=== PATIENT | male | born 1935 | race Caucasian/White ===

== ENCOUNTER 2020-02-02 07:43 | Outpatient (CLI) | payer MEDICARE, OTHER, SELFPAY ==
--- NOTE | ~2020-02-02 | NM_ITS ---
EXAMINATION: NM bone scan whole body DATE: 02/02/2020 11:41 INDICATION: Prostate cancer TECHNIQUE: 24.2 mCi Tc-99m HDP was administered intravenously. Delayed whole-body scintigrams were o btained. COMPARISON: CT abdomen and pelvis dated 11/09/2019 and 10/27/2019 and bone scan dated 06/24/2011 FINDINGS: There is prominent increased uptake along the right innominate bone and at the right sacrum with righ t-sided predominance. This corresponds to a diffuse pattern of thickened trabecula and scattered patc hy sclerosis on the CT images with no significant interval change between the 2 CT studies. Mild incr eased uptake along the moderately narrowed L2-L3 disc space where there are also degenerative endplat e changes. Typical pattern of additional likely degenerative joint centered uptake at the right gonzalez la, bilateral first metatarsophalangeal joints, right greater than left, at the right acromioclavicul ar joint, bilateral sternoclavicular joints and at the radial aspect of the left carpus. Mild uptake at the base of the cervical spine most likely degenerative in etiology although no imaging is availab le for comparison. No other suspicious foci of bone uptake to suggest metastatic disease. Mild increa sed uptake at the sternum associated with prior median sternotomy. IMPRESSION: 1. Increased uptake associated with sclerosis throughout much of the right innominate bone and sacrum . 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 Differential would include metastati c disease however the widespread distribution through contiguous bones with no evident extraosseous e xtension or without other suspicious lesions in the remainder of the skeleton would be highly unusual . 2. Several additional scattered foci of likely degenerative joint and disc centered uptake with typic al distribution. Reviewed, dictated and finalized at location A. IMPRESSION: 1. Increased uptake associated with sclerosis throughout much of the right inno minate bone and sacrum. The appearance on CT would be consistent with Paget's d isease. Differential would include metastatic disease however the widespread di stribution through contiguous bones with no evident extraosseous extension or w ithout other suspicious lesions in the remainder of the skeleton would be highl y unusual. 2. Several additional scattered foci of likely degenerative joint and disc cent ered uptake with typical distribution.
== END 2020-02-02 07:44 | disposition home or self-care (01) ==
PROVIDERS: PCP Family Medicine; Visit Provider Urology
DX: C61 Malignant neoplasm of prostate (principal)
CPT/HCPCS: 78306; A9561

== ENCOUNTER 2020-05-21 10:38 | Outpatient (CLI) | payer MEDICARE, SELFPAY ==
--- NOTE | ~2020-05-21 | CT_ITS ---
EXAMINATION: CT abdomen pelvis wo con DATE: 05/21/2020 11:02 INDICATION: Prostate cancer with skeletal metastasis TECHNIQUE: Computed tomography (CT) of the abdomen and pelvis was performed without intravenous contr ast. Automated exposure control and iterative reconstruction technique were employed. Exam dose: 469 .31 mGy-cm total exam DLP. COMPARISON: 11/09/2019 CT abdomen pelvis FINDINGS: Bilateral gynecomastia. 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 There are mil d bilateral lower lung infiltrates, atelectasis and/or fibrotic change. Status post sternotomy. Heart size is normal. Coronary artery calcifications. No pericardial or pleur al effusion. Calcified right hilar nodes. Status post cholecystectomy. There are multiple hepatic cysts. No bile duct or pancreatic duct dilata tion. Normal splenic size. Normal morphology of the adrenal glands. No renal mass lesion is evident on this limited noncontrast examination. No urinary tract calculus or hydroureteronephrosis. Moderate prostate enlargement and calcifications. There is abdominal aortic calcification but no aneurysm. No intraperitoneal or retroperitoneal or pel mynor mass lesion or adenopathy or ascites. There are numerous diverticula of the left and to a lesser extent right colon; no CT evidence of dive rticulitis. No bowel obstruction, bowel wall thickening, pneumatosis or intraperitoneal free air. There is Cotrell appearance of the right ilium bone suggestive of Paget's disease similar changes of the sacrum, present on the previous examination. Vertebral hemangiomas are again noted. 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 Reviewed, dictated and finalized at location A. 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
== END 2020-05-21 10:39 | disposition home or self-care (01) ==
PROVIDERS: PCP Family Medicine; Visit Provider Urology
DX: C61 Malignant neoplasm of prostate (principal); N28.1 Cyst of kidney, acquired
CPT/HCPCS: 74176

== ENCOUNTER 2020-07-02 09:41 | Outpatient (CLI) | payer MEDICARE, SELFPAY ==
[2020-07-02 10:28] LABS: Basophils Percent Auto 0.2 % (0.2-1.2); Eosinophils Absolute Auto 0.1 K/mm3 (0-0.3); Eosinophils Percent Auto 2.8 % (0-4.4); Hematocrit 31.7 % (42.0-52.0); Hemoglobin 10.8 g/dL (14.0-18.0); Immature Granulocyte Absolute 0.01 K/mm3 (0.00-0.031); Immature Granulocyte Percent A 0.2 % (0-0.5); Lymphocytes Absolute Auto 1.16 K/mm3 (0.9-3.2); Lymphocytes Percent Auto 22.9 % (18.3-44.2); Mean Corpuscular HGB Conc 34.1 g/dl (32-36); Mean Corpuscular Volume 94.1 fl (80-100); Mean Platelet Volume 10.4 fl (7.4-10.4); Monocytes Absolute Auto 0.4 K/mm3 (0.1-0.6); Monocytes Percent Auto 7.9 % (2.6-8.5); Neutrophils Absolute Auto 3.4 K/mm3 (1.3-6.7); Platelet Count Result 155 k/mm3 (150-375); Red Blood Count 3.37 M/mm3 (4.6-6.20); White Blood Count 5.1 K/mm3 (4.5-10.0)
[2020-07-02 10:44] LABS: Potassium 3.9 mmol/L (3.4-5.0)
[2020-07-02 10:49] LABS: Alanine Aminotransferase 11 U/L (4-50); Albumin Level 3.9 g/dL (3.5-5.1); Alkaline Phosphatase 190 U/L (38-126); Anion Gap 8 mmol/L (8-16); Aspartate Amino Transferase 26 U/L (17-59); Bilirubin,Total 0.4 mg/dL (0.2-1.3); Blood Urea Nitrogen 33 mg/dL (9-20); Calcium 8.8 mg/dL (8.4-10.2); Carbon Dioxide 28 mmol/L (22-30); Chloride 105 mmol/L (98-107); Cholesterol 137 mg/dL (0-200); Estimated Glomerular Filt Rate 36; Glucose 92 mg/dL (75-110); HDL Direct 32 mg/dL; Sodium 141 mmol/L (137-145); Triglycerides 135 mg/dL (<150)
[2020-07-02 10:55] LABS: LDL Cholesterol Direct 75 mg/dL
== END 2020-07-02 09:42 | disposition home or self-care (01) ==
LOC: ANHLAB 09:45
PROVIDERS: PCP Family Medicine; Visit Provider Family Medicine
DX: E78.2 Mixed hyperlipidemia (principal); I10 Essential (primary) hypertension; R53.83 Other fatigue; D64.9 Anemia, unspecified
CPT/HCPCS: 36415; 80053; 80061; 84443; 85025

== ENCOUNTER 2020-10-15 12:31 | Outpatient (CLI) | payer MEDICARE, SELFPAY ==
--- NOTE | ~2020-10-15 | MR_ITS ---
EXAMINATION: MR pelvis wo con DATE: 10/15/2020 14:29 INDICATION: Left hip pain TECHNIQUE: Magnetic resonance imaging (MRI) of the pelvis was performed without intravenous contrast . Sequences included full-field axial, sagittal and coronal T2-weighted FS FSE and T1-weighted FSE of the pelvis. Additional small field of view of the left hip with axial and coronal PD-weighted FS FSE . COMPARISON: Radiographs dated 10/08/2020, CT dated 05/21/2020 and bone scan dated 02/02/2020 FINDINGS: Alignment is normal. No fracture or avascular necrosis. Mild to moderate lumbar spondylosis. There i s decreased marrow T1 signal along the right iliac crest and at the S1 segment corresponding to regio ns of sclerosis with increased activity on prior bone scan which could be related to either metastati c disease or metastatic prostate cancer. More dense sclerotic bone islands along the anterior right i liac crest. There are foci of susceptibility artifact at the left greater trochanter involving the footplates of both the left gluteus medius and gluteus minimus tendons likely related to prior tendon tear repair. There is a small amount of fluid in the overlying greater trochanteric bursa consistent with mild bur sitis. There is mild retraction of the myotendinous junction at the anterior aspect of the left glute us medius medius which measures approximately 2.8 cm from the footplate consistent with partial thick ness tear. Unclear whether this preceded or is new since the prior repair. There is mild tendinopathy of the left gluteus medius medius and minimus tendons but without evident fluid signal intensity res idual/recurrent tear defect or discrete retracted tendon tear margin is appreciated. The right sided gluteal tendons are normal. The tensor fascia saira muscles are symmetric and normal in size with no s ignificant hypertrophy to suggest a functionally significant abductor tendon tear. There is asymmetri c moderate fatty atrophy of the left gluteus minimus relative to the right gluteus minimus. Remainder of the musculature of the pelvis and proximal thighs appears normal and symmetric. Mild nonuniform joint space narrowing at the anterior and posterior aspects of the left hip consisten t with mild osteoarthritis. Small partial-thickness labral tear arising at the chondral labral juncti on at the superolateral left acetabular labrum. The bilateral iliopsoas and proximal hamstring tendon s are normal. Moderate sigmoid diverticulosis without adjacent inflammatory change to suggest diverti culitis. 13 mm T2 hyperintense nodule at the transitional zone at the right side of the prostate whic h could be related to reported history of prior prostate cancer. Postoperative change of prior bilate ral inguinal hernia repairs. No pathologically enlarged pelvic/inguinal lymphadenopathy. IMPRESSION: 1. Mild left trochanteric bursitis with change of underlying prior left gluteus medius minimus and me dius tendon repairs. The repair appears grossly intact however there is some retraction of the myoten dinous junction consistent with a partial thickness tear of indeterminate chronicity, unclear whether preceding or subsequent to the repair. 2. Mild decreased marrow signal at S1 and along the right iliac crest corresponding to a region of in creased sclerosis on prior CT and increased activity on bone scan most likely related to pagetoid bernadette nge although differential would include metastatic prostate cancer. See discussion on prior bone scan dated 02/02/2020. 3. Mild left hip osteoarthritis with small tear at the superolateral left acetabular labrum. Reviewed, dictated and finalized at location A. ICATION EQUIPMENT SERVICER IMPRESSION: 1. Mild left trochanteric bursitis with change of underlying prior left gluteus medius minimus and medius te
[2020-10-15 13:22] LABS: Estimated Glomerular Filt Rate 32
== END 2020-10-15 12:32 | disposition home or self-care (01) ==
PROVIDERS: PCP Family Medicine; Visit Provider Orthopaedic Surgery
DX: R10.2 Pelvic and perineal pain (principal); M70.62 Trochanteric bursitis, left hip; M16.12 Unilateral primary osteoarthritis, left hip
CPT/HCPCS: 72195

== ENCOUNTER 2021-01-24 14:59 | Outpatient (CLI) | payer MEDICARE, SELFPAY ==
[2021-01-24 16:00] LABS: Alanine Aminotransferase 11 U/L (4-50); Albumin Level 4.1 g/dL (3.5-5.1); Alkaline Phosphatase 165 U/L (38-126); Anion Gap 9 mmol/L (8-16); Aspartate Amino Transferase 29 U/L (17-59); Bilirubin,Total 0.7 mg/dL (0.2-1.3); Blood Urea Nitrogen 29 mg/dL (9-20); Calcium 9.3 mg/dL (8.4-10.2); Carbon Dioxide 28 mmol/L (22-30); Chloride 104 mmol/L (98-107); Estimated Glomerular Filt Rate 39; Glucose 100 mg/dL (75-110); Potassium 4.2 mmol/L (3.4-5.0); Sodium 141 mmol/L (137-145)
== END 2021-01-24 15:00 | disposition home or self-care (01) ==
PROVIDERS: PCP Family Medicine; Visit Provider Family Medicine
DX: I11.9 Hypertensive heart disease without heart failure (principal)
CPT/HCPCS: 36415; 80053

== ENCOUNTER 2021-08-27 14:09 | Outpatient (CLI) | payer MEDICARE, SELFPAY ==
--- NOTE | ~2021-08-27 | CT_ITS ---
EXAMINATION: CT brain wo con DATE: 08/27/2021 14:43 INDICATION: Unspecified fall, initial encounter. TECHNIQUE: Computed tomography (CT) of the head was performed without intravenous contrast. The mA wa s adjusted according to patient size. Iterative reconstruction technique was employed. The dose-lengt h product was 605.33 mGy-cm. COMPARISON: None FINDINGS: There are small old infarcts in left cerebellum. There are scattered areas of low attenuati on in the cerebral white matter. There is no intracranial hemorrhage, acute infarction, or abnormal i ntracranial mass lesion. There is an old infarct in right frontal lobe. There is an old infarct in th e left occipital lobe. The ventricles are normal in size. There is mild mucosal thickening in the par anasal sinuses. The mastoid air cells are normal. There are likely changes of ocular lens replacement surgeries. IMPRESSION: 1. 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 2. Moderate nonspecific cerebral white matter disease, which likely represents chronic small vessel i schemic disease. Reviewed, dictated and finalized at location A. IMPRESSION: 1. 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 2. Moderate nonspecific cerebral white matter disease, which likely represents chronic small vessel ischemic disease.
[2021-08-27 15:43] LABS: Hemoglobin 10.1 g/dL (14.0-18.0); Mean Corpuscular HGB Conc 33.7 g/dl (32-36); Mean Corpuscular Hemoglobin 32.9 pg (26-34); Mean Corpuscular Volume 97.7 fl (80-100); Mean Platelet Volume 9.9 fl (7.4-10.4); Platelet Count Result 165 k/mm3 (150-375); Red Blood Count 3.07 M/mm3 (4.6-6.20); Red Cell Distribution Width 13.7 % (11.5-14.5)
[2021-08-27 15:50] LABS: Add Urine Microscopic? YES; Appearance Urine Cloudy (Clear); Bacteria Urine Trace /hpf; Bilirubin Urine Negative (Negative); Blood Urine Negative (Negative); Color Urine Yellow (Yellow); Glucose Urine UA Negative (Negative); Ketones Urine Negative (Negative); Leukocyte Esterase Ur 3+ LEU/UL (NEGATIVE); Mucus Urine Rare /lpf; Nitrate Urine Negative (Negative); Protein Urine Negative (Negative); Specific Grav Ur 1.016 (1.001-1.035); Squamous Epithelial Cell Urine Rare /hpf (Few); Urobilinogen Urine Negative mg/dL (<2.0); WBC Urine >75 /hpf (0-3)
[2021-08-27 15:55] LABS: Creatine Kinase 48 U/L (55-170)
[2021-08-27 15:58] LABS: Alanine Aminotransferase 12 U/L (4-50); Albumin Level 4.1 g/dL (3.5-5.1); Alkaline Phosphatase 142 U/L (38-126); Anion Gap 10 mmol/L (8-16); Aspartate Amino Transferase 26 U/L (17-59); Bilirubin,Total 0.6 mg/dL (0.2-1.3); Blood Urea Nitrogen 33 mg/dL (9-20); Calcium 9.2 mg/dL (8.4-10.2); Carbon Dioxide 26 mmol/L (22-30); Chloride 105 mmol/L (98-107); Estimated Glomerular Filt Rate 36; Glucose 97 mg/dL (65-110); Sodium 141 mmol/L (137-145)
== END 2021-08-27 14:10 | disposition home or self-care (01) ==
PROVIDERS: PCP Family Medicine; Visit Provider Physician Assistant
DX: D50.0 Iron deficiency anemia secondary to blood loss (chronic) (principal); G20 Parkinson's disease; I11.9 Hypertensive heart disease without heart failure; I25.10 Atherosclerotic heart disease of native coronary artery without angina pectoris; I48.0 Paroxysmal atrial fibrillation; R97.20 Elevated prostate specific antigen [PSA]; Z86.79 Personal history of other diseases of the circulatory system; E78.5 Hyperlipidemia, unspecified; Z95.2 Presence of prosthetic heart valve; R41.0 Disorientation, unspecified; R93.0 Abnormal findings on diagnostic imaging of skull and head, not elsewhere classified
CPT/HCPCS: 36415; 70450; 80053; 81001; 82550; 85027

== ENCOUNTER 2021-09-26 14:17 | Outpatient (CLI) | payer MEDICARE, SELFPAY ==
--- NOTE | ~2021-09-26 | XR_ITS ---
EXAMINATION: XR hip LT min 3V w AP pelvis DATE: 09/26/2021 14:36 INDICATION: Left hip pain. TECHNIQUE: An anteroposterior view of the pelvis and 3 views of left hip were obtained. COMPARISON: Pelvis and left hip radiographs 10/08/2020, CT abdomen and pelvis 05/21/2020 FINDINGS: Bone alignment is normal. No fracture. There are thickened trabecula in the right ilium and sacrum, consistent with Paget disease. There is mild osteoarthritis of the hips. There is moderate l umbar spondylosis. IMPRESSION: 1. Mild osteoarthritis of the hips. Reviewed, dictated and finalized at location A. INTEGRITY ANALYST
== END 2021-09-26 14:18 | disposition home or self-care (01) ==
LOC: ANHIMG 14:23
PROVIDERS: PCP Family Medicine; Visit Provider Physician Assistant
DX: M16.0 Bilateral primary osteoarthritis of hip (principal)
CPT/HCPCS: 73502

== ENCOUNTER 2022-01-05 16:36 | Inpatient (IN) | payer MEDICARE, SELFPAY ==
--- NOTE | ~2022-01-05 | CT_ITS ---
EXAMINATION: CT diagnostic chest wo con DATE: 01/05/2022 22:21 INDICATION: Dyspnea TECHNIQUE: Computed tomography (CT) of the chest was performed without intravenous contrast. Automate d exposure control and iterative reconstruction technique were employed. Exam dose: 145.65 mGy-cm to cl exam DLP. COMPARISON: January 05, 2022 2 view chest FINDINGS: Bilateral pleural plaques with calcification are identified, consistent with prior asbestos exposure. Status post sternotomy, probable coronary bypass graft surgery and either aortic valve replacement an d calcification. Recommend correlation with surgical history. Coronary artery calcifications. Normal heart size. No pericardial or pleural effusion. No hilar or mediastinal mass lesion or lymphadenopathy. Thoracic aortic aneurysm, the mid thoracic aortic arch measuring 3.2 cm, the distal aortic arch measu ring 3.5 cm diameter. The ascending aorta measures up to 3.8 cm diameter. There is mild infiltrate and/or atelectasis in the mid and lower lung zones. Mild bilateral gynecomastia. Small sliding hiatal hernia. Multiple hepatic cysts. IMPRESSION: Bilateral calcified pleural plaques consistent with prior asbestos exposure Mild mid and lower lung infiltrate since and/or atelectasis Status post sternotomy and probable coronary bypass graft surgery, possible aortic valve replacement versus aortic valve calcification Thoracic aortic aneurysm Mild bilateral gynecomastia Small sliding hiatal hernia Multiple hepatic cysts Reviewed, dictated and finalized at [facility]. Reviewed, dictated and finalized at location A. ITOMETRIST IMPRESSION: Bilateral calcified pleural plaques consistent with prior asbestos exposure Mild mid and lower lung infiltrate since and/or atelectasis Status post sternotomy and probable coronary bypass graft surgery, possible aor tic valve replacement versus aortic valve calcification Thoracic aortic aneurysm Mild bilateral gynecomastia Small sliding hiatal hernia Multiple hepatic cysts
--- NOTE | ~2022-01-05 | XR_ITS ---
XR chest 2V DATE: 01/05/2022 17:09 INDICATION: Shortness breath for 3 months TECHNIQUE: PA and lateral views COMPARISON: None FINDINGS: Status post sternotomy/coronary artery bypass graft surgery. Normal heart size. Thoracic ao rtic calcification. There is mild bibasilar atelectasis or fibrotic change. No active consolidation is evident otherwise. No pleural effusion or pulmonary vascular congestion or pneumothorax. Status post cholecystectomy. Diffuse osteopenia. IMPRESSION: Mild bibasilar atelectasis and/or fibrotic change Status post sternotomy/CABG Diffuse osteopenia Status post cholecystectomy Reviewed, dictated and finalized at location A. R MILL MANAGER
--- NOTE | 2022-01-05 16:37 | ECG_ITS ---
Measurements Intervals [place] Rate: 56 P: 19 ME: 194 QRS: 196 QRSD: 137 T: 39 QT: 455 QTc: 441 Interpretive Statements SINUS OR ECTOPIC ATRIAL BRADYCARDIA RIGHT AXIS DEVIATION RIGHT BUNDLE BRANCH BLOCK BASELINE ARTIFACT- I, II, III, AVR, AVL, AVF, V1, V3 ABNORMAL ECG Electronically Signed On 01-05-2022 20:59:57 VIDEOGAME DESIGNER by Joni Washington D.O.
[2022-01-05 16:40] VITALS: BP 149/62; PULSE 57; RESP 20; TEMP 37.2; O2SAT 96
[2022-01-05 17:21] LABS: Basophils Percent Auto 0.1 % (0.2-1.2); Eosinophils Absolute Auto 0.3 K/mm3 (0-0.3); Eosinophils Percent Auto 3.1 % (0-4.4); Hematocrit 31.7 % (42.0-52.0); Hemoglobin 10.5 g/dL (14.0-18.0); Immature Granulocyte Absolute 0.03 K/mm3 (0.00-0.031); Immature Granulocyte Percent A 0.3 % (0-0.5); Lymphocytes Absolute Auto 1.38 K/mm3 (0.9-3.2); Lymphocytes Percent Auto 15.7 % (18.3-44.2); Mean Corpuscular HGB Conc 33.1 g/dl (32-36); Mean Corpuscular Hemoglobin 32.6 pg (26-34); Mean Corpuscular Volume 98.4 fl (80-100); Mean Platelet Volume 10.2 fl (7.4-10.4); Monocytes Absolute Auto 0.6 K/mm3 (0.1-0.6); Monocytes Percent Auto 6.6 % (2.6-8.5); Neutrophils Absolute Auto 6.5 K/mm3 (1.3-6.7); Neutrophils Percent Auto 74.2 % (45.5-73.1); Platelet Count Result 160 k/mm3 (150-375); Red Blood Count 3.22 M/mm3 (4.6-6.20); Red Cell Distribution Width 14.4 % (11.5-14.5); White Blood Count 8.8 K/mm3 (4.5-10.0)
[2022-01-05 17:33] LABS: Alanine Aminotransferase 11 U/L (4-50); Albumin Level 3.9 g/dL (3.5-5.1); Alkaline Phosphatase 163 U/L (38-126); Anion Gap 8 mmol/L (8-16); Aspartate Amino Transferase 24 U/L (17-59); Bilirubin,Total 0.6 mg/dL (0.2-1.3); Blood Urea Nitrogen 29 mg/dL (9-20); Calcium 8.6 mg/dL (8.4-10.2); Carbon Dioxide 27 mmol/L (22-30); Chloride 106 mmol/L (98-107); Estimated CRCL calculation 37 ml/min; Estimated Glomerular Filt Rate 44; Glucose 94 mg/dL (65-110); Potassium 4.2 mmol/L (3.4-5.0); Sodium 141 mmol/L (137-145)
[2022-01-05 18:32] VITALS: BP 180/65; PULSE 67; RESP 16; O2SAT 97
[2022-01-05 19:16] VITALS: BP 151/62; PULSE 59; RESP 13; O2SAT 97
[2022-01-05 20:01] VITALS: BP 172/63; PULSE 60; RESP 12; O2SAT 97
--- NOTE | 2022-01-05 20:03 | ED.SOB ---
HPI - SOB/Dyspnea General Chief Complaint: Shortness of Breath/Dyspnea Stated Complaint: sob Time Seen by Provider: 01/05/22 19:12 Source: patient, family and RN notes reviewed Mode of arrival: ambulatory Limitations: no limitations History of Present Illness HPI Narrative: This is an 86 year old male with history of CAD and hypertension who presents for evaluation of dyspnea. Patient states he has been having dyspnea with exertion for 2- 3 months. Today he is reporting worsening shortness of breath. He does not walk around much but he does report he was short of breath going to bathroom today. He states he was able to walk 60 feet but does report shortness of breath. He has mild cough but he states that is due to irritation. He denies chest pain, wheezing, leg swelling or fever. He denies lung disease but he reports history of CABG. Denies history of DVT or PE. Related Data Home Medications Medication Instructions Recorded Confirmed aspirin 81 mg tablet,delayed 81 mg PO DAILY 01/22/20 09/26/21 release metoprolol tartrate 25 mg tablet 6.25 mg PO DAILY tablet 01/22/20 09/26/21 omega-3 fatty acids 1,000 mg 1,000 mg PO DAILY 01/22/20 09/26/21 capsule pyridoxine (vitamin B6) 100 mg 100 mg PO DAILY 01/22/20 09/26/21 tablet enzalutamide 40 mg capsule 80 mg PO DAILY 06/25/20 09/26/21 oxybutynin chloride 5 mg tablet 5 mg PO DAILY 10/08/20 01/06/22 hydrochlorothiazide 12.5 mg PO DAILY 01/06/22 01/06/22 lisinopril 10 mg PO DAILY 01/06/22 01/06/22 mirtazapine 30 mg PO HS 01/06/22 01/06/22 Allergies Allergy/AdvReac Type Severity Reaction Status Date / Time fesoterodine [From [facility]] Allergy Severe cannot Verified 01/05/22 16:36 move and went to ER morphine Allergy Unknown Nausea And Verified 01/05/22 16:36 Vomiting Penicillins Allergy Unknown Swelling Verified 01/05/22 16:36 Review of Systems Review of Systems: All systems reviewed & are unremarkable except as noted in HPI and below Constitutional: Constitutional: Denies chills, Denies fever(s) and Reports weakness ENT: Denies nasal congestion Cardiovascular: Cardiovascular: Denies chest pain Respiratory: Respiratory: Reports cough and Reports dyspnea Gastrointestinal: Gastrointestinal: Denies abdominal pain, Denies diarrhea and Denies nausea PMFSH Past Medical History Medical History Coronary artery disease involving [place] coronary artery of [place] heart Hypertension Left hip pain Prostate cancer metastatic Surgical History Surgical History Hx of CABG Family History Family History (Updated 01/06/22 @ 02:47 by Pennie Schroeder RN) Father Cancer Mother Cancer Social History Social History (Updated 09/26/21 @ 13:27 by Mona Woody MA) Smoking packs per day: 1 Smoking cigarettes per day: 20.0 Years smoked: 4 Smoking pack-years: 4.00 Smoking status: Former smoker Second hand tobacco smoke exposure: No Smoking end date: 11/08/1965 Alcohol intake: never Substance use: never Substance use type: does not use Gender identity (if verbalized by the patient): Male Spiritual care concerns: No Exam Const: General: no acute distress and alert Orientation/consciousness: patient oriented x3 Eyes: EOM: EOMs intact bilaterally Chest: Chest palpation & inspection: normal inspection of the chest Resp: Effort & Inspection: normal respiratory effort and no retractions Auscultation: clear to auscultation bilaterally and diminished lung sounds Cardio: Rate: regular rate Rhythm: regular rhythm Heart sounds: no murmurs GI: GI Palp: Yes Soft to palpation, No Tenderness to palpation present (GI) and No Guarding due to palpation present (GI) Auscultation: normal bowel sounds Back/Spine/Pelvis: Back: no CVA tenderness Skin: General skin exam: normal color Rashes: no rashes Neuro: General
[2022-01-05 20:35] LABS: NT Pro B Type Natriuretic Pept 1380 pg/mL (5-100); Troponin I 0.015 ng/mL (0.000-0.034)
[2022-01-05 20:42] LABS: INR 1.1; Prothrombin Time 13.7 Seconds (11.1-14.7)
[2022-01-05 20:43] LABS: Partial Thromboplastin Time 30.4 SECONDS (22.3-36.8)
[2022-01-05 20:43] LABS: Add Urine Microscopic? YES; Appearance Urine Clear (Clear); Bacteria Urine Trace /hpf; Bilirubin Urine Negative (Negative); Blood Urine 1+ (Negative); Color Urine Straw (Yellow); Glucose Urine UA Negative (Negative); Ketones Urine Negative (Negative); Leukocyte Esterase Ur 3+ LEU/UL (Negative); Mucus Urine Rare /lpf; Nitrate Urine Negative (Negative); Protein Urine Negative (Negative); Specific Grav Ur 1.011 (1.001-1.035); Urobilinogen Urine Negative mg/dL (<2.0); WBC Urine 51-75 /hpf
[2022-01-05 20:45] LABS: D Dimer 0.41 ug/mL (<0.48)
[2022-01-05 20:51] LABS: Alveolar/Arterial O2 Gradient 24.3 mmHg; Base Excess ABG 0.5 mEq/l (+/-2.0); Carboxyhemoglobin 0.3 % THb (0-2.0); Device ROOM AIR; Fractional Inspired Oxygen 21 %; HCO3 ABG 24.5 mEq/l (22.0-26.0); Methemoglobin ABG 0.1 %THb (0-1.5); Modified Allen's Test Pass; Oxygen Content ABG 15.6 %vol (16.0-22.0); Oxygen Saturation ABG 96.3 % (95.0-100.0); Oxyhemoglobin 94.2 % THb (90.0-100.0); PCO2 ABG 37.4 mmHg (35.0-45.0); PO2 ABG 80.6 mmHg (80.0-100.0); PO2 FiO2 Ratio Arterial Blood 3.84 %; Reduced Hemoglobin 5.4 %THb (0-5.0); Site Drawn RIGHT RADIAL; Total Hemoglobin 11.7 g/dL (12.0-18.0); pH ABG 7.435 (7.350-7.450)
[2022-01-05 21:51] VITALS: PULSE 69; RESP 11; O2SAT 98
[2022-01-05] MEDS: CIPROFLOXACIN 500 MG TAB PO (21:59)
[2022-01-05 22:00] VITALS: BP 139/81; PULSE 72; RESP 16; O2SAT 97
[2022-01-05 23:52] LABS: SARS-CoV-2 RNA PCR Negative
[2022-01-06] VITALS (13 sets, daily range): BP systolic 164–183; BP diastolic 68–86; PULSE 60–90; RESP 15–18; TEMP 36.1–36.9; O2SAT 94–99; BMI 23.3
--- NOTE | 2022-01-06 02:44 | ADMGEN ---
This patient, Adrian Matias, was admitted to 3 [facility] Surg Room 326-01. Patient/family oriented to hospital policies and general routines including ID bracelet, bed and alarms, visiting hours, pain management, procedures, bathroom and other care routines, personal items, smoking policy, room service/diet, and visiting hours. Information on how to activate the Rapid Response Team has been discussed. Patient/Family are encouraged to report perceived risks to care and to ask questions if they do not understand what they are told or what they should do.
--- NOTE | 2022-01-06 09:45 | PM.IMHP ---
H&P: HPI History of Present Illness Date/Time: 01/06/22 0945 Chief Complaint: Dyspnea Narrative: Patient is an 86-year-old male with a past medical history of Parkinson's, iron deficiency anemia, hypertension, prostate cancer who presented the ED for shortness of breath. Patient is currently on room air however he was on room air and he was walking was noted to have a saturation in the 80s. Patient stated that it is been getting worse over the last couple days. He also stated that he has a cough with nothing coming up and a little bit of pain and is chest however he states that it is when he coughs. He denies any nausea, vomiting, diarrhea, constipation. Patient did state that he feels weak. His biggest complaint also was his neck is in pain. He rated that pain to be a 5/10. Per nursing his daughter came up to clarify his past medical history. She also provided a med list. Patient did state that he takes his medications as indicated. He denies headache visual changes, numbness and tingling, falls, or dizziness. Patient is being admitted under observation to the hospitalist service Review of Systems Review of Systems: All systems reviewed & are unremarkable except as noted in HPI and below PMFSH Past Medical History Medical History Coronary artery disease involving [place] coronary artery of [place] heart Hypertension Left hip pain Prostate cancer metastatic Surgical History Surgical History Hx of CABG Family History Family History Father Cancer Mother Cancer Social History Social History (Updated 09/26/21 @ 13:27 by Mona Woody MA) Smoking packs per day: 1 Smoking cigarettes per day: 20.0 Years smoked: 4 Smoking pack-years: 4.00 Smoking status: Former smoker Second hand tobacco smoke exposure: No Smoking end date: 11/08/1965 Alcohol intake: never Substance use: never Substance use type: does not use Gender identity (if verbalized by the patient): Male Spiritual care concerns: No Meds Home Medications and Allergies Home Medications Medication Instructions Recorded Confirmed Type aspirin 81 mg tablet,delayed 81 mg PO HS 01/22/20 01/06/22 History release metoprolol tartrate 25 mg tablet 6.25 mg PO DAILY tablet 01/22/20 01/06/22 History omega-3 fatty acids 1,000 mg 1,000 mg PO DAILY 01/22/20 01/06/22 History capsule pyridoxine (vitamin B6) 100 mg 100 mg PO DAILY 01/22/20 01/06/22 History tablet enzalutamide 40 mg capsule 40 mg PO HS 06/25/20 01/06/22 History ferrous sulfate 325 mg (65 mg 325 mg PO BID #60 tablet 07/02/21 01/06/22 Rx iron) tablet finasteride 5 mg tablet 5 mg PO DAILY #90 tablet 07/02/21 01/06/22 Rx pantoprazole 40 mg tablet,delayed 40 mg PO QAM #90 tablet 07/02/21 01/06/22 Rx release paroxetine HCl 10 mg tablet 10 mg PO QAM #90 tablet 07/02/21 01/06/22 Rx alprazolam 0.25 mg tablet 0.25 mg PO QID PRN #120 tablet 01/02/22 01/06/22 Rx carbidopa-levodopa 1 tablet PO BID 01/06/22 01/06/22 History hydrochlorothiazide 12.5 mg PO DAILY 01/06/22 01/06/22 History hydrocodone-acetaminophen 1 tablet PO Q8H 01/06/22 01/06/22 History lisinopril 10 mg PO DAILY 01/06/22 01/06/22 History mirtazapine 30 mg PO HS 01/06/22 01/06/22 History oxybutynin chloride 5 mg PO HS 01/06/22 01/06/22 History tamsulosin 0.4 mg PO HS 01/06/22 01/06/22 History Allergies Allergy/AdvReac Type Severity Reaction Status Date / Time fesoterodine [From [facility]] Allergy Severe Unknown Verified 01/06/22 08:50 morphine Allergy Unknown Nausea And Verified 01/06/22 08:50 Vomiting Penicillins Allergy Unknown Swelling Verified 01/06/22 08:50 Vital Signs Vital Signs - 24 hr 01/05/22 16:40 01/05/22 18:32 01/05/22 19:16 Temperature 98.9 F Pulse Rate 57 L 67 59 L Respiratory Rate 20 16 13 Blood Pressur
[2022-01-06] MEDS: ALPRAZolam (*CRX) 0.25 MG TABLET PO ×2 (13:26→17:45)
[2022-01-06] MEDS: HYDROcodone/acetaminophen (*CRX) 5-325 MG TABLET 1 TAB PO ×2 (15:47→22:25)
[2022-01-06] MEDS: FERROUS SULFATE 324 MG TABLET PO (17:20)
[2022-01-06] MEDS: CARBIDOPA/LEVODOPA 25/100 MG TABLET 1 TABLET PO (17:20)
[2022-01-06] MEDS: ONDANSETRON INJ 4 MG/2 ML VIAL IV PUSH (18:45)
[2022-01-06] MEDS: MIRTAZAPINE 30 MG TABLET PO (19:55)
[2022-01-06] MEDS: ASPIRIN 81 MG ENTERIC TABLET PO (19:55)
[2022-01-06] MEDS: TAMSULOSIN HCL 0.4 MG CAPSULE PO (19:55)
[2022-01-07] VITALS (12 sets, daily range): BP systolic 140–164; BP diastolic 65–84; PULSE 67–100; RESP 16–18; TEMP 36.7–37.3; O2SAT 94–96
[2022-01-07 05:58] LABS: Basophils Percent Auto 0.1 % (0.2-1.2); Eosinophils Absolute Auto 0.1 K/mm3 (0-0.3); Eosinophils Percent Auto 0.9 % (0-4.4); Hematocrit 31.7 % (42.0-52.0); Hemoglobin 10.7 g/dL (14.0-18.0); Immature Granulocyte Absolute 0.04 K/mm3 (0.00-0.031); Immature Granulocyte Percent A 0.4 % (0-0.5); Lymphocytes Absolute Auto 1.13 K/mm3 (0.9-3.2); Lymphocytes Percent Auto 12.5 % (18.3-44.2); Mean Corpuscular HGB Conc 33.8 g/dl (32-36); Mean Corpuscular Hemoglobin 32.5 pg (26-34); Mean Corpuscular Volume 96.4 fl (80-100); Mean Platelet Volume 10.1 fl (7.4-10.4); Monocytes Absolute Auto 0.6 K/mm3 (0.1-0.6); Monocytes Percent Auto 6.7 % (2.6-8.5); Neutrophils Absolute Auto 7.2 K/mm3 (1.3-6.7); Neutrophils Percent Auto 79.4 % (45.5-73.1); Platelet Count Result 144 k/mm3 (150-375); Red Blood Count 3.29 M/mm3 (4.6-6.20)
--- NOTE | 2022-01-07 06:00 | ECHO_ITS ---
Patient Info Name: Adrian Matias Age: 86 years : 1935 Gender: Male Ht: 73 in Wt: 177 lbs BSA: 2.03 m2 HR: 87 bpm BP: 164 / 71 mmHg Heart Rhythm: Sinus Rhythm Technical Quality: Fair Exam Date: 01/07/2022 7:22 AM Exam Location: [facility] Pulmonary Patient Status: Inpatient Admit Date: 01/06/2022 Staff Ordering Physician: Giulia Olivares MD Drum Stenciler: Peggy Johns RDCS Attending Provider: Angelica Hernandez DO Referring Physician: Elise CABRERA; Exam Type: CA echo dop color flow w con Study Info Indications - dyspnea on exertion Complete two-dimensional, color flow and Doppler transthoracic echocardiogram is performed with contrast to opacify the left ventricle and to improve the deliniation of the left ventricle endocardial borders. Contrast/Agitated Saline Contrast/Ag. Saline: Definity Amount: 2.00 ml Administered By: Peggy Johns RDCS Existing IV Access: Yes IV Access Condition: patent with no signs of infiltration Summary 1. Left ventricular chamber dimension is normal. 2. Left ventricular systolic function is normal, estimated at 60-65%. 3. There is moderately increased left ventricular wall thickness. 4. The left ventricular diastolic function is grade I diastolic dysfunction. 5. Left atrial chamber dimension is severely enlarged. 6. Right atrial chamber dimension is moderately enlarged. 7. 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 8. There is trace regurgitation of the bioprosthetic aortic valve. 9. There is mild mitral valve regurgitation. 10. There is mild to moderate tricuspid valve regurgitation. 11. Mild pulmonary hypertension, estimated pulmonary arterial systolic pressure is 44 mmHg. Left Ventricle Left ventricular chamber dimension is normal. Left ventricular systolic function is normal, estimated at 60-65%. There is moderately increased left ventricular wall thickness. The left ventricular diastolic function is grade I diastolic dysfunction. Right Ventricle Right ventricular chamber dimension is normal. Right ventricular systolic function is normal. Left Atria Left atrial chamber dimension is severely enlarged. Right Atria Right atrial chamber dimension is moderately enlarged. Atrial Septum Intact interatrial septum visualized by color flow imaging. 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 There is trace regurgitation of the bioprosthetic aortic valve. Pulmonic Valve The pulmonic valve is normal. There is no pulmonic valve stenosis. There is trace pulmonic regurgitation. Mitral Valve The mitral valve has thickened leaflets. There is no mitral valve stenosis. There is mild mitral valve regurgitation. Tricuspid Valve The tricuspid valve leaflets are normal. There is no significant tricuspid valve stenosis. There is mild to moderate tricuspid valve regurgitation. Mild pulmonary hypertension, estimated pulmonary arterial systolic pressure is 44 mmHg. Pericardium/Pleural The pericardium appears normal. There is no pericardial effusion. Inferior Vena Cava Normal inferior vena cava with >50% collapse upon inspiration consistent with normal right atrial pressure, 10 mmHg. Aorta The aortic root size at the sin
[2022-01-07] MEDS: HYDROcodone/acetaminophen (*CRX) 5-325 MG TABLET 1 TAB PO ×3 (06:12→21:43)
[2022-01-07 06:16] LABS: Alanine Aminotransferase 8 U/L (4-50); Albumin Level 3.8 g/dL (3.5-5.1); Alkaline Phosphatase 140 U/L (38-126); Anion Gap 9 mmol/L (8-16); Aspartate Amino Transferase 28 U/L (17-59); Bilirubin,Total 0.9 mg/dL (0.2-1.3); Blood Urea Nitrogen 23 mg/dL (9-20); Calcium 8.9 mg/dL (8.4-10.2); Carbon Dioxide 25 mmol/L (22-30); Chloride 107 mmol/L (98-107); Estimated CRCL calculation 37 ml/min; Estimated Glomerular Filt Rate 44; Glucose 110 mg/dL (65-110); Magnesium 1.8 mg/dL (1.6-2.3); Potassium 3.6 mmol/L (3.4-5.0); Sodium 141 mmol/L (137-145)
[2022-01-07] MEDS: PERFLUTREN LIPID MICROSPHERES 1.5 ML VIAL DILUTED TO 10 ML TOTAL VOLUME IV PUSH (08:17)
--- NOTE | 2022-01-07 08:17 | IVDEFINITY ---
Prior to administration of IV Definity the patient was educated on the risks and benefits of the imaging enhancing agent including potential adverse side effects. The patient verbalized understanding. Allergies were verified. No exclusion criteria were identified and at least one of the following inclusion criteria were met: 1) physician request, 2) patient technically difficult to image (per the [place] [employer] guidelines of two or more segments not discernable within the apical view), or 3) questionable left ventricular function. ?
[2022-01-07] MEDS: FINASTERIDE 5 MG TABLET PO (08:44)
[2022-01-07] MEDS: PARoxetine 10 MG TABLET PO (08:44)
[2022-01-07] MEDS: PYRIDOXINE HCL 50 MG TABLET 100 MG PO (08:44)
[2022-01-07] MEDS: FERROUS SULFATE 324 MG TABLET PO ×2 (08:45→17:19)
[2022-01-07] MEDS: OMEGA 3 POLYUNSAT FATTY ACIDS 1 GM CAP PO (08:45)
[2022-01-07] MEDS: hydroCHLOROthiazide 12.5 MG CAPSULE PO (08:45)
[2022-01-07] MEDS: ALPRAZolam (*CRX) 0.25 MG TABLET PO ×2 (08:45→20:17)
[2022-01-07] MEDS: lisinopriL 10 MG TABLET PO (08:45)
[2022-01-07] MEDS: PANTOPRAZOLE 40 MG TABLET PO (08:45)
[2022-01-07] MEDS: METOPROLOL TARTRATE 12.5 MG TABLET PO ×2 (09:34→20:41)
[2022-01-07] MEDS: amLODIPine BESYLATE 5 MG TABLET PO (09:35)
--- NOTE | 2022-01-07 11:40 | PM.IMPN ---
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 Status: Acute Assessment and Plan: Chest x-ray shows exposure Chronic finding Patient will need a home O2 eval The supply the cause of the dyspnea on exertion (2) Dyspnea on exertion: Code(s): R06.00 - Dyspnea, unspecified Status: Acute Assessment and Plan: Patient was noted have a saturation in the 80s X-ray did show asbestos exposure Patient remains on room air and saturations are in the 90s Continue to trend SpO2 (3) Fluid overload: Code(s): E87.70 - Fluid overload, unspecified Status: Acute Assessment and Plan: BNP mildly elevated Echo was ordered and pending Chest x-ray does not show any cardiomegaly or pulmonary congestion Trend urine status (4) Anxiety: Code(s): F41.9 - Anxiety disorder, unspecified Status: Acute Assessment and Plan: Continue Xanax from home (5) Prostate cancer: Code(s): C61 - Malignant neoplasm of prostate Status: Chronic Assessment and Plan: Patient does have prostate cancer with metastasis Xtandi, family is going to bring in today Restart after pharmacy checks it (6) Anemia: Code(s): D64.9 - Anemia, unspecified Status: Acute Assessment and Plan: Hemoglobin hematocrit 10.7/31.7 Looks to be a chronic iron deficiency anemia Continue home ferrous sulfate 325 mg p.o. twice a day Trend labs Consider anemia labs if trending down (7) Parkinson disease: Code(s): G20 - Parkinson's disease Status: Acute Assessment and Plan: Stopped carbidopa levodopa Per his grand daughter, patient stopped this medication a while back because it had made him sick Zofran has been added PT/OT (8) Hypertension: Code(s): I10 - Essential (primary) hypertension Status: Acute Assessment and Plan: Current blood pressure 164/71 Continue home medications including hydrochlorothiazide 12.5, lisinopril 10, metoprolol 6.25 Changed his metoprolol from 6.25 to 12.5mg PO BID, and added amlodipine 5mg PO Daily Trend blood pressure Adjust as indicated (9) UTI (urinary tract infection): Code(s): N39.0 - Urinary tract infection, site not specified Status: Acute Assessment and Plan: UA: found Clear straw colored urine with Ur Blood 1+, Leukocyte Esterase 3+, WBC 51-75, Trace bacteria Urine culture found Enterococcus species Changed antibiotics to Vanc Await sensitivities for proper PO antibiotic Trend labs (10) Generalized weakness: Code(s): R53.1 - Weakness Status: Acute Assessment and Plan: Unable to get to the bathroom this am Probably due to the UTI Changed antibiotics Will await sensitivities Time Spent With Patient Time with patient: Greater than 35 minutes Subjective Date/time seen: 01/07/22 11:40 Interval history: Date/Time: 01/06/22 4159 Narrative: Patient is an 86-year-old male with a past medical history of Parkinson's, iron deficiency anemia, hypertension, prostate cancer who presented the ED for shortness of breath. Patient is currently on room air however he was on room air and he was walking was noted to have a saturation in the 80s. Patient stated that it is been getting worse over the last couple days. He also stated that he has a cough with nothing coming up and a little bit of pain and is chest however he states that it is when he coughs. He denies any nausea, vomiting, diarrhea, constipation. Patient did state that he feels weak. His biggest complaint also was his neck is in pain. He rated that pain to be a 5/10. Per nursing his daughter came up to clarify his past medical history. She also provided a med list. Patient did state that he takes his medications
--- NOTE | 2022-01-07 11:40 | P.PNIM_ITS ---
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 Status: Acute Assessment and Plan: * Chest x-ray shows exposure * Chronic finding * Patient will need a home O2 eval * The supply the cause of the dyspnea on exertion (2) Dyspnea on exertion: Code(s): R06.00 - Dyspnea, unspecified Status: Acute Assessment and Plan: * Patient was noted have a saturation in the 80s * X-ray did show asbestos exposure * Patient remains on room air and saturations are in the 90s * Continue to trend SpO2 (3) Fluid overload: Code(s): E87.70 - Fluid overload, unspecified Status: Acute Assessment and Plan: * BNP mildly elevated * Echo was ordered and pending * Chest x-ray does not show any cardiomegaly or pulmonary congestion * Trend urine status (4) Anxiety: Code(s): F41.9 - Anxiety disorder, unspecified Status: Acute Assessment and Plan: * Continue Xanax from home (5) Prostate cancer: Code(s): C61 - Malignant neoplasm of prostate Status: Chronic Assessment and Plan: * Patient does have prostate cancer with metastasis * Xtandi, family is going to bring in today * Restart after pharmacy checks it (6) Anemia: Code(s): D64.9 - Anemia, unspecified Status: Acute Assessment and Plan: * Hemoglobin hematocrit 10.7/31.7 * Looks to be a chronic iron deficiency anemia * Continue home ferrous sulfate 325 mg p.o. twice a day * Trend labs * Consider anemia labs if trending down (7) Parkinson disease: Code(s): G20 - Parkinson's disease Status: Acute Assessment and Plan: * Stopped carbidopa levodopa * Per his grand daughter, patient stopped this medication a while back because it had made him sick * Zofran has been added * PT/OT (8) Hypertension: Code(s): I10 - Essential (primary) hypertension Status: Acute Assessment and Plan: * Current blood pressure 164/71 * Continue home medications including hydrochlorothiazide 12.5, lisinopril 10, metoprolol 6.25 * Changed his metoprolol from 6.25 to 12.5mg PO BID, and added amlodipine 5mg PO Daily * Trend blood pressure * Adjust as indicated (9) UTI (urinary tract infection): Code(s): N39.0 - Urinary tract infection, site not specified Status: Acute Assessment and Plan: * UA: found Clear straw colored urine with Ur Blood 1+, Leukocyte Esterase 3+, WBC 51-75, Trace bacteria * Urine culture found Enterococcus species * Changed antibiotics to Vanc * Await sensitivities for proper PO antibiotic * Trend labs (10) Generalized weakness: Code(s): R53.1 - Weakness Status: Acute Assessment and Plan: * Unable to get to the bathroom this am * Probably due to the UTI * Changed antibiotics * Will await sensitivities Time Spent With Patient Time with patient: Greater than 35 minutes Subjective Date/time seen: 01/07/22 11:40 Interval history: Date/Time: 01/06/22 0945 Narrative: Patient is an 86-year-old male with a past medical history of Parkinson's, iron deficiency anemia, hypertension, prostate cancer who presented the ED for shortness of breath. Patient is currently on room air however he was
--- NOTE | 2022-01-07 12:03 | PHAR ---
DRUG NAME: XTANDI INGREDIENTS: ENZALUTAMIDE -- 40 MG RELATED DOCUMENTS: DRUGDEX EVALUATIONS - ENZALUTAMIDE COLOR: WHITE TO OFF-WHITE SHAPE: OBLONG IMPRINT: ENZ FORM: ORAL CAPSULE, LIQUID FILLED DIRECTIONS STATE 4 CAPUSLES DAILY
[2022-01-07] MEDS: BISACODYL 10 MG SUPPOSITORY RECTAL (12:44)
[2022-01-07] MEDS: MIRTAZAPINE 30 MG TABLET PO (20:17)
[2022-01-07] MEDS: ASPIRIN 81 MG ENTERIC TABLET PO (20:17)
[2022-01-07] MEDS: TAMSULOSIN HCL 0.4 MG CAPSULE PO (20:17)
[2022-01-08] VITALS (9 sets, daily range): BP systolic 159; BP diastolic 69; PULSE 50–86; RESP 16; TEMP 36.3; O2SAT 97–98
[2022-01-08] MEDS: HYDROcodone/acetaminophen (*CRX) 5-325 MG TABLET 1 TAB PO ×2 (05:47→13:17)
[2022-01-08 05:52] LABS: Basophils Percent Auto 0.1 % (0.2-1.2); Eosinophils Absolute Auto 0.2 K/mm3 (0-0.3); Eosinophils Percent Auto 2.1 % (0-4.4); Hematocrit 30.9 % (42.0-52.0); Hemoglobin 10.6 g/dL (14.0-18.0); Immature Granulocyte Absolute 0.02 K/mm3 (0.00-0.031); Immature Granulocyte Percent A 0.2 % (0-0.5); Lymphocytes Absolute Auto 1.83 K/mm3 (0.9-3.2); Lymphocytes Percent Auto 20.6 % (18.3-44.2); Mean Corpuscular HGB Conc 34.3 g/dl (32-36); Mean Corpuscular Volume 96.3 fl (80-100); Mean Platelet Volume 9.7 fl (7.4-10.4); Monocytes Absolute Auto 0.8 K/mm3 (0.1-0.6); Monocytes Percent Auto 8.7 % (2.6-8.5); Neutrophils Absolute Auto 6.1 K/mm3 (1.3-6.7); Neutrophils Percent Auto 68.3 % (45.5-73.1); Platelet Count Result 144 k/mm3 (150-375); Red Blood Count 3.21 M/mm3 (4.6-6.20); White Blood Count 8.9 K/mm3 (4.5-10.0)
[2022-01-08 06:08] LABS: Alanine Aminotransferase 10 U/L (4-50); Albumin Level 3.8 g/dL (3.5-5.1); Alkaline Phosphatase 128 U/L (38-126); Anion Gap 6 mmol/L (8-16); Aspartate Amino Transferase 27 U/L (17-59); Bilirubin,Total 0.7 mg/dL (0.2-1.3); Blood Urea Nitrogen 31 mg/dL (9-20); Calcium 8.8 mg/dL (8.4-10.2); Carbon Dioxide 30 mmol/L (22-30); Chloride 104 mmol/L (98-107); Estimated CRCL calculation 31 ml/min; Estimated Glomerular Filt Rate 36; Glucose 103 mg/dL (65-110); Magnesium 1.9 mg/dL (1.6-2.3); Potassium 3.4 mmol/L (3.4-5.0); Sodium 140 mmol/L (137-145)
[2022-01-08] MEDS: POTASSIUM CHLORIDE 20 MEQ TABLET 40 MEQ PO (08:37)
[2022-01-08] MEDS: lisinopriL 20 MG TABLET PO (08:38)
[2022-01-08] MEDS: PYRIDOXINE HCL 50 MG TABLET 100 MG PO (08:38)
[2022-01-08] MEDS: BENZOCAINE/MENTHOL (*BKC) 18 EA LOZENGE 1 LOZENGE PO (08:38)
[2022-01-08] MEDS: PANTOPRAZOLE 40 MG TABLET PO (08:39)
[2022-01-08] MEDS: hydroCHLOROthiazide 12.5 MG CAPSULE PO (08:39)
[2022-01-08] MEDS: OMEGA 3 POLYUNSAT FATTY ACIDS 1 GM CAP PO (08:39)
[2022-01-08] MEDS: FERROUS SULFATE 324 MG TABLET PO (08:39)
[2022-01-08] MEDS: PARoxetine 10 MG TABLET PO (08:39)
[2022-01-08] MEDS: FINASTERIDE 5 MG TABLET PO (08:39)
[2022-01-08] MEDS: NITROFURANTOIN MONOHYD MACROCR 100 MG CAP PO (08:40)
--- NOTE | 2022-01-08 08:45 | PM.DS ---
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 Status: Acute Assessment and Plan: Chest x-ray shows exposure Chronic finding Patient will need a home O2 eval The supply the cause of the dyspnea on exertion (2) Dyspnea on exertion: Code(s): R06.00 - Dyspnea, unspecified Status: Acute Assessment and Plan: Patient was noted have a saturation in the 80s X-ray did show asbestos exposure Patient remains on room air and saturations are in the 90s Continue to trend SpO2 (3) Fluid overload: Code(s): E87.70 - Fluid overload, unspecified Status: Acute Assessment and Plan: BNP mildly elevated Echo EF of 60-65% with a grade 1 diastolic dysfunction Chest x-ray does not show any cardiomegaly or pulmonary congestion Trend urine status (4) Anxiety: Code(s): F41.9 - Anxiety disorder, unspecified Status: Acute Assessment and Plan: Continue Xanax from home (5) Prostate cancer: Code(s): C61 - Malignant neoplasm of prostate Status: Chronic Assessment and Plan: Patient does have prostate cancer with metastasis Xtandi, family is going to bring in today Restart after pharmacy checks it (6) Anemia: Code(s): D64.9 - Anemia, unspecified Status: Acute Assessment and Plan: Hemoglobin hematocrit 10.6/30.9 Looks to be a chronic iron deficiency anemia Continue home ferrous sulfate 325 mg p.o. twice a day Trend labs Consider anemia labs if trending down (7) Parkinson disease: Code(s): G20 - Parkinson's disease Status: Acute Assessment and Plan: Stopped carbidopa levodopa Per his grand daughter, patient stopped this medication a while back because it had made him sick Zofran has been added PT/OT (8) Hypertension: Code(s): I10 - Essential (primary) hypertension Status: Acute Assessment and Plan: Current blood pressure 159/69 Continue home medications including hydrochlorothiazide 12.5, lisinopril 10, metoprolol 6.25 Changed his metoprolol from 6.25 to 12.5mg PO BID, and added amlodipine 5mg PO Daily Trend blood pressure Adjust as indicated (9) UTI (urinary tract infection): Code(s): N39.0 - Urinary tract infection, site not specified Status: Acute Assessment and Plan: UA: found Clear straw colored urine with Ur Blood 1+, Leukocyte Esterase 3+, WBC 51-75, Trace bacteria Urine culture found Enterococcus species Changed antibiotics to Vanc Await sensitivities for proper PO antibiotic Trend labs (10) Generalized weakness: Code(s): R53.1 - Weakness Status: Acute Assessment and Plan: Unable to get to the bathroom this am Probably due to the UTI Changed antibiotics Will await sensitivities DS: Summary Hospital Course Hospital Course: Patient is an 86-year-old male with a past medical history of iron deficiency anemia, hypertension, prostate cancer who presented to ED with shortness of breath. Upon arrival to the ED patient was noted to be in the 80s while walking. And stated that it has been getting worse over last couple days. UA did indicate the patient had a UTI and urine culture did grow back Enterococcus species. Patient was started on IV ceftriaxone and was changed to vancomycin. Patient will be discharged on Macrobid. Patient was noted to also be hypertensive with a blood pressure in the 160s 170s over 60s 70s systolic clean diastolic. Metoprolol was changed from 6.25-12.5 p.o. b.i.d.. Amlodipine 5 mg has also been added and blood pressure has come down and is 140-150s over 60s. Patient has been work with PT and OT as well and will get home O2 eval. Echo was
--- NOTE | 2022-01-08 08:45 | P.DS_ITS ---
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 Status: Acute Assessment and Plan: * Chest x-ray shows exposure * Chronic finding * Patient will need a home O2 eval * The supply the cause of the dyspnea on exertion (2) Dyspnea on exertion: Code(s): R06.00 - Dyspnea, unspecified Status: Acute Assessment and Plan: * Patient was noted have a saturation in the 80s * X-ray did show asbestos exposure * Patient remains on room air and saturations are in the 90s * Continue to trend SpO2 (3) Fluid overload: Code(s): E87.70 - Fluid overload, unspecified Status: Acute Assessment and Plan: * BNP mildly elevated * Echo EF of 60-65% with a grade 1 diastolic dysfunction * Chest x-ray does not show any cardiomegaly or pulmonary congestion * Trend urine status (4) Anxiety: Code(s): F41.9 - Anxiety disorder, unspecified Status: Acute Assessment and Plan: * Continue Xanax from home (5) Prostate cancer: Code(s): C61 - Malignant neoplasm of prostate Status: Chronic Assessment and Plan: * Patient does have prostate cancer with metastasis * Xtandi, family is going to bring in today * Restart after pharmacy checks it (6) Anemia: Code(s): D64.9 - Anemia, unspecified Status: Acute Assessment and Plan: * Hemoglobin hematocrit 10.6/30.9 * Looks to be a chronic iron deficiency anemia * Continue home ferrous sulfate 325 mg p.o. twice a day * Trend labs * Consider anemia labs if trending down (7) Parkinson disease: Code(s): G20 - Parkinson's disease Status: Acute Assessment and Plan: * Stopped carbidopa levodopa * Per his grand daughter, patient stopped this medication a while back because it had made him sick * Zofran has been added * PT/OT (8) Hypertension: Code(s): I10 - Essential (primary) hypertension Status: Acute Assessment and Plan: * Current blood pressure 159/69 * Continue home medications including hydrochlorothiazide 12.5, lisinopril 10, metoprolol 6.25 * Changed his metoprolol from 6.25 to 12.5mg PO BID, and added amlodipine 5mg PO Daily * Trend blood pressure * Adjust as indicated (9) UTI (urinary tract infection): Code(s): N39.0 - Urinary tract infection, site not specified Status: Acute Assessment and Plan: * UA: found Clear straw colored urine with Ur Blood 1+, Leukocyte Esterase 3+, WBC 51-75, Trace bacteria * Urine culture found Enterococcus species * Changed antibiotics to Vanc * Await sensitivities for proper PO antibiotic * Trend labs (10) Generalized weakness: Code(s): R53.1 - Weakness Status: Acute Assessment and Plan: * Unable to get to the bathroom this am * Probably due to the UTI * Changed antibiotics * Will await sensitivities DS: Summary Hospital Course Hospital Course: Patient is an 86-year-old male with a past medical history of iron deficiency anemia, hypertension, prostate cancer who presented to ED with shortness of breath. Upon arrival to the ED patient was noted to be in the 80s while
[2022-01-08] MEDS: METOPROLOL TARTRATE 12.5 MG TABLET PO (10:14)
--- NOTE | 2022-01-08 11:14 | PCRTNOTE ---
HOME O2 EVAL COMPLETE, NO REQUIREMENTS.
[2022-01-08 13:23] LABS: EDCOVIDSCREEN Negative (Negative)
== END 2022-01-08 14:10 | disposition home health service (06) | DRG 689 ==
LOC: ANHED 19:22 → ANH3MEDSUR 01-06 00:53
PROVIDERS: Emergency Medicine; Admitting Provider Internal Medicine; Emergency Provider General Practice; PCP Family Medicine; Visit Provider Nurse Practitioner
DX: N39.0 Urinary tract infection, site not specified (principal); I50.41 Acute combined systolic (congestive) and diastolic (congestive) heart failure; C79.9 Secondary malignant neoplasm of unspecified site; I25.10 Atherosclerotic heart disease of native coronary artery without angina pectoris; C61 Malignant neoplasm of prostate; G20 Parkinson's disease; M54.2 Cervicalgia; Z80.9 Family history of malignant neoplasm, unspecified; J61 Pneumoconiosis due to asbestos and other mineral fibers; R06.00 Dyspnea, unspecified; I11.0 Hypertensive heart disease with heart failure; F31.9 Bipolar disorder, unspecified; D64.9 Anemia, unspecified; B95.2 Enterococcus as the cause of diseases classified elsewhere; Z95.1 Presence of aortocoronary bypass graft; Z20.822 Contact with and (suspected) exposure to COVID-19; Z87.891 Personal history of nicotine dependence; Z79.82 Long term (current) use of aspirin; Z79.899 Other long term (current) drug therapy; R53.1 Weakness
CPT/HCPCS: 36415; 36600; 71046; 71250; 80053; 81001; 82375; 82805; 83050; 83735; 83880; 84484; 85025; 85380; 85610; 85730; 87040; 87077; 87086; 87088; 87186; 87426; 93005; 94618; 96375; 96376; 97161; 97167; 99285; A9270; C8929; C9803; G0378; J1956; J2405; J3370; Q9957; U0003; U0005

== ENCOUNTER 2022-01-09 21:10 | Observation (INO) | payer MEDICARE, SELFPAY ==
--- NOTE | ~2022-01-09 | XR_ITS ---
XR finger 2nd RT min 2V 01/09/2022 22:40 Indication: Right second finger pain Procedure: 4 views right second finger Comparison: No prior studies for comparison. Findings: There is moderate polyarticular osteoarthritis. No acute fracture, subluxation or dislocati on. No significant soft tissue abnormality. No foreign body. 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 Reviewed, dictated and finalized at location A. 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
--- NOTE | ~2022-01-09 | XR_ITS ---
XR chest 2V 01/09/2022 22:39 Indication: Shortness of breath Procedure: 2 view chest Comparison: 01/05/2022 Findings: Status post median sternotomy for CABG. Left basilar infiltrates, most likely atelectasis. No focal pneumonia, edema or effusion. No pneumothorax. There are cholecystectomy clips in the right upper abdomen. There is evidence for chronic granulomatous disease. Impression: 1: Left basilar atelectasis. Reviewed, dictated and finalized at location A. ERTY DEVELOPER Impression: 1: Left basilar atelectasis.
--- NOTE | ~2022-01-09 | CT_ITS ---
EXAMINATION: CT brain wo con DATE: 01/09/2022 22:31 INDICATION: Patient found on bladder through fluoroscopy. Confusion. Recent UTI. TECHNIQUE: Computed tomography (CT) of the head was performed without intravenous contrast. The dose- length product was 605.33 mGy-cm. Automated exposure control and iterative reconstruction technique w ere employed. COMPARISON: CT dated 08/27/2021 FINDINGS: Generalized atrophy. There are scattered moderate periventricular and subcortical white mat ter changes, most likely related to small vessel ischemic disease (microangiopathy). There are chroni c infarctions of the right frontal lobe, right cerebellum and left occipital lobe. No midline shift. Basilar cisterns are patent. There is intracranial atherosclerosis. Paranasal sinuses and mastoids ar e pneumatized. No depressed skull fractures. IMPRESSION: 1. No acute intracranial abnormality. 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 3: Chronic age-related findings. Reviewed, dictated and finalized at location A. ERENCE MANAGER IMPRESSION: 1. No acute intracranial abnormality. 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 3: Chronic age-related findings.
--- NOTE | ~2022-01-09 | CT_ITS ---
EXAMINATION: CT cervical spine wo con DATE: 01/09/2022 22:47 INDICATION: Neck pain. Found on floor. Confusion. TECHNIQUE: Computed tomography (CT) of the cervical spine was performed without intravenous contrast. The dose-length product was 264 mGy-cm. Automated exposure control and iterative reconstruction tech nique were employed. COMPARISON: None FINDINGS: There is degenerative anterolisthesis at C6-7 secondary to facet hypertrophy. There is mild multilevel uncinate and facet degenerative change. Vertebral body heights are maintained. No fractur e or traumatic malalignment. No evidence for perched facet. Odontoid process is normal. There is apic al pleural thickening/scarring. There is intracranial atherosclerosis. Mastoids are pneumatized. Cran iovertebral junction is normal. No paraspinal soft tissue abnormality. IMPRESSION: 1. No acute abnormality of the cervical spine. 2: Moderate cervical spondylosis. Reviewed, dictated and finalized at location A. MACHINE OPERATOR HELPER
--- NOTE | ~2022-01-09 | XR_ITS ---
EXAMINATION: XR foot RT min 3V DATE: 01/12/2022 13:40 INDICATION: Right foot pain TECHNIQUE: Dorsoplantar, lateral, and 2 oblique views of the right foot were obtained. COMPARISON: None. 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 Hallux valgus is n oted. No fracture is identified. There is mild osteoarthritis of multiple interphalangeal joints. The soft tissues are unremarkable. IMPRESSION: 1. 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 Reviewed, dictated and finalized at location B. NGUAL SPEECH THERAPIST
[2022-01-09 21:22] VITALS: BP 104/48; PULSE 67; RESP 18; TEMP 36.6; O2SAT 98
[2022-01-09 21:43] VITALS: RESP 18; O2SAT 98
[2022-01-09 21:46] VITALS: BP 130/58; PULSE 69; RESP 18; O2SAT 98
--- NOTE | 2022-01-09 21:46 | PC.NURSE ---
patient states was in bathroom and then was on floor does not know how he got onto floor. denies hitting head
--- NOTE | 2022-01-09 22:08 | ECG_ITS ---
Measurements Intervals Ailey Rate: 69 P: 60 IN: 177 QRS: -43 QRSD: 147 T: 31 QT: 442 QTc: 477 Interpretive Statements SINUS RHYTHM LEFT AXIS DEVIATION [QRS AXIS < -30] RIGHT BUNDLE BRANCH BLOCK [120+ ms QRS DURATION, UPRIGHT V1, 40+ ms S IN I/aVL/V4/V5/V6] MODERATE VOLTAGE CRITERIA FOR LVH, CONSIDER NORMAL VARIANT [MEETS CRITERIA IN ONE OF: R(aVL), S(V1), R(V5), R(V5/V6)+S(V1)] COMPARED TO ECG 01/05/2022 16:44:16 HEART RATE HAS INCREASED LEFT-AXIS DEVIATION NOW PRESENT ABNORMAL EKG Electronically Signed On 01-10-2022 14:20:10 FOUNDRY FINISHER by Presley Shoemaker M.D.
--- NOTE | 2022-01-09 22:18 | PC.NURSE ---
pt to ct
--- NOTE | 2022-01-09 22:21 | ED.FALL ---
HPI - Fall General Chief Complaint: Fall Stated Complaint: unwitnessed fall, c/o R finger injury Time Seen by Provider: 01/09/22 21:31 Source: patient and family Mode of arrival: ambulatory Limitations: no limitations History of Present Illness HPI Narrative: Patient is an 89-year-old male who presents to the ED with complaints of a fall. Patient's granddaughter/medical power of printed circuit boards contact printer is at bedside and assisted with information. Patient was seen in the ED on Wednesday, 01/05, for dyspnea on exertion. He was found to be hypoxic and have a UTI and was admitted to the hospital at that time. His culture grew out Enterococcus and he was given vancomycin inpatient. He was discharged home yesterday with Macrobid. He is still taking this. Patient's granddaughter mentions that the patient was initially going to go to a senior care facility upon discharge, but later refused this. She reports that patient has been weak and in and out of normal mentation since his discharge home. He has been confused today and requiring family members to assist with ambulation and fill in information that occurred over the past couple days. Patient's granddaughter states that he fell sometime this evening, likely around 7 PM in the bathroom. Patient is unsure of how he fell, but reported having lightheadedness prior to the fall. He is unsure if he hit his head or lost consciousness. Patient currently complains of pain to his posterior neck and right second finger. He otherwise denies any fevers, chills, nausea, vomiting, increased shortness of breath, chest pain, abdominal pain, back pain, hematuria, rectal bleeding. Related Data Home Medications Medication Instructions Recorded Confirmed aspirin 81 mg tablet,delayed 81 mg PO HS 01/22/20 01/06/22 release omega-3 fatty acids 1,000 mg 1,000 mg PO DAILY 01/22/20 01/06/22 capsule pyridoxine (vitamin B6) 100 mg 100 mg PO DAILY 01/22/20 01/06/22 tablet enzalutamide 40 mg capsule 40 mg PO HS 06/25/20 01/06/22 hydrochlorothiazide 12.5 mg PO DAILY 01/06/22 01/06/22 mirtazapine 30 mg PO HS 01/06/22 01/06/22 oxybutynin chloride 5 mg PO HS 01/06/22 01/06/22 tamsulosin 0.4 mg PO HS 01/06/22 01/06/22 Allergies Allergy/AdvReac Type Severity Reaction Status Date / Time fesoterodine [From Toviaz] Allergy Severe Unknown Verified 01/10/22 02:43 morphine Allergy Unknown Nausea And Verified 01/10/22 02:43 Vomiting Penicillins Allergy Unknown Swelling Verified 01/10/22 02:43 Review of Systems Review of Systems: CONSTITUTIONAL: Denies fever, chills, or sweats. CARDIOVASCULAR: Denies chest pain, palpitations, or edema. RESPIRATORY: Denies cough or increased dyspnea. GASTROINTESTINAL: Denies abdominal pain, nausea, vomiting, diarrhea, rectal bleeding. GENITOURINARY: Denies dysuria or hematuria. MUSCULOSKELETAL: Reports pain to R 2nd finger, neck pain. Denies back pain or myalgia. NEUROLOGIC: Reports lightheadedness, confusion, disorientation, generalized weakness. Denies headache, numbness, focal weakness. All systems reviewed & are unremarkable except as noted in HPI and below PMFSH Past Medical History Medical History Coronary artery disease involving [place] coronary artery of [place] heart Hypertension Left hip pain Prostate cancer metastatic Surgical History Surgical History Hx of CABG Family History Family History Father Cancer Mother Cancer Social History Social History Smoking packs per day: 1 Smoking cigarettes per day: 20.0 Years smoked: 4 Smoking pack-years: 4.00 Smoking status: Former smoker Second hand tobacco smoke exposure: No Smoking end date: 11/08/1965 Alcohol intake: never Substance use: never Substance use type: does not use Gender identi
[2022-01-09 23:12] LABS: Basophils Percent Auto 0.2 % (0.2-1.2); Eosinophils Absolute Auto 0.3 K/mm3 (0-0.3); Eosinophils Percent Auto 2.9 % (0-4.4); Hemoglobin 11.2 g/dL (14.0-18.0); Immature Granulocyte Absolute 0.03 K/mm3 (0.00-0.031); Immature Granulocyte Percent A 0.3 % (0-0.5); Immature Platelet Fraction Pct 3.2 % (0.9-11.2); Lymphocytes Absolute Auto 1.22 K/mm3 (0.9-3.2); Lymphocytes Percent Auto 11.3 % (18.3-44.2); Mean Corpuscular HGB Conc 32.9 g/dl (32-36); Mean Corpuscular Hemoglobin 32.2 pg (26-34); Mean Corpuscular Volume 97.7 fl (80-100); Mean Platelet Volume 10.3 fl (7.4-10.4); Monocytes Absolute Auto 0.8 K/mm3 (0.1-0.6); Monocytes Percent Auto 7.6 % (2.6-8.5); Neutrophils Absolute Auto 8.4 K/mm3 (1.3-6.7); Neutrophils Percent Auto 77.7 % (45.5-73.1); Platelet Count Result 160 k/mm3 (150-375); Red Blood Count 3.48 M/mm3 (4.6-6.20); Red Cell Distribution Width 14.1 % (11.5-14.5); White Blood Count 10.8 K/mm3 (4.5-10.0)
[2022-01-09 23:32] VITALS: BP 128/66; PULSE 70; RESP 18; O2SAT 99
[2022-01-09 23:37] LABS: Alanine Aminotransferase 14 U/L (4-50); Albumin Level 4.1 g/dL (3.5-5.1); Alkaline Phosphatase 157 U/L (38-126); Anion Gap 7 mmol/L (8-16); Aspartate Amino Transferase 34 U/L (17-59); Bilirubin,Total 0.8 mg/dL (0.2-1.3); Blood Urea Nitrogen 38 mg/dL (9-20); Calcium 8.9 mg/dL (8.4-10.2); Carbon Dioxide 30 mmol/L (22-30); Chloride 101 mmol/L (98-107); Estimated CRCL calculation 31 ml/min; Estimated Glomerular Filt Rate 36; Glucose 130 mg/dL (65-110); Potassium 3.7 mmol/L (3.4-5.0); Sodium 138 mmol/L (137-145)
[2022-01-09 23:48] LABS: Troponin I 0.023 ng/mL (0.000-0.034)
[2022-01-10] VITALS (11 sets, daily range): BP systolic 114–163; BP diastolic 63–98; PULSE 66–96; RESP 16–18; TEMP 36.4–36.9; O2SAT 94–98; BMI 23.4
[2022-01-10 00:15] LABS: Add Urine Microscopic? YES; Appearance Urine Clear (Clear); Bilirubin Urine Negative (Negative); Blood Urine 1+ (Negative); Color Urine Yellow (Yellow); Glucose Urine UA Negative (Negative); Ketones Urine Negative (Negative); Leukocyte Esterase Ur Negative LEU/UL (Negative); Mucus Urine Rare /lpf; Nitrate Urine Negative (Negative); Protein Urine Negative (Negative); Specific Grav Ur 1.011 (1.001-1.035); Squamous Epithelial Cell Urine Rare /hpf (Few); Urobilinogen Urine Negative mg/dL (<2.0); WBC Urine 0-3 /hpf
[2022-01-10] MEDS: SODIUM CHLORIDE 0.9% IV 1,000 ML 999 ML IV CONT (00:41)
--- NOTE | 2022-01-10 01:08 | PM.IMHP ---
H&P: HPI History of Present Illness Date/Time: 01/10/22 01:08 Chief Complaint: Fall Narrative: This is an 86-year-old male with past medical history significant for chronic stroke, benign prostatic hyperplasia, hypertension, coronary artery disease ,prostate ache calcium. Patient with recent admission and discharged home from [facility] he was treated for shortness of breath apparently some of fluid overload. Patient was discharged home after he refused to go to a custodial. Today he was brought to the emergency room after he was found down in his bathroom there was no loss of consciousness and according to granddaughter who is here at bedside he was delirious and hallucinating. At the time of my visit patient said that his neck was hurting he knows that he is at [facility] however can not tell why he is in the hospital. Preliminary workup has been essentially nonrevealing. Review of Systems Review of Systems: ROS unobtainable: Yes unobtainable due to mental status (Delirium) PMFSH Past Medical History Medical History Coronary artery disease involving [place] coronary artery of [place] heart Hypertension Left hip pain Prostate cancer metastatic Surgical History Surgical History Hx of CABG Family History Family History Father Cancer Mother Cancer Social History Social History Smoking packs per day: 1 Smoking cigarettes per day: 20.0 Years smoked: 4 Smoking pack-years: 4.00 Smoking status: Former smoker Second hand tobacco smoke exposure: No Smoking end date: 11/08/1965 Alcohol intake: never Substance use: never Substance use type: does not use Gender identity (if verbalized by the patient): Male Spiritual care concerns: No Meds Home Medications and Allergies Home Medications Medication Instructions Recorded Confirmed Type aspirin 81 mg tablet,delayed 81 mg PO HS 01/22/20 01/06/22 History release omega-3 fatty acids 1,000 mg 1,000 mg PO DAILY 01/22/20 01/06/22 History capsule pyridoxine (vitamin B6) 100 mg 100 mg PO DAILY 01/22/20 01/06/22 History tablet enzalutamide 40 mg capsule 40 mg PO HS 06/25/20 01/06/22 History ferrous sulfate 325 mg (65 mg 325 mg PO BID #60 tablet 07/02/21 01/06/22 Rx iron) tablet finasteride 5 mg tablet 5 mg PO DAILY #90 tablet 07/02/21 01/06/22 Rx pantoprazole 40 mg tablet,delayed 40 mg PO QAM #90 tablet 07/02/21 01/06/22 Rx release paroxetine HCl 10 mg tablet 10 mg PO QAM #90 tablet 07/02/21 01/06/22 Rx hydrochlorothiazide 12.5 mg PO DAILY 01/06/22 01/06/22 History mirtazapine 30 mg PO HS 01/06/22 01/06/22 History oxybutynin chloride 5 mg PO HS 01/06/22 01/06/22 History tamsulosin 0.4 mg PO HS 01/06/22 01/06/22 History alprazolam 0.25 mg PO QID PRN #6 tablet 01/08/22 Rx hydrocodone-acetaminophen 1 tablet PO Q8HR #6 tablet 01/08/22 Rx lisinopril 20 mg PO DAILY #0 tablet 01/08/22 01/06/22 Rx metoprolol tartrate 12.5 mg PO BID #30 tablet 01/08/22 01/06/22 Rx nitrofurantoin monohyd/m-cryst 100 mg PO Q12HR 10 Days #20 cap 01/08/22 Rx [Macrobid] Allergies Allergy/AdvReac Type Severity Reaction Status Date / Time fesoterodine [From Toviaz] Allergy Severe Unknown Verified 01/06/22 08:50 morphine Allergy Unknown Nausea And Verified 01/06/22 08:50 Vomiting Penicillins Allergy Unknown Swelling Verified 01/06/22 08:50 Vital Signs Vital Signs - 24 hr 01/09/22 21:22 01/09/22 21:43 01/09/22 21:46 Temperature 97.9 F Pulse Rate 67 69 Respiratory Rate 18 18 18 Blood Pressure 104/48 L 130/58 L Pulse Oximetry 98 98 98 01/09/22 23:32 01/10/22 00:31 01/10/22 00:32 Temperature Pulse Rate 70 74 82 Respiratory Rate 18 Blood Pressure 128/66 114/63 121/76 Pulse Oximetry 99 03/05/22
--- NOTE | 2022-01-10 02:49 | ADMGEN ---
This patient, Adrian Matias, was admitted to Medical Room 258-01. Patient/family oriented to hospital policies and general routines including ID bracelet, bed and alarms, visiting hours, pain management, procedures, bathroom and other care routines, personal items, smoking policy, room service/diet, and visiting hours. Information on how to activate the Rapid Response Team has been discussed. Patient/Family are encouraged to report perceived risks to care and to ask questions if they do not understand what they are told or what they should do.
[2022-01-10] MEDS: ACETAMINOPHEN 325 MG TABLET 650 MG PO (09:16)
[2022-01-10] MEDS: hydroCHLOROthiazide 12.5 MG CAPSULE PO (09:17)
[2022-01-10] MEDS: PANTOPRAZOLE 40 MG TABLET PO (09:17)
[2022-01-10] MEDS: PYRIDOXINE HCL 50 MG TABLET 100 MG PO (09:17)
[2022-01-10] MEDS: OMEGA 3 POLYUNSAT FATTY ACIDS 1 GM CAP PO (09:17)
[2022-01-10] MEDS: PARoxetine 10 MG TABLET PO (09:17)
[2022-01-10] MEDS: FINASTERIDE 5 MG TABLET PO (09:17)
[2022-01-10] MEDS: METOPROLOL TARTRATE 12.5 MG TABLET PO ×2 (09:17→20:08)
[2022-01-10] MEDS: FERROUS SULFATE 324 MG TABLET PO ×2 (09:17→16:56)
[2022-01-10] MEDS: lisinopriL 20 MG TABLET PO (09:18)
--- NOTE | 2022-01-10 09:43 | PM.IMPN ---
Progress Note: A&P Additional Plan GENERAL: Elderly, frail, non-toxic, in no acute distress. HEAD: Normocephalic, atraumatic. EYES: PERRL/EOMI, conjunctiva clear bilaterally. No nystagmus. NOSE: Normal, no drainage NECK: Supple. No adenopathy, no masses. RESPIRATORY: Airway patent, respirations nonlabored. Clear to auscultation bilaterally, no rales, rhonchi, wheezing. CARDIOVASCULAR: Regular rate and rhythm without murmurs, rubs, or gallops. Peripheral pulses 2+ and equal bilaterally. ABDOMINAL: Soft, nontender, nondistended, no hepatosplenomegaly. Normoactive BS. MUSCULOSKELETAL: Moves all extremities. Diffuse erythema, tenderness, and swelling to right second digit. No pain on passive extension. No abrasions or open wounds. Strength/ROM intact without gross deformities. No edema. No calf tenderness. SKIN: Warm, dry, normal color. No rashes. NEURO: A&O X3. Speech clear. Able to follow commands, but appears confused with certain instructions. CN II-XII intact. Sensation grossly intact. No ataxic movements. Strength 4/5 in upper and lower extremities bilaterally. Eysp-hn-iqtp and iokybr-al-peud testing equal bilaterally. No pronator drift. PSYCHIATRIC: Appropriate mood and affect. Normal interaction. Time Spent With Patient Time with patient: 15 - 25 minutes Subjective Date/time seen: 01/10/22 1290 This pt. was examined at the bedside today in interval assessment. He is noted to be sitting up in the chair eating his breakfast in no acute distress at this time. The pt. verbalizes appropriately and does not appear to be confused. He was just discharged from here two days ago on the 3rd after being hospitalized for an acute UTI that grew out Enterococcus that he received Vancomycin for, and at that time of discharge, he refused to go to a senior living, which would likely have been the most appropriate facility. Instead, he opted to go home and was found late last evening down in his bathroom by his granddaughter. He was delerious and hallucinating. The pt was brought to the ER for evaluation. In ED his head CT was negative for any acute finding. His labs were significant only for decreased renal function of 1.8 creatinine and BUN of 38. His WBC's are 10.8. His urine was unremarkable with exception of microscopic blood. CXR showed left basilar atelectasis, R. second finger x-ray shows moderate polyarticular OA and CT C-spine shows no acute abnormality. His EKG was NSR 69 bpm with RBBB. He was admitted for Failure to thrive, acute fall with weakness and delirium, and multiple chronic issues. PT and OT will evaluate patient and make suggestions for placement, however, the pt. outright refuses to go to to a senior living at this time. At the same time, he complains of being so weak. He has no CP, dyspnea/N/V/D/palpitations. Review of Systems Review of Systems: A 12 point ROS was performed and is otherwise negative with exception of what is noted in HPI. All systems reviewed & are unremarkable except as noted in HPI and below Exam Narrative: CONSTITUTIONAL: Denies fever, chills, or sweats. CARDIOVASCULAR: Denies chest pain, palpitations, or edema. RESPIRATORY: Denies cough or increased dyspnea. GASTROINTESTINAL: Denies abdominal pain, nausea, vomiting, diarrhea, rectal bleeding. GENITOURINARY: Denies dysuria or hematuria. MUSCULOSKELETAL: Reports pain to R 2nd finger, neck pain. Denies back pain or myalgia. NEUROLOGIC: Reports lightheadedness, confusion, disorientation, generalized weakness. Denies headache, numbness, focal weakness. All systems reviewed & are unremarkable except as noted in HPI and below Objective Data Vital Signs Vital Signs: Vital Signs - 24 hr 01/09/22 21:22 01/09/22 21:43 01/09/22 21:46 Temperature 97.9 F Pulse Rate 67 69 Respiratory Rate 18 18 18 Blood Pressure 104/48 L 130/58 L Pulse Oximetry 98 98 98 01/09/22 23:32 01/10/22 00:31 01/10/22 00:32 Temperature Pulse Rate 70 74 82 Respiratory Rate 18 Blood Pressure 128/6
--- NOTE | 2022-01-10 12:05 | PCPTNOTE ---
PT eval was attempted 2x this AM, ~ 9:00 and 11:00; pt refused at both trials, stating too tired, come back later, did not sleep at all last night ;
[2022-01-10] MEDS: HYDROcodone/acetaminophen (*CRX) 5-325 MG TABLET 1 TAB PO ×2 (13:21→21:11)
--- NOTE | 2022-01-10 17:12 | PHAR ---
RX [id number] IDENTIFIED TO CONTAIN DRUG NAME: XTANDI INGREDIENTS: ENZALUTAMIDE -- 40 MG RELATED DOCUMENTS: DRUGDEX EVALUATIONS - ENZALUTAMIDE COLOR: WHITE TO OFF-WHITE SHAPE: OBLONG IMPRINT: ENZ FORM: ORAL CAPSULE, LIQUID FILLED DIRECTIONS ON BOTTLE 4 CAPSULES DAILY
[2022-01-10] MEDS: MIRTAZAPINE 30 MG TABLET PO (20:08)
[2022-01-10] MEDS: ALPRAZolam (*CRX) 0.25 MG TABLET PO (20:08)
[2022-01-10] MEDS: ASPIRIN 81 MG ENTERIC TABLET PO (20:09)
[2022-01-10] MEDS: TAMSULOSIN HCL 0.4 MG CAPSULE PO (20:09)
[2022-01-11 04:26] VITALS: BP 159/69; PULSE 65; RESP 18; TEMP 36.6; O2SAT 99
[2022-01-11] MEDS: HYDROcodone/acetaminophen (*CRX) 5-325 MG TABLET 1 TAB PO ×3 (05:04→20:32)
[2022-01-11] MEDS: OMEGA 3 POLYUNSAT FATTY ACIDS 1 GM CAP PO (08:32)
[2022-01-11 08:33] VITALS: PULSE 88
[2022-01-11] MEDS: METOPROLOL TARTRATE 12.5 MG TABLET PO ×2 (08:33→20:31)
[2022-01-11] MEDS: PANTOPRAZOLE 40 MG TABLET PO (08:33)
[2022-01-11] MEDS: lisinopriL 20 MG TABLET PO (08:33)
[2022-01-11] MEDS: FERROUS SULFATE 324 MG TABLET PO ×2 (08:33→16:37)
[2022-01-11] MEDS: PYRIDOXINE HCL 50 MG TABLET 100 MG PO (08:34)
[2022-01-11] MEDS: PARoxetine 10 MG TABLET PO (08:34)
[2022-01-11] MEDS: amLODIPine BESYLATE 2.5 MG TABLET PO ×2 (08:34→16:38)
[2022-01-11] MEDS: FINASTERIDE 5 MG TABLET PO (08:34)
[2022-01-11] MEDS: hydroCHLOROthiazide 12.5 MG CAPSULE PO (08:34)
[2022-01-11] MEDS: ALPRAZolam (*CRX) 0.25 MG TABLET PO (08:37)
--- NOTE | 2022-01-11 12:43 | PM.IMPN ---
Progress Note: A&P Assessment and Plan (1) Hypertension: Qualifiers: Hypertension type: unspecified Qualified Code(s): I10 - Essential (primary) hypertension Code(s): I10 - Essential (primary) hypertension Status: Acute Assessment and Plan: - Slight elevation to the blood pressures. - Norvasc 2.5 po BID ordered. - Will monitor VS. Additional Plan Assessment and plan (1) Adult failure to thrive: Code(s): R62.7 - Adult failure to thrive Status: Acute Assessment and Plan: - Patient will be evaluated for half-way placement - PT OT consult for discharge recommendations. (2) Fall: Qualifiers: Encounter type: initial encounter Qualified Code(s): W19.XXXA - Unspecified fall, initial encounter Code(s): W19.XXXA - Unspecified fall, initial encounter Status: Acute Assessment and Plan: - Fall precautions (3) Delirium: Code(s): R41.0 - Disorientation, unspecified Status: Acute Assessment and Plan: - This could be multifactorial patient does recent hospitalization. - Continue to monitor (4) Generalized weakness: Code(s): R53.1 - Weakness Status: Acute Assessment and Plan: - PT OT - Likely secondary to recent hospitalization and generalized deconditioning. 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 (9) Parkinson's disease: Code(s): G20 - Parkinson's disease Status: Acute Assessment and Plan: - Patient is not on carbidopa or levodopa - Relatively new dx for the patient. Neurology is consulted to talk to patient and his while he is here and make recommendations at their request. Subjective Date/time seen: 01/11/22 8622 This pt. was examined at the bedside in interval assessment. No specific acute complaints today, he just says he's not good at all but could not elaborate on what he meant by that. The pt. states that he has no pain, but is weak. He is here now for placement, but voices that he does not want to go. His labs are stable, but his noted BP's have been mildly elevated. He is started on Norvasc 2.5 mg po BID to better control them. Review of Systems Review of Systems: A 12 point ROS was performed and is otherwise negative with exception of what is noted in HPI. All systems reviewed & are unremarkable except as noted in HPI and below All systems reviewed & are unremarkable except as noted in HPI and below Exam Narrative: CONSTITUTIONAL: Denies fever, chills, or sweats. CARDIOVASCULAR: Denies chest pain, palpitations, or edema. RESPIRATORY: Denies cough or increased dyspnea. GASTROINTESTINAL: Denies abdominal pain, nausea, vomiting, diarrhea, rectal bleeding. GENITOURINARY: Denies dysuria or hematuria. MUSCULOSKELETAL: Reports pain to R 2nd finger, neck pain. Denies back pain or myalgia. NEUROLOGIC: Reports lightheadedness, confusion, disorientation, generalized weakness. Denies headache, numbness, focal weakness. All systems reviewed & are unremarkable except as noted in HPI and below Objective Data Vital Signs Vital Signs: Vital Signs - 24 hr 01/10/22 13:55 01/10/22 20:01 01/10/22 20:08 Temperature 98.4 F 97.5 F L Pulse Rate 66 83 96 Respiratory
[2022-01-11 13:10] VITALS: BP 118/68; PULSE 64; RESP 12; TEMP 36.6; O2SAT 98
[2022-01-11 20:31] VITALS: PULSE 82
[2022-01-11] MEDS: TAMSULOSIN HCL 0.4 MG CAPSULE PO (20:31)
[2022-01-11] MEDS: MIRTAZAPINE 30 MG TABLET PO (20:32)
[2022-01-11] MEDS: ASPIRIN 81 MG ENTERIC TABLET PO (20:32)
[2022-01-11 21:19] VITALS: BP 140/59; PULSE 75; RESP 18; TEMP 36.4; O2SAT 95
[2022-01-12 05:17] LABS: Basophils Percent Auto 0.1 % (0.2-1.2); Eosinophils Absolute Auto 0.2 K/mm3 (0-0.3); Eosinophils Percent Auto 2.8 % (0-4.4); Hematocrit 31.6 % (42.0-52.0); Hemoglobin 10.4 g/dL (14.0-18.0); Immature Granulocyte Absolute 0.02 K/mm3 (0.00-0.031); Immature Granulocyte Percent A 0.3 % (0-0.5); Lymphocytes Absolute Auto 1.59 K/mm3 (0.9-3.2); Lymphocytes Percent Auto 22.6 % (18.3-44.2); Mean Corpuscular HGB Conc 32.9 g/dl (32-36); Mean Corpuscular Hemoglobin 32.5 pg (26-34); Mean Corpuscular Volume 98.8 fl (80-100); Mean Platelet Volume 10.5 fl (7.4-10.4); Monocytes Absolute Auto 0.5 K/mm3 (0.1-0.6); Monocytes Percent Auto 7.5 % (2.6-8.5); Neutrophils Absolute Auto 4.7 K/mm3 (1.3-6.7); Neutrophils Percent Auto 66.7 % (45.5-73.1); Platelet Count Result 125 k/mm3 (150-375); Red Cell Distribution Width 13.7 % (11.5-14.5); White Blood Count 7.1 K/mm3 (4.5-10.0)
[2022-01-12 05:24] VITALS: BP 138/59; PULSE 85; RESP 20; TEMP 36.4; O2SAT 96
[2022-01-12 05:28] LABS: Alanine Aminotransferase 12 U/L (4-50); Albumin Level 3.7 g/dL (3.5-5.1); Alkaline Phosphatase 134 U/L (38-126); Anion Gap 8 mmol/L (8-16); Aspartate Amino Transferase 26 U/L (17-59); Bilirubin,Total 0.7 mg/dL (0.2-1.3); Blood Urea Nitrogen 35 mg/dL (9-20); Calcium 8.7 mg/dL (8.4-10.2); Carbon Dioxide 27 mmol/L (22-30); Chloride 104 mmol/L (98-107); Estimated CRCL calculation 34 ml/min; Estimated Glomerular Filt Rate 41; Glucose 106 mg/dL (65-110); Magnesium 1.8 mg/dL (1.6-2.3); Potassium 3.2 mmol/L (3.4-5.0); Sodium 139 mmol/L (137-145)
[2022-01-12 09:10] VITALS: PULSE 85
[2022-01-12] MEDS: OMEGA 3 POLYUNSAT FATTY ACIDS 1 GM CAP PO (09:10)
[2022-01-12] MEDS: ALPRAZolam (*CRX) 0.25 MG TABLET PO ×2 (09:10→17:05)
[2022-01-12] MEDS: METOPROLOL TARTRATE 12.5 MG TABLET PO (09:10)
[2022-01-12] MEDS: hydroCHLOROthiazide 12.5 MG CAPSULE PO (09:11)
[2022-01-12] MEDS: amLODIPine BESYLATE 2.5 MG TABLET PO ×2 (09:11→17:06)
[2022-01-12] MEDS: lisinopriL 20 MG TABLET PO (09:11)
[2022-01-12] MEDS: PYRIDOXINE HCL 50 MG TABLET 100 MG PO (09:11)
[2022-01-12] MEDS: PARoxetine 10 MG TABLET PO (09:11)
[2022-01-12] MEDS: PANTOPRAZOLE 40 MG TABLET PO (09:11)
[2022-01-12] MEDS: FINASTERIDE 5 MG TABLET PO (09:11)
[2022-01-12] MEDS: FERROUS SULFATE 324 MG TABLET PO ×2 (09:11→17:06)
[2022-01-12 11:25] LABS: Glucose Point of Care 129 mg/dl (65-105)
--- NOTE | 2022-01-12 11:47 | WPDNEURCNPN ---
Assessment and Plan Additional Plan 1 history of Parkinson's disease 2 history of paroxysmal atrial fibrillation3 history of pulmonary asbestosis4 chronic right frontal right cerebellar and left occipital lobe infarctions with gait dysfunction but no evidence of epidural or subdural bleed 5 cervical spondylosis moderate degree with no evidence of cervical myelopathy 6 multifactorial gait dysfunction recurrent falls. Plan is to involving the therapy and supervision on discharge continue aspirin and if is any irregularity of the heart or atrial fibrillation is documented during this hospitalization might benefit from the anticoagulation therapy but considering the risk of recurrent falls it will be rather risky Consult date: 01/12/22 HPI: Adrian Matias is a 86 year old male Admitted to the hospital for the complaints of fall and reportedly found down in his bathroom though he did not become unconscious and also reportedly as per the information from granddaughter he was delirious and hallucinating at the time of initial exam he was complaining of neck pain patient does have ongoing history of 1. Chronic stroke 2. Benign prostatic hyperplasia 3. Hypertension 4. Coronary artery disease 5. History of CABG 6. Years smoked 4 and being a former smoker and no alcohol intake or Review of Systems Review of Systems: All systems reviewed & are unremarkable except as noted in HPI and below PMFSH Past Medical History Medical History Coronary artery disease involving [place] coronary artery of [place] heart Hypertension Left hip pain Prostate cancer metastatic Surgical History Surgical History Hx of CABG Family History Family History Father Cancer Mother Cancer Social History Social History Smoking packs per day: 1 Smoking cigarettes per day: 20.0 Years smoked: 4 Smoking pack-years: 4.00 Smoking status: Former smoker Tobacco type: cigarettes Second hand tobacco smoke exposure: Yes Smoking end date: 11/08/1965 Alcohol intake: never Substance use: never Substance use type: does not use Gender identity (if verbalized by the patient): Male Spiritual care concerns: No Meds Home Medications and Allergies Home Medications Medication Instructions Recorded Confirmed Type aspirin 81 mg tablet,delayed 81 mg PO HS 01/22/20 01/10/22 History release omega-3 fatty acids 1,000 mg 1,000 mg PO DAILY 01/22/20 01/10/22 History capsule pyridoxine (vitamin B6) 100 mg 100 mg PO DAILY 01/22/20 01/10/22 History tablet enzalutamide 40 mg capsule 40 mg PO HS 06/25/20 01/10/22 History ferrous sulfate 325 mg (65 mg 325 mg PO BID #60 tablet 07/02/21 01/10/22 Rx iron) tablet finasteride 5 mg tablet 5 mg PO DAILY #90 tablet 07/02/21 01/10/22 Rx pantoprazole 40 mg tablet,delayed 40 mg PO QAM #90 tablet 07/02/21 01/10/22 Rx release paroxetine HCl 10 mg tablet 10 mg PO QAM #90 tablet 07/02/21 01/10/22 Rx hydrochlorothiazide 12.5 mg PO DAILY 01/06/22 01/10/22 History mirtazapine 30 mg PO HS 01/06/22 01/10/22 History oxybutynin chloride 5 mg PO HS 01/06/22 01/10/22 History tamsulosin 0.4 mg PO HS 01/06/22 01/10/22 History alprazolam 0.25 mg PO QID PRN #6 tablet 01/08/22 01/10/22 Rx hydrocodone-acetaminophen 1 tablet PO Q8HR #6 tablet 01/08/22 01/10/22 Rx lisinopril 20 mg PO DAILY #0 tablet 01/08/22 01/10/22 Rx metoprolol tartrate 12.5 mg PO BID #30 tablet 01/08/22 01/10/22 Rx nitrofurantoin monohyd/m-cryst 100 mg PO Q12HR 10 Days #20 cap 01/08/22 01/10/22 Rx [Macrobid] Allergies Allergy/AdvReac Type Severity Reaction Status Date / Time fesoterodine [From Toviaz] Allergy Severe Unknown Verified 01/10/22 02:43 morphine Allergy Unknown Nausea And Verified 01/10/22 02:43 Vomiting Penicillins Allergy Unknown Swellin
--- NOTE | 2022-01-12 12:06 | PM.IMPN ---
Progress Note: A&P Additional Plan Assessment and Plan (1) Hypertension: Qualifiers: Hypertension type: unspecified Qualified Code(s): I10 - Essential (primary) hypertension Code(s): I10 - Essential (primary) hypertension Status: Acute Assessment and Plan: - Norvasc 2.5 po BID ordered. - Will monitor VS. - BP is now stable and no longer elevated. We will continue to monitor pressures. (2) Adult failure to thrive: Code(s): R62.7 - Adult failure to thrive Status: Acute Assessment and Plan: - Placement pending. (3) Fall: Qualifiers: Encounter type: initial encounter Qualified Code(s): W19.XXXA - Unspecified fall, initial encounter Code(s): W19.XXXA - Unspecified fall, initial encounter Status: Acute Assessment and Plan: - Fall precautions, high fall risk. (4) Delirium: Code(s): R41.0 - Disorientation, unspecified Status: Acute Assessment and Plan: - This could be multifactorial as patient does have recent hospitalization. - Appears to be stable. (5) Generalized weakness: Code(s): R53.1 - Weakness Status: Acute Assessment and Plan: - PT OT - Likely secondary to recent hospitalization and generalized deconditioning accompanied by current dx of Parkinson's. 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 (9) Parkinson's disease: Code(s): G20 - Parkinson's disease Status: Acute Assessment and Plan: - Patient is not on carbidopa or levodopa - Evaluated by Neurology and no new complaints at this time. Subjective Date/time seen: 03/07/22 0800 This pt. was seen at the bedside today in interval assessment. He denies any new complaints other than feeling weak, but does appear to look more awake today. He has no CP, Dyspnea, N/V/D and no new issues to report. We are currently awaiting placement for him. He was evaluated by Neurology, Dr. Conde and he recommends continuing baby ASA daily, but does not recommend any other anticoagulation secondary to his risk of injury from falling. Review of Systems Review of Systems: A 12 point ROS was performed and is otherwise negative with exception of what is noted in HPI. All systems reviewed & are unremarkable except as noted in HPI and below All systems reviewed & are unremarkable except as noted in HPI and below All systems reviewed & are unremarkable except as noted in HPI and below Exam Narrative: CONSTITUTIONAL: Denies fever, chills, or sweats. CARDIOVASCULAR: Denies chest pain, palpitations, or edema. RESPIRATORY: Denies cough or increased dyspnea. GASTROINTESTINAL: Denies abdominal pain, nausea, vomiting, diarrhea, rectal bleeding. GENITOURINARY: Denies dysuria or hematuria. MUSCULOSKELETAL: Reports pain to R 2nd finger, neck pain. Denies back pain or myalgia. NEUROLOGIC: Reports lightheadedness, confusion, disorientation, generalized weakness. Denies headache, numbness, focal weakness. Objective Data Vital Signs Vital Signs: Vital Signs - 24 hr 01/11/22 13:10 01/11/22 20:31 01/11/22 21:19 Temperature 97.8 F 97.5 F L Pulse Rate 64 82 75 Respiratory Rate 12 18 Blood Pressure 118/68 140/59 L Pulse Oximetry 98 95
[2022-01-12] MEDS: HYDROcodone/acetaminophen (*CRX) 5-325 MG TABLET 1 TAB PO (13:41)
[2022-01-12 14:10] VITALS: BP 131/57; PULSE 67; RESP 20; TEMP 36.9; O2SAT 98
--- NOTE | 2022-01-12 14:13 | PM.DS ---
DS: Admitting Diagnosis Discharge Date 01/12/2022 Admitting Diagnosis 1) Adult Failure to Thrive 2) Fall at home 3) Delirium 4) Generalized weakness 5) Pulmonary Asbestosis 6) CAD 7) Chronic GERD 8) Paroxysmal A-fib 9) Parkinson's Disease DS: Discharge Diagnosis Discharge Diagnosis (1) Adult failure to thrive: Code(s): R62.7 - Adult failure to thrive Status: Acute Assessment and Plan: - Placement in ECF/SNF/Rehab - PT and OT have evaluated. (2) Fall: Qualifiers: Encounter type: initial encounter Qualified Code(s): W19.XXXA - Unspecified fall, initial encounter Code(s): W19.XXXA - Unspecified fall, initial encounter Status: Acute Assessment and Plan: - No acute injuries. - Fall Precautions to be adhered to as he is high risk. (3) Delirium: Code(s): R41.0 - Disorientation, unspecified Status: Resolved Assessment and Plan: - Present upon arrival to ER post fall, now resolved. - A&Ox3 today. (4) Generalized weakness: Code(s): R53.1 - Weakness Status: Acute Assessment and Plan: - Suspicion Multi-factorial, with likelihood being due to recent hospitalization with UTI, and generalized deconditioning. (5) Hypertension: Onset Date: Unknown Qualifiers: Hypertension type: unspecified Qualified Code(s): I10 - Essential (primary) hypertension Code(s): I10 - Essential (primary) hypertension Status: Chronic Assessment and Plan: - Pt. with slight, intermittent elevation of BP's. Stable once starting on Norvasc 2.5 mg po BID. - Recommend continuing to monitor and adjust meds as necessary. 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 (7) Parkinson disease: Code(s): G20 - Parkinson's disease Status: Chronic Assessment and Plan: - Chronic diagnosis for patient. - Not on Carbidopa-Levodopa secondary to the side effects from them. - Dr. Conde from Neurology consulted on patient here and has no further recommendations for him. (8) Coronary artery disease involving [place] coronary artery of [place] heart: Qualifiers: Associated angina: without angina Qualified Code(s): I25.10 - Atherosclerotic heart disease of [place] coronary artery without angina pectoris Code(s): I25.10 - Atherosclerotic heart disease of [place] coronary artery without angina pectoris Status: Chronic Assessment and Plan: - History of, no further complaints of CP. (9) Chronic GERD: Code(s): K21.9 - Gastro-esophageal reflux disease without esophagitis Status: Chronic Assessment and Plan: - PPI as documented. DS: Summary Hospital Course Reason for hospitalization: Weakness Hospital Course: This 86 year old male with significant PMH of CVA, BPH, HTN, CAD, Prostate CA, and recent hospitalization for UTI that grew out Enterococcus, presented to the ER on the evening of 01/09/2022 after being found in his bathroom floor where he had fallen. At the time of discharge from the hospital the day prior from treatment for his UTI, the pt. did not want to go to an ECF, and instead insisted on going home. He did, and subsequently fell in his bathroom being found by his granddaughter. He was delirius upon presentation to the ER, not answering any questions correctly. In the ER he was evaluated and workup was essentially negative including all imaging and urinalysis for acute UTI. He was admitted to the hospital and evaluated for his weakness and again, recommendations were made for him to discharge to an ECF. He is agreeable to going to acute rehab at this time, has met all criteria with PT and OT and has been accepted. He is therefore being discharged today to the rehab facility. Time spent discussing smoking cessation with patient: more than 10 minutes
[2022-01-12 14:32] LABS: EDCOVIDSCREEN Negative (Negative)
== END 2022-01-12 19:20 ==
LOC: ANHED 01-10 02:14 → ANH2MED 01-10 02:26
PROVIDERS: Physician Assistant; Admitting Provider Internal Medicine; Emergency Provider Emergency Medicine; PCP Family Medicine; Visit Provider Nurse Practitioner Adult Health
DX: R62.7 Adult failure to thrive (principal); W19.XXXA Unspecified fall, initial encounter; C61 Malignant neoplasm of prostate; R41.0 Disorientation, unspecified; R53.1 Weakness; I10 Essential (primary) hypertension; G20 Parkinson's disease; I48.0 Paroxysmal atrial fibrillation; I25.10 Atherosclerotic heart disease of native coronary artery without angina pectoris; J61 Pneumoconiosis due to asbestos and other mineral fibers; K21.9 Gastro-esophageal reflux disease without esophagitis; Z86.73 Personal history of transient ischemic attack (TIA), and cerebral infarction without residual deficits; N40.0 Benign prostatic hyperplasia without lower urinary tract symptoms; Z95.1 Presence of aortocoronary bypass graft; Z87.891 Personal history of nicotine dependence; Z79.82 Long term (current) use of aspirin; Z88.0 Allergy status to penicillin; Z20.822 Contact with and (suspected) exposure to COVID-19
CPT/HCPCS: 36415; 70450; 71046; 72125; 73140; 73630; 80053; 81001; 82948; 83735; 84484; 85025; 85055; 87426; 93005; 96360; 97110; 97161; 97165; 97530; 97535; 99285; A9270; C9803; G0378; J7030

== ENCOUNTER 2022-05-24 13:19 | Inpatient (IN) | payer MEDICARE, SELFPAY ==
[2022-05-24] VITALS (25 sets, daily range): BP systolic 163–198; BP diastolic 57–80; PULSE 48–152; RESP 11–20; TEMP 35.6–36.5; O2SAT 98–100; BMI 22.1
--- NOTE | ~2022-05-24 | CT_ITS ---
EXAMINATION: CT brain wo con DATE: 05/24/2022 17:25 INDICATION: AMS . TECHNIQUE: Computed tomography (CT) of the head was performed without intravenous contrast. The mA wa s adjusted according to patient size. Iterative reconstruction technique was employed. The dose-lengt h product was 605.33 mGy-cm. COMPARISON: 01/09/2022. FINDINGS: No acute intracranial hemorrhage or extra-axial fluid collection. No hydrocephalus, mass, or herniation. No acute ischemic infarct. Unremarkable dural venous sinus attenuation. No acute osseous abnormality. The aerated spaces are clear. Severe atrophy and chronic white matter change. Old infarcts involving the left occipital lobe, right frontal lobe, and left cerebellar hemisphere. Atherosclerotic intracranial calcifications. Bilateral lens replacements. IMPRESSION: No acute intracranial process. Reviewed, dictated and finalized at location K.
--- NOTE | 2022-05-24 13:28 | ECG_ITS ---
Measurements Intervals [place] Rate: 46 P: 87 ME: 197 QRS: -42 QRSD: 151 T: 3 QT: 485 QTc: 425 Interpretive Statements SINUS BRADYCARDIA LEFT AXIS DEVIATION RIGHT BUNDLE BRANCH BLOCK BASELINE ARTIFACT- I, II, III, AVR, AVL, AVF ABNORMAL ECG Electronically Signed On 05-24-2022 23:07:04 CDT by Joni Washington D.O.
[2022-05-24 14:35] LABS: Basophils Percent Auto 0.2 % (0.2-1.2); Eosinophils Absolute Auto 0.2 K/mm3 (0-0.3); Eosinophils Percent Auto 1.8 % (0-4.4); Hematocrit 36.2 % (42.0-52.0); Immature Granulocyte Absolute 0.02 K/mm3 (0.00-0.031); Immature Granulocyte Percent A 0.2 % (0-0.5); Lymphocytes Absolute Auto 1.57 K/mm3 (0.9-3.2); Lymphocytes Percent Auto 18.3 % (18.3-44.2); Mean Corpuscular HGB Conc 33.1 g/dl (32-36); Mean Corpuscular Hemoglobin 31.7 pg (26-34); Mean Corpuscular Volume 95.5 fl (80-100); Mean Platelet Volume 9.8 fl (7.4-10.4); Monocytes Absolute Auto 0.5 K/mm3 (0.1-0.6); Monocytes Percent Auto 5.6 % (2.6-8.5); Neutrophils Absolute Auto 6.3 K/mm3 (1.3-6.7); Neutrophils Percent Auto 73.9 % (45.5-73.1); Platelet Count Result 199 k/mm3 (150-375); Red Blood Count 3.79 M/mm3 (4.6-6.20); Red Cell Distribution Width 14.3 % (11.5-14.5); White Blood Count 8.6 K/mm3 (4.5-10.0)
[2022-05-24 14:47] LABS: Alanine Aminotransferase 13 U/L (6-50); Albumin Level 4.4 g/dL (3.5-5.1); Alkaline Phosphatase 148 U/L (38-126); Anion Gap 7 mmol/L (8-16); Aspartate Amino Transferase 25 U/L (17-59); Bilirubin,Total 0.9 mg/dL (0.2-1.3); Blood Urea Nitrogen 26 mg/dL (9-20); Calcium 9.2 mg/dL (8.4-10.2); Carbon Dioxide 29 mmol/L (22-30); Chloride 103 mmol/L (98-107); Estimated CRCL calculation 29 ml/min; Estimated Glomerular Filt Rate 41; Glucose 104 mg/dL (65-110); Sodium 139 mmol/L (137-145)
[2022-05-24 14:51] LABS: Partial Thromboplastin Time 28.5 SECONDS (22.3-36.8); Prothrombin Time 13.2 Seconds (11.1-14.7)
--- NOTE | 2022-05-24 16:19 | ED.GENADULT ---
HPI - General Adult General Chief complaint: Altered Mental Status Stated complaint: AMS Time Seen by Provider: 05/24/22 15:27 History of Present Illness HPI narrative: 86-year-old male with history of dementia presenting to the emergency department for evaluation of worsening mental status. Family states that the patient did have a urinary tract infection about 2 months ago and since then he has had further mental decline. They do state that he had some issues with memory prior to the infection but states that over the last few months he has had further decline. They state today the patient became more confused. Son states that the patient did become somewhat combative with the and a neighbor had to intervene. They also state that they have been attempting to get the patient placed into [facility] but have yet been unsuccessful. [facility] but patient declined. Patient does state he feels more confused and does report that he has been forgetting things more frequently patient denies any other pain or complaints. Related Data Home Medications Medication Instructions Recorded Confirmed aspirin 81 mg tablet,delayed 81 mg PO HS 01/22/20 01/19/22 release (Adult Aspirin Regimen) enzalutamide 40 mg capsule (Xtandi) 160 mg PO HS 06/25/20 01/19/22 hydrochlorothiazide 12.5 mg tablet 12.5 mg PO DAILY 01/06/22 01/19/22 mirtazapine 30 mg tablet 30 mg PO HS 01/06/22 01/19/22 oxybutynin chloride 5 mg 5 mg PO HS 01/06/22 01/19/22 tablet,extended release 24 hr tamsulosin 0.4 mg capsule 0.4 mg PO HS 01/06/22 01/19/22 lisinopril 10 mg tablet 10 mg PO DAILY 01/19/22 01/19/22 Allergies Allergy/AdvReac Type Severity Reaction Status Date / Time fesoterodine [From Toviaz] Allergy Severe Unknown Verified 05/24/22 17:24 morphine Allergy Unknown Nausea And Verified 05/24/22 17:24 Vomiting Penicillins Allergy Unknown Swelling Verified 05/24/22 17:24 Review of Systems Review of Systems: CONSTITUTIONAL: Denies fever, chills, or sweats. EYES: Denies visual changes, redness, or discharge. ENT: Denies rhinorrhea, congestion, sore throat, or otalgia. CARDIOVASCULAR: Denies chest pain, palpitations, or edema. RESPIRATORY: Denies cough or dyspnea. GASTROINTESTINAL: Denies abdominal pain, nausea, vomiting, or diarrhea. GENITOURINARY: Denies dysuria or hematuria. SKIN: Denies rash or itching. MUSCULOSKELETAL: Denies back pain, joint pain, or myalgia. NEUROLOGIC: See HPI PSYCHIATRIC: Denies anxiety or depression. [facility] Past Medical History Medical History Coronary artery disease involving lime coronary artery of lime heart Hypertension Left hip pain Prostate cancer metastatic Surgical History Surgical History Hx of CABG Family History Family History Father Cancer Mother Cancer Social History Social History Smoking packs per day: 1 Smoking cigarettes per day: 20.0 Smoking status: Former smoker Tobacco type: cigarettes Second hand tobacco smoke exposure: Yes Smoking end date: 11/08/1965 Alcohol intake: never Substance use: never Substance use type: does not use Gender identity (if verbalized by the patient): Male Spiritual care concerns: No Exam Narrative: APPEARANCE: Well appearing, no pain, no distress, well-nourished. HEAD: normocephalic, atraumatic. EYES: PERRLA/EOMI, conjunctivae clear. NOSE: Normal no drainage NECK: Supple. No adenopathy, no masses. RESPIRATORY: Airway patent, respirations nonlabored. Clear to auscultation bilaterally, no rales, rhonchi, wheezing. CARDIOVASCULAR: Regular rate and rhythm without murmurs rubs or gallops. ABDOMINAL: Soft, nontender, nondistended, normal bowel sounds MUSCULOSKELETAL: Moves all extr
--- NOTE | 2022-05-24 17:18 | PC.NURSE ---
Patient off unit to Radiology.
[2022-05-24 17:43] LABS: Appearance Urine Clear (Clear); Bilirubin Urine Negative (Negative); Blood Urine Negative (Negative); Color Urine Yellow (Yellow); Glucose Urine UA Negative (Negative); Ketones Urine Negative (Negative); Leukocyte Esterase Ur Negative LEU/UL (Negative); Nitrate Urine Negative (Negative); Protein Urine Negative (Negative); Urobilinogen Urine 0.2 mg/dL (<2.0); pH Urine 5.5 (5.0-9.0)
[2022-05-24 17:49] LABS: Mucus Urine Rare /lpf; RBC Urine 0-2 /hpf (0-2); WBC Urine 0-3 /hpf
[2022-05-24 17:55] LABS: Add Urine Microscopic? NO
[2022-05-24 18:17] LABS: SARS-CoV-2 RNA PCR Negative
--- NOTE | 2022-05-24 19:12 | PM.IMHP ---
H&P: HPI History of Present Illness Date/Time: 05/24/221834 Chief Complaint: Altered Mental Status Narrative: this pleasant 86-year-old male patient with significant past medical history of dementia, recent urinary tract infection, coronary artery disease, hypertension, left hip pain, metastatic prostate cancer presents to the emergency room this evening brought by family with complaints of having recent increasing altered mental status. He was apparently treated for urinary tract infection approximately 2 months ago and since returning home from that treatment has had a study mental decline. Today patient did not know where he was, called other people to help bring him home even though he was in his own home where he resides with his , did not know who his was in became combative with his causative neighbor to have to intervene. Family has made attempts to attempt to place patient into [facility]-way however they have been unsuccessful with the exception of [facility] and the patient then declined going. However patient is now to the point where the family can no longer care for him. Workup was started in the emergency room and CT of the brain demonstrated no acute intracranial process. Labs are significant for a creatinine of 1.6, however when reviewing previous labs he appears to be at his baseline which is 1.5-1.8. Urine is negative for any acute infection. Patient's granddaughters at the bedside and states that he did sustain a ground level fall a couple of nights ago. He did not have any head injury without fall or other trauma, 911 was called and patient was assisted out of the floor but he did not have any further workup. She also endorses that he has had multiple falls recently within the past couple of weeks. He is being admitted observation to hospitalist status for monitoring and for subsequent placement. At the time of my exam patient is alert oriented x3 but does not know the situation of why he is here. He denies any acute pain, dyspnea, nausea, vomiting, diarrhea, urinary burning, urgency, frequency, hematuria. He does not appear to be in any acute distress at this time. Review of Systems Review of Systems: All systems reviewed & are unremarkable except as noted in HPI and below PMFSH Past Medical History Medical History Coronary artery disease involving [place] coronary artery of [place] heart Hypertension Left hip pain Prostate cancer metastatic Surgical History Surgical History Hx of CABG Family History Family History Father Cancer Mother Cancer Social History Social History Smoking packs per day: 1 Smoking cigarettes per day: 20.0 Smoking status: Former smoker Tobacco type: cigarettes Second hand tobacco smoke exposure: Yes Smoking end date: 11/08/1965 Alcohol intake: never Substance use: never Substance use type: does not use Gender identity (if verbalized by the patient): Male Spiritual care concerns: No Meds Home Medications and Allergies Home Medications Medication Instructions Recorded Confirmed Type aspirin 81 mg tablet,delayed 81 mg PO HS 01/22/20 01/19/22 History release (Adult Aspirin Regimen) enzalutamide 40 mg capsule (Xtandi) 160 mg PO HS 06/25/20 01/19/22 History finasteride 5 mg tablet 5 mg PO DAILY #90 tabs 07/02/21 01/19/22 Rx pantoprazole 40 mg tablet,delayed 40 mg PO QAM #90 tabs 07/02/21 01/19/22 Rx release paroxetine HCl 10 mg tablet 10 mg PO QAM #90 tabs 07/02/21 01/19/22 Rx hydrochlorothiazide 12.5 mg tablet 12.5 mg PO DAILY 01/06/22 01/19/22 History mirtazapine 30 mg tablet 30 mg PO HS 01/06/22 01/19/22 History oxybutynin chloride 5 mg 5 mg PO HS 01/06/22 01/19/22 History tab
--- NOTE | 2022-05-24 19:27 | PC.NURSE ---
Patient report given to CHELSEA Melendez. All questions answered and care of patient transferred.
[2022-05-24] MEDS: lisinopriL 10 MG TABLET PO (19:36)
[2022-05-24] MEDS: MIRTAZAPINE 30 MG TABLET PO (21:30)
[2022-05-24] MEDS: TAMSULOSIN HCL 0.4 MG CAPSULE PO (21:30)
[2022-05-24] MEDS: QUEtiapine FUMARATE 25 MG TABLET PO (21:30)
[2022-05-24] MEDS: METOPROLOL TARTRATE 25 MG TABLET PO (21:30)
--- NOTE | 2022-05-24 22:04 | ADMGEN ---
This patient, Adrian Matias, was admitted to 3 [facility] Surg Room 322-01. Patient/family oriented to hospital policies and general routines including ID bracelet, bed and alarms, visiting hours, pain management, procedures, bathroom and other care routines, personal items, smoking policy, room service/diet, and visiting hours. Information on how to activate the Rapid Response Team has been discussed. Patient/Family are encouraged to report perceived risks to care and to ask questions if they do not understand what they are told or what they should do.
[2022-05-25] MEDS: LORazepam (*CRX) 0.5 MG TABLET PO ×2 (01:30→21:34)
[2022-05-25 05:54] VITALS: BP 171/73; PULSE 64; RESP 16; TEMP 35.9; O2SAT 99
[2022-05-25] MEDS: ASPIRIN 81 MG ENTERIC TABLET PO (08:38)
[2022-05-25] MEDS: PANTOPRAZOLE 40 MG TABLET PO (08:38)
[2022-05-25] MEDS: OMEGA 3 POLYUNSAT FATTY ACIDS 1 GM CAP PO (08:38)
[2022-05-25] MEDS: hydroCHLOROthiazide 12.5 MG CAPSULE PO (08:38)
[2022-05-25 08:39] VITALS: PULSE 64
[2022-05-25] MEDS: FINASTERIDE 5 MG TABLET PO (08:39)
[2022-05-25] MEDS: PARoxetine 10 MG TABLET PO (08:39)
[2022-05-25] MEDS: PYRIDOXINE HCL 50 MG TABLET 100 MG PO (08:39)
[2022-05-25] MEDS: FERROUS SULFATE 324 MG TABLET PO ×2 (08:39→16:39)
[2022-05-25] MEDS: lisinopriL 10 MG TABLET PO (08:39)
[2022-05-25] MEDS: METOPROLOL TARTRATE 25 MG TABLET PO ×2 (08:39→21:34)
--- NOTE | 2022-05-25 11:18 | PM.IMPN ---
Progress Note: A&P Assessment and Plan (1) Dementia: Qualifiers: Dementia behavioral disturbance: with behavioral disturbance Dementia type: unspecified type Qualified Code(s): F03.91 - Unspecified dementia with behavioral disturbance Code(s): F03.90 - Unspecified dementia without behavioral disturbance Status: Acute Assessment and Plan: - Degree of confusion waxes and wanes. - Re-orient and redirect as needed. -behavioral changes noted likely related to worsening dementia. - PRN Ativan for periods of combativeness or concern for safety to oneself. - Continue Seroquel, Remeron (2) Cognitive deficits: Code(s): R41.89 - Other symptoms and signs involving cognitive functions and awareness Status: Acute Assessment and Plan: - See above plan for dementia. - Fall precautions. (3) Debility: Code(s): R53.81 - Other malaise Status: Acute Assessment and Plan: - Fall Precautions - Care coordination to assist with placement in NH (4) Fall: Qualifiers: Encounter type: initial encounter Qualified Code(s): W19.XXXA - Unspecified fall, initial encounter Code(s): W19.XXXA - Unspecified fall, initial encounter Status: Acute Assessment and Plan: - Fall Precautions - PT and OT evaluations (5) Generalized weakness: Code(s): R53.1 - Weakness Status: Acute Assessment and Plan: - Plan as noted above (6) Hypertension: Onset Date: Unknown Qualifiers: Hypertension type: unspecified Qualified Code(s): I10 - Essential (primary) hypertension Code(s): I10 - Essential (primary) hypertension Status: Chronic Assessment and Plan: - Continue home medications. - Monitor and adjust as needed as pt. needs them for his current Hypertension with SBP running >190, but he is also Bradycardic. (7) Bradycardia: Code(s): R00.1 - Bradycardia, unspecified Status: Acute Assessment and Plan: - Telemetry Subjective Date/time seen: 05/25/22 11:18 No complaints Exam Const: General: comfortable and no acute distress Other: Pleasant, elderly male patient lying supine on the stretcher at this time in no acute distress. HENMT: Ears: TM's normal bilaterally General nose exam: Normal nares present Mouth: Yes moist mucous membranes Eyes: General: appearance normal, both eyes and all related structures Sclera: sclerae normal Pupils: Equal, round and reactive pupils present EOM: EOMs intact bilaterally Neck: Neck: supple and no JVD Thyroid: thyroid normal Carotids: no bruits Lymphatic: lymphadenopathy not noted Chest: Other: Not tender to palpation Resp: Effort & Inspection: normal respiratory effort Auscultation: clear to auscultation bilaterally Cardio: Rate: bradycardic Rhythm: regular rhythm GI: Inspection: non-distended Auscultation: normal bowel sounds Skin: General skin exam: normal color and no rashes or lesions noted Neuro: General: No gait normal (Did not test) and deep tendon reflexes 2+ bilaterally Cranial nerves: Yes Equal, round and reactive pupils present Speech: normal speech Motor exam (neuro): Normal motor muscle tone present throughout Sensory Exam: normal sensation Other: currently alert and oriented x3 Extrem: General: normal to inspection, no edema and no pedal edema Psych: Mental Status: mental status grossly normal Affect: normal affect Objective Data Vital Signs Vital Signs: Vital Signs - 24 hr 05/24/22 13:24 05/24/22 16:53 05/24/22 16:54 Temperature 97.7 F Pulse Rate 57 L 52 L 52 L Respiratory Rate 16 12 14 Blood Pressure 166/57 H 196/71 H Pulse Oximetry 100 Oxygen Delivery Room Air 05/24/22 17:00 05/24/22 17:03 05/24/22 17:04 Temperature Pulse Rate 51 L 51 L 51 L Respiratory Rate 14 12 13 Blood Pressure 198/79 H Pulse Oximetry Oxygen Delivery 05/24/22 17:28 05/24/22 17:31 05/24/22
[2022-05-25 14:00] VITALS: BP 147/73; PULSE 50; RESP 18; TEMP 36; O2SAT 97
[2022-05-25] MEDS: ACETAMINOPHEN 325 MG TABLET 650 MG PO (19:07)
[2022-05-25 21:34] VITALS: PULSE 78
[2022-05-25] MEDS: QUEtiapine FUMARATE 25 MG TABLET PO (21:34)
[2022-05-25] MEDS: TAMSULOSIN HCL 0.4 MG CAPSULE PO (21:34)
[2022-05-25] MEDS: MIRTAZAPINE 30 MG TABLET PO (21:34)
[2022-05-25 22:00] VITALS: BP 170/55; PULSE 53; RESP 16; TEMP 36.2; O2SAT 97
[2022-05-26] VITALS (9 sets, daily range): BP systolic 125–135; BP diastolic 51–75; PULSE 51–72; RESP 14–19; TEMP 36.1–36.4; O2SAT 90–100
--- NOTE | 2022-05-26 07:18 | ECG_ITS ---
Measurements Intervals [place] Rate: 51 P: 88 FL: 207 QRS: -47 QRSD: 153 T: 24 QT: 496 QTc: 457 Interpretive Statements SINUS BRADYCARDIA RIGHT BUNDLE BRANCH BLOCK LEFT ANTERIOR FASCICULAR BLOCK BASELINE ARTIFACT- I, II, III, AVR, AVL, AVF, V1-V6 ABNORMAL ECG Electronically Signed On 05-26-2022 7:59:36 CDT by Joni Washington D.O.
--- NOTE | 2022-05-26 07:19 | PC.NURSE ---
pt c/o chest pain across chest this mornings states feels like heart burn, tums ordered and stat ekg per MD Sanchez. 158/67 58 18 97% ra
--- NOTE | 2022-05-26 07:31 | PCOTNOTE ---
Per RN, patient having chest pain, requested OT to attempt later. Will follow.
[2022-05-26] MEDS: CALCIUM CARBONATE (TUMS) 500 MG (200 MG ELEMENTAL) PO (07:34)
[2022-05-26] MEDS: lisinopriL 10 MG TABLET PO (07:36)
[2022-05-26] MEDS: OMEGA 3 POLYUNSAT FATTY ACIDS 1 GM CAP PO (07:36)
[2022-05-26] MEDS: PANTOPRAZOLE 40 MG TABLET PO (07:36)
[2022-05-26] MEDS: hydroCHLOROthiazide 12.5 MG CAPSULE PO (07:36)
[2022-05-26] MEDS: FERROUS SULFATE 324 MG TABLET PO ×2 (07:37→16:04)
[2022-05-26] MEDS: PYRIDOXINE HCL 50 MG TABLET 100 MG PO (07:37)
[2022-05-26] MEDS: ASPIRIN 81 MG ENTERIC TABLET PO (07:37)
[2022-05-26] MEDS: FINASTERIDE 5 MG TABLET PO (07:37)
[2022-05-26] MEDS: PARoxetine 10 MG TABLET PO (07:37)
--- NOTE | 2022-05-26 07:58 | PC.NURSE ---
reported ekg to MD Sanchez sinus jacoby 51 RBBB holding metoprolol this morning
[2022-05-26 09:17] LABS: Troponin I 0.025 ng/mL (0.000-0.034)
--- NOTE | 2022-05-26 13:45 | PM.IMPN ---
Progress Note: A&P Assessment and Plan (1) Dementia: Qualifiers: Dementia behavioral disturbance: with behavioral disturbance Dementia type: unspecified type Qualified Code(s): F03.91 - Unspecified dementia with behavioral disturbance Code(s): F03.90 - Unspecified dementia without behavioral disturbance Status: Acute Assessment and Plan: - Degree of confusion waxes and wanes. - Re-orient and redirect as needed. -behavioral changes noted likely related to worsening dementia. - PRN Ativan for periods of combativeness or concern for safety to oneself. - Continue Seroquel, Remeron (2) Cognitive deficits: Code(s): R41.89 - Other symptoms and signs involving cognitive functions and awareness Status: Acute Assessment and Plan: - See above plan for dementia. - Fall precautions. (3) Debility: Code(s): R53.81 - Other malaise Status: Acute Assessment and Plan: - Fall Precautions - Care coordination to assist with placement in NH (4) Fall: Qualifiers: Encounter type: initial encounter Qualified Code(s): W19.XXXA - Unspecified fall, initial encounter Code(s): W19.XXXA - Unspecified fall, initial encounter Status: Acute Assessment and Plan: - Fall Precautions - PT and OT evaluations (5) Generalized weakness: Code(s): R53.1 - Weakness Status: Acute Assessment and Plan: - Plan as noted above (6) Hypertension: Onset Date: Unknown Qualifiers: Hypertension type: unspecified Qualified Code(s): I10 - Essential (primary) hypertension Code(s): I10 - Essential (primary) hypertension Status: Chronic Assessment and Plan: - Continue home medications. - Monitor and adjust as needed as pt. needs them for his current Hypertension with SBP running >190, but he is also Bradycardic. (7) Bradycardia: Code(s): R00.1 - Bradycardia, unspecified Status: Acute Assessment and Plan: - Telemetry (8) Chest pain: Code(s): R07.9 - Chest pain, unspecified Status: Acute Assessment and Plan: EKG ordered. Serial tropes also ordered. Subjective Date/time seen: 05/26/22 13:45 Patient reports he is fatigued today has some mild chest pain. no other pain. no other complaints Exam Const: General: comfortable and no acute distress Other: Pleasant, elderly male patient lying supine on the stretcher at this time in no acute distress. HENMT: Ears: TM's normal bilaterally General nose exam: Normal nares present Mouth: Yes moist mucous membranes Eyes: General: appearance normal, both eyes and all related structures Sclera: sclerae normal Pupils: Equal, round and reactive pupils present EOM: EOMs intact bilaterally Neck: Neck: supple and no JVD Thyroid: thyroid normal Carotids: no bruits Lymphatic: lymphadenopathy not noted Chest: Other: Not tender to palpation Resp: Effort & Inspection: normal respiratory effort Auscultation: clear to auscultation bilaterally Cardio: Rate: bradycardic Rhythm: regular rhythm GI: Inspection: non-distended Auscultation: normal bowel sounds Skin: General skin exam: normal color and no rashes or lesions noted Neuro: General: No gait normal (Did not test) and deep tendon reflexes 2+ bilaterally Cranial nerves: Yes Equal, round and reactive pupils present Speech: normal speech Motor exam (neuro): Normal motor muscle tone present throughout Sensory Exam: normal sensation Other: currently alert and oriented x3 Extrem: General: normal to inspection, no edema and no pedal edema Psych: Mental Status: mental status grossly normal Affect: normal affect Objective Data Vital Signs Vital Signs: Vital Signs - 24 hr 05/25/22 14:00 05/25/22 21:34 05/25/22 22:00 Temperature 96.8 F L 97.2 F L Pulse Rate 50 L 78 53 L Respiratory Rate 18 16 Blood Pressure 147/73 H 170/55 H Pulse Oximetry 97 97 Oxygen De
[2022-05-26 14:46] LABS: Troponin I 0.016 ng/mL (0.000-0.034)
[2022-05-26] MEDS: MIRTAZAPINE 30 MG TABLET PO (20:34)
[2022-05-26] MEDS: TAMSULOSIN HCL 0.4 MG CAPSULE PO (20:34)
[2022-05-26] MEDS: QUEtiapine FUMARATE 25 MG TABLET PO (20:34)
[2022-05-26] MEDS: LORazepam (*CRX) 0.5 MG TABLET PO (20:34)
[2022-05-26] MEDS: METOPROLOL TARTRATE 25 MG TABLET PO (20:34)
[2022-05-27] VITALS (10 sets, daily range): BP systolic 143–163; BP diastolic 58–83; PULSE 55–82; RESP 18–20; TEMP 35.8–36.3; O2SAT 95–98
[2022-05-27] MEDS: LORazepam (*CRX) 0.5 MG TABLET PO ×2 (03:58→21:40)
[2022-05-27] MEDS: PANTOPRAZOLE 40 MG TABLET PO (08:01)
[2022-05-27] MEDS: OMEGA 3 POLYUNSAT FATTY ACIDS 1 GM CAP PO (08:01)
[2022-05-27] MEDS: FERROUS SULFATE 324 MG TABLET PO ×2 (08:01→16:33)
[2022-05-27] MEDS: PARoxetine 10 MG TABLET PO (08:01)
[2022-05-27] MEDS: lisinopriL 10 MG TABLET PO (08:01)
[2022-05-27] MEDS: PYRIDOXINE HCL 50 MG TABLET 100 MG PO (08:01)
[2022-05-27] MEDS: hydroCHLOROthiazide 12.5 MG CAPSULE PO (08:01)
[2022-05-27] MEDS: FINASTERIDE 5 MG TABLET PO (08:01)
[2022-05-27] MEDS: ASPIRIN 81 MG ENTERIC TABLET PO (08:01)
--- NOTE | 2022-05-27 13:25 | PC.NURSE ---
pt to possible discharge to [facility] living.
--- NOTE | 2022-05-27 15:40 | PM.IMPN ---
Progress Note: A&P Assessment and Plan (1) Bradycardia: Code(s): R00.1 - Bradycardia, unspecified Status: Acute (2) Dementia: Qualifiers: Dementia behavioral disturbance: with behavioral disturbance Dementia type: unspecified type Qualified Code(s): F03.91 - Unspecified dementia with behavioral disturbance Code(s): F03.90 - Unspecified dementia without behavioral disturbance Status: Acute (3) Cognitive deficits: Code(s): R41.89 - Other symptoms and signs involving cognitive functions and awareness Status: Acute (4) Delirium: Code(s): R41.0 - Disorientation, unspecified Status: Resolved Plan 86-year-old male patient with? significant past medical history of dementia, recent urinary tract infection,? coronary artery disease, hypertension, left hip pain, metastatic prostate cancer brought by family with complaints of having? recent increasing altered mental status. 1)Dementia with behavioral Disturbance: Frequent reorientation c/w seroquel, paxil c/w Ativan PRN 2)HTN:c/w HCTZ, Lisinopril 3)Bradycardia: Decrease dose of Metoprolol 4)DVT ppx: SCD 5)Code:DNR 6)Dispo:accepted to assisted living, plan for discharge tomorrow AM Time Spent With Patient Time with patient: 15 - 25 minutes Subjective Date/time seen: 05/27/22 15:40 Interval history: no acute events overnight, await placement Review of Systems Review of Systems: All systems reviewed & are unremarkable except as noted in HPI and below Constitutional: Constitutional: Reports no additional constitutional complaints Eyes: Eyes: Reports no additional eye complaints ENT: Reports system reviewed and no additional complaints, except as documented Cardiovascular: Cardiovascular: Reports no additional cardiovascular complaints Respiratory: Respiratory: Reports no additional respiratory complaints Gastrointestinal: Gastrointestinal: Reports no additional gastrointestinal complaints Musculoskeletal: Musculoskeletal: Reports no additional musculoskeletal complaints Neurologic: Reports system reviewed and no additional complaints, except as documented Exam Const: General: comfortable and no acute distress HENMT: Mouth: Yes moist mucous membranes Eyes: Sclera: sclerae normal Neck: Neck: supple Resp: Effort & Inspection: normal respiratory effort Auscultation: clear to auscultation bilaterally Cardio: Rate: regular rate and bradycardic GI: GI Palp: Yes Soft to palpation Auscultation: normal bowel sounds Skin: General skin exam: normal color Extrem: General: normal to inspection Psych: Mental Status: mental status grossly normal Objective Data Vital Signs Vital Signs: Vital Signs - 24 hr 05/26/22 16:00 05/26/22 20:34 05/26/22 20:00 Temperature Pulse Rate 56 L 72 69 Respiratory Rate Blood Pressure Pulse Oximetry Oxygen Delivery 05/26/22 22:00 05/27/22 05:55 05/27/22 08:01 Temperature 97.6 F 96.5 F L Pulse Rate 60 82 55 L Respiratory Rate 16 18 Blood Pressure 135/51 L 143/58 H Pulse Oximetry 90 98 Oxygen Delivery 05/27/22 08:00 05/27/22 08:00 05/27/22 12:00 Temperature Pulse Rate 55 L 63 61 Respiratory Rate 18 Blood Pressure Pulse Oximetry 98 Oxygen Delivery Room Air 05/27/22 14:00 Temperature 96.4 F L Pulse Rate 66 Respiratory Rate 20 Blood Pressure 149/83 H Pulse Oximetry 98 Oxygen Delivery Intake/Output Intake/Output: Intake & Output 05/24/22 05/25/22 05/26/22 05/27/22 23:59 23:59 23:59 23:59 Intake Total 960 1420 1160 Output Total 1250 960 Balance -362 109 2624 Meds/Results Medications: Active Medications Generic Name Dose Route Start Last Admin Trade Name Freq PRN Reason Stop Dose Admin Acetaminophen 650 mg 05/24/22 19:17 05/25/22 19:07 Acetaminophen 325 Mg Tablet PO 650 mg Q4H PRN Administration Mild Pain (1-3) or Fever Aspirin 81 mg
--- NOTE | 2022-05-27 15:40 | PC.NURSE ---
dnr paperwork in pt chart
[2022-05-27] MEDS: ACETAMINOPHEN 325 MG TABLET 650 MG PO (17:48)
[2022-05-27] MEDS: METOPROLOL TARTRATE 12.5 MG TABLET PO (21:30)
[2022-05-27] MEDS: TAMSULOSIN HCL 0.4 MG CAPSULE PO (21:39)
[2022-05-27] MEDS: MIRTAZAPINE 30 MG TABLET PO (21:39)
[2022-05-27] MEDS: QUEtiapine FUMARATE 25 MG TABLET PO (21:40)
[2022-05-28] VITALS: PULSE 66
[2022-05-28 04:00] VITALS: PULSE 60
[2022-05-28 06:00] VITALS: BP 166/60; PULSE 59; RESP 20; TEMP 36.2; O2SAT 99
--- NOTE | 2022-05-28 07:34 | PM.DS ---
DS: Admitting Diagnosis Discharge Date 05/28/22 Admitting Diagnosis Altered Mental Status DS: Discharge Diagnosis Discharge Diagnosis (1) Bradycardia: Code(s): R00.1 - Bradycardia, unspecified Status: Acute (2) Dementia: Qualifiers: Dementia behavioral disturbance: with behavioral disturbance Dementia type: unspecified type Qualified Code(s): F03.91 - Unspecified dementia with behavioral disturbance Code(s): F03.90 - Unspecified dementia without behavioral disturbance Status: Acute (3) Cognitive deficits: Code(s): R41.89 - Other symptoms and signs involving cognitive functions and awareness Status: Acute DS: Summary Hospital Course Reason for hospitalization: Altered Mental Status Hospital Course: 86-year-old male patient with? significant past medical history of dementia, recent urinary tract infection,? coronary artery disease, hypertension, left hip pain, metastatic prostate cancer? brought by family with complaints of having? recent increasing altered mental status. His symptoms seem to be 2/2 to his dementia which might be worsening.Continued with seroquel, paxil, PRN ativan for behavioral disturbance. Metoprolol was stopped due to bradycardia. Discharged to Assisted living in stable condition. Time Spent with Patient Time attestation: Total time spent providing and/or coordinating discharge services: Exam Const: General: comfortable and no acute distress HENMT: Mouth: Yes moist mucous membranes Eyes: Sclera: sclerae normal Neck: Neck: supple Resp: Effort & Inspection: normal respiratory effort Auscultation: clear to auscultation bilaterally Cardio: Rate: bradycardic Rhythm: regular rhythm GI: Inspection: non-distended Auscultation: normal bowel sounds Skin: General skin exam: normal color and no rashes or lesions noted Extrem: General: normal to inspection and no edema Psych: Mental Status: mental status grossly normal Discharge Plan Discharge Attending physician on discharge: Marycarmen Borjas Discharging Clinician: Marycarmen Borjas Anticipated Discharge Date/Time: 05/28/22 07:32 Patient Disposition: NH Assisted/Asst Living Activity: as tolerated Diet: heart healthy Patient Instructions: Antibiotic Form Stand Alone Forms: General Discharge Information, Senior Living Discharge Follow-up/Referrals: Juan Fishman MD [Primary Care Provider] - 2 Weeks Discharge Medications: New lisinopril 10 mg Tablet 20 mg PO DAILY Qty: 30 1RF Continued Xtandi 40 mg capsule 160 mg PO HS finasteride 5 mg tablet 5 mg PO DAILY Qty: 90 3RF pantoprazole 40 mg tablet,delayed release (DR/EC) 40 mg PO QAM Qty: 90 3RF paroxetine HCl 10 mg tablet 10 mg PO QAM Qty: 90 3RF hydrochlorothiazide 12.5 mg tablet 12.5 mg PO DAILY Hold Instructions: Take BP and record if BP greater than 130 may give Rx Instructions: TAKE 1 TABLET BY MOUTH DAILY mirtazapine 30 mg tablet 30 mg PO HS oxybutynin chloride 5 mg tablet extended release 24 hr 5 mg PO HS tamsulosin 0.4 mg capsule 0.4 mg PO HS Rx Instructions: 1/2 hr following the same meal each day aspirin [Adult Aspirin Regimen] 81 mg tablet,delayed release (DR/EC) 81 mg PO HS ferrous sulfate 325 mg (65 mg iron) tablet 325 mg PO BID Qty: 180 2RF quetiapine [Seroquel] 25 mg tablet 25 mg PO HS Qty: 30 2RF acetaminophen [Mapap (acetaminophen)] 325 mg Tablet 650 mg PO QID PRN (Reason: pain) Qty: 0 0RF pyridoxine (vitamin B6) [Vitamin B-6] 100 mg Tablet 100 mg PO QAM Qty: 0 0RF omega 6-xjr-wkj-fish oil 300-1,000 mg Capsule 1,000 mg PO DAILY Qty: 0 0RF Discontinued metoprolol tartrate 25 mg tablet 25 mg PO Q12HR Qty: 60 5RF Rx Instructions: hold if SBP less than 120 lisinopril 10 mg tablet 10 mg PO DAILY Hold Instructions: give if BP greater than 130 Rx Instructions:
[2022-05-28 08:00] VITALS: PULSE 63
[2022-05-28] MEDS: FERROUS SULFATE 324 MG TABLET PO (09:21)
[2022-05-28] MEDS: OMEGA 3 POLYUNSAT FATTY ACIDS 1 GM CAP PO (09:21)
[2022-05-28 09:22] VITALS: PULSE 59
[2022-05-28] MEDS: ASPIRIN 81 MG ENTERIC TABLET PO (09:22)
[2022-05-28] MEDS: PANTOPRAZOLE 40 MG TABLET PO (09:22)
[2022-05-28] MEDS: METOPROLOL TARTRATE 12.5 MG TABLET PO (09:22)
[2022-05-28] MEDS: PARoxetine 10 MG TABLET PO (09:22)
[2022-05-28] MEDS: hydroCHLOROthiazide 12.5 MG CAPSULE PO (09:22)
[2022-05-28] MEDS: FINASTERIDE 5 MG TABLET PO (09:22)
[2022-05-28] MEDS: PYRIDOXINE HCL 50 MG TABLET 100 MG PO (09:22)
[2022-05-28] MEDS: lisinopriL 20 MG TABLET PO (09:26)
== END 2022-05-28 13:39 | DRG 884 ==
LOC: ANHED 18:18 → ANH3MEDSUR 19:05
PROVIDERS: Admitting Provider Chiropractor; Emergency Provider Emergency Medicine; PCP Family Medicine; Visit Provider Internal Medicine
DX: F03.91 Unspecified dementia, unspecified severity, with behavioral disturbance (principal); C79.9 Secondary malignant neoplasm of unspecified site; C61 Malignant neoplasm of prostate; R53.81 Other malaise; R53.1 Weakness; I10 Essential (primary) hypertension; I25.10 Atherosclerotic heart disease of native coronary artery without angina pectoris; R00.1 Bradycardia, unspecified; M25.552 Pain in left hip; W18.30XA Fall on same level, unspecified, initial encounter; Z20.822 Contact with and (suspected) exposure to COVID-19; R07.9 Chest pain, unspecified; Z79.82 Long term (current) use of aspirin; Z79.899 Other long term (current) drug therapy; Z87.891 Personal history of nicotine dependence; Z95.1 Presence of aortocoronary bypass graft; Z87.440 Personal history of urinary (tract) infections
CPT/HCPCS: 36415; 70450; 80053; 81003; 84484; 85025; 85610; 85730; 93005; 97110; 97161; 97165; 97530; 97535; 99285; A9270; C9803; G0378; U0003; U0005

== ENCOUNTER 2022-10-19 15:45 | Outpatient (CLI) | payer MEDICARE, SELFPAY ==
[2022-10-19 16:23] LABS: Hematocrit 33.3 % (42.0-52.0); Hemoglobin 10.9 g/dL (14.0-18.0); Mean Corpuscular HGB Conc 32.7 g/dl (32-36); Mean Corpuscular Hemoglobin 31.8 pg (26-34); Mean Corpuscular Volume 97.1 fl (80-100); Mean Platelet Volume 10.5 fl (7.4-10.4); Platelet Count Result 181 k/mm3 (150-375); Red Blood Count 3.43 M/mm3 (4.6-6.20); Red Cell Distribution Width 14.3 % (11.5-14.5); White Blood Count 8.5 K/mm3 (4.5-10.0)
[2022-10-19 16:47] LABS: Alanine Aminotransferase 18 U/L (6-50); Albumin Level 4.3 g/dL (3.5-5.1); Alkaline Phosphatase 158 U/L (38-126); Anion Gap 5 mmol/L (8-16); Aspartate Amino Transferase 41 U/L (17-59); Bilirubin,Total 0.6 mg/dL (0.2-1.3); Blood Urea Nitrogen 33 mg/dL (9-20); Calcium 8.9 mg/dL (8.4-10.2); Carbon Dioxide 30 mmol/L (22-30); Chloride 104 mmol/L (98-107); Estimated Glomerular Filt Rate 36; Glucose 103 mg/dL (65-110); Potassium 4.4 mmol/L (3.4-5.0); Sodium 139 mmol/L (137-145)
[2022-10-19 17:05] LABS: Thyroid Stimulating Hormone 0.976 uIU/mL (0.465-4.680)
== END 2022-10-19 15:46 | disposition home or self-care (01) ==
PROVIDERS: PCP Family Medicine; Visit Provider Family Medicine
DX: Z00.00 Encounter for general adult medical examination without abnormal findings (principal); D50.0 Iron deficiency anemia secondary to blood loss (chronic); F32.9 Major depressive disorder, single episode, unspecified; I11.9 Hypertensive heart disease without heart failure; I25.10 Atherosclerotic heart disease of native coronary artery without angina pectoris; R53.83 Other fatigue; Z95.2 Presence of prosthetic heart valve
CPT/HCPCS: 36415; 80053; 84443; 85027

== ENCOUNTER 2022-10-23 11:29 | Outpatient (CLI) | payer MEDICARE, SELFPAY ==
[2022-10-23 12:24] LABS: Add Urine Microscopic? NO; Appearance Urine Clear (Clear); Bilirubin Urine Negative (Negative); Blood Urine Negative (Negative); Color Urine Light Yellow (Yellow); Glucose Urine UA Negative (Negative); Ketones Urine Negative (Negative); Leukocyte Esterase Ur Negative LEU/UL (NEGATIVE); Nitrate Urine Negative (Negative); Protein Urine Negative (Negative); Urobilinogen Urine 0.2 mg/dL (<2.0); pH Urine 6.5 (5.0-9.0)
== END 2022-10-23 11:30 | disposition home or self-care (01) ==
LOC: ANHLAB 11:31
PROVIDERS: PCP Family Medicine; Visit Provider Physician Assistant
DX: D50.0 Iron deficiency anemia secondary to blood loss (chronic) (principal); G20 Parkinson's disease; I11.9 Hypertensive heart disease without heart failure; I25.10 Atherosclerotic heart disease of native coronary artery without angina pectoris; R53.83 Other fatigue
CPT/HCPCS: 81003

== ENCOUNTER 2023-12-31 13:57 | Outpatient (CLI) | payer MEDICARE, SELFPAY ==
[2023-12-31 14:43] LABS: Hematocrit 35.3 % (42.0-52.0); Hemoglobin 11.1 g/dL (14.0-18.0); Mean Corpuscular HGB Conc 31.4 g/dl (32-36); Mean Corpuscular Hemoglobin 30.4 pg (26-34); Mean Corpuscular Volume 96.7 fl (80-100); Mean Platelet Volume 10.3 fl (7.4-10.4); Platelet Count Result 156 k/mm3 (150-375); Red Blood Count 3.65 M/mm3 (4.6-6.20); Red Cell Distribution Width 14.2 % (11.5-14.5); White Blood Count 6.9 K/mm3 (4.5-10.0)
[2023-12-31 14:57] LABS: Alanine Aminotransferase 13 U/L (6-50); Albumin Level 4.1 g/dL (3.5-5.1); Alkaline Phosphatase 211 U/L (38-126); Anion Gap 7 mmol/L (8-16); Aspartate Amino Transferase 22 U/L (17-59); Bilirubin,Total 0.5 mg/dL (0.2-1.3); Blood Urea Nitrogen 45 mg/dL (9-20); Calcium 9.1 mg/dL (8.4-10.2); Carbon Dioxide 25 mmol/L (22-30); Chloride 109 mmol/L (98-107); Estimated Glomerular Filt Rate 26; Glucose 108 mg/dL (65-110); Potassium 4.7 mmol/L (3.4-5.0); Sodium 141 mmol/L (137-145)
[2023-12-31 15:25] LABS: Prostate Specific Antigen 0.1 ng/mL (< OR = 4.0); Thyroid Stimulating Hormone 0.944 uIU/mL (0.465-4.680)
== END 2023-12-31 13:58 | disposition home or self-care (01) ==
PROVIDERS: PCP Family Medicine; Visit Provider Physician Assistant
DX: I11.9 Hypertensive heart disease without heart failure (principal); I25.10 Atherosclerotic heart disease of native coronary artery without angina pectoris; I48.0 Paroxysmal atrial fibrillation; Z23 Encounter for immunization; Z95.2 Presence of prosthetic heart valve; F32.9 Major depressive disorder, single episode, unspecified; C61 Malignant neoplasm of prostate; Z12.5 Encounter for screening for malignant neoplasm of prostate
CPT/HCPCS: 36415; 80053; 84153; 84443; 85027

== ENCOUNTER 2024-01-13 15:31 | Outpatient (CLI) | payer MEDICARE, SELFPAY ==
[2024-01-13 16:24] LABS: Appearance Urine Clear (Clear); Bacteria Urine 2+ /hpf; Bilirubin Urine Negative (Negative); Blood Urine Negative (Negative); Color Urine Yellow (Yellow); Glucose Urine UA Negative (Negative); Ketones Urine Negative (Negative); Leukocyte Esterase Ur Trace LEU/UL (NEGATIVE); Nitrate Urine Negative (Negative); Non Pathogenic Casts 0-2; Protein Urine Negative (Negative); RBC Urine 0-2 /hpf (0-2); Specific Grav Ur 1.018 (1.001-1.035); Squamous Epithelial Cell Urine None seen /hpf (Few); Urobilinogen Urine 0.2 mg/dL (<2.0)
[2024-01-13 16:27] LABS: Add Urine Microscopic? YES
[2024-01-13 17:02] LABS: Anion Gap 7 mmol/L (8-16); Blood Urea Nitrogen 44 mg/dL (9-20); Carbon Dioxide 24 mmol/L (22-30); Chloride 108 mmol/L (98-107); Estimated Glomerular Filt Rate 32; Glucose 98 mg/dL (65-110); Potassium 4.4 mmol/L (3.4-5.0); Sodium 139 mmol/L (137-145)
== END 2024-01-13 15:32 | disposition home or self-care (01) ==
PROVIDERS: PCP Family Medicine; Visit Provider Physician Assistant
DX: N17.9 Acute kidney failure, unspecified (principal); N18.9 Chronic kidney disease, unspecified
CPT/HCPCS: 36415; 80048; 81001

== ENCOUNTER 2024-03-19 19:46 | Emergency (ER) | payer MEDICARE, SELFPAY ==
--- NOTE | ~2024-03-19 | XR_ITS ---
EXAMINATION: XR chest 1V portable DATE: 03/19/2024 20:47 INDICATION: Altered mental status. TECHNIQUE: A single frontal view of the chest was obtained. COMPARISON: Chest 2 views 01/09/22 FINDINGS: There are airspace opacities in the mid and lower lung zones. There is a small left pleural effusion. No pneumothorax. The heart size is normal. Median sternotomy wires and mediastinal surgica l clips are seen, likely from prior coronary artery bypass grafting. IMPRESSION: 1. Airspace opacities in the mid and lower lung zones, consistent with atelectasis versus pneumonia. 2. Small left pleural effusion. Reviewed, dictated and finalized at location E. IMPRESSION: 1. Airspace opacities in the mid and lower lung zones, consistent with atelecta sis versus pneumonia. 2. Small left pleural effusion.
--- NOTE | ~2024-03-19 | CT_ITS ---
EXAMINATION: CT brain wo con DATE: 03/19/2024 21:14 INDICATION: Altered mental status. TECHNIQUE: Computed tomography (CT) of the head was performed without intravenous contrast. The mA wa s adjusted according to patient size. Iterative reconstruction technique was employed. The dose-lengt h product was 681.00 mGy-cm. COMPARISON: Head CT 05/24/2022 FINDINGS: There are old infarcts in the left cerebellum and left thalamus. Old infarcts in the bilate ral basal ganglia and internal capsules. There is an old infarct in right frontal lobe. There are sca ttered areas of low attenuation in the cerebral white matter. There is no intracranial hemorrhage, ac quileute infarction, or abnormal intracranial mass lesion. The ventricles are normal in size. There are li nereyda changes of ocular lens replacement surgeries. There is mucosal thickening in the paranasal sinus es. The mastoid air cells are normal. There is cerumen in the left external auditory canal. IMPRESSION: 1. Old infarcts involving the left cerebellum, bilateral basal ganglia, bilateral internal capsules, left thalamus, and right frontal lobe. 2. Extensive nonspecific cerebral white matter disease, which likely represents chronic small vessel ischemic disease. Reviewed, dictated and finalized at location E. IMPRESSION: 1. Old infarcts involving the left cerebellum, bilateral basal ganglia, bilater al internal capsules, left thalamus, and right frontal lobe. 2. Extensive nonspecific cerebral white matter disease, which likely represents chronic small vessel ischemic disease.
[2024-03-19 19:47] VITALS: BP 157/75; PULSE 77; RESP 20; TEMP 36.7; O2SAT 98
--- NOTE | 2024-03-19 19:58 | ECG_ITS ---
SEE SCANNED COPY FOR CONFIRMED REPORT MTDD
[2024-03-19 19:59] VITALS: O2SAT 98
[2024-03-19 20:26] LABS: Basophils Percent Auto 0.3 % (0.2-1.2); Eosinophils Absolute Auto 0.2 K/mm3 (0-0.3); Eosinophils Percent Auto 2.7 % (0-4.4); Hematocrit 33.2 % (42.0-52.0); Immature Granulocyte Absolute 0.02 K/mm3 (0.00-0.031); Immature Granulocyte Percent A 0.3 % (0-0.5); Lymphocytes Percent Auto 28.6 % (18.3-44.2); Mean Corpuscular HGB Conc 33.1 g/dl (32-36); Mean Corpuscular Hemoglobin 30.9 pg (26-34); Mean Corpuscular Volume 93.3 fl (80-100); Monocytes Absolute Auto 0.6 K/mm3 (0.1-0.6); Monocytes Percent Auto 8.1 % (2.6-8.5); Neutrophils Absolute Auto 4.6 K/mm3 (1.3-6.7); Platelet Count Result 158 k/mm3 (150-375); Red Blood Count 3.56 M/mm3 (4.6-6.20); Red Cell Distribution Width 13.4 % (11.5-14.5); White Blood Count 7.7 K/mm3 (4.5-10.0)
--- NOTE | 2024-03-19 20:29 | ED.AMS ---
HPI - Altered Mental Status General Chief Complaint: Altered Mental Status Stated Complaint: AMS Time Seen by Provider: 03/19/24 20:02 History of Present Illness HPI narrative: 88-year-old male with history of Parkinson's disease, dementia, paroxysmal AFib, CKD, CAD, CVA, hypertension presents to the emergency department with his daughter/POA and son-in-law at bedside for altered mental status. Patient's family provides the following history. The daughter states she visited the patient last night and left around 630 and he was in his normal state. Today when they came to visit the patient in the evening they found him lying on his bed ?unconscious?. States he would slightly open his eyes to verbal stimuli but would not respond. They called EMS and the patient was transferred to the emergency department. Upon their arrival they state the patient is now in his normal state. He is A&O x2 at baseline. The patient denies any symptoms including headache, vision changes, focal numbness or weakness, chest pain or shortness of breath, cough or congestion, abdominal pain, nausea vomiting, diarrhea, dysuria hematuria, fevers. He is DNR/DNI. Related Data Home Medications Medication Instructions Recorded Confirmed hydrochlorothiazide 12.5 mg tablet 12.5 mg PO DAILY 01/06/22 12/31/23 mirtazapine 30 mg tablet 30 mg PO HS 01/06/22 12/31/23 oxybutynin chloride 5 mg 5 mg PO HS 01/06/22 12/31/23 tablet,extended release 24 hr Allergies Allergy/AdvReac Type Severity Reaction Status Date / Time fesoterodine [From Toviaz] Allergy Severe Unknown Verified 03/19/24 19:57 morphine Allergy Unknown Nausea And Verified 03/19/24 19:57 Vomiting Penicillins Allergy Unknown Swelling Verified 03/19/24 19:57 Review of Systems Review of Systems: CONSTITUTIONAL: Denies fever, chills, or sweats. EYES: Denies visual changes, redness, or discharge. ENT: Denies rhinorrhea, congestion, sore throat, or otalgia. CARDIOVASCULAR: Denies chest pain, palpitations, or edema. RESPIRATORY: Denies cough or dyspnea. GASTROINTESTINAL: Denies abdominal pain, nausea, vomiting, or diarrhea. GENITOURINARY: Denies dysuria or hematuria. SKIN: Denies rash or itching. MUSCULOSKELETAL: Denies back pain, joint pain, or myalgia. NEUROLOGIC: Denies headache, numbness, or weakness. PSYCHIATRIC: Denies anxiety or depression. [facility] Past Medical History Medical History Coronary artery disease involving [place] coronary artery of [place] heart Hypertension Left hip pain Prostate cancer metastatic Surgical History Surgical History Hx of CABG Family History Family History Father Cancer Mother Cancer Social History Social History Social History: Smoking packs per day: 1 Smoking cigarettes per day: 20.0 Smoking status: Former smoker Tobacco type: cigarettes Second hand tobacco smoke exposure: Yes Smoking end date: 11/08/1965 Alcohol intake: never Substance use: never Substance use type: does not use Living arrangements: with family Occupation/Education: retired Gender identity (if verbalized by the patient): Male Sexual Orientation (if Verbalized by the Patient): Straight or Heterosexual Spiritual care concerns: No Exam Narrative: GENERAL: Well-appearing, well-nourished, and in no acute distress. HEAD: Normocephalic, atraumatic. EYES: PERRLA and EOMI. ENT: Nares clear, no rhinorrhea or epistaxis. Mucous membranes moist. NECK: Supple. CHEST: Clear to auscultation. No respiratory distress. HEART: Regular rate and rhythm. No murmur heard. Normal peripheral pulses. ABDOMEN: Soft, nontender, nondistended, normal active bowel sounds. EXTREMITIES: Normal range of motion. No edema. SKIN: Warm, dry, no
[2024-03-19 20:31] VITALS: BP 154/74; PULSE 63; RESP 14; O2SAT 97
[2024-03-19 20:40] LABS: Prothrombin Time 13.4 Seconds (11.1-14.7)
[2024-03-19 20:48] LABS: Alanine Aminotransferase 13 U/L (6-50); Albumin Level 4.3 g/dL (3.5-5.1); Alkaline Phosphatase 246 U/L (38-126); Anion Gap 9 mmol/L (4-12); Aspartate Amino Transferase 25 U/L (17-59); Bilirubin,Total 0.7 mg/dL (0.2-1.3); Blood Urea Nitrogen 38 mg/dL (9-20); Calcium 9.2 mg/dL (8.4-10.2); Carbon Dioxide 22 mmol/L (22-30); Chloride 111 mmol/L (98-107); Estimated CRCL calculation 26 ml/min; Estimated Glomerular Filt Rate 30; Glucose 96 mg/dL (65-110); Potassium 4.2 mmol/L (3.4-5.0); Sodium 142 mmol/L (137-145)
[2024-03-19 21:09] LABS: Appearance Urine Clear (Clear); Bacteria Urine None Seen /hpf; Bilirubin Urine Negative (Negative); Blood Urine Negative (Negative); Color Urine Yellow (Yellow); Glucose Urine UA Negative (Negative); Ketones Urine Negative (Negative); Leukocyte Esterase Ur Trace LEU/UL (Negative); Nitrate Urine Negative (Negative); Non Pathogenic Casts 0-2; Protein Urine Negative (Negative); RBC Urine 0-2 /hpf (0-2); Specific Grav Ur 1.014 (1.001-1.035); Squamous Epithelial Cell Urine None Seen /hpf (Few); WBC Urine 0-5 /hpf (0-3); pH Urine 5.5 (5.0-9.0)
[2024-03-19 21:13] LABS: Add Urine Microscopic? YES
[2024-03-19 22:26] VITALS: BP 144/69; PULSE 70; RESP 16; O2SAT 96
== END 2024-03-19 22:30 ==
PROVIDERS: Emergency Medicine; Emergency Provider Physician Assistant; PCP Family Medicine
DX: J90 Pleural effusion, not elsewhere classified (principal); I48.0 Paroxysmal atrial fibrillation; I12.9 Hypertensive chronic kidney disease with stage 1 through stage 4 chronic kidney disease, or unspecified chronic kidney disease; N18.9 Chronic kidney disease, unspecified; I25.10 Atherosclerotic heart disease of native coronary artery without angina pectoris; Z95.1 Presence of aortocoronary bypass graft; Z86.73 Personal history of transient ischemic attack (TIA), and cerebral infarction without residual deficits; Z85.46 Personal history of malignant neoplasm of prostate; Z87.891 Personal history of nicotine dependence; I45.10 Unspecified right bundle-branch block; I45.2 Bifascicular block; R94.31 Abnormal electrocardiogram [ECG] [EKG]
CPT/HCPCS: 36415; 70450; 71045; 80053; 81001; 85025; 85610; 85730; 93005; 99284

== ENCOUNTER 2024-03-26 07:34 | Emergency (ER) | payer MEDICARE, SELFPAY ==
--- NOTE | ~2024-03-26 | XR_ITS ---
EXAMINATION: XR chest 2V DATE: 03/26/2024 08:56 INDICATION: Altered mental status. TECHNIQUE: Frontal and lateral views of the chest were obtained. COMPARISON: Chest single view 03/19/2024, chest CT 01/05/2022 FINDINGS: There is mild atelectasis at left lung base. There are calcified pleural plaques bilaterall y, which may be seen with asbestos exposure. Calcified right lung nodules and calcified right hilar l ymph nodes are consistent with old granulomatous disease. No pleural effusion or pneumothorax. The he art size is normal. Median sternotomy wires and mediastinal surgical clips are seen, likely from prio r coronary artery bypass grafting. IMPRESSION: 1. Mild atelectasis at left lung base. Reviewed, dictated and finalized at location A.
--- NOTE | ~2024-03-26 | CT_ITS ---
EXAMINATION: CT brain wo con DATE: 03/26/2024 08:51 INDICATION: Transient alteration of awareness. TECHNIQUE: Computed tomography (CT) of the head was performed without intravenous contrast. The mA wa s adjusted according to patient size. Iterative reconstruction technique was employed. The dose-lengt h product was 605.33 mGy-cm. 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 There are old infarcts in the left th alamus, left basal ganglia, and bilateral internal capsules. There is an old infarct in left occipita l lobe. There is an old infarct in right frontal lobe. There are scattered areas of low attenuation i n the cerebral white matter. There is no intracranial hemorrhage, acute infarction, or abnormal intra cranial mass lesion. The ventricles are normal in size. There is mild mucosal thickening in the paran altagracia sinuses. There are likely changes of ocular lens replacement surgeries. The mastoid air cells ar e normal. IMPRESSION: 1. Old infarcts in the brain. 2. Stable extensive nonspecific cerebral white matter disease, which likely represents chronic small vessel ischemic disease. Reviewed, dictated and finalized at location A. IMPRESSION: 1. Old infarcts in the brain. 2. Stable extensive nonspecific cerebral white matter disease, which likely rep resents chronic small vessel ischemic disease.
[2024-03-26 07:36] VITALS: BP 181/85; PULSE 81; RESP 16; TEMP 36.3; O2SAT 98
[2024-03-26 07:41] VITALS: PULSE 78; O2SAT 99
--- NOTE | 2024-03-26 07:43 | ECG_ITS ---
SEE SCANNED COPY FOR CONFIRMED REPORT MTDD
--- NOTE | 2024-03-26 07:45 | ED.GENADULT ---
HPI - General Adult General Chief complaint: Altered Mental Status Stated complaint: lethargic Time Seen by Provider: 03/26/24 07:35 History of Present Illness HPI narrative: Patient is an 88-year-old male who presents ER with decreased responsiveness. He would not wake up for his you know he had woken up and taking his morning medications. Had a similar incident earlier this week. Workup at that time was unremarkable. Patient has known dementia and is a DNR. No recent infectious symptoms reported. Patient provide no history. He will open his eyes does not seem to want to do much else. He is in no distress. Related Data Home Medications Medication Instructions Recorded Confirmed hydrochlorothiazide 12.5 mg tablet 12.5 mg PO DAILY 01/06/22 12/31/23 mirtazapine 30 mg tablet 30 mg PO HS 01/06/22 12/31/23 oxybutynin chloride 5 mg 5 mg PO HS 01/06/22 12/31/23 tablet,extended release 24 hr Allergies Allergy/AdvReac Type Severity Reaction Status Date / Time fesoterodine [From Toviaz] Allergy Severe Unknown Verified 03/19/24 19:57 morphine Allergy Unknown Nausea And Verified 03/19/24 19:57 Vomiting Penicillins Allergy Unknown Swelling Verified 03/19/24 19:57 Review of Systems Review of Systems: ROS unobtainable: Yes unobtainable due to mental status PMFSH Past Medical History Medical History Coronary artery disease involving [place] coronary artery of [place] heart Hypertension Left hip pain Prostate cancer metastatic Surgical History Surgical History Hx of CABG Family History Family History Father Cancer Mother Cancer Social History Social History Social History: Smoking packs per day: 1 Smoking cigarettes per day: 20.0 Smoking status: Former smoker Tobacco type: cigarettes Second hand tobacco smoke exposure: Yes Smoking end date: 11/08/1965 Alcohol intake: never Substance use: never Substance use type: does not use Living arrangements: with family Occupation/Education: retired Gender identity (if verbalized by the patient): Male Sexual Orientation (if Verbalized by the Patient): Straight or Heterosexual Spiritual care concerns: No Exam Narrative: GENERAL: Well-appearing, well-nourished, and in no acute distress. HEAD: Normocephalic, atraumatic. EYES: PERRL and EOMI. ENT: Mucous membranes moist. NECK: Supple. CHEST: Clear to auscultation. No respiratory distress. HEART: Regular rate and rhythm. Normal peripheral pulses. ABDOMEN: Soft, nontender, nondistended. EXTREMITIES: Normal range of motion. No edema. SKIN: Warm, dry, no rash. NEURO: Alert and oriented x1. Course Course Emergency Course: Patient resting comfortably. He has started interacting with family. Labs and imaging unremarkable, creatinine elevated but 0.4 from previous. This may be progression of his dementia. Discharge. Vital Signs Vital signs: Vital Signs Temperature 97.3 F L 03/26/24 07:36 Pulse Rate 81 03/26/24 07:36 Respiratory Rate 16 03/26/24 07:36 Blood Pressure 181/85 H 03/26/24 07:36 Pulse Oximetry 98 03/26/24 07:36 Oxygen Delivery Room Air 03/26/24 07:36 Temperature 97.3 F L 03/26/24 07:36 Pulse Rate 58 L 03/26/24 09:51 Respiratory Rate 19 03/26/24 09:51 Blood Pressure 178/79 H 03/26/24 09:51 Pulse Oximetry 100 03/26/24 09:51 Oxygen Delivery Room Air 03/26/24 07:41 Medical Decision Making Vital Signs Vital Signs: Vital Signs Temperature 97.3 F L 03/26/24 07:36 Pulse Rate 81 03/26/24 07:36 Respiratory Rate 16 03/26/24 07:36 Blood Pressure 181/85 H 03/26/24 07:36 Pulse Oximetry 98 03/26/24 07:36 Oxygen Delivery Room Air 03/26/24 07:36 Temperature 9
[2024-03-26 07:52] VITALS: BP 176/87; PULSE 78; RESP 19; O2SAT 99
[2024-03-26 08:22] LABS: Basophils Percent Auto 0.3 % (0.2-1.2); Eosinophils Absolute Auto 0.1 K/mm3 (0-0.3); Eosinophils Percent Auto 1.9 % (0-4.4); Hematocrit 33.6 % (42.0-52.0); Hemoglobin 11.1 g/dL (14.0-18.0); Immature Granulocyte Absolute 0.02 K/mm3 (0.00-0.031); Immature Granulocyte Percent A 0.3 % (0-0.5); Lymphocytes Absolute Auto 2.14 K/mm3 (0.9-3.2); Lymphocytes Percent Auto 28.7 % (18.3-44.2); Mean Corpuscular Hemoglobin 30.9 pg (26-34); Mean Corpuscular Volume 93.6 fl (80-100); Mean Platelet Volume 10.5 fl (7.4-10.4); Monocytes Absolute Auto 0.5 K/mm3 (0.1-0.6); Monocytes Percent Auto 7.2 % (2.6-8.5); Neutrophils Absolute Auto 4.6 K/mm3 (1.3-6.7); Neutrophils Percent Auto 61.6 % (45.5-73.1); Platelet Count Result 156 k/mm3 (150-375); Red Blood Count 3.59 M/mm3 (4.6-6.20); Red Cell Distribution Width 13.5 % (11.5-14.5); White Blood Count 7.5 K/mm3 (4.5-10.0)
[2024-03-26 08:33] LABS: Alanine Aminotransferase 12 U/L (6-50); Albumin Level 4.1 g/dL (3.5-5.1); Alkaline Phosphatase 244 U/L (38-126); Anion Gap 8 mmol/L (4-12); Aspartate Amino Transferase 20 U/L (17-59); Bilirubin,Total 0.6 mg/dL (0.2-1.3); Blood Urea Nitrogen 42 mg/dL (9-20); Calcium 8.9 mg/dL (8.4-10.2); Carbon Dioxide 24 mmol/L (22-30); Chloride 109 mmol/L (98-107); Estimated CRCL calculation 20 ml/min; Estimated Glomerular Filt Rate 25; Glucose 103 mg/dL (65-110); Potassium 4.3 mmol/L (3.4-5.0); Sodium 141 mmol/L (137-145)
[2024-03-26 08:44] LABS: Troponin I 0.012 ng/mL (0.000-0.034)
[2024-03-26 08:57] LABS: Appearance Urine Clear (Clear); Bacteria Urine None Seen /hpf; Bilirubin Urine Negative (Negative); Blood Urine Negative (Negative); Color Urine Yellow (Yellow); Glucose Urine UA Negative (Negative); Ketones Urine Negative (Negative); Leukocyte Esterase Ur 1+ LEU/UL (Negative); Need Manual Microscopic Reviewed; Nitrate Urine Negative (Negative); Non Pathogenic Casts 0-2; Protein Urine Negative (Negative); RBC Urine 0-2 /hpf (0-2); Specific Grav Ur 1.016 (1.001-1.035); Squamous Epithelial Cell Urine None Seen /hpf (Few); WBC Urine 0-5 /hpf (0-3)
[2024-03-26 08:58] LABS: Add Urine Microscopic? YES
[2024-03-26 09:51] VITALS: BP 178/79; PULSE 58; RESP 19; O2SAT 100
--- NOTE | 2024-03-26 09:56 | PC.NURSE ---
Pt is back to his normal, alert and awake, talking and able to make conversation.
[2024-03-26 11:11] VITALS: BP 179/73; PULSE 59; RESP 16; O2SAT 97
== END 2024-03-26 11:18 ==
PROVIDERS: Emergency Provider Emergency Medicine; PCP Family Medicine
DX: F03.90 Unspecified dementia, unspecified severity, without behavioral disturbance, psychotic disturbance, mood disturbance, and anxiety (principal); R94.31 Abnormal electrocardiogram [ECG] [EKG]; I25.10 Atherosclerotic heart disease of native coronary artery without angina pectoris; I10 Essential (primary) hypertension; Z95.1 Presence of aortocoronary bypass graft
CPT/HCPCS: 36415; 70450; 71046; 80053; 81001; 84484; 85025; 93005; 99284

== ENCOUNTER 2024-07-27 17:15 | Emergency (ER) | payer MEDICARE, SELFPAY ==
[2024-07-27 17:51] VITALS: BP 129/62; PULSE 82; RESP 18; TEMP 37; O2SAT 99
== END 2024-07-27 20:08 | disposition left against medical advice (07) ==
LOC: ANHED 19:22
PROVIDERS: PCP Family Medicine
DX: R22.0 Localized swelling, mass and lump, head (principal)
CPT/HCPCS: 99199

== ENCOUNTER 2024-12-07 09:58 | Emergency (ER) | payer MEDICARE, SELFPAY ==
--- NOTE | ~2024-12-07 | CT_ITS ---
EXAMINATION: CT brain wo con DATE: 12/07/2024 13:04 INDICATION: Altered mental status. TECHNIQUE: Computed tomography (CT) of the head was performed without intravenous contrast. The mA wa s adjusted according to patient size. Iterative reconstruction technique was employed. The dose-lengt h product was 605.33 mGy-cm. 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 There is an old infarct in left occip ital lobe. There are old infarcts in the left basal ganglia, bilateral internal capsules, and left th alamus. There is an old infarct in the right frontal lobe. There are scattered areas of low attenuati on in the cerebral white matter. There is no intracranial hemorrhage, acute infarction, or abnormal i ntracranial mass lesion. The ventricles are normal in size. There is mild mucosal thickening in the p aranasal sinuses. There are likely changes of ocular lens replacement surgeries. The mastoid air cell s are normal. IMPRESSION: 1. Old infarcts in the brain. 2. Stable extensive nonspecific cerebral white matter disease, which likely represents chronic small vessel ischemic disease. Reviewed, dictated and finalized at location A. SURVEYOR IMPRESSION: 1. Old infarcts in the brain. 2. Stable extensive nonspecific cerebral white matter disease, which likely rep resents chronic small vessel ischemic disease.
--- NOTE | ~2024-12-07 | XR_ITS ---
XR chest 1V 12/07/2024 13:07 Indication: Altered mental status Procedure: AP view of the chest Comparison: 01/09/2022 Findings: There are calcified granulomas bilaterally. Status post median sternotomy for CABG. Heart s ize normal. No focal air space disease, pulmonary edema, pleural effusion or suspected pneumothorax. Impression: 1: No acute cardiopulmonary disease. Reviewed, dictated and finalized at location A. INSPECTOR Impression: 1: No acute cardiopulmonary disease.
[2024-12-07 09:59] VITALS: BP 110/54; PULSE 74; RESP 16; TEMP 36.8; O2SAT 100
--- OUTSIDE RECORDS SUMMARY | 2024-12-07 10:34 | XMS_ITS | Patient Health Summary ---
Author Organization [facility] Address [address] [place] [address] Care Team Providers Care Conservation Enforcement Officer Name Role Phone Evan Martin MD Primary Care Provider Note from [facility],non-owned Affiliates and Associated Physician Practices is amultiple site organization consisting of ambulatory clinics and hospital sitesin [place], [place], [place] and [place]. This disclosure is being madepursuant to the Care Everywhere program and may not contain all information available regarding this patient. Last updated 18.[facility] Allergies * Piroxicam(Rash) -Medium Criticality * Morphine * Penicillins Medications * Be aware that medications may not be up to date on this document. Alwaysverify current medications with the patient. * metoprolol tartrate IR (LOPRESSOR) 50 MG tablet Take 50 mg by mouth once daily * acetaminophen CR (TYLENOL 8 HOUR) 650 MG tablet Take 1 Tab by mouth as directed. * ferrous sulfate 325 (65 FE) MG tablet Take by mouth. * pantoprazole EC (PROTONIX) 40 MG tablet Take 40 mg by mouth once daily * PARoxetine (PAXIL) 10 MG tablet Take 10 mg by mouth once daily * ALPRAZolam (XANAX) 0.25 MG tablet Take 0.25 mg by mouth 3 times daily as needed for Anxiety * aspirin (ASPIRIN) 81 MG chew tablet Take 81 mg by mouth once daily * celecoxib (CELEBREX) 100 MG capsule Take 100 mg by mouth once daily * Renault-3 Fatty Acids (FISH OIL) 1000 MG capsule Take 1,000 mg by mouth once daily * lisinopril-hydroCHLOROthiazide (PRINZIDE; ZESTORETIC) 10-12.5 MG tablet Take 1 Tab by mouth once daily * Pyridoxine HCl (VITAMIN B6 PO) Take 100 mg by mouth once daily * ranolazine ER 12hr (RANEXA) 500 MG tablet Take 500 mg by mouth every 12 hours * warfarin (COUMADIN) 5 MG tablet Take 5 mg by mouth once daily * atorvastatin (LIPITOR) 80 MG tablet(Started 04/20/2017) Take 1 Tab by mouth at bedtime 5 refills remaining * clopidogrel (PLAVIX) 75 MG tablet(Started 04/21/2017) Take 1 Tab by mouth once daily 5 refills remaining Active Problems Problem Noted Date Diagnosed Date Cardiomyopathy, 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 Social History Tobacco Use Types Packs/Day Years Used Date Smoking Tobacco: Former Tobacco Cessation:Counseling Given: Yes Comments:quit 40 years ago Alcohol Use Standard Drinks/Week Comments No 0 (1 standard drink = 0.6 oz pur e alcohol) Sex and Gender Information Value Date Recorded Sex Assigned at Not on file Gender Identity Not on file Sexual Orientation Not on file Last Filed Vital Signs Vital Sign Reading Time Taken Comments Blood Pressure 149/63 04/20/2017 8:24 AM CDT Pulse 106 04/20/2017 8:24 AM CDT Temperature 36.4 ??C (97.5 ??F) 04/20/2017 8:24 AM CD T Respiratory Rate 16 04/20/2017 8:24 AM CDT Oxygen Saturation 96% 04/20/2017 8:24 AM CDT Inhaled Oxygen Concentration - - Weight 79.4 kg (175 lb) 04/19/2017 12:23 PM CDT Height 185.4 cm (6' 1 ) 04/19/2017 12:23 PM CDT Body Mass Index 23.09 04/19/2017 12:23 PM CDT Procedures * CARDIAC PROCEDURE ORDER(Performed 04/24/2017) * CARDIAC EKG ORDER(Performed 04/21/2017) * CARDIAC ECHOCARDIOGRAM COMPLETE ORDER(Performed 04/21/2017) * LAB RESULTS ORDER(Performed 04/21/2017) * CARDIAC RHYTHM STRIP ORDER(Performed 04/21/2017) * CARDIAC EKG ORDER(Performed 04/21/2017) * CARDIAC CATH CONSULT(Performed 04/21/2017) * EKG 12-LEAD(Performed 04/20/2017) Performed for Cardiomyopathy, secondary (HCC) * EKG 12-LEAD(Performed 04/19/2017) Performed for Cardiomyopathy, secondary (HCC) * CARDIAC CATH(Performed 04/19/2017) * GLUCOSE - POINT OF CARE(Performed 04/05/2009) * GLUCOSE - POINT OF CARE(Performed 04/05/2009) * BASIC METABOLIC PANEL (CALCIUM TOTAL)(Performed 04/05/2009) * CBC W AUTO DIFFERENTIAL(Performed 04/05/2009) * GLUCOSE - POINT OF CARE(Performed 04/04/2009) * GLUCOSE - POINT OF CARE(Performed 04/04/2009) * GLUCOSE - POINT OF CARE(Performed 04/04/2009) * BASIC METABOLIC PANEL (CALCIUM TOTAL)(Performed 04/04/2009) * CBC W AUTO DIFFERENTIAL(Performed 04/04/2009) * GLUCOSE - POINT OF CARE(Performed 04/03/2009) * GLUCOSE - POINT OF CARE(Performed 04/03/2009) * XR CHEST 1VW PORTABLE(Performed 04/03/2009) Performed for Follow-Up Exam NEC * GLUCOSE - POINT OF CARE(Performed 04/03/2009) * GLUCOSE - POINT OF CARE(Performed 04/03/2009) * XR CHEST 1VW PORTABLE(Performed 04/03/2009) Performed for Follow-Up Exam NEC * GLUCOSE - POINT OF CARE(Performed 04/03/2009) * BASIC METABOLIC PANEL (CALCIUM TOTAL)(Performed 04/03/2009) * CBC W AUTO DIFFERENTIAL(Performed 04/03/2009) * GLUCOSE - POINT OF CARE(Performed 04/02/2009) * GLUCOSE - POINT OF CARE(Performed 04/02/2009) * GLUCOSE - POINT OF CARE(Performed 04/02/2009) * GLUCOSE - POINT OF CARE(Performed 04/02/2009) * GLUCOSE - POINT OF CARE(Performed 04/02/2009) * COMPREHENSIVE METABOLIC PANEL(Performed 04/02/2009) * MAGNESIUM BLOOD(Performed 04/02/2009) * CBC W AUTO DIFFERENTIAL(Performed 04/02/2009) * GLUCOSE - POINT OF CARE(Performed 04/01/2009) * GLUCOSE - POINT OF CARE(Performed 04/01/2009) * GLUCOSE - POINT OF CARE(Performed 04/01/2009) * GLUCOSE - POINT OF CARE(Performed 04/01/2009) * BASIC METABOLIC PANEL (CALCIUM TOTAL)(Performed 04/01/2009) * PHOSPHORUS BLOOD(Performed 04/01/2009) * MAGNESIUM BLOOD(Performed 04/01/2009) * CBC W AUTO DIFFERENTIAL(Performed 04/01/2009) * GLUCOSE - POINT OF CARE(Performed 03/31/2009) * GLUCOSE - POINT OF CARE(Performed 03/31/2009) * GLUCOSE - POINT OF CARE(Performed 03/31/2009) * GLUCOSE - POINT OF CARE(Performed 03/31/2009) * HEPARIN PLATELET INDUCED ANTIBODY(Performed 03/31/2009) * GLUCOSE - POINT OF CARE(Performed 03/31/2009) * O2 SATURATION VENOUS(Performed 03/31/2009) * XR CHEST 1VW PORTABLE(Performed 03/31/2009) Performed for Follow-Up Surgery NOS * BASIC METABOLIC PANEL (CALCIUM TOTAL)(Performed 03/31/2009) * MAGNESIUM BLOOD(Performed 03/31/2009) * CBC W AUTO DIFFERENTIAL(Performed 03/31/2009) * GLUCOSE - POINT OF CARE(Performed 03/31/2009) * O2 SATURATION VENOUS(Performed 03/30/2009) * GLUCOSE - POINT OF CARE(Performed 03/30/2009) * CT HEAD WO CONTRAST(Performed 03/30/2009) Performed for CVA * GLUCOSE - POINT OF CARE(Performed 03/30/2009) * GLUCOSE - POINT OF CARE(Performed 03/30/2009) * BLOOD GASES ART + LYTES PANEL(Performed 03/30/2009) * GLUCOSE - POINT OF CARE(Performed 03/30/2009) * HGB HCT PANEL(Performed 03/30/2009) * GLUCOSE - POINT OF CARE(Performed 03/30/2009) * XR CHEST 1VW PORTABLE(Performed 03/30/2009) Performed for Follow-Up Surgery NOS * GLUCOSE - POINT OF CARE(Performed 03/30/2009) * GLUCOSE - POINT OF CARE(Performed 03/30/2009) * GLUCOSE - POINT OF CARE(Performed 03/30/2009) * GLUCOSE - POINT OF CARE(Performed 03/30/2009) * BASIC METABOLIC PANEL (CALCIUM TOTAL)(Performed 03/30/2009) * MAGNESIUM BLOOD(Performed 03/30/2009) * CBC W AUTO DIFFERENTIAL(Performed 03/30/2009) * GLUCOSE - POINT OF CARE(Performed 03/30/2009) * GLUCOSE - POINT OF CARE(Performed 03/29/2009) * IR ANGIO CAROTID CEREBRAL BILAT MARCIN(Performed 03/29/2009) Performed for CVA * BLOOD GASES ART + LYTES PANEL(Performed 03/29/2009) * GLUCOSE - POINT OF CARE(Performed 03/29/2009) * CT HEAD WO CONTRAST(Performed 03/29/2009) Performed for Other Malaise and Fatigue * GLUCOSE - POINT OF CARE(Performed 03/29/2009) * GLUCOSE - POINT OF CARE(Performed 03/29/2009) * GLUCOSE - POINT OF CARE(Performed 03/29/2009) * GLUCOSE - POINT OF CARE(Performed 03/29/2009) * GLUCOSE - POINT OF CARE(Performed 03/29/2009) * GLUCOSE - POINT OF CARE(Performed 03/29/2009) * GLUCOSE - POINT OF CARE(Performed 03/29/2009) * GLUCOSE - POINT OF CARE(Performed 03/29/2009) * GLUCOSE - POINT OF CARE(Performed 03/29/2009) * GLUCOSE - POINT OF CARE(Performed 03/29/2009) * BLOOD GASES ART + LYTES PANEL(Performed 03/29/2009) * GLUCOSE - POINT OF CARE(Performed 03/29/2009) * GLUCOSE - POINT OF CARE(Performed 03/29/2009) * O2 SATURATION VENOUS(Performed 03/29/2009) * BLOOD GASES ART + LYTES PANEL(Performed 03/29/2009) * GLUCOSE - POINT OF CARE(Performed 03/29/2009) * POTASSIUM BLOOD(Performed 03/29/2009) * HGB HCT PANEL(Performed 03/29/2009) * GLUCOSE - POINT OF CARE(Performed 03/29/2009) * XR CHEST 1VW PORTABLE(Performed 03/29/2009) Performed for Follow-Up Surgery NOS * GLUCOSE - POINT OF CARE(Performed 03/29/2009) * GLUCOSE - POINT OF CARE(Performed 03/29/2009) * CULTURE MRSA/VRE PNL(Performed 03/29/2009) * GLUCOSE - POINT OF CARE(Performed 03/29/2009) * GLUCOSE - POINT OF CARE(Performed 03/29/2009) * CBC W/O DIFFERENTIAL(Performed 03/29/2009) * BASIC METABOLIC PANEL (CALCIUM TOTAL)(Performed 03/29/2009) * MAGNESIUM BLOOD(Performed 03/29/2009) * BLOOD GASES ART + LYTES PANEL(Performed 03/29/2009) * GLUCOSE - POINT OF CARE(Performed 03/29/2009) * GLUCOSE - POINT OF CARE(Performed 03/29/2009) * O2 SATURATION VENOUS(Performed 03/29/2009) * GLUCOSE - POINT OF CARE(Performed 03/28/2009) * GLUCOSE - POINT OF CARE(Performed 03/28/2009) * MAGNESIUM BLOOD(Performed 03/28/2009) * PLATELET COUNT AUTO(Performed 03/28/2009) * BLOOD GASES ART + LYTES PANEL(Performed 03/28/2009) * XR CHEST 1VW PORTABLE(Performed 03/28/2009) Performed for Aortocoronary Bypass * ACT - POINT OF CARE(Performed 03/28/2009) * ACT - POINT OF CARE(Performed 03/28/2009) * BLOOD GASES + LYTES OR PANEL(Performed 03/28/2009) * FIBRINOGEN ACTIVITY(Performed 03/28/2009) * PTT(Performed 03/28/2009) * PT-INR(Performed 03/28/2009) * PLATELET COUNT AUTO(Performed 03/28/2009) * BLOOD GASES + LYTES OR PANEL(Performed 03/28/2009) * ACT - POINT OF CARE(Performed 03/28/2009) * BLOOD GASES + LYTES OR PANEL(Performed 03/28/2009) * ACT - POINT OF CARE(Performed 03/28/2009) * ACT - POINT OF CARE(Performed 03/28/2009) * BLOOD GASES + LYTES OR PANEL(Performed 03/28/2009) * BLOOD GASES + LYTES OR PANEL(Performed 03/28/2009) * ACT - POINT OF CARE(Performed 03/28/2009) * BLOOD GASES + LYTES OR PANEL(Performed 03/28/2009) * ACT - POINT OF CARE(Performed 03/28/2009) * BLOOD GASES + LYTES OR PANEL(Performed 03/28/2009) * XR CHEST 2VW(Performed 03/28/2009) Performed for Pre-Operative Cardiovascular Examination * US CAROTID COMPLETE DOPPLER(Performed 03/28/2009) Performed for Pre-Operative Cardiovascular Examination * URINALYSIS REFLEX TO MICROSCOPIC NO CULTURE(Performed 03/28/2009) * PLATELET PHERESIS X1(Performed 03/28/2009) * TYPE SCRN XMATCH RBC X2(Performed 03/28/2009) * CK BLOOD(Performed 03/28/2009) * TROPONIN I(Performed 03/28/2009) * CKMB(Performed 03/28/2009) * PTT(Performed 03/28/2009) * COMPREHENSIVE METABOLIC PANEL(Performed 03/28/2009) * LIPID PROFILE(Performed 03/28/2009) * CK BLOOD(Performed 03/28/2009) * TROPONIN I(Performed 03/28/2009) * CKMB(Performed 03/28/2009) * PT-INR(Performed 03/28/2009) * CBC W AUTO DIFFERENTIAL(Performed 03/28/2009) * GROSS + MICRO EXAM(Performed 03/28/2009) * PFT-LAB(Performed 03/28/2009) * TSH(Performed 03/27/2009) * TROPONIN I(Performed 03/27/2009) * CKMB(Performed 03/27/2009) * CK BLOOD(Performed 03/27/2009) Results * CARDIAC PROCEDURE ORDER (04/24/2017 10:17 AM CDT) Narrative 04/24/2017 10:17 AM CDT Ordered by an unspecified provider. Scanned Document CARDIAC SERVICES ORD ERABLES * CARDIAC EKG ORDER (04/21/2017 8:28 PM CDT) Only the most recent of2 resultswithin the time period is included. Narrative 04/21/2017 8:28 PM CDT Ordered by an unspecified provider. Scanned Document CARDIAC SERVICES ORD ERABLES * LAB RESULTS ORDER (04/21/2017 8:28 PM CDT) Narrative 04/21/2017 8:28 PM CDT Ordered by an unspecified provider. Scanned Document LAB - THERAPEUTIC DR UG MONITORING ORDERABLES * CARDIAC ECHOCARDIOGRAM COMPLETE ORDER (04/21/2017 8:28 PM CDT) Narrative 04/21/2017 8:28 PM CDT Ordered by an unspecified provider. Scanned Document ECHO ORDERABLES * CARDIAC RHYTHM STRIP ORDER (04/21/2017 8:28 PM CDT) Narrative 04/21/2017 8:28 PM CDT Ordered by an unspecified provider. Scanned Document CARDIAC SERVICES ORD ERABLES * CARDIAC CATH CONSULT (for Epic Reporting) (04/21/2017 7:28 AM CDT) Narrative Procedure Note Sunny Bullock MD - 04/20/2017 3:04 AM CDT [facility] CARDIAC CATHETERIZATION PATIENT: RITA MATIAS MR#: [id number] ADMIT DATE: 04/19/2017 CSN: [id number] PROCEDURE DATE: :1935 PHYSICIAN: Sunny Bullock MD ROOM: [facility] REFERRING PHYSICIAN: Sunny Bullock MD This is an 81-year-old male, who has a history of bypass and havingexertional shortness of breath. He entered with a coronary angio done by Dr. Jassi Thomas that revealed an 80% mid RCA calcified and [facility] wanted to do a CSI prior to trying to deploy the stent. I felt thatthis may cause incomplete apposition or deployment of the stent and so I wantedto do the CSI previously. The patient understood the potential risks and benefits including the risk of perforation, heart attack, stroke, .The patient understood these risks and wished to proceed. The patient was prepped and draped in usual sterile fashion. Lidocaine1% used to infiltrate the region of the right common femoral vein. We placeda 6 sheath into the artery and 5 into the vein using a micropuncturetechnique. We then passed a 6-[place] JR4 guide with initial guide pictures. Heparinwas given 8000 and we passed a Viper coronary wire primarily and crossed the lesion. I was able to use CSI and do atherectomy. Once this was done, I took a picture that shows no evidence of dissection, thrombosis, perforation, so I placed a Xience Alpine and deployed at 14 atmospheres for 30 seconds. Took final pictures. I pulled the wire back, and therewas no evidence of dissection, thrombosis, and perforation. We stopped the procedure. At the end, I closed the right common femoral artery with a6- [place] ProGlide. We also did IVUS in between and it appeared to show avessel of 3.5 to 4.0. IMPRESSION: Successful orbital atherectomy, and deployment of stent. The patient was placed on Coumadin but initially will use aspirin andPlavix and then later on, we can switch over to Coumadin and Plavix. SUNNY BULLOCK MD UQ/MODL #: [id number] MEDICAL/SURGICAL CARDIAC CATHETERIZATION - DP Sunny Bullock MD ECHO ORDERABLES Performing Organization Address [facility] Co de Phone Number [facility] CARDIAC SERVICES * EKG 12-LEAD (04/20/2017 3:29 AM CDT) Only the most recent of2 resultswithin the time period is included. Ventricular Rate 48 BPM [facility] Atrial Rate 48 BPM [facility] P-R Interval 176 ms [facility] QRS Duration ms 136 ms [facility] Q-T Interval ms 496 ms [facility] QTC Calculation (Bezet) 443 ms [facility] Calculated P [place] 82 degrees [facility] Calculated R [place] 52 degrees [facility] Calculated T [place] 67 degrees [facility] Interpretation EKG Sinus bradycardia with occasional Premature ventricular complexes Right bundle branch block Abnormal ECG When compared with ECG of 28-MAR-2009 05:53, Premature ventricular complexes are now Present Confirmed by AUGUSTA OROZCO, [facility] ([id number]) on 04/21/2017 12:37:42 PM DP MUSE 04/20/2017 3:29 AM CDT 04/21/2017 12:37 PM CDT Sunny Bullock MD ECG ORDERABLES Performing Organization Address [facility] de Phone Number [facility] MUSE * CARDIAC CATH PROCEDURE (04/19/2017 2:32 PM CDT) Narrative [facility] KARENQUIST - 04/19/2017 2:32 PM CDT Sunny Bullock MD ? 04/19/2017 ??2:32 PM ARACELIS Via rfa 80% calcified rca mid 1.25mm classic csi IVUS and then Stented with 3.5 x 28mm xience alpine Asa/plavix [id number] Sunny Bullock MD CARDIAC SERVICES ORD ERABLES Performing Organization Address [facility] Co de Phone Number [facility] MEDQUIST * (ABNORMAL) GLUCOSE - POINT OF CARE (04/05/2009 4:45 PM CDT) Only the most recent of59 resultswithin the time period is included. Glucose WB/POC 124(H) 75 - 110 mg/dl [facility]ORY BLOOD SPECIMEN / Unknown 04/05/2009 4:45 PM CDT Evan Martin MD LAB - POINT OF CARE ORDERABLES Performing Organization Address City/[facility]/ZIP Co de Phone Number [facility] LABORATORY [address] [place] [address] * (ABNORMAL) CBC W AUTO DIFFERENTIAL (04/05/2009 4:20 AM CDT) Only the most recent of8 resultswithin the time period is included. Pathologist [facility] WBC 15.4(H) 4.5 - 11.0 1000/mm3 [facility] RBC 2.70(L) 4.7 - 6.1 10X6 [facility] Hemoglobin 8.2(L) 13.0 - 18.0 gm/dl [facility] Hematocrit 24.2(L) 39.0 - 54.0 % [facility] MCV 89.6 80.0 - 99.0 fl [facility] MCH 30.4 25.0 - 31.0 pg [facility] MCHC 33.9 32.0 - 36.0 gm/dl [facility] RDW 15.7(H) 11.5 - 14.5 % [facility] Platelet Count 193 130.0 - 400.0 1000/mm3 [facility] Granulocytes % 79.1(H) 40.0 - 70.0 % [facility] Lymphocytes % Manual 7.6(L) 22.0 - 40.0 % [facility] Monocytes % 10.3(H) 2.0 - 10.0 % [facility] Eosinophils % 2.9 0.0 - 6.0 % [facility] Basophils % 0.1 0.0 - 3.0 % [facility] Comment Manual Diff Not Indicated [facility] Granulocytes Absolute 12.17(H) 1.8 - 7.7 1000/mm3 [facility] BLOOD SPECIMEN / Unknown 04/05/2009 4:20 AM CDT Charlee Mckinney MD LAB - HEMATOLOGY ORD ERABLES Performing Organization Address City/[facility]/ZIP Co de Phone Number [facility] [address] [place] [address] * (ABNORMAL) BASIC METABOLIC PANEL (CALCIUM TOTAL) (04/05/2009 4:20 AM CDT) Only the most recent of7 resultswithin the time period is included. BUN 15 9.0 - 20.0 mg/dl [facility] Sodium 138 137 - 145 mEq/L [facility] Potassium 3.9 3.6 - 5.0 mEq/L [facility] Chloride 108(H) 98.0 - 107.0 mEq/L [facility] CO2 27 22.0 - 30.0 mEq/L [facility] Anion Gap 2.9 [facility] Glucose 101 75 - 110 mg/dl [facility] Creatinine 0.8 0.8 - 1.5 mg/dl [facility] Calcium 7.9(L) 8.4 - 10.2 mg/dl [facility] eGFR by MDRD 101.0 ml/min/1.7 3m2 [facility] BLOOD SPECIMEN / Unknown 04/05/2009 4:20 AM CDT Charlee Mckinney MD LAB - CHEMISTRY MORENO JEFFERSON [facility] [address] [place] [address] * XR CHEST 1VW PORTABLE (04/03/2009 11:30 AM CDT) Only the most recent of6 resultswithin the time period is included. Anatomical Region Laterality Modality Chest Other 04/03/2009 11:3 0 AM CDT Narrative 04/03/2009 12:45 PM CDT Indication- Coronary artery disease Comparison- April 03, 2009 Findings- A single view of the chest is obtained portably. Lung volumes are low with bibasilar atelectasis or infiltrate. Volume loss of the lung bases appears increased when compared to previous examination, although this may be secondary to phase of respiration. A left-sided chest tube has been removed. No pneumothorax is identified. Atelectasis is present adjacent to the course of this chest tube. vascular congestion has improved. Impression- Vascular congestion has improved. Lung volumes are diminished, with bibasilar atelectasis. No pneumothorax is seen following removal of a left-sided chest tube. ? Read By- WINNIE ZIMMERMAN ??M.D. ? Released By- WINNIE ZIMMERMAN ??M.D. ? Released Date Time- 04/03/09 1245 ? [facility] Agent- JUANA ??M.D. ? ADM- EVAN MARTIN ? ATT- EVAN MARTIN REF- ?CON- CHARLEE MCKINNEY PCP- EVAN MRATIN ? SCP- Procedure Note Winnie Zimmerman - 04/03/2009 Indication- Coronary artery disease Comparison- April 03, 2009 Findings- A single view of the chest is obtained portably. Lung volumes are low with bibasilar atelectasis or infiltrate. Volume loss of the lung bases appears increased when compared to previous examination, although this may be secondary to phase of respiration. A left-sided chest tube has been removed. No pneumothorax is identified. Atelectasis is present adjacent to the course of this chest tube. vascular congestion has improved. Impression- Vascular congestion has improved. Lung volumes are diminished, with bibasilar atelectasis. No pneumothorax is seen following removal of a left-sided chest tube. Read By- WINNIE ZIMMERMAN M.D. Released By- WINNIE ZIMMERMAN M.D. Released Date Time- 04/03/09 1245 [facility] Agent- JUANA Patel ADM- EVAN MARTIN ATT- EVAN MARTIN REF- CON- CHARLEE MCKINNEY PCP- EVAN MARTIN SCP- Evan Martin MD DIAGNOSTIC IMAGING O RDERABLES * (ABNORMAL) COMPREHENSIVE METABOLIC PANEL (04/02/2009 2:40 AM CDT) Only the most recent of2 resultswithin the time period is included. BUN 21(H) 9.0 - 20.0 mg/dl [facility] Sodium 140 137 - 145 mEq/L [facility] Potassium 3.8 3.6 - 5.0 mEq/L [facility] Chloride 109(H) 98.0 - 107.0 mEq/L [facility] Glucose 112(H) 75 - 110 mg/dl [facility] Creatinine 0.7(L) 0.8 - 1.5 mg/dl [facility] AST 27 17.0 - 59.0 U/L [facility] Alkaline Phosphatase 72 38.0 - 126.0 U/L [facility] Calcium 7.4(L) 8.4 - 10.2 mg/dl [facility] Bilirubin Total 1.7(H) 0.2 - 1.3 mg/dl [facility] Albumin 2.5(L) 3.5 - 5.0 gm/dl [facility] Protein Total 4.7(DL) 6.3 - 8.2 gm/dl [facility] CO2 28 22.0 - 30.0 mEq/L [facility] ALT 28 21.0 - 72.0 U/L [facility] eGFR by MDRD 117.8 ml/min/1.7 3m2 [facility] BLOOD SPECIMEN / Unknown 04/02/2009 2:40 AM CDT Josue Yoo MD LAB - CHEMISTRY [place]ENO [place]FF[place] Performing Organization Address [facility] de Phone Number [facility] [address] [place] [address] * MAGNESIUM BLOOD (04/02/2009 2:40 AM CDT) Only the most recent of6 resultswithin the time period is included. Magnesium 2.2 1.6 - 2.3 mg/dl [facility] BLOOD SPECIMEN / Unknown 04/02/2009 2:40 AM CDT Josue Yoo MD LAB - CHEMISTRY [place] Performing Organization Address [facility] de Phone Number [facility] [address] [place] [address] * (ABNORMAL) PHOSPHORUS BLOOD (04/01/2009 2:12 AM CDT) Phosphorus 2.1(L) 2.5 - 4.5 mg/dl [facility] BLOOD SPECIMEN / Unknown 04/01/2009 2:12 AM CDT Chon Ballard MD LAB - CHEMISTRY ORDERABLES Performing Organization Address [facility] de Phone Number [facility] [address] [place] [address] * HEPARIN PLATELET INDUCED ANTIBODY (03/31/2009 11:02 AM CDT) Heparin Induced Platelet Antibody 0.150 <=0.399 [facility] Comment 1015 mar[address] licea rn [facility] Comment Ref Lab [facility] Comment: Comments and Normal Ranges for Component ??Heparin Assoc AB Detect TEST INFORMATION/ Heparin Assoc Ab Detection By itself, a positive result on this REGGIE test is relatively non-specific for a clinical diagnosis of heparin-associated antibody syndrome (HIT)(frequent false-positives) and a negative result does not exclude a diagnosis of HIT if the clinical suspicion remains high (occasional false-negatives). ??Results should be used in conjunction with clinical findings, platelet counts and other laboratory results. For a clinical scoring system to assess pretest probability of HIT and other guidance for diagnosing HIT, refer to the Heparin-Associated Antibody Syndrome topic at [email or web address]. BLOOD SPECIMEN / Unknown 03/31/2009 11:02 AM CDT Narrative Resulting Agency Comment Performed By KATHARINA ? [address] ? [place], [place] [address] Evan Martin MD LAB - CHEMISTRY ORDE RONNY Performing Organization Address [facility] Co de Phone Number [facility] [address] [place] [address] * (ABNORMAL) O2 SATURATION VENOUS (03/31/2009 6:18 AM CDT) Only the most recent of4 resultswithin the time period is included. O2 Saturation Venous 50.9(L) 70 - 75 % [facility] pO2 Venous 26.6(L) 35 - 40 mm Hg [facility] MIXED VENOUS BLOOD SPECIMEN / Unknown 03/31/2009 6:18 AM CDT Evan Martin MD LAB - BLOOD GASES OR DERABLES Performing Organization Address [facility] de Phone Number [facility] [address] [place] [address] * CT HEAD NON CONTRAST (03/30/2009 8:13 PM CDT) Only the most recent of2 resultswithin the time period is included. Anatomical Region Laterality Modality Head Other 03/30/2009 8:13 PM CDT Narrative 03/30/2009 8:[address] BRAIN WITHOUT CONTRAST INDICATION- Cerebrovascular ischemia TECHNIQUE- Unenhanced axial images were made from the skull base to the cranial vertex. FINDINGS- Comparison is made to the prior examination of one day earlier. Low attenuation changes in the periventricular white matter tracks, suggesting chronic small vessel ischemic changes, are again seen. I do not appreciate any edema, mass, mass effect, hemorrhage or extra-axial fluid collection. There is mild prominence of ventricles and sulci, indicating age consistent parenchymal loss/atrophy. Portions of the paranasal sinuses included in the study are well aerated. IMPRESSION- 1. MODERATELY EXTENSIVE SMALL VESSEL ISCHEMIC CHANGES. 2. NO ACUTE INTRACRANIAL FINDINGS. 3. 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 ? Read By- JESUS MELLO ??M.D. ? Released By- JESUS MELLO ??M.D. ? Released Date Time- 03/30/092037 ? [facility] Agent- ASS ??M.D. ? ADM- EVAN MARTIN ? ATT- EVAN MARTIN REF- ?CON- CHARLEE MCKINNEY PCP- EVAN MARTIN ? SCP- Procedure Note Jesus Mello MD - 03/30/2009 CT BRAIN WITHOUT CONTRAST INDICATION- Cerebrovascular ischemia TECHNIQUE- Unenhanced axial images were made from the skull base to the cranial vertex. FINDINGS- Comparison is made to the prior examination of one day earlier. Low attenuation changes in the periventricular white matter tracks, suggesting chronic small vessel ischemic changes, are again seen. I do not appreciate any edema, mass, mass effect, hemorrhage or extra-axial fluid collection. There is mild prominence of ventricles and sulci, indicating age consistent parenchymal loss/atrophy. Portions of the paranasal sinuses included in the study are well aerated. IMPRESSION- 1. MODERATELY EXTENSIVE SMALL VESSEL ISCHEMIC CHANGES. 2. NO ACUTE INTRACRANIAL FINDINGS. 3. 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 Read By- JESUS MELLO M.D. Released By- JESUS MELLO M.D. Released Date Time- 03/30/092037 [facility] AgentSaturnino VALERIO M.D. ADM- EVAN MARTIN ATT- EVAN MARTIN REF- VERÓNICA- CHARLEE MCKINNEY PCP- EVAN MARTIN SCP- Flakita Veloz MD CT ORDERABLES * (ABNORMAL) BLOOD GASES + LYTES PANEL (03/30/2009 10:17 AM CDT) Only the most recent of6 resultswithin the time period is included. pH Arterial 7.402 7.38 - 7.42 pH Units [facility] pCO2 Arterial 34.9(L) 38 - 42 mm Hg [facility] pO2 Arterial 61.7(L) 75 - 100 mm Hg [facility] Base Excess Arterial -3.2 -2 - 2 mmol/L [facility] O2 Saturation Arterial 91.9(L) 92 - 98.5 % [facility] Hemoglobin Arterial 7.0(L) 12 - 18 gm/dl [facility] O2 Content Arterial 9.0(L) 15 - 23 % [facility] Sodium Arterial 138.0 135 - 145 mmol/L [facility] Potassium Arterial 4.29 3.3 - 5.3 mmol/L [facility] Comment Potassium, arterial blood: DR BALLARD [facility] Oxyhemoglobin Arterial 90.1(L) 94 - 97 % [facility] Carboxyhemoglobin Arterial 1.2 0.0 - 1.5 % [facility] Methemoglobin 0.8 0.0 - 3.0 % [facility] Calcium Ionized 1.11 1.10 - 1.33 mmol/L [facility] Glucose ART 91 80 - 120 mg/dl [facility] Hematocrit Arterial 21(L) 36 - 54 % [facility] HHB Arterial 7.9(H) 0.0 - 5.0 % [facility] HCO3 Arterial 21.2(L) 22 - 29 mmol/L [facility] Flow 5.00 [facility] Mode NC [facility] Site LINE [facility] TCO2 Arterial 22.3(L) 23.0 - 27.0 mmol/L [facility] ARTERIAL BLOOD SPECIMEN / Unknown 03/30/2009 10:17 AM CDT vEan Martin MD LAB - BLOOD GASES OR DERABLES Performing Organization Address [facility] Co de Phone Number [facility] [address] [place] [address] * (ABNORMAL) HGB HCT PANEL (03/30/2009 9:40 AM CDT) Only the most recent of2 resultswithin the time period is included. Hemoglobin 6.5(LL) 13.0 - 18.0 gm/dl [facility] Hematocrit 19.2(LL) 39.0 - 54.0 % [facility] BLOOD SPECIMEN / Unknown 03/30/2009 9:40 AM CDT Charlee Mckinney MD LAB - HEMATOLOGY ORD ERABLES Performing Organization Address [facility] de Phone Number [facility] [address] [place] [address] * IR ANGIO CAROTID CEREBRAL BILAT MARCIN (03/29/2009 10:30 PM CDT) Anatomical Region Laterality Modality Head Other 03/29/2009 10:3 0 PM CDT Narrative 04/05/2009 8:56 AM CDT PROCEDURE- ??CEREBRAL ANGIOGRAM ?? 03/29/2009 COMPARISON STUDY- ??None. CLINICAL INDICATION- ??The patient is a 73-year-old man with a past medical history significant for a cardiac bypass procedure and valve replacement. ??He was doing well postoperatively and at somewhere between 4-00 p.m. and 6-00 p.m. became less responsive and appeared to be moving his left side less than his right. ??A noncontrast head CT was performed and a neurology consultation was obtained. ??The suspicion of a right hemisphere stroke, was raised and the patient was then brought to the angiography suite to look for large artery occlusions. TONGER- ??Reagan Clemens M.D. VESSELS LEFT COMMON CAROTID ARTERY ANGIOGRAM - CEREBRAL LEFT VERTEBRAL ARTERY ANGIOGRAM - CEREBRAL RIGHT COMMON CAROTID ARTERY ANGIOGRAM - CERVICAL RIGHT INTERNAL CAROTID ARTERY ANGIOGRAM - CEREBRAL RIGHT FEMORAL ARTERY ANGIOGRAM 6 [place] ANGIO-SEAL DEPLOYMENT IN THE RIGHT FEMORAL ARTERY ANESTHESIA- ??Local anesthesia with conscious sedation. PROCEDURAL DETAIL- ??The risks, benefits and alternatives to the procedure were discussed in detail with the patient's family. ??After this discussion, his provided written consent. ??The patient was then brought to the angiography suite where he went prep and drape procedure. ??A 6 [place] 25.0 cm sheath was placed in the right femoral artery, and a 5 [place] Hayes II catheter was navigated into the aortic arch and reconfigured. ??The catheter was used to select the left subclavian artery, followed by left vertebral artery, and a cerebral angiogram was obtained. ??The catheter was returned to the arch and used to select the left common carotid artery, and a cerebral angiogram was obtained. ??The catheter was returned to the arch and used to select the brachiocephalic artery, followed by the right common carotid artery, and a cervical angiogram was obtained. ??The catheter was advanced into the right internal carotid artery and a cerebral angiogram was obtained. The catheter was then removed from the arterial system, and a right femoral artery angiogram was obtained through the sheath. The sheath was removed from the arterial system, and hemostasis was achieved using a 6 [place] Angio-Seal closure device. ??Hemostasis was immediate at the end of the closure procedure. ??The right dorsalis pedis pulse was palpable at the end of the closure procedure. The patient tolerated the procedure without immediate complications. ??He was returned to the intensive care unit in hemodynamically stable condition neurologically unchanged. The estimated blood loss was less than 10 ml. An attending interventional neurologist, Fidel Clemens, was present throughout the procedure and for the interpretation of the images. FINDINGS- ??There is good arterial, capillary and venous opacification on all angiographic runs. The left vertebral artery angiogram reveals a large diameter vertebral artery with a normal V3 and V4 segment. ??The basilar artery, major vessels of the cerebellum and posterior cerebral arteries are also normal in course and caliber. The left common carotid cerebral angiogram reveals that petrous, cavernous and supraclinoid segments are normal in course and caliber, as is the carotid terminus. ??The M1, M2, A1 and A2 segments are normal in course and caliber. The right common carotid artery angiogram reveals mild atherosclerotic disease at the bulb but no hemodynamically significant stenosis. ??The right internal carotid angiogram reveal that petrous, cavernous and supraclinoid segments are normal in course and caliber, as is the carotid terminus. ??The M1, M2, A1 and A2 segments are normal in course and caliber. The right femoral artery angiogram reveals a puncture site adjacent to the bifurcation. [facility] [id number] Dictated- ??03/29/2009 Transcribed- 03/30/2009 ? Read By- FIDEL CLEMENS M.D. ? Released By- FIDEL CLEMENS M.D. ? Released Date Time- 04/05/09 0856 ? Welcome Center Agent- LOUIE ? ADM- EVAN MARTIN ? ATT- EVAN MARTIN REF- ?CON- CHARLEE MCKINNEY PCP- EVAN MARTIN ? SCP- Procedure Note Fidel Clemens - 04/05/2009 PROCEDURE- CEREBRAL ANGIOGRAM 03/29/2009 COMPARISON STUDY- None. CLINICAL INDICATION- The patient is a 73-year-old man with a past medical history significant for a cardiac bypass procedure and valve replacement. He was doing well postoperatively and at somewhere between 4-00 p.m. and 6-00 p.m. became less responsive and appeared to be moving his left side less than his right. A noncontrast head CT was performed and a neurology consultation was obtained. The suspicion of a right hemisphere stroke, was raised and the patient was then brought to the angiography suite to look for large artery occlusions. TONGER- Reagan Clemens M.D. VESSELS LEFT COMMON CAROTID ARTERY ANGIOGRAM - CEREBRAL LEFT VERTEBRAL ARTERY ANGIOGRAM - CEREBRAL RIGHT COMMON CAROTID ARTERY ANGIOGRAM - CERVICAL RIGHT INTERNAL CAROTID ARTERY ANGIOGRAM - CEREBRAL RIGHT FEMORAL ARTERY ANGIOGRAM 6 [place] ANGIO-SEAL DEPLOYMENT IN THE RIGHT FEMORAL ARTERY ANESTHESIA- Local anesthesia with conscious sedation. PROCEDURAL DETAIL- The risks, benefits and alternatives to the procedure were discussed in detail with the patient's family. After this discussion, his provided written consent. The patient was then brought to the angiography suite where he went prep and drape procedure. A 6 [place] 25.0 cm sheath was placed in the right femoral artery, and a 5 [place] Hayes II catheter was navigated into the aortic arch and reconfigured. The catheter was used to select the left subclavian artery, followed by left vertebral artery, and a cerebral angiogram was obtained. The catheter was returned to the arch and used to select the left common carotid artery, and a cerebral angiogram was obtained. The catheter was returned to the arch and used to select the brachiocephalic artery, followed by the right common carotid artery, and a cervical angiogram was obtained. The catheter was advanced into the right internal carotid artery and a cerebral angiogram was obtained. The catheter was then removed from the arterial system, and a right femoral artery angiogram was obtained through the sheath. The sheath was removed from the arterial system, and hemostasis was achieved using a 6 [place] Angio-Seal closure device. Hemostasis was immediate at the end of the closure procedure. The right dorsalis pedis pulse was palpable at the end of the closure procedure. The patient tolerated the procedure without immediate complications. He was returned to the intensive care unit in hemodynamically stable condition neurologically unchanged. The estimated blood loss was less than 10 ml. An attending interventional neurologist, Fidel Clemens, was present throughout the procedure and for the interpretation of the images. FINDINGS- There is good arterial, capillary and venous opacification on all angiographic runs. The left vertebral artery angiogram reveals a large diameter vertebral artery with a normal V3 and V4 segment. The basilar artery, major vessels of the cerebellum and posterior cerebral arteries are also normal in course and caliber. The left common carotid cerebral angiogram reveals that petrous, cavernous and supraclinoid segments are normal in course and caliber, as is the carotid terminus. The M1, M2, A1 and A2 segments are normal in course and caliber. The right common carotid artery angiogram reveals mild atherosclerotic disease at the bulb but no hemodynamically significant stenosis. The right internal carotid angiogram reveal that petrous, cavernous and supraclinoid segments are normal in course and caliber, as is the carotid terminus. The M1, M2, A1 and A2 segments are normal in course and caliber. The right femoral artery angiogram reveals a puncture site adjacent to the bifurcation. [facility] [id number] Dictated- 03/29/2009 Transcribed- 03/30/2009 Read By- FIDEL CLEMENS M.D. Released By- FIDEL CLEMENS M.D. Released Date Time- 04/05/09 0856 Welcome [facility] Agent- JIMENEZ - EVAN MARTIN ATT- EVAN MARTIN REF- VERÓNICA- CHARLEE MCKINNEY PCP- EVAN MARTIN SCP- Fidel Clemens MD IR ORDERABLES * POTASSIUM BLOOD (03/29/2009 7:45 AM CDT) Potassium 4.3 3.6 - 5.0 mEq/L [facility] BLOOD SPECIMEN / Unknown 03/29/2009 7:45 AM CDT Evan Martin MD LAB - CHEMISTRY MORENO JEFFERSON Performing Organization Address [facility] Co de Phone Number [facility] [address] [place] [address] * CULTURE MRSA BATTERY (03/29/2009 4:30 AM CDT) Result [facility] Comment: Final ?? CULTURE No MRSA isolated No VRE isolated MISCELLANEOUS SAMPLES / Unknown 03/29/2009 4:30 AM CDT 03/29/2009 4:30 AM CDT Narrative Resulting Agency Comment Performed By [facility] ? [address] ? [place] [address] Charlee Mckinney MD LAB - MICROBIOLOGY O RDERAALANNA Performing Organization Address [facility] de Phone Number [facility] [address] [place] [address] * (ABNORMAL) CBC W/O DIFFERENTIAL (03/29/2009 1:35 AM CDT) WBC 30.0(H) 4.5 - 11.0 1000/mm3 [facility] RBC 3.78(L) 4.7 - 6.1 10X6 [facility] Hemoglobin 11.6(L) 13.0 - 18.0 gm/dl [facility] Hematocrit 33.4(L) 39.0 - 54.0 % [facility] MCV 88.4 80.0 - 99.0 fl [facility] MCH 30.7 25.0 - 31.0 pg [facility] MCHC 34.7 32.0 - 36.0 gm/dl [facility] RDW 13.8 11.5 - 14.5 % [facility] Platelet Count 112(L) 130.0 - 400.0 1000/mm3 [facility] BLOOD SPECIMEN / Unknown 03/29/2009 1:35 AM CDT Charlee Mckinney MD LAB - HEMATOLOGY ORD ERABLES Performing Organization Address [facility] Co de Phone Number [facility] [address] [place] [address] * (ABNORMAL) PLATELET COUNT AUTO (03/28/2009 8:20 PM CDT) Only the most recent of2 resultswithin the time period is included. [facility] Platelet Count 97(L) 130.0 - 400.0 1000/mm3 [facility] BLOOD SPECIMEN / Unknown 03/28/2009 8:20 PM CDT Evan Martin MD LAB - HEMATOLOGY ORD ERABLES Performing Organization Address [facility] Co de Phone Number [facility] [address] [place] [address] * ACT - POINT OF CARE (03/28/2009 6:40 PM CDT) Only the most recent of7 resultswithin the time period is included. [facility] ACT POCT 166 [facility] Comment ACT POCT: Test performed by Operating Room Staff. [facility] BLOOD SPECIMEN / Unknown 03/28/2009 6:40 PM CDT Evan Martin MD LAB - POINT OF CARE ORDERABLES Performing Organization Address [facility] de Phone Number [facility] [address] [place] [address] * (ABNORMAL) BLOOD GASES + LYTES OR PANEL (03/28/2009 6:34 PM CDT) Only the most recent of7 resultswithin the time period is included. [facility] pH Arterial 7.356(L) 7.38 - 7.42 pH Units [facility] pCO2 Arterial 46.0(H) 38 - 42 mm Hg [facility] pO2 Arterial 398.8(H) 75 - 100 mm Hg [facility] Base Excess Arterial -0.4 -2 - 2 mmol/L [facility] O2 Saturation Arterial 99.8(H) 92 - 98.5 % [facility] Hematocrit Arterial 24(L) 36 - 54 % [facility] Sodium Arterial 130.4(L) 135 - 145 mmol/L [facility] Potassium Arterial 3.75 3.3 - 5.3 mmol/L [facility] Comment Potassium, arterial blood: RN [facility] Glucose ART 64(L) 80 - 120 mg/dl [facility] HCO3 Arterial 25.2 22 - 29 mmol/L [facility] Calcium Ionized 1.14 1.10 - 1.33 mmol/L [facility] FI O2 Arterial 100.0 [facility] TCO2 Arterial 26.6 23.0 - 27.0 mmol/L [facility] ARTERIAL BLOOD SPECIMEN / Unknown 03/28/2009 6:34 PM CDT Evan Martin MD LAB - BLOOD GASES OR DERABLES Performing Organization Address [facility] Co de Phone Number [facility] [address] [place] [address] * (ABNORMAL) FIBRINOGEN ACTIVITY (03/28/2009 6:30 PM CDT) Pathologist [facility] Fibrinogen 144(L) 200 - 400 mg/dl [facility] BLOOD SPECIMEN / Unknown 03/28/2009 6:30 PM CDT Charlee Mckinney MD LAB - COAGULATION OR DERABLES Performing Organization Address [facility] de Phone Number [facility] [address] [place] [address] * (ABNORMAL) PTT (03/28/2009 6:30 PM CDT) Only the most recent of2 resultswithin the time period is included. PTT 40.2(DH) 24.0 - 32.0 seconds [facility] Comment PTT This result represents a significant difference from this patient's most recent previous PTT value. ??Clinical correlation is therefore recommended. [facility] BLOOD SPECIMEN / Unknown 03/28/2009 6:30 PM CDT Charlee Mckinney MD LAB - COAGULATION OR DERABLES Performing Organization Address [facility] de Phone Number [facility] [address] [place] [address] * (ABNORMAL) PT-INR (03/28/2009 6:30 PM CDT) Only the most recent of2 resultswithin the time period is included. PT 21.6(DH) 9.4 - 11.2 seconds [facility] INR 2.1(H) 0.9 - 1.1 [facility] Comment PT This result represents a significant difference from this patient's most recent previous PT value. ??Clinical correlation is therefore recommended. [facility] Interpretation INR [facility] Comment: Conventional Anticoagulation INR 2.0-3.0 Intensive Anticoagulation INR 2.5-3.5 BLOOD SPECIMEN / Unknown 03/28/2009 6:30 PM CDT Charlee Mckinney MD LAB - COAGULATION OR DERABLES [facility] [address] [place] [address] * XR CHEST PA AND LATERAL (03/28/2009 12:20 PM CDT) Anatomical Region Laterality Modality Chest Other 03/28/2009 12:2 0 PM CDT Narrative 03/28/2009 1:41 PM CDT CHEST 2 VIEWS INDICATION- Cough and preop FINDINGS- Two views of the chest without prior demonstrate mild left basilar atelectasis or infiltrate. There is otherwise no dense consolidation. The heart size is normal. There is a presumed small calcified granulomata in the right lower lobe. IMPRESSION MILD LEFT BASILAR ATELECTASIS OR INFILTRATE ? Read By- KELSEA DON M.D. ? Released By- KELSEA DON M.D. ? Released Date Time- 03/28/09 1341 ? Welcome Center Agent- PMN ? - EVAN MARTIN ? NESHA- EVAN MARTIN REF- ?VERÓNICA- CHARLEE MCKINNEY- EVAN MARTIN ? SCP- Procedure Note Kelsea Don - 03/28/2009 CHEST 2 VIEWS INDICATION- Cough and preop FINDINGS- Two views of the chest without prior demonstrate mild left basilar atelectasis or infiltrate. There is otherwise no dense consolidation. The heart size is normal. There is a presumed small calcified granulomata in the right lower lobe. IMPRESSION MILD LEFT BASILAR ATELECTASIS OR INFILTRATE Read By- KELSEA DON M.D. Released By- KELSEA DON M.D. Released Date Time- 03/28/09 1341 Welcome Center Agent- PMN - EVAN MARTIN MOHAMMAD REF- CON- CHARLEE MCKINNEY PCP- EVAN MARTIN SCP- Evan Martin MD DIAGNOSTIC IMAGING O RDERABLES * US DOPPLER CAROTID COMPLETE (03/28/2009 11:30 AM CDT) Anatomical Region Laterality Modality Head Other 03/28/2009 11:3 0 AM CDT Narrative 03/29/2009 9:40 AM CDT CAROTID DUPLEX EXAMINATION INDICATION- ??Coronary artery disease. On the right side, there is smooth homogeneous plaque with mild spectral broadening. Peak systolic velocity is 93 cm/sec in the common, 95 cm/sec in the internal, with an ICA/CCA ratio of 1. ??Antegrade flow is seen in the right vertebral. On the left side, there is minimal plaque. ??Laminar flow is maintained. Peak systolic velocity is 75 cm/sec in the common, 72 cm/sec in the internal, with an ICA/CCA ratio of 1. ??Antegrade flow is seen in the left vertebral. IMPRESSION Less than 50% stenosis of bilateral internal carotid arteries. Antegrade flow in bilateral vertebrals. [id number] ? Read By- ROBERTO TRUJILLO ??M.D. ? Released By- ROBERTO TRUJILLO ??M.D. ? Released Date Time- 03/29/09939 ? Welcome Center Agent- JBeck ? ADM- EVAN MARTIN ? ATT- EVAN MARTIN REF- ?CON- CHARLEE MCKINNEY PCP- EVAN MARTIN ? SCP- Procedure Note Roberto Trujillo MD - 04/01/2009 CAROTID DUPLEX EXAMINATION INDICATION- Coronary artery disease. On the right side, there is smooth homogeneous plaque with mild spectral broadening. Peak systolic velocity is 93 cm/sec in the common, 95 cm/sec in the internal, with an ICA/CCA ratio of 1. Antegrade flow is seen in the right vertebral. On the left side, there is minimal plaque. Laminar flow is maintained. Peak systolic velocity is 75 cm/sec in the common, 72 cm/sec in the internal, with an ICA/CCA ratio of 1. Antegrade flow is seen in the left vertebral. IMPRESSION Less than 50% stenosis of bilateral internal carotid arteries. Antegrade flow in bilateral vertebrals. [id number] Read By- ROBERTO TRUJILLO M.D. Released By- ROBERTO TRUJILLO M.D. Released Date Time- 03/29/09 0940 Welcome Center Agent- JT - EVAN MARTIN ATT- EVAN MARTIN REF- CON- CHARLEE MCKINNEY PCP- EVAN MARTIN SCP- Evan Martin MD ORDERABLES * URINALYSIS ROUTINE AUTO (03/28/2009 11:07 AM CDT) Color UA YELLOW [facility] Character UA CLEAR [facility] Specific Destin UA 1.027 1.005 - 1.0300 [facility] pH UA 6.0 4.6 - 8.0 pH Units [facility] Leukocyte UA NEGATIVE Negative /ul [facility] Nitrite UA NEGATIVE Negative [facility] Protein UA NEGATIVE Negative mg/dl [facility] Glucose UA NEGATIVE Normal mg/dl [facility] Ketone UA 15 Negative mg/dl [facility] Urobilinogen UA 0.2 Normal Keiko Units [facility] Bilirubin UA NEGATIVE Negative mg/dl [facility] Blood UA NEGATIVE Negative /ul [facility] WBC UA <5 /HPF [facility] RBC UA <5 /cmm [facility] Epithelial Cell UA <5 /HPF [facility] Casts UA 5-10 /LPF [facility] Bacteria UA FEW [facility] URINE SPECIMEN OBTAINED BY CLEAN CATCH PROCEDURE / Unknown 03/28/2009 11:07 AM CDT Evan Martin MD LAB - URINALYSIS ORD ERABLES Performing Organization Address [facility] Co de Phone Number [facility] [address] [place] [address] * PLATELET PHERESIS X1 (03/28/2009 10:30 AM CDT) Number of Units 1 [facility] BLOOD SPECIMEN / Unknown 03/28/2009 10:30 AM CDT Narrative [facility] - 03/28/2009 6:45 PM CDT HOLD FOR CARDIAC SURGERY 03/28/09 Evan Martin MD LAB - BLOOD BANK ORD ERABLES Performing Organization Address [facility] Co de Phone Number [facility] [address] [place] [address] * TYPE SCRN XMATCH RBC X2 (03/28/2009 10:30 AM CDT) ABO Rh O Pos [facility] Antibody Screen Neg Negative [facility] Number of Units 2 [facility] BLOOD SPECIMEN / Unknown 03/28/2009 10:30 AM CDT Narrative [facility] - 03/28/2009 1:40 PM CDT HOLD FOR CARDIAC SURGERY 03/28/09 Evan Martin MD LAB - BLOOD BANK ORD ERABLES Performing Organization Address [facility] de Phone Number [facility] [address] [place] [address] * TROPONIN I (03/28/2009 10:30 AM CDT) Only the most recent of3 resultswithin the time period is included. Troponin I <0.10 SEE BELOW ng/ml [facility] Comment: Normal ? <0.10 [place] Zone ??0.10-0.99 Positive ?? >=1.00 BLOOD SPECIMEN / Unknown 03/28/2009 10:30 AM CDT Evan Martin MD LAB - CHEMISTRY ORDJadiel JEFFERSON Performing Organization Address [facility] Co de Phone Number [facility] [address] [place] [address] * CKMB (03/28/2009 10:30 AM CDT) Only the most recent of3 resultswithin the time period is included. CK-MB 0.8 0.0 - 5.0 ng/ml [facility] Interpretation CK-MB [facility] Comment: An abrupt rise/fall of CKMB over 24 hours is an acute injury pattern. BLOOD SPECIMEN / Unknown 03/28/2009 10:30 AM CDT Evan Martin MD LAB - CHEMISTRY MORENO BRISAALESSANDRO Performing Organization Address [facility] Co de Phone Number [facility] [address] [place] [address] * (ABNORMAL) CK BLOOD (03/28/2009 10:30 AM CDT) Only the most recent of3 resultswithin the time period is included. CK 38(L) 55.0 - 170.0 U/L [facility] BLOOD SPECIMEN / Unknown 03/28/2009 10:30 AM CDT Evan Martin MD LAB - CHEMISTRY MORIAHJadiel LEDEZMAALESSANDRO Performing Organization Address [facility] Co de Phone Number [facility] [address] [place] [address] * (ABNORMAL) LIPID PROFILE (03/28/2009 3:15 AM CDT) Cholesterol 122 120.0 - 200.0 mg/dl [facility] Triglycerides 95 0.0 - 250.0 mg/dl [facility] HDL Cholesterol 31(L) >40 mg/dl [facility] LDL Calculated 72.0 mg/dl [facility] Chol HDL Ratio 3.9 [facility] Comment Lipid [facility] Comment: Risk Classification ? HDL CHOL ?? LDL CHOL ?TOTAL CHOL According to NCEP ? (mg/dl) ?(mg/dL) ?(mg/dl) ? Desirable ? >40 ?<130 ? < 200 ? Borderline/High ?- ?130-159 ?200-239 ? High ? - ? >159 ? > 239 The total cholesterol to HDL cholesterol ratio may be used to predict risk for coronary heart disease in untreated patients according to data reported from the [place] Study by Armando Mendoza M.D. ??The predictive value in patients over 60 years of age is uncertain. ? Risk ?TOTAL CHOL/HDL RATIO ? MEN ?WOMEN ? 1/2 Average ? 3.43 ? 3.27 ? Average ? 4.97 ? 4.44 ? 2X Average ?9.55 ? 7.05 ? 3X Average ? 23.39 ?11.04 In Coronary Artery Disease patients, in whom nonpharmacological therapy has failed, the AHA recommends that drug therapy should be prescribed to lower LDL cholesterol to <100mg/dL. ??Drug therapy may be instituted in patients with HDL <35mg/dL. ??The reported LDL is a calculated result. ??For a more precise measurement, a direct LDL test is available, as necessary. BLOOD SPECIMEN / Unknown 03/28/2009 3:15 AM CDT Evan Martin MD LAB - CHEMISTRY MORENO Hdz Organization Address City/State/ZIP Co de Phone Number [facility] [address] [place] [address] * GROSS + MICRO EXAM (03/28/2009 12:00 AM CDT) [facility] Surgeon DR. MCKINNEY [facility] Grossed By RR5 [facility] Gross Report [facility] Comment: COPY TO ??DR. EVAN MARTIN INDICATION FOR PROCEDURE ??AORTIC STENOSIS, CAD OPERATION ??CABG X4, [place], LT SAPHENOUS EVH, CORINNA, CPB GROSS THE SPECIMEN IS RECEIVED IN ONE CONTAINER LABELED WITH THE PATIENT'S NAME AND AORTIC VALVE TISSUE. 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 ??SITE AREAS OF THICKENING UP TO ABOUT 2 MM IS SEEN ON THE CUT SURFACES. ??SUBMITTED REPRESENTATIVELY IN A SINGLE CASSETTE. 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 ??INFLAMMATION IS NOT SEEN. SKIP/KM Diagnosis [facility] Comment: DIAGNOSIS 1. ?AORTIC VALVE TISSUE -- ?MYXOID DEGENERATION WITH CALCIFICATION JW/KM Released by Earline MELGAR [facility] CPT Code 63672 [facility] TISSUE SPECIMEN / Unknown 03/28/2009 Evan Martin MD LAB - PATHOLOGY/CYTO LOGY ORDERABLES [facility] [address] [place] [address] * COMPLETE PFT (03/28/2009 12:00 AM CDT) 03/28/2009 Narrative Procedure Note Edwin Porras MD - [facility]28/2009 [facility] SPIROMETRY FLOW VOLUME INTERPRETATION REPORT: The FVC is 3.77 liters, 80%predicted, the FEV1 is 2.68 liters, 73% predicted, the FEV1/FVC ratio is71%. The flow volume loop demonstrates that the inspiratory loop isunremarkable. The expiratory loop shows mild curving. In summary, the patient has a mild ventilatory abnormality, likelyconsistent with obstruction. Edwin Porras MD Electronically Signed 03/29/2009 06:12:10 CDT GRG/MedQ #:[id number] cc: MD Charlee Alexis MD Edwin Porras MD [facility]ATORY [facility] ORDERABLES * TSH (03/27/2009 6:56 PM CDT) TSH 0.832 0.35 - 5.50 uIU/ml [facility] BLOOD SPECIMEN / Unknown 03/27/2009 6:56 PM CDT Narrative Resulting Agency Comment Performed By [facility] ? [address] ? [place] [address] Evan Martin MD LAB - CHEMISTRY MORENO JEFFERSON [facility] [address] [place] [address] Care Teams Conservation Enforcement Officer Relationship Specialty Start Date End Date Evan Martin MD [address] [place] [id number] PCP - General 03/27/09
--- OUTSIDE RECORDS SUMMARY | 2024-12-07 10:34 | XMS_ITS | Continuity of Care Document ---
Author Organization [facility] Address [address] [place] [address] Phone Care Team Providers Care Cost Estimator Name Role Phone Unavailable Unavailable Unavailable Procedures Procedure Date Office/outpatient visit,[facility] 2010 X-ray exam of shoulder, complete 2010 X-ray exam of hip, 1 view X-ray exam of pelvis, 1-2 views 011 Advance Directives Directive Yes / No Effective Date File Name No Information Encounters Encounter Description Practice Location Reason(s) For Visit Diagnoses Date Provider Providers Copied on Encounter Office/outpat ient visit,, [facility], [address], [place], [place], [id number], [place] tel:[phone] [facility]-P ELVISJOINT PAIN-SHLDE R 8201 1 No Information Referring Provider: Dallin [place], [facility] [facility], [place], [address]. tel:[phone] Family History Family Member Type Diagnosis Age At Onset No Information Payers Payer name Insurance type Covered green party ID Authoriza tion(s) [place] Part [place] [id number] [facility] [id number] Social History Type Description Quantity Date Captured Comments Sex Male Smoking Status No Information Chief Complaint And Reason For Visit No Information Reason For Referral Reason For Referral No Information History Of Present Illness Encounter Date Complaint History Of Prese nt Illness No Information Functional Status Date Functional Assessmen t No Information Instructions Date Instruction Additional Infor mation No Information Assessments Type Assessment Date No Information Patient Care Teams Name Effective Dates (start - stop) Status Members No Information
--- OUTSIDE RECORDS SUMMARY | 2024-12-07 10:34 | XMS_ITS | Clinical Summary ---
Author Organization [facility] Address [address] [place] [address] Care Team Providers Care Student Life Coordinator Name Role Phone Prabhu Martin MD Primary Care Provider [phone] Source Comments [facility],non-owned Affiliates and Associated Physician Practices is amultiple site organization consisting of ambulatory clinics and hospital sitesin [place], [place], [place] and [place]. This disclosure is being madepursuant to the Care Everywhere program and may not contain all information available regarding this patient. Last updated 18.[facility] Allergies Active Allergy Reactions Criticality Noted Date Comments Piroxicam Rash Medium 04/19/2017 Morphine 05/08/2009 Penicillins 05/08/2009 Medications * Be aware that medications may not be up to date on this document. Alwaysverify current medications with the patient. Medication Sig Dispensed Refills Start Date End Date Status metoprolol tartrate IR (LOPRESSOR) 50 MG tablet Take 50 mg by mouth once daily Active acetaminophen CR (TYLENOL 8 HOUR) 650 MG tablet Take 1 Tab by mouth as directed. Active ferrous sulfate 325 (65 FE) MG tablet Take by mouth. Act laurie pantoprazole EC (PROTONIX) 40 MG tablet Take 40 mg by mouth once daily Active PARoxetine (PAXIL) 10 MG tablet Take 10 mg by mouth once daily Active ALPRAZolam (XANAX) 0.25 MG tablet Take 0.25 mg by mouth 3 times daily as needed for Anxiety Active aspirin (ASPIRIN) 81 MG chew tablet Take 81 mg by mouth once daily Active celecoxib (CELEBREX) 100 MG capsule Take 100 mg by mouth once daily Active [place]-3 Fatty Acids (FISH OIL) 1000 MG capsule Take 1,000 mg by mouth once daily Active lisinopril-hydroCHLORO thiazide (PRINZIDE; ZESTORETIC) 10-12.5 MG tablet Take 1 Tab by mouth once daily Active Pyridoxine HCl (VITAMIN B6 PO) Take 100 mg by mouth once daily Active ranolazine ER 12hr (RANEXA) 500 MG tablet Take 500 mg by mouth every 12 hours Active warfarin (COUMADIN) 5 MG tablet Take 5 mg by mouth once daily Active atorvastatin (LIPITOR) 80 MG tablet Take 1 Tab by mouth at bedtime 30 Tab 5 04/20/2017 Active clopidogrel (PLAVIX) 75 MG tablet Take 1 Tab by mouth once daily 30 Tab 5 04/21/2017 Active Active Problems Problem Noted Date Diagnosed Date [...] Mass Index 23.09 04/19/2017 12:23 PM CDT Plan of Treatment Health Maintenance Due Date Last Done Comments MEDICARE AWV ? 12 MONTHS 1936 DTAP/TDAP/TD VACCINES (1 - Tdap) 1955 PNEUMOCOCCAL VACCINE 50+ (1 of 1 - PCV) 1986 ZOSTER VACCINE (1 of 2) 1986 Respiratory Syncytial Virus (RSV) Vaccine Pt: or over 60 yrs (1 - 1-dose 75+ series) 2011 COVID-19 VACCINE ( - 2023-2 5 season) 2024 INFLUENZA VACCINE (#1) 2024 DEPRESSION SCREENING 11/08/2024 HEPATITIS B VACCINE Aged Out No longe r eligible based on patient's age to complete this topic HIB VACCINE Aged Out No longer eligi ble based on patient's age to complete this topic HPV VACCINE Aged Out No longer eligi ble based on patient's age to complete this topic MENINGOCOCCAL (Group B) VACCINE Aged Out No longer eligible based on patient's age to complete this topic MENINGOCOCCAL VACCINE Aged Out No kemal brian eligible based on patient's age to complete this topic Advance Directives Documents on File Type Date Recorded Patient Station Mechanic Expl anation Adv Directive/Living Will/POA 03/23/2017 * Full Code (Latest Code Status on File) Date Activated Date Inactivated Comments 04/19/2017 2:36 PM 04/20/2017 11:54 AM Care Teams Student Life Coordinator Relationship Specialty Start Date End Date Prabhu Martin MD [address] [place] [place] [address] PCP - General 03/27/09
--- OUTSIDE RECORDS SUMMARY | 2024-12-07 10:34 | XMS_ITS | CONTINUITY OF CARE DOCUMENT ---
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 EPIC PORCINE AORTIC VALVE active Prabhu Martin MD CAD;NML CAROTID completed - Prabhu Martin MD HTN active Prabhu Martin MD COPD active Keanu Corrigan MD INSOMNIA;PER SHADY completed - Prabhu Martin MD RBBB active Keanu Corrigan MD ISCHEMIA;FIXED DEFECT NUC 11 completed 201 12/14/13 - Prabhu Martin MD Hyperlipidemia active Anna Bales ANXIETY DISORDER completed - Prabhu Martin MD CHEST PAIN-TYPE TO BE DETERMINED;WILL GARCIA-11/21 NUC NEG completed - Prabhu Levine DIASTOLIC CHF;BNP 121 2010 active 04/21 - Prabhu Martin MD HIATAL HERNIA;SMALL active Keanu Corrigan MD RENAL INSUFFICIENCY active Prabhu Levine ATRIAL FLUTTER - ablation 01/26/2014 active Prabhu Martin MD Paroxysmal atrial Fibrillation active Marvel Martin MD Bradycardia active Prabhu Martin MD Left renal artery stenosis active Prabhu Martin MD Angina active Prabhu Martin MD Shortness of breath active Prabhu Levine Tremor active Prabhu Martin MD Fatigue active Prabhu Martin MD Anemia active Prabhu Martin MD Back pain active Prabhu Martin MD ANXIETY DISORDER active Prabhu Martin MD Prostate cancer active Prabhu Martin MD Parkinson's disease active Prabhu Levine Dementia active Prabhu Martin MD CHOLECYSTECTOMY completed - Prabhu Martin MD ENCOUNTERS Date Type Provider Location Encounter Diag nosis 12/22 - 12/23 In-person encounter Office Visit Prabhu Martin MD [facility] Dementia 04/29 - 04/29 In-person encounter Office Visit Prabhu Martin MD [facility] 05/01 - 05/05 In-person encounter Office Visit Prabhu Martin MD [facility] Parkinson's disease 07/10 - 07/16 In-person encounter Office Visit Prabhu Martin MD [facility] 0 05/01 - 05/02 In-person encounter Office Visit Prabhu Martin MD [facility] 01/30 - 01/30 In-person encounter Office Visit Prabhu Martin MD [facility] Prostate cancer 11/13 - 11/14 In-person encounter Office Visit Prabhu Martin MD [facility] 03/15 - 03/20 In-person encounter Office Visit Prabhu Martin MD [facility] 12/05 - 12/05 In-person encounter Office Visit Prabhu Martin MD [facility] - In-person encounter Office Visit Prabhu Martin MD [facility] ANXIETY DISORDER 08/03 - In-person encounter Office Visit Prabhu Martin MD [facility] 03/31 - 04/01 In-person encounter Office Visit Prabhu Martin MD [facility] Back pain 11/10 - 11/16 In-person encounter Office Visit Prabhu Martin MD [facility] Paroxysmal atrial FibrillationAnemia 11/16 - 11/16 In-person encounter Office Visit Prabhu Martin MD [facility] 11/15 - 11/16 In-person encounter Office Visit Prabhu Martin MD [facility] Fatigue - In-person encounter Office Visit Prabhu Martin MD [facility] 08/04 - 08/06 In-person encounter Office Visit Prabhu Martin MD [facility] Paroxysmal atrial Fibrillation 05/26 - 05/27 In-person encounter Office Visit Prabhu Martin MD [facility] 03/04 - 03/05 In-person encounter Office Visit Prabhu Martin MD [facility] 02/10 - 02/16 In-person encounter Office Visit Prabhu Martin MD [facility] AVR - 03/16 [facility] GAIL EPIC PORCINE AORTIC VALVE 01/06 - 01/08 In-person encounter Office Visit Prabhu Martin MD [facility] 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 H[place]PTON-LAD, SVG-OM, SV G-OM, SVG-RPDAAVR - 03/16 [facility] GAIL EPIC PORCINE AORTIC VALVEParoxysmal atrial FibrillationBradycardiaLeft renal artery stenosisAnginaShortness of breathTremor 03/18 - 03/18 In-person encounter Office Visit Prabhu Martin MD [facility] 02/23 - 03/04 In-person encounter Office Visit Earnest Elizabeth MD [facility] Paroxysmal atrial Fibrillation - In-person encounter Office Visit Prabhu Martin MD [facility] 02/27 - 02/28 In-person encounter Office Visit Prabhu Martin MD [facility] 11/28 - 12/04 In-person encounter Office Visit Prabhu Martin MD [facility] 05/16 - 05/18 In-person encounter Office Visit Prabhu Martin MD [facility] ATRIAL FLUTTER - ablation 01/26/201405/02 - 05/08 In-person encounter Office Visit Prabhu Martin MD [facility] 02/02 - 02/05 In-person encounter Office Visit Colby Blandon MD [facility] 01/03 - 01/04 In-person encounter Office Visit Prabhu Martin MD [facility] 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 [place]-L[place], SVG-OM, SV G-OM, SVG-RPDACAD;NML CAROTIDHTNINSOMNIA;PER SHADYISCHEMIA;FIXED DEFECT NUC 11HyperlipidemiaANXIETY DISORDERCHEST PAIN-TYPE TO BE DETERMINED;WILL GARCIA-11/21 NUC NEGDIASTOLIC CHF;BNP 121 2011RENAL INSUFFICIENCY 12/20 - 12/20 In-person encounter Office Visit Colby Blandon MD [facility] ATRIAL FLUTTER - ablation 01/26/201404/21 - 04/21 In-person encounter Office Visit Keanu Corrigan MD [facility] HTNCOPDRBBBCHOLECYSTECTOMYHyperlipidemia CHEST PAIN-TYPE TO BE DETERMINED;WILL GARCIA-11/21 NUC NEGHIATAL HERNIA;SMALLRENAL INSUFFICIENCY 11/19 - 12/04 In-person encounter Office Visit Prabhu Martin MD [facility] AVR - 03/16 [facility] GAIL EPIC PORCINE AORTIC VALVE 06/25 - 06/25 In-person encounter Office Visit Prabhu Martin MD [facility] 08/07 - In-person encounter Office Visit Prabhu Martin MD [facility] 05/01 - 05/02 In-person encounter Office Visit Prabhu Martin MD [facility] VITAL SIGNS Date Observation Value Provider Body Mass Index (Ratio) 21.57 kg/m2 Rodriguez Martin MD blood pressure, diastolic -1 mm[Hg] Elena sanchezLognatalia blood pressure, systolic 137 mm[Hg] Kelsy Paul blood pressure, diastolic 71 mm[Hg] radu Faustino blood pressure, systolic 137 mm[Hg] Mey Harmon oxygen saturation, oximetry 97 % Misa Harmon pulse rate 68 /min Misa Harmon weight E&M 168 [lb_av] Misa Harmon respiratory rate E&M 16 /min Misa jacobs height E&M 74 [in_i] Misa Harmon Body Mass Index (Ratio) 23.11 kg/m2 Rodriguez Martin MD blood pressure, cuff size large Pia Gillette oxygen saturation, oximetry 95 % Arlet Gillette pulse rate 49 /min Arlet levine blood pressure, diastolic 60 mm[Hg] Pia Gillette blood pressure, systolic 118 mm[Hg] Alber Gillette respiratory rate E&M 16 /min Pilar Gillette weight E&M 180 [lb_av] Arlet levine height E&M 74 [in_i] Arlet levine Body Mass Index (Ratio) 23.36 kg/m2 Rodriguez Martin MD blood pressure, diastolic 68 mm[Hg] Elena nkLognatalia blood pressure, systolic 112 mm[Hg] Kelsy kLognatalia blood pressure, cuff size regular Cy ntcarlos Villa blood pressure, diastolic 68 mm[Hg] Cy ntcarlos Villa blood pressure, systolic 112 mm[Hg] Patria ulices Villa oxygen saturation, oximetry 95 % Tami Villa pulse rate 71 /min Tami Rory martinez respiratory rate E&M 16 /min Tami Driver weight E&M 182 [lb_av] Tami Julianbel michelle height E&M 74 [in_i] Tami Julianbel michelle Body Mass Index (Ratio) 23.26 kg/m2 Albert Wen blood pressure, diastolic 60 mm[Hg] Coty Leighshaista RoseDillon blood pressure, systolic 110 mm[Hg] Izzy Amado Dillon oxygen saturation, oximetry 96 % RashadTonya Roseenson respiratory rate E&M 20 /min Heather jace RoseDillon pulse rate 67 /min Rashad Valdivia nadeen weight E&M 181.2 [lb_av] Rashad Rose on height E&M 74 [in_i] RashadTonya senior height E&M 74 [in_i] Prabhu Martin MD Body Mass Index (Ratio) 23.11 kg/m2 Rodriguez Martin MD pulse rate 62 /min Tami martinez respiratory rate E&M 62 /min Tami Driver blood pressure, cuff size regular Cy leelee Driver blood pressure, diastolic 81 mm[Hg] Cy ntcarlos Driver blood pressure, systolic 143 mm[Hg] Patria ulices Driver weight E&M 180 [lb_av] Tami Campbel michelle Body Mass Index (Ratio) 24.14 kg/m2 Albert noonan Kyte pulse rate 51 /min Najma Block blood pressure, diastolic 62 mm[Hg] Br ittany Block blood pressure, systolic 112 mm[Hg] Dora gisell Block oxygen saturation, oximetry 98 % Najma Block weight E&M 188 [lb_av] Najma Block respiratory rate E&M 16 /min Brittan y Block height E&M 74 [in_i] Najma Block Body Mass Index (Ratio) 23.75 kg/m2 Rodriguez Martin MD blood pressure, diastolic 64 mm[Hg] Ch astity Neal blood pressure, systolic 122 mm[Hg] Marissa stity Neal respiratory rate E&M 16 /min Chastit y Neal pulse rate 52 /min Chastity Neal oxygen saturation, oximetry 98 % Chastity Neal weight E&M 185 [lb_av] Chastity Neal height E&M 74 [in_i] Chastity Neal Body Mass Index (Ratio) 23.49 kg/m2 Rodriguez Martin MD blood pressure, diastolic 60 mm[Hg] [facility], [facility] mm[Hg] Kil janelle [place] oxygen saturation, oximetry 97 % Matt respiratory rate E&M 16 /min Matt pulse rate 65 /min Yeoman weight E&M 183 [lb_av] Yeoman height E&M 74 [in_i] Matt Lo Body Mass Index (Ratio) 23.62 kg/m2 Rodriguez Martin MD blood pressure, diastolic 64 mm[Hg] Er gene Hunter blood pressure, systolic 138 mm[Hg] Erica Hunter oxygen saturation, oximetry 99 % Esperanza Hunter pulse rate 68 /min Esperanza Madison weight E&M 184 [lb_av] Esperanza Madison height E&M 74 [in_i] Esperanza Madison Body Mass Index (Ratio) 23.11 kg/m2 Rodriguez Martin MD blood pressure, diastolic 72 mm[Hg] Da santi Carito blood pressure, systolic 136 mm[Hg] Dac ia Carito oxygen saturation, oximetry 97 % Kimberli Carito respiratory rate E&M 16 /min Kimberli V oss pulse rate 52 /min Kimberli Carito weight E&M 180 [lb_av] Kimberli Carito height E&M 74 [in_i] Kimberli Carito Body Mass Index (Ratio) 22.85 kg/m2 Helio campbell Erika blood pressure, cuff size large Ke rri Britneyer blood pressure, diastolic 80 mm[Hg] Ke rri Gruenenfelder blood pressure, systolic 140 mm[Hg] Keith Cevallos oxygen saturation, oximetry 98 % Isadora Cevallos respiratory rate E&M 20 /min Isadora samuels pulse rate 48 /min Isadora Wasserman lder weight E&M 178 [lb_av] Isadora Wasserman lder height E&M 74 [in_i] Isadora Wasserman lder pulse rate #2 47 Whitney Herrerabithao blood pressure, talbot tolic, second observation 86 mm[Hg] Whitney Herrerabithao blood pressure, syst olic, second observation 165 mm[Hg] Whitney Herrerabithao oxygen saturation, oximetry 98 % [place] pulse rate 47 /min [place] d blood pressure, diastolic 86 mm[Hg] [facility], systolic 165 mm[Hg] Chicho padilla d pulse rate #2 57 [place] blood pressure, talbot tolic, second observation 81 mm[Hg] [place] d blood pressure, syst olic, second observation 154 mm[Hg] [place] d oxygen saturation, oximetry 98 % [place] pulse rate 57 /min [place] blood pressure, diastolic 81 mm[Hg] Vi [facility] d blood pressure, systolic 154 mm[Hg] Chicho [facility] d pulse rate #2 59 [place] blood pressure, talbot tolic, second observation 81 mm[Hg] [facility], second observation 140 mm[Hg] [facility], oximetry 98 % [place] pulse rate 59 /min [place] blood pressure, diastolic 81 mm[Hg] Vi [facility] d blood pressure, systolic 140 mm[Hg] Chicho padilla Ted pulse rate #2 49 [facility], talbot tolic, second observation 85 mm[Hg] [place] Ted blood pressure, syst olic, second observation 144 mm[Hg] [place] d oxygen saturation, oximetry 98 % [place] d pulse rate 49 /min [place] d blood pressure, diastolic 85 mm[Hg] Vi [facility] Tebid blood pressure, systolic 144 mm[Hg] Chicho chapmania Tebid pulse rate #2 48 [facility] blood [facility], talbot tolic, second observation 79 mm[Hg] [facility], syst olic, second observation 158 mm[Hg] Whitney d oxygen saturation, oximetry 98 % Whitney pulse rate 48 /min [place] blood pressure, diastolic 79 mm[Hg] Vi ctoria Ted blood pressure, systolic 158 mm[Hg] Chicho padilla Ted pulse rate #2 49 [place] blood pressure, talbot tolic, second observation 76 mm[Hg] [place] d blood pressure, syst olic, second observation 138 mm[Hg] [place] oxygen saturation, oximetry 98 % Whitney pulse rate 49 /min [place] blood pressure, diastolic 76 mm[Hg] Vi [facility] Ted blood pressure, systolic 138 mm[Hg] Chicho padilla d pulse rate #2 48 [place] blood pressure, talbot tolic, second observation 86 mm[Hg] [place] blood pressure, syst olic, second observation 151 mm[Hg] [place] d oxygen saturation, oximetry 98 % [place] pulse rate 48 /min [place] blood pressure, diastolic 86 mm[Hg] Vi [facility] Ted blood pressure, systolic 151 mm[Hg] Chicho chapmania Ted pulse rate #2 54 [place] d blood pressure, atlbot tolic, second observation 85 mm[Hg] [place] d blood pressure, syst olic, second observation 147 mm[Hg] [facility], oximetry 98 % Whitney pulse rate 54 /min [place] d blood pressure, diastolic 85 mm[Hg] Vi ctoria Tebid blood pressure, systolic 147 mm[Hg] Chicho chapmania bid pulse rate #2 52 [place] blood pressure, talbot tolic, second observation 84 mm[Hg] Whitney blood pressure, syst olic, second observation 152 mm[Hg] [place] oxygen saturation, oximetry 98 % [place] pulse rate 52 /min [place] blood pressure, diastolic 84 mm[Hg] Vi aroria Ted blood pressure, systolic 152 mm[Hg] Chicho padilla d pulse rate #2 58 [place] blood pressure, talbot tolic, second observation 79 mm[Hg] [facility] blood pressure, syst olic, second observation 130 mm[Hg] [facility] oxygen saturation, oximetry 98 % [place] pulse rate 58 /min [facility] blood pressure, diastolic 79 mm[Hg] [facility], [facility] 130 mm[Hg] Chicho padilla Ted pulse rate #2 58 [place] blood pressure, talbot tolic, second observation 76 mm[Hg] [facility] blood pressure, syst olic, second observation 127 mm[Hg] Whitney d oxygen saturation, oximetry 98 % [place] pulse rate 58 /min [facility] blood pressure, diastolic 76 mm[Hg] Vi [facility] Ted blood pressure, systolic 127 mm[Hg] Chicho padilla Tebid pulse rate #2 59 [place] blood pressure, talbot tolic, second observation 78 mm[Hg] [facility] blood [facility], syst olic, second observation 139 mm[Hg] [facility] oxygen saturation, oximetry 98 % [facility] pulse rate 59 /min [facility] blood pressure, diastolic 78 mm[Hg] Vi ctoria Tebid blood pressure, systolic 139 mm[Hg] Chicho padilla Tebid pulse rate #2 62 [place] Tebid blood pressure, talbot tolic, second observation 79 mm[Hg] Whitney Tebid blood pressure, syst olic, second observation 128 mm[Hg] Whitney Tebid oxygen saturation, oximetry 98 % [facility] pulse [facility] 62 /min [place] Tebid blood pressure, diastolic 79 mm[Hg] Vi ctoria Tebid blood pressure, systolic 128 mm[Hg] Chicho padilla Tebid pulse rate #2 52 [place] Tebid blood pressure, talbot tolic, second observation 86 mm[Hg] [place] Tebid blood pressure, syst olic, second observation 135 mm[Hg] [facility], oximetry 98 % [facility] pulse rate 52 /min [facility] blood pressure, diastolic 86 mm[Hg] Vi [facility] Tebid blood pressure, systolic 135 mm[Hg] Chicho padilla Tebid pulse rate #2 71 [place] d blood pressure, talbot tolic, second observation 82 mm[Hg] [place] d blood pressure, syst olic, second observation 143 mm[Hg] [facility], oximetry 98 % [place] d pulse rate 71 /min [facility] blood [facility], diastolic 82 mm[Hg] Vi ctoria Tebid blood pressure, systolic 143 mm[Hg] Chicho chapmania Tebid pulse rate #2 65 [place] d blood pressure, talbot tolic, second observation 80 mm[Hg] [facility] blood [facility], syst olic, second observation 139 mm[Hg] [facility] oxygen saturation, oximetry 98 % [facility] pulse rate 65 /min [facility] blood pressure, diastolic 80 mm[Hg] Vi [facility] Tebid blood pressure, systolic 139 mm[Hg] Chicho chapmania d pulse rate #2 61 [place] blood pressure, talbot tolic, second observation 81 mm[Hg] Whitney blood pressure, syst olic, second observation 132 mm[Hg] [facility] oxygen saturation, oximetry 98 % [place] pulse rate 61 /min [place] blood pressure, diastolic 81 mm[Hg] [facility], systolic 132 mm[Hg] Chicho [facility] pulse rate #2 56 [place] blood pressure, talbot tolic, second observation 84 mm[Hg] [facility] blood pressure, syst olic, second observation 129 mm[Hg] [facility] oxygen saturation, oximetry 98 % [place] pulse rate 56 /min [place] blood pressure, diastolic 84 mm[Hg] Vi [facility] d blood pressure, systolic 129 mm[Hg] Chicho [facility] d pulse rate #2 55 [place] blood pressure, talbot tolic, second observation 69 mm[Hg] [facility] blood pressure, syst olic, second observation 128 mm[Hg] [facility] oxygen saturation, oximetry 98 % [place] pulse rate 55 /min [place] blood pressure, diastolic 69 mm[Hg] [facility] blood [facility], systolic 128 mm[Hg] Chicho padilla pulse rate #2 55 [place] blood pressure, talbot tolic, second observation 75 mm[Hg] [facility] blood pressure, syst olic, second observation 135 mm[Hg] [facility] oxygen saturation, oximetry 98 % [place] Te pulse rate 55 /min [place] blood pressure, diastolic 75 mm[Hg] Vi ctoria Tebid blood pressure, systolic 135 mm[Hg] Chicho padilla d pulse rate #2 62 [place] blood pressure, talbot tolic, second observation 81 mm[Hg] [place] blood pressure, syst olic, second observation 123 mm[Hg] [place] oxygen saturation, oximetry 98 % [place] pulse rate 62 /min [place] blood pressure, diastolic 81 mm[Hg] [facility] blood [facility], systolic 123 mm[Hg] Chicho padilla d pulse rate #2 62 [place] blood pressure, talbot tolic, second observation 80 mm[Hg] [facility] blood pressure, syst olic, second observation 139 mm[Hg] [place] oxygen saturation, oximetry 98 % [place] pulse rate 62 /min [place] blood pressure, diastolic 80 mm[Hg] Vi [facility] d blood pressure, systolic 139 mm[Hg] Chicho padilla d pulse rate #2 68 [place] blood pressure, talbot tolic, second observation 70 mm[Hg] [place] blood pressure, syst olic, second observation 131 mm[Hg] [place] oxygen saturation, oximetry 98 % [place] pulse rate 68 /min [place] blood pressure, diastolic 70 mm[Hg] [facility] blood [facility], systolic 131 mm[Hg] Chicho padilla d pulse rate #2 56 [place] blood pressure, talbot tolic, second observation 75 mm[Hg] [place] blood pressure, syst olic, second observation 142 mm[Hg] Whitney oxygen saturation, oximetry 98 % Whitney pulse rate 56 /min [place] blood pressure, diastolic 75 mm[Hg] [facility], systolic 142 mm[Hg] Chicho chapmania bid pulse rate #2 55 [place] blood pressure, talbot tolic, second observation 71 mm[Hg] [place] blood pressure, syst olic, second observation 140 mm[Hg] Whitney oxygen saturation, oximetry 98 % Whitney pulse rate 55 /min [place] blood pressure, diastolic 71 mm[Hg] Vi [facility] d blood pressure, systolic 140 mm[Hg] Chicho padilla d pulse rate #2 52 [place] blood pressure, talbot tolic, second observation 80 mm[Hg] Whitney blood pressure, syst olic, second observation 143 mm[Hg] [place] oxygen saturation, oximetry 98 % Whitney pulse rate 52 /min [place] blood pressure, diastolic 80 mm[Hg] Vi [facility] d blood pressure, systolic 143 mm[Hg] Chicho causey d pulse rate #2 71 [place] blood pressure, talbot tolic, second observation 87 mm[Hg] [place] d blood pressure, syst olic, second observation 128 mm[Hg] Whitney d oxygen saturation, oximetry 98 % Whitney pulse rate 71 /min [facility] blood pressure, diastolic 87 mm[Hg] Vi ctoria d blood pressure, systolic 128 mm[Hg] Chicho chapmania d pulse rate #2 118 [place] blood pressure, talbot tolic, second observation 90 mm[Hg] [facility] blood pressure, syst olic, second observation 126 mm[Hg] [facility] oxygen saturation, oximetry 98 % [facility] pulse rate 115 /min [facility] blood pressure, diastolic 87 mm[Hg] Vi [facility] blood pressure, systolic 126 mm[Hg] Chicho [facility] pulse rate #2 51 [facility] blood pressure, talbot tolic, second observation 75 mm[Hg] [facility] blood pressure, syst olic, second observation 129 mm[Hg] [facility] oxygen saturation, oximetry 98 % [facility] pulse rate 51 /min [facility] blood pressure, diastolic 75 mm[Hg] Vi [facility] blood pressure, systolic 129 mm[Hg] Chicho padilla [facility] Body Mass Index (Ratio) 23.24 kg/m2 Rodriguez Martin MD blood pressure, cuff size regular Ke anabelle Cevallos blood pressure, diastolic 67 mm[Hg] Ke anabelle Cevallos blood pressure, systolic 141 mm[Hg] Keith Cevallos oxygen saturation, oximetry 90 % Isadora Cevallos respiratory rate E&M 20 /min Isadora samuels pulse rate 73 /min Isadora calvo weight E&M 181 [lb_av] Isadora calvo height E&M 74 [in_i] Isadora calvo pulse rate 60 /min Prabhu Martin MD blood pressure, diastolic 72 mm[Hg] Ryan Martin MD blood pressure, systolic 133 mm[Hg] Kae Martin MD Body Mass Index (Ratio) 23.24 kg/m2 Rodriguez Martin MD blood pressure, cuff size large Ke rri Gruenenfelder blood pressure, diastolic 60 mm[Hg] Ke rri Gruenenfelder blood pressure, systolic 130 mm[Hg] Keith ri Gruenenfelder oxygen saturation, oximetry 90 % Isadora Gruenenfelder respiratory rate E&M 18 /min Isadora G ruenenfelder pulse rate 100 /min Isadora Gruenenfe lder weight E&M 181 [lb_av] Isadora Gruenenfe lder height E&M 74 [in_i] Isadora Gruenenfe lder Body Mass Index (Ratio) 23.11 kg/m2 Rodriguez Martin MD blood pressure, cuff size regular Ke rri Gruenenfelder blood pressure, diastolic 60 mm[Hg] Ke rri Gruenenfelder blood pressure, systolic 120 mm[Hg] Keith ri Gruenenfelder oxygen saturation, oximetry 95 % Isadora Mosheneelzbietaer respiratory rate E&M 16 /min Isadora G carissaenenfelder pulse rate 53 /min Isadora Gruenenfe lder weight E&M 180 [lb_av] Isadora Gruenenfe lder height E&M 74 [in_i] Isadora Gruenenfe lder Body Mass Index (Ratio) 23.13 kg/m2 Rodriguez Martin MD blood pressure, diastolic 59 mm[Hg] Coty Dillon blood pressure, systolic 119 mm[Hg] Izzy Dillon oxygen saturation, oximetry 93 % Rashad Dillon respiratory rate E&M 18 /min Heather Dillon pulse rate 47 /min Rashad senior weight E&M 180.2 [lb_av] Rashad sheriff height E&M 74 [in_i] Rashad senior Body Mass Index (Ratio) 23.24 kg/m2 Hardy Adams blood pressure, cuff size regular Ke rri Gruenenfelder blood pressure, diastolic 75 mm[Hg] Ke rri Gruenenfelder blood pressure, systolic 161 mm[Hg] Ker ri Gruenenfelder oxygen saturation, oximetry 97 % Isadora Gruenenfelder respiratory rate E&M 16 /min Isadora G ruenenfelder pulse rate 61 /min Isadora Gruenenfe lder weight E&M 181 [lb_av] Isadora Gruenenfe lder height E&M 74 [in_i] Isadora Gruenenfe lder Body Mass Index (Ratio) 22.98 kg/m2 Ricardo Heaton blood pressure, cuff size regular Ke rri Gruenenfelder blood pressure, diastolic 61 mm[Hg] Ke rri Gruenenfelder blood pressure, systolic 118 mm[Hg] Ker ri Gruenenfelder oxygen saturation, oximetry 97 % Isadora Gruenenfelder respiratory rate E&M 16 /min Isadora G ruenenfelder pulse rate 57 /min Isadora Gruenenfe lder weight E&M 179 [lb_av] Isadora Gruenenfe lder height E&M 74 [in_i] Isadora Gruenenfe lder Body Mass Index (Ratio) 23.49 kg/m2 Ricardo Heaton blood pressure, resting Yes Diana Santana blood pressure, diastolic 68 mm[Hg] Coty Dillon blood pressure, systolic 143 mm[Hg] Izzy Dillon oxygen saturation, oximetry 96 % Rashad Dillon respiratory rate E&M 18 /min Heather Dillon pulse rate 48 /min Rashad senior weight E&M 183 [lb_av] Rashad senior height E&M 74 [in_i] Rashad Valdivia michelle blood pressure, diastolic, left arm 78 mm [Hg] Stefany Serna blood pressure, systolic, left arm 146 mm [Hg] Stefany Serna blood pressure, diastolic, right arm 95 m m[Hg] Stefany Serna blood pressure, systolic, right arm 153 m m[Hg] Stefany Serna blood pressure, diastolic 95 mm[Hg] Nm sandy Serna blood pressure, systolic 153 mm[Hg] Erin Serna pulse rate 73 /min Stefany Serna oxygen saturation, oximetry 97 % Stefany Serna respiratory rate E&M 16 /min Stefany Serna Body Mass Index (Ratio) 23.19 kg/m2 [facility] deonte Kareem weight E&M 180.6 [lb_av] Stefany Serna blood pressure, diastolic 87 mm[Hg] Nm sandy Resendez blood pressure, systolic 144 mm[Hg] Erin shani Resendez pulse rate 82 /min Stefany Resendez oxygen saturation, oximetry 98 % Stefany Resendez respiratory rate E&M 15 /min Stefany Resendez Body Mass Index (Ratio) 23.11 kg/m2 [facility] weight E&M 180 [lb_av] Stefany Resendez blood pressure, diastolic 77 mm[Hg] Nm sandy Resendez blood pressure, systolic 144 mm[Hg] Erin shani Resendez pulse rate 72 /min Stefany Resendez oxygen saturation, oximetry 98 % Stefany Resendez respiratory rate E&M 14 /min Stefany Resendez Body Mass Index (Ratio) 23.36 kg/m2 Jyoti clemons [facility] weight E&M 182 [lb_av] Stefany Resendez Body Mass Index (Ratio) 22.98 kg/m2 Lauraa seun [facility] blood pressure, diastolic 75 mm[Hg] An eatris Jose Antonio blood pressure, systolic 124 mm[Hg] Ane atris Brown pulse rate 62 /min Aneatris [facility] oxygen saturation, oximetry 97 % Aneatris [facility] respiratory rate E&M 16 /min Aneatri s [facility] weight E&M 179 [lb_av] Lauraatris [facility] blood pressure, diastolic 64 mm[Hg] Me delgado [facility] blood pressure, systolic 126 mm[Hg] Erin mcleod Resendez pulse rate 66 /min Stefany Resendez oxygen saturation, oximetry 98 % Stefany Resendez respiratory rate E&M 15 /min Stefany Resendez Body Mass Index (Ratio) 23.11 kg/m2 Jyoti clemons [facility] weight E&M 180 [lb_av] Stefany Resendez blood pressure, diastolic, left arm 63 mm [Hg] Maribell Olivares blood pressure, systolic, left arm 120 mm [Hg] Maribell Olivares blood pressure, diastolic, right arm 72 m m[Hg] Maribell Olivares blood pressure, systolic, right arm 124 m m[Hg] Maribell Olivares Body Mass Index (Ratio) 22.47 kg/m2 Jordana bridger Olivares blood pressure, diastolic 72 mm[Hg] Ta rob Olivares blood pressure, systolic 124 mm[Hg] Ku ica Olivares pulse rate 63 /min Maribell Olivares oxygen saturation, oximetry 97 % Maribell Olivares respiratory rate E&M 17 /min Maribell Olivares weight E&M 175 [lb_av] Maribell Olivares Body Mass Index (Ratio) 22.16 kg/m2 Jyoti clemons Resendez blood pressure, diastolic 72 mm[Hg] Me delgado Resendez blood pressure, systolic 137 mm[Hg] Erin mcleod Resendez pulse rate 68 /min Stefany Resendez oxygen saturation, oximetry 98 % Stefany Resendez respiratory rate E&M 16 /min Stefany Resendez weight E&M 172 [lb_av] Stefany Turpinann blood pressure, diastolic 66 mm[Hg] Chilango Sauceda RN blood pressure, systolic 124 mm[Hg] J Carlos Sauceda RN pulse rate 55 /min J Carlos Cannons RN oxygen saturation, oximetry 99 % J Carlos Cannons RN respiratory rate E&M 16 /min J Carlos Black maty RN Body Mass Index (Ratio) 22.81 kg/m2 J Carlos Cannons RN weight E&M 177 [lb_av] J Carlos Sauceda RN blood pressure, diastolic 24 mm[Hg] He ather Blunt blood pressure, systolic 118 mm[Hg] Hea ther Blunt pulse rate 51 /min Vale Blunt oxygen saturation, oximetry 99 % Vale Blunt respiratory rate E&M 12 /min Vale Blunt weight E&M 175 [lb_av] Vale Blunt Body Mass Index (Ratio) 22.81 kg/m2 Karrienader Barrios blood pressure, talbot tolic, second observation 63 mm[Hg] Lyn Barrios blood pressure, syst olic, second observation 134 mm[Hg] Lyn Barrios blood pressure, diastolic 63 mm[Hg] Na tucker Barrios blood pressure, systolic 134 mm[Hg] Kari solomon Barrios pulse rate 53 /min Lyn Barrios oxygen saturation, oximetry 97 % Lyn Barrios respiratory rate E&M 17 /min Lyn Davisoney weight E&M 177 [lb_av] Lyn Davisoney height E&M 74 [in_i] Lyn Barrios blood pressure, diastolic, left arm 61 mm [Hg] [facility] blood pressure, systolic, left arm 126 mm [Hg] [facility] blood pressure, diastolic, right arm 70 m m[Hg] [facility] blood pressure, systolic, right arm 131 m m[Hg] [facility] blood pressure, diastolic 61 mm[Hg] [facility] blood pressure, systolic 126 mm[Hg] [facility] pulse rate 72 /min [facility] oxygen saturation, oximetry 99 % [facility] respiratory rate E&M 16 /min [facility] weight E&M 165 [lb_av] [facility] blood pressure, diastolic, left arm 66 mm [Hg] Joselin O'Jason blood pressure, systolic, left arm 132 mm [Hg] Joselin O'Jason blood pressure, diastolic, right arm 64 m m[Hg] Joselin O'Jason blood pressure, systolic, right arm 123 m m[Hg] Joselin O'Jason blood pressure, diastolic 66 mm[Hg] [facility] O'Jason blood pressure, systolic 132 mm[Hg] [facility] O'Jason pulse rate 49 /min Joselin O'Jason oxygen saturation, oximetry 98 % Joselin O'Jason respiratory rate E&M 16 /min Joselin O'Jason weight E&M 173 [lb_av] Joselin O'Jason blood pressure, diastolic, left arm 62 mm [Hg] Kathia [place] blood pressure, systolic, left arm 126 mm [Hg] [facility] [place] blood pressure, diastolic, right arm 63 m m[Hg] Kathia [place] blood pressure, systolic, right arm 141 m m[Hg] Kathia [place] blood pressure, diastolic 62 mm[Hg] Pa nery [place] blood pressure, systolic 126 mm[Hg] Pat sy [place] oxygen saturation, oximetry 99 % Kathia York pulse rate 56 /min Kathia York respiratory rate E&M 16 /min Kathia Y ork weight E&M 170 [lb_av] Kathia [place] blood pressure, diastolic 80 mm[Hg] Chilango Sauceda RN blood pressure, systolic 173 mm[Hg] J Carlos Sauceda RN pulse rate 50 /min J Carlos Sauceda RN oxygen saturation, oximetry 91 % J Carlos Sauceda RN respiratory rate E&M 16 /min J Carlos morales RN weight E&M 164 [lb_av] J Carlos Sauceda RN blood pressure, diastolic 61 mm[Hg] Chilango Sauceda RN blood pressure, systolic 112 mm[Hg] J Carlos Sauceda RN pulse rate 58 /min J Carlos Sauceda RN oxygen saturation, oximetry 98 % J Carlos Sauceda RN respiratory rate E&M 16 /min J Carlos morales RN weight E&M 159 [lb_av] J Carlos Sauceda RN ALLERGIES Allergy Name Onset Date Reaction Criticality Status MORPHINE Low Criticality active FELDENE Low Criticality active RESULTS Date Observation Value Provider Reference Range Interpretation Location 03/15 LDL cholesterol, serum 27 mg/dL Prabhu Martin MD 05/26 ferritin, serum 58 ng/mL [facility] 30-400 05/26 iron saturation percent, serum 20 % [facility] 15-55 05/26 iron, serum 53 ug/dL [facility] 38-169 05/26 iron binding capacity, unsaturated 212 ug/dL [facility] 230-115 4242/ 07/19 iron binding capacity, total 265 ug/dL [facility] 310-302 7007/ 07/19 basophil count, absolute 0.0 x10E3/uL [facility] 0.0-0.2 05/26 Eosinophil Absolute Count 0.1 X10E3/UL [facility] 0.0-0.4 05/26 monocyte count, blood, automated 0.7 X10E3/UL [facility] 0.1-0.9 05/26 lymphocyte count, blood, automated 1.7 X10E3/UL [facility] 0.7-3.1 05/26 Absolute Neutrophils 4.9 X10E3/UL [facility] 1.4-7.0 05/26 basophils as percent of blood leukocytes 0 % [facility] Not Estab. 05/26 eosinophils as percent of blood leukocytes 2 % [facility] Not Estab. 05/26 monocytes as percent of blood leukocytes 9 % [facility] Not Estab. 05/26 lymphocytes as percent of blood leukocytes 23 % [facility] Not Estab. 05/26 neutrophils as percent of blood leukocytes 66 % [facility] Not Estab. 05/26 platelet count 136 X10E3/UL [facility] 150-379 Low 05/26 red blood cell distribution width 14.3 % [facility] 12.3-15.4 05/26 mean corpuscular hemoglobin concentration, RBC 32.8 G/DL [facility] 31.5-35.7 05/26 mean corpuscular hemoglobin, RBC 30.7 pg [facility] 26.6-33.0 05/26 mean corpuscular volume, RBC 94 fL [facility] 79-97 05/26 hematocrit, blood 35.1 % [facility] 37.5-51.0 Low 05/26 hemoglobin, blood 11.5 g/dL [facility] 13.0-17.7 Low 05/26 erythrocyte (RBC) count 3.74 X10E6/UL [facility] 4.14-5.80 Low 05/26 leukocyte count, blood 7.4 X10E3/UL [facility] 3.4-10.8 04/01 lipoprotein, beta, serum, point, quantitative, calculated 27 mg/dL [facility] 0-99 04/01 very low density lipoproteins 32 mg/dL [facility] 5-40 04/01 HDL cholesterol, serum 30 mg/dL [facility] >39 Low 04/01 triglyceride, serum, random 160 mg/dL [facility] 0-149 High 04/01 cholesterol, serum 89 mg/dL [facility] 100-199 Low 04/01 basophil count, absolute 0.0 x10E3/uL [facility] 0.0-0.2 04/01 Eosinophil Absolute Count 0.2 X10E3/UL [facility] 0.0-0.4 04/01 monocyte count, blood, automated 0.6 X10E3/UL [facility] 0.1-0.9 04/01 lymphocyte count, blood, automated 1.6 X10E3/UL [facility] 0.7-3.1 04/01 Absolute Neutrophils 5.2 X10E3/UL [facility] 1.4-7.0 04/01 basophils as percent of blood leukocytes 0 % [facility] Not Estab. 04/01 eosinophils as percent of blood leukocytes 2 % [facility] Not Estab. 04/01 monocytes as percent of blood leukocytes 8 % [facility] Not Estab. 04/01 lymphocytes as percent of blood leukocytes 21 % [facility] Not Estab. 04/01 neutrophils as percent of blood leukocytes 69 % [facility] Not Estab. 04/01 platelet count 138 X10E3/UL [facility] 150-379 Low 04/01 red blood cell distribution width 15.0 % [facility] 12.3-15.4 04/01 mean corpuscular hemoglobin concentration, RBC 32.7 G/DL [facility] 31.5-35.7 04/01 mean corpuscular hemoglobin, RBC 29.8 pg [facility] 26.6-33.0 04/01 mean corpuscular volume, RBC 91 fL [facility] 79-97 04/01 hematocrit, blood 34.2 % [facility] 37.5-51.0 Low 04/01 hemoglobin, blood 11.2 g/dL [facility] 13.0-17.7 Low 04/01 erythrocyte (RBC) count 3.76 X10E6/UL [facility] 4.14-5.80 Low 04/01 leukocyte count, blood 7.6 X10E3/UL [facility] 3.4-10.8 04/01 alanine aminotransferase (SGPT), serum 23 1/L [facility] 0-44 04/01 aspartate aminotransferase (SGOT), serum 23 1/L [facility] 0-40 04/01 alkaline phosphatase, serum 182 1/L [facility] 39-117 High 04/01 bilirubin, serum, total 0.8 mg/dL [facility] 0.0-1.2 04/01 albumin/globulin ratio, serum 1.9 [facility] 1.2-2.2 04/01 globulin, serum 2.2 [facility] 1.5-4.5 04/01 albumin, serum 4.1 g/dL [facility] 3.5-4.7 04/01 protein, total, serum 6.3 g/dL [facility] 6.0-8.5 04/01 calcium, serum 8.6 mg/dL [facility] 8.6-10.2 04/01 carbon dioxide, venous blood 26 mmol/L [facility] 18-04/01 chloride, serum 105 mmol/L [facility] 96-106 04/01 potassium, serum 4.2 mmol/L [facility] 3.5-5.2 04/01 sodium, serum 146 mmol/L [facility] 134-144 High 04/01 urea nitrogen/creatinine ratio, serum 21 [facility] 10-24 04/01 eGFR if 47 mL/min/{1.73_ m2} [facility] >59 Low 04/01 eGFR if not 40 mL/min/{1.73_ m2} [facility] >59 Low 04/01 creatinine, serum 1.58 mg/dL [facility] 0.76-1.27 High 04/01 urea nitrogen, blood 33 mg/dL [facility] 8-27 High 04/01 blood glucose, random 88 mg/dL [facility] 65-99 11/11 calcium, serum 8.7 mg/dL [facility] 8.6-10.2 11/11 carbon dioxide, venous blood 28 mmol/L [facility] 18-29 11/11 chloride, serum 106 mmol/L [facility] 96-106 11/11 potassium, serum 4.4 mmol/L [facility] 3.5-5.2 11/11 sodium, serum 146 mmol/L [facility] 134-144 High 11/11 urea nitrogen/creatinine ratio, serum 18 [facility] 10-24 11/11 eGFR if not 42 mL/min/{1.73_ m2} [facility] >59 Low 11/11 creatinine, serum 1.54 mg/dL [facility] 0.76-1.27 High 11/11 urea nitrogen, blood 27 mg/dL [facility] 8-27 11/11 blood glucose, random 86 mg/dL [facility] 65-99 11/11 basophil count, absolute 0.0 x10E3/uL [facility] 0.0-0.2 11/11 Eosinophil Absolute Count 0.3 X10E3/UL [facility] 0.0-0.4 11/11 monocyte count, blood, automated 0.7 X10E3/UL [facility] 0.1-0.9 11/11 lymphocyte count, blood, automated 1.6 X10E3/UL [facility] 0.7-3.1 11/11 Absolute Neutrophils 5.4 X10E3/UL [facility] 1.4-7.0 11/11 basophils as percent of blood leukocytes 0 % [facility] Not Estab. 11/11 eosinophils as percent of blood leukocytes 4 % [facility] Not Estab. 11/11 monocytes as percent of blood leukocytes 9 % [facility] Not Estab. 11/11 lymphocytes as percent of blood leukocytes 19 % [facility] Not Estab. 11/11 neutrophils as percent of blood leukocytes 68 % [facility] Not Estab. 11/11 platelet count 151 X10E3/UL [facility] 255-029 4080/ 01/04 red blood cell distribution width 15.3 % [facility] 12.3-15.4 11/11 mean corpuscular hemoglobin concentration, RBC 31.9 G/DL [facility] 31.5-35.7 11/11 mean corpuscular hemoglobin, RBC 27.7 pg [facility] 26.6-33.0 11/11 mean corpuscular volume, RBC 87 fL [facility] 79-97 11/11 hematocrit, blood 32.6 % [facility] 37.5-51.0 Low 11/11 hemoglobin, blood 10.4 g/dL [facility] 13.0-17.7 Low 11/11 erythrocyte (RBC) count 3.76 X10E6/UL [facility] 4.14-5.80 Low 11/11 leukocyte count, blood 8.0 X10E3/UL [facility] 3.4-10.8 09/15 coagulation managed by Gail Mcallister RN 09/15 international normalized ratio (INR) 2.6 Isadora Cevallos Normal 08/24 microalbumin/creati nine ratio, urine Undetectable mg/g [facility] <3.9 08/24 microalbumin/total urine volume <3.0 mg/L [facility] 08/24 creatinine, random, urine 113.4 mg/dL [facility] 20.0-300.0 08/24 vitamin D 25-hydroxy, serum 39.4 ng/mL [facility] 30.0-80.0 08/27 number of large High Density Lipoprotein particles 3.0 umol/L [facility] >=4.8 Low 08/27 Large VLDL Particle 3.6 nmol/L [facility] <=2.7 High 08/27 LDL Size 20.3 nm [facility] >20.5 08/27 Small Low Density Lipoprotein Particle 436 nmol/L [facility] <=527 08/27 cholesterol, serum 116 mg/dL [facility] 714-402 5150/ 10/20 triglyceride, serum, fasting 139 mg/dL [facility] 0-149 08/27 HDL cholesterol, serum 29 mg/dL [facility] >39 Low 08/27 lipoprotein, beta, serum, point, quantitative, calculated 59 mg/dL [facility] 0-99 08/27 LDL particle concentration (lipoprotein panel), risk categories correspond to NCEP categories for LDL cholesterol (on a percentile equivalent basis) 753 nmol/L [facility] <1000 08/24 methylenetetrahydro folate reductase mutation, DNA testing by PCR, whole blood 677CC, 1298CC [facility] 08/24 C-reactive protein, by highly sensitive test 4.9 mg/L [facility] <1.0 High 09/02 coagulation managed by J Carlos Sauceda RN 09/02 international normalized ratio (INR) 2.0 Isadora Goodenanatoliydel Normal 09/02 prothrombin time (patient) 24.3 s Isadora Pikeracquel 08/24 coagulation managed by Cindy Crow RN 08/24 prothrombin time (patient) 30.5 s Kristen [place]burgh 08/24 international normalized ratio (INR) 2.5 Kristen [place]burgh Normal 08/04 coagulation managed by J Carlos Sauceda RN 08/04 international normalized ratio (INR) 2.5 Kimberli Carito Normal 08/04 prothrombin time (patient) 29.4 s Kimberli Carito 07/27 coagulation managed by Gail Mcallister RN 07/27 international normalized ratio (INR) 2.2 Kimberli Carito Normal 07/27 prothrombin time (patient) 25.9 s Kimberli Carito 07/20 coagulation managed by J Carlos Sauceda RN 07/20 international normalized ratio (INR) 3.7 Kimberli Carito Normal 07/20 prothrombin time (patient) 44.6 s Kimberli Carito 07/13 coagulation managed by J Carlos Sauceda RN 07/13 international normalized ratio (INR) 4.8 Kimberli Carito Normal 07/13 prothrombin time (patient) 58.2 s Kimberli Carito 06/29 coagulation managed by Gail Mcallister RN 06/29 international normalized ratio (INR) 1.9 Kimberli Carito Normal 06/29 prothrombin time (patient) 23.1 s Kimberli Carito 06/22 coagulation managed by J Carlos Sauceda RN 06/22 international normalized ratio (INR) 1.7 Kimberli Carito Normal 06/22 prothrombin time (patient) 20.8 s Kimberli Carito 06/16 coagulation managed by Gail Mcallister RN 06/16 international normalized ratio (INR) 4.3 Kimberli Carito Normal 06/16 prothrombin time (patient) 57.2 s Kimberli Carito 06/02 coagulation managed by Gail Mcallister RN 06/02 international normalized ratio (INR) 2.4 Kimberli Carito Normal 06/02 prothrombin time (patient) 28.7 s Kimberli Carito 05/26 coagulation managed by Gail Mcallister RN 05/26 international normalized ratio (INR) 4.6 Gail Mcallister RN High 05/26 prothrombin time (patient) 55.5 s Rashad Dillon 05/12 coagulation managed by J Carlos Sauceda RN 05/12 international normalized ratio (INR) 1.7 Rashad Dillon Normal 05/12 prothrombin time (patient) 20.8 s Rashad Dillon 04/26 coagulation managed by J Carlos Sauceda RN 04/26 international normalized ratio (INR) 2.0 Kimberli Carito Normal 04/26 prothrombin time (patient) 23.5 s Kimberli Carito 03/31 very low density lipoproteins 43.6 mg/dL [facility] 5.0 - 40.0 High 03/31 LDL/HDL (low-density lipoprotein/high-de nsity lipoprotein) ratio 3.6 RATIO [facility] - 03/31 lipoprotein, beta, serum, point, quantitative, calculated 105.4 (?) [facility] 0.0 - 100.0 High 03/31 HDL cholesterol, serum 29.0 mg/dL [facility] 35.0 - 55.0 Low 03/31 cholesterol, serum 178.0 mg/dL [facility] 0.0 - 200.0 03/31 triglyceride, serum, fasting 218.0 mg/dL [facility] 0.0 - 150.0 High 03/31 urea nitrogen/creatinine ratio, serum 15.9 [facility] - 03/31 Estimated Glomerular Filtration Rate (calc) 30.8 (?) [facility] 59.0 - Low 03/31 chloride, serum 104.9 mmol/L [facility] 98.0 - 107.0 03/31 potassium, serum 5.3 mmol/L [facility] 3.5 - 5.1 High 03/31 sodium, serum 143.0 mmol/L [facility] 136.0 - 145.0 03/31 creatinine, serum 2.2 mg/dL [facility] 0.7 - 1.2 High 03/31 carbon dioxide, venous blood 25.0 mmol/L [facility] 23.0 - 31.0 03/31 calcium, serum 8.9 mg/dL [facility] 8.6 - 10.2 03/31 urea nitrogen, blood 35.0 mg/dL [facility] 8.0 - 23.0 High 03/31 blood glucose, random 105.0 mg/dL [facility] 74.0 - 99.0 High 03/31 red blood cell distribution width, size density 52.1 fL [facility] 03/31 immature granulocytes, percentage of total cells, blood 0.1 % [facility] 03/31 nucleated red blood cells as percent of blood leukocytes 0.0 % [facility] 03/31 red blood cell (erythrocyte) count, per high power field 0.0 10*3/UL [facility] 03/31 eosinophils as percent of blood leukocytes 1.8 % [facility] 03/31 neutrophils as percent of blood leukocytes 68.9 % [facility] 03/31 Absolute Neutrophils 4.9 [facility] - 7.8 03/31 basophils as percent of blood leukocytes 0.1 % [facility] 03/31 Absolute Basophils 0.0 [facility] - [facility] 03/31 monocytes as percent of blood leukocytes 7.4 % [facility] 03/31 Absolute Monocytes 0.5 CELLS/UL [facility] 0.2 - 1.0 03/31 lymphocytes as percent of blood leukocytes 21.7 % [facility] 03/31 Absolute Lymphocytes 1.6 CELLS/UL [facility] 0.9 - 3.9 03/31 mean platelet volume 11.7 (?) [facility] 03/31 platelet count 156.0 THOUSAND/UL [facility] 100.0 - 400.0 03/31 mean corpuscular hemoglobin concentration, RBC 32.0 G/DL [facility] 31.[facility] - 38.0 03/31 mean corpuscular hemoglobin, RBC 31.1 pg [facility] 25.0 - 35.0 03/31 mean corpuscular volume, RBC 97.1 fL [facility] 75.0 - 100.0 03/31 hematocrit, blood 36.2 % [facility] 35.0 - 55.0 03/31 hemoglobin, blood 11.6 g/dL [facility] 11.5 - 16.5 03/31 erythrocyte count, whole blood 3.7 MILLION/UL [facility] 3.5 - 5.5 03/30 coagulation managed by J Carlos Sauceda RN 03/30 international normalized ratio (INR) 2.9 Rashad Dillon Normal 03/30 prothrombin time (patient) 34.2 s Rashad Dillon 03/05 very low density lipoproteins 41.8 mg/dL [facility] 5.0 - 40.0 High 03/05 LDL/HDL (low-density lipoprotein/high-de nsity lipoprotein) ratio 3.6 RATIO [facility] - 03/05 lipoprotein, beta, serum, point, quantitative, calculated 97.2 (?) [facility] 0.0 - 100.0 03/05 HDL cholesterol, serum 27.0 mg/dL [facility] 35.0 - 55.0 Low 03/05 cholesterol, serum 166.0 mg/dL [facility] 0.0 - 200.0 03/05 triglyceride, serum, fasting 209.0 mg/dL [facility] 0.0 - 150.0 High 03/05 urea nitrogen/creatinine ratio, serum 18.0 [facility] - 03/05 Estimated Glomerular Filtration Rate (calc) 34.3 (?) [facility] 59.0 - Low 03/05 chloride, serum 106.8 mmol/L [facility] 98.0 - 107.0 03/05 potassium, serum 4.7 mmol/L [facility] 3.5 - 5.1 03/05 sodium, serum 144.0 mmol/L [facility] 136.0 - 145.0 03/05 creatinine, serum 2.0 mg/dL [facility] 0.7 - 1.2 High 03/05 carbon dioxide, venous blood 26.0 mmol/L [facility] 23.0 - 31.0 03/05 calcium, serum 8.5 mg/dL [facility] 8.6 - 10.2 Low 03/05 urea nitrogen, blood 36.0 mg/dL [facility] 8.0 - 23.0 High 03/05 blood glucose, random 120.0 mg/dL [facility] 74.0 - 99.0 High 03/05 red blood cell distribution width, size density 54.4 fL [facility] - 03/05 immature granulocytes, percentage of total cells, blood 0.1 % [facility] - 03/05 nucleated red blood cells as percent of blood leukocytes 0.0 % [facility] - 03/05 red blood cell (erythrocyte) count, per high power field 0.0 10*3/UL [facility] 03/05 eosinophils as percent of blood leukocytes 1.5 % [facility] - 03/05 neutrophils as percent of blood leukocytes 67.6 % [facility] - 03/05 Absolute Neutrophils 4.5 CELLS/UL [facility] 1.5 - 7.8 03/05 basophils as percent of blood leukocytes 0.1 % [facility] - 03/05 Absolute Basophils 0.0 CELLS/UL [facility] 0.0 - 0.2 03/05 monocytes as percent of blood leukocytes 7.3 % [facility] - 03/05 Absolute Monocytes 0.5 CELLS/UL [facility] 0.2 - 1.0 03/05 lymphocytes as percent of blood leukocytes 23.4 % [facility] - 03/05 Absolute Lymphocytes 1.6 CELLS/UL [facility] 0.9 - 3.9 03/05 mean platelet volume 11.5 (?) [facility] - 03/05 platelet count 137.0 THOUSAND/UL [facility] 100.0 - 400.0 03/05 mean corpuscular hemoglobin concentration, RBC 31.6 G/DL [facility] 31.0 - 38.0 03/05 mean corpuscular hemoglobin, RBC 30.9 pg [facility] 25.0 - 35.0 03/05 mean corpuscular volume, RBC 97.8 fL [facility] 75.0 - 100.0 03/05 hematocrit, blood 35.1 % [facility] 35.0 - 55.0 03/05 hemoglobin, blood 11.1 g/dL [facility] 11.5 - 16.5 Low 03/05 erythrocyte count, whole blood 3.6 MILLION/UL [facility] 3.5 - 5.5 03/05 prothrombin time (patient) 30.1 s [facility] 9.0 - 11.5 High 03/05 international normalized ratio (INR) 2.7 [facility] 0.9 - 1.1 High 03/02 coagulation managed by J Carlos Sauceda RN 03/02 international normalized ratio (INR) 2.9 Svetlana Mcallister Normal 03/02 prothrombin time (patient) 35.1 s Svetlana Mcallister 02/16 international normalized ratio (INR) 1.5 Svetlana Mcallister Normal 02/16 prothrombin time (patient) 17.4 s Svetlana Mcallister 01/20 coagulation managed by J Carlos Sauceda RN 01/20 international normalized ratio (INR) 2.1 Rashadshaista Dillon Normal 01/20 prothrombin time (patient) 25.2 s Rashad Dillon 01/06 coagulation managed by J Carlos Sauceda RN 01/06 international normalized ratio (INR) 3.2 Kimberli Carito Normal 01/06 prothrombin time (patient) 38.3 s Kimberli Carito 12/29 international normalized ratio (INR) 2.2 Kimberli Carito Normal 12/29 prothrombin time (patient) 26.6 s Kimberli Carito 12/01 coagulation managed by J Carlos Sauceda RN 12/01 international normalized ratio (INR) 2.7 Kimberli Carito Normal 12/01 prothrombin time (patient) 32.6 s Kimberli Carito 11/17 coagulation managed by J Carlos Sauceda RN 11/17 international normalized ratio (INR) 2.7 Kimberli Carito Normal 11/17 prothrombin time (patient) 32.9 s Kimberli Carito 11/03 coagulation managed by J Carlos Sauceda RN 11/03 international normalized ratio (INR) 1.5 Kimberil Carito Normal 11/03 prothrombin time (patient) 18.2 s Kimberli Carito 10/19 coagulation managed by J Carlos Sauceda RN 10/19 international normalized ratio (INR) 1.4 Kimberli Carito Normal 10/19 prothrombin time (patient) 17.1 s Kimberli Carito 10/06 coagulation managed by J Carlos Sauceda RN 10/06 international normalized ratio (INR) 3.1 Kimberli Carito Normal 10/06 prothrombin time (patient) 36.6 s Kimberli Carito 09/22 coagulation managed by J Carlos Sauceda RN 09/22 international normalized ratio (INR) 3.5 J Carlos Sauceda RN Normal 09/22 prothrombin time (patient) 42.0 s J Carlos Sauceda RN 09/01 coagulation managed by J Carlos Sauceda RN 09/01 international normalized ratio (INR) 1.4 J Carlos Sauceda RN Normal 09/01 prothrombin time (patient) 16.6 s J Carlos Sauceda RN 08/04 coagulation managed by J Carlos Sauceda RN 08/04 international normalized ratio (INR) 2.9 Stefany Resendez Normal 08/04 prothrombin time (patient) 34.6 s Stefany Resendez 07/21 coagulation managed by J Carlos Sauceda RN 07/21 international normalized ratio (INR) 2.6 Rashad Dillon Normal 07/21 prothrombin time (patient) 31.7 s Rashad Dillon 07/14 coagulation managed by Svetlana Hairston RN 07/14 international normalized ratio (INR) 1.8 Isadora Cevallos Normal 07/14 prothrombin time (patient) 21.3 s Isadora Mart 06/30 coagulation managed by J Carlos Sauceda RN 06/30 international normalized ratio (INR) 1.8 Stefany Resendez Normal 06/30 prothrombin time (patient) 21.1 s Stefany Resendez 06/23 coagulation managed by J Carlos Sauceda RN 06/23 international normalized ratio (INR) 4.1 Stefany Resendez Normal 06/23 prothrombin time (patient) 49.6 s Stefany Resendez 06/09 coagulation managed by J Carlos Sauceda RN 06/09 international normalized ratio (INR) 3.2 J Carlos Sauceda RN Normal 06/09 prothrombin time (patient) 38.7 s J Carlos Sauceda RN 05/28 coagulation managed by J Carlos Sauceda RN 05/28 international normalized ratio (INR) 1.7 Rashad Dillon Normal 05/28 prothrombin time (patient) 20.4 s Rashad Dillon 05/26 coagulation managed by J Carlos Sauceda RN 05/26 international normalized ratio (INR) 1.6 Stefany Resendez Normal 05/26 prothrombin time (patient) 18.7 s Stefany Resendez 04/30 coagulation managed by J Carlos Sauceda RN 04/30 international normalized ratio (INR) 2.2 Isadora Gruenenfanatoliyer Normal 04/30 prothrombin time (patient) 26.4 s Isadora Grmaria dneelzbietaer 04/15 coagulation managed by J Carlos Sauceda RN 04/15 international normalized ratio (INR) 1.9 Stefany Resendez Normal 04/15 prothrombin time (patient) 22.7 s Stefany Resendez 04/01 coagulation managed by J Carlos Sauceda RN 04/01 international normalized ratio (INR) 2.1 Isadora Gruenenfelder Normal 04/01 prothrombin time (patient) 25.6 s Isadora Grueneelzbietaer 03/25 coagulation managed by J Carlos Sauceda RN 03/25 international normalized ratio (INR) 1.8 Rashad Dillon Normal 03/25 prothrombin time (patient) 21.8 s Rashad Dillon 03/18 coagulation managed by J Carlos Sauceda RN 03/18 international normalized ratio (INR) 1.7 Stefany Kareem Normal 03/18 prothrombin time (patient) 20.6 s Stefany Kareem 03/12 coagulation managed by J Carlos Sauceda RN 03/12 international normalized ratio (INR) 2.5 Isadora Gruenenfelder Normal 03/12 prothrombin time (patient) 30.2 s Isadora Mart 03/09 international normalized ratio (INR) 4.4 Rashad Dillon Normal 03/09 prothrombin time (patient) 52.4 s Rashad Dillon 03/02 coagulation managed by J Carlos Sauceda RN 03/02 international normalized ratio (INR) 2.7 Stefany Resendez Normal 03/02 prothrombin time (patient) 32.4 s Stefany Resendez 05/03 thyroid stimulating hormone, serum 0.712 u[IU]/mL [facility] 05/03 alanine aminotransferase (SGPT), serum 28 1/L [facility] 05/03 aspartate aminotransferase (SGOT), serum 20 1/L [facility] 05/03 creatinine, serum 1.42 mg/dL [facility] 05/03 potassium, serum 4.1 mmol/L [facility] 05/03 sodium, serum 143 mmol/L [facility] 01/26 platelet count 196 10*3/mm3 [facility] 01/26 hematocrit, blood 37.6 % [facility] 02/02 coagulation managed by J Carlos Sauceda RN 02/02 prothrombin time (patient) 27.1 s J Carlos Sauceda RN 02/02 international normalized ratio (INR) 2.7 J Carlos Saucdea RN Normal 01/24 coagulation managed by J Carlos Sauceda RN 01/24 prothrombin time (patient) 15.9 s J Carlos Sauceda RN 01/24 international normalized ratio (INR) 1.4 J Carlos Sauceda RN Normal 01/22 coagulation managed by J Carlos Sauceda RN 01/22 prothrombin time (patient) 12.4 s J Carlos Sauceda RN 01/22 international normalized ratio (INR) 1.2 J Carlos Sauceda RN Normal 01/18 coagulation managed by J Carlos Sauceda RN 01/18 prothrombin time (patient) 23.0 s J Carlos Sauceda RN 01/18 international normalized ratio (INR) 2.3 J Carlos Sauceda RN Normal 01/16 coagulation managed by J Carlos Sauceda RN 01/16 prothrombin time (patient) 44.6 s J Carlos Sauceda RN 01/16 international normalized ratio (INR) 4.5 J Carlos Sauceda RN Normal 01/08 coagulation managed by J Carlos Sauceda RN 01/08 prothrombin time (patient) 26.9 s J Carlos Sauceda RN 01/08 international normalized ratio (INR) 2.7 J Carlos Sauceda RN Normal 01/05 coagulation managed by J Carlos Sauceda RN 01/05 prothrombin time (patient) 12.4 s J Carlos Sauceda RN 01/05 international normalized ratio (INR) 1.2 J Carlos Sauceda RN Normal 01/03 prothrombin time (patient) 10.8 s J Carlos Sauceda RN 01/03 international normalized ratio (INR) 1.1 J Carlos Sauceda RN Normal 12/20 prothrombin time (patient) 13.0 s Lyn Barrios 12/20 international normalized ratio (INR) 1.3 Lyn Barrios Normal 03/23 platelet count 144 10*3/mm3 [facility] 03/23 hematocrit, blood 36.5 % [facility] 03/23 creatinine, serum 1.67 mg/dL [facility] 03/23 potassium, serum 4.9 mmol/L [facility] 03/23 sodium, serum 140 mmol/L [facility] 04/22 thyroid stimulating hormone, serum 0.569 u[IU]/mL [facility] 04/22 LDL cholesterol, serum 102 mg/dL [facility] 04/22 cholesterol, serum 155 mg/dL [facility] 04/22 platelet count 139 10*3/mm3 [facility] 04/22 hematocrit, blood 37.4 % [facility] 04/22 alanine aminotransferase (SGPT), serum 20 1/L [facility] 04/22 aspartate aminotransferase (SGOT), serum 22 1/L [facility] 04/22 creatinine, serum 1.50 mg/dL [facility] 04/22 potassium, serum 4.1 mmol/L [facility] 04/22 sodium, serum 140 mmol/L [facility] 07/08 basophils as percent of blood leukocytes 0.2 % [facility] Normal 07/08 eosinophils as percent of blood leukocytes 2.4 % [facility] Normal 07/08 monocyte count, blood 6.8 % [facility] Normal 07/08 lymphocyte count, blood 17.5 % [facility] Normal 07/08 neutrophils as percent of blood leukocytes 73.1 % [facility] Normal 07/08 basophils, absolute, manual 16 cells/mcL [facility] 0-200 Normal 07/08 eosinophils, absolute, manual 194 cells/mcL [facility] 15-500 Normal 07/08 monocytes, absolute, manual 551 cells/mcL [facility] 200-950 Normal 07/08 lymphocytes, absolute 1418 CELLS/UL [facility] 850-3900 Normal 07/08 Absolute Neutrophil count 5921 cells/mcL [facility] 6559-9734 Normal 07/08 platelet count 135 THOUSAND/UL [facility] 140-400 Low 07/08 red blood cell distribution width 13.6 % [facility] 11.0-15.0 Normal 07/08 mean corpuscular hemoglobin concentration, RBC 34.4 G/DL [facility] 32.0-36.0 Normal 07/08 mean corpuscular hemoglobin, RBC 32.4 pg [facility] 27.0-33.0 Normal 07/08 mean corpuscular volume, RBC 94.2 fL [facility] 80.0-100.0 Normal 07/08 hematocrit, blood 38.5 % [facility] 38.5-50.0 Normal 07/08 hemoglobin electrophoresis, blood 13.2 [facility] 13.2-17.1 Normal 07/08 erythrocyte (RBC) count 4.09 MILLION/UL [facility] 4.20-5.80 Low 07/08 leukocyte (white blood cells) count, blood 8.1 THOUSAND/UL [facility] 3.8-10.8 Normal 07/08 alanine aminotransferase (SGPT), serum 14 1/L [facility] 9-60 Normal 07/08 aspartate aminotransferase (SGOT), serum 20 1/L [facility] 10-35 Normal 07/08 alkaline phosphatase, serum 101 1/L [facility] 40-115 Normal 07/08 bilirubin, serum, total 0.7 mg/dL [facility] 0.2-1.2 Normal 07/08 albumin/globulin ratio, serum 2.0 (calc) [facility] 1.0-2.1 Normal 07/08 globulins, serum, total 2.3 G/DL (CALC) [facility] 2.1-3.7 Normal 07/08 albumin, serum 4.5 g/dL [facility] 3.6-5.1 Normal 07/08 protein, total, serum 6.8 g/dL [facility] 6.2-8.3 Normal 07/08 calcium, serum 9.2 mg/dL [facility] 8.6-10.2 Normal 07/08 carbon dioxide, venous blood 28 mmol/L [facility] 21-33 Normal 07/08 chloride, serum 104 mmol/L [facility] 98-110 Normal 07/08 potassium, serum 4.4 mmol/L [facility] 3.5-5.3 Normal 07/08 sodium, serum 142 mmol/L [facility] 135-146 Normal 07/08 urea nitrogen/creatinine ratio, serum 21 (calc) [facility] 6-22 Normal 07/08 Estimated Glomerular Filtration Rate (calc) >60 mL/min/1.73m2 [facility] > OR = 60 Normal 07/08 creatinine, serum 1.21 mg/dL [facility] 0.67-1.54 Normal 07/08 urea nitrogen, blood 26 mg/dL [facility] 7-25 High 07/08 blood glucose, random 87 mg/dL [facility] 65-99 Normal 07/08 cholesterol/HDL ratio, serum, percent 2.4 (calc) [facility] < OR = 5.0 Normal 07/08 LDL cholesterol, serum 57 MG/DL (CALC) [facility] <130 Normal 07/08 triglyceride, serum, fasting 60 mg/dL [facility] <150 Normal 07/08 HDL cholesterol, serum 50 mg/dL [facility] > OR = 40 Normal 07/08 cholesterol, serum 119 mg/dL [facility] 125-200 Low HISTORY OF MEDICATION USE Medication Status Instructions Dates Provider Indications Com ments metoprolol tartrate 25 mg tablet active TAKE ONE-FOURTH (11/11) TABLET TWICE A DAY Prabhu Puentesgarthao 7.5 mg (1 month) syringe active as directed Rashad Dillon Xtandi 40 mg capsule active Take 1 capsule four times a day Tami Driver ZANTAC 150 MAXIMUM STRENGTH TABLET active as needed Isadora Cevallos ASPIRIN ADULT LOW DOSE 81 MG ORAL TABLET DELAYED RELEASE completed One Tab By Mouth Daily - Chastity Neal Remeron 30 mg tablet active Take 1 every night Isadora Cevallos FLONASE ALLERGY RELIEF SUSPENSION completed 2 sprays each side daily - Chastity Neal finasteride 5 mg tablet active Take 1 once a day Isadora Cevallos ferrous sulfate 325 mg (65 mg iron) tablet active once a day Isadora Cevallos RANEXA 500 MG ORAL TABLET EXTENDED RELEASE 12 HOUR completed ONE TAB. TWICE DAILY for chronic angina - Isadora Cevallos Vitamin B-6 25 mg tablet active Take 1 every morning Isadora Cevallos aspirin 81 mg tablet,delayed release (DR/EC) active 1 tablet by mouth once a day Isadora Cevallos atorvastatin 40 mg tablet active 1 tablet once a day Prabhu Martin MD CLOPIDOGREL BISULFATE 75 MG ORAL TABLET completed One tablet once daily - Isadora Cevallos CLINDAMYCIN HCL 300 MG ORAL CAPSULE completed 2 caps 1 cap prior to procedure - Prabhu Martin MD PROAIR HFA 108 (90 Base) MCG/ACT INHALATION AEROSOL SOLUTION completed 2 puffs every 4-6 hours - Isadora Cevallos NITRO-DUR 0.4 MG/HR TRANSDERMAL PATCH 24 HOUR completed Apply one patch on the chest each morning and remove at bedtime - Isadora Cevallos hydrocodone-acet aminophen 5-325 mg tablet active 1 tablet every six hours as needed J Carlos Sauceda RN diagnosis prostate CA w/ mets COUMADIN 5 MG ORAL TABLET completed 1/2 tab Mon through Fri- 1 tab Sat and Sun - Isadora Cevallos COUMADIN 3 MG ORAL TABLET completed hold - Isadora Cevallos RANEXA 500 MG ORAL TABLET EXTENDED RELEASE 12 HOUR completed ONE TAB. TWICE DAILY for chronic angina - Rashad Dillon RA VITAMIN B-6 100 MG ORAL TABLET completed once daily - Isadora Cevallos ASPIR-81 81 MG ORAL TABLET DELAYED RELEASE completed once daily - Isadora Cevallos COUMADIN 5 MG ORAL TABLET completed 1/2 tab daily - J Carlos Sauceda RN metoprolol tartrate 25 mg tablet completed 0.5 tablet once a day - Prabhu Martin MD reduced due to weakness ONDANSETRON HCL 4 MG ORAL TABLET completed take 1 tablet up to three times daily - Stefany Resendez CLINDAMYCIN HCL 300 MG ORAL CAPSULE completed as need prior to dental procedures - Isadora Cevallos MIRTAZAPINE 30 MG ORAL TABLET completed 1/2 tab once daily at bedtime - Isadora Cevallos paroxetine HCl 10 mg tablet active once a day Earnest Elizabeth MD lisinopril-hydro chlorothiazide 10-12.5 mg tablet active once a day Stefany Resendez nitroglycerin 0.4 mg tablet, sublingual active Dissolve 1 tablet under tongue as needed Prabhu Martin MD LISINOPRIL-HYDRO CHLOROTHIAZIDE 20-12.5 MG ORAL TABLET completed once daily - Stefany Resendez AMBIEN CR 12.5 MG ORAL TABLET EXTENDED RELEASE completed once daily - Stefany Resendez ASPIRIN 81 MG ORAL TABLET completed ONE TAB. DAILY - Earnest Elizabeth MD CELEBREX 100 MG ORAL CAPSULE completed ONCE DAILY - Isadora Cevallos MAGNESIUM 400 MG CAPS completed daily - Negro Brady COUMADIN 2 MG ORAL TABLET completed take one tab daily with 5mg = 7mg - Stefany Mal SOTALOL HCL 80 MG ORAL TABLET completed ONE TAB. DAILY at hs - Stefany Mal WARFARIN SODIUM 5 MG ORAL TABLET completed 1 tab daily - Stefany Mal ONDANSETRON 4 MG ORAL TABLET DISINTEGRATING completed one tab three times daily as needed - Stefany Mal MIRTAZAPINE 15 MG ORAL TABLET completed One tab at bedtime - Stefany Mal PERCOCET 5-325 MG ORAL TABLET completed one tablet each 8 hours PRN for pain - Vale Monteiro pantoprazole 40 mg tablet,delayed release (DR/EC) active 1 tablet once a day Earnest Elizabeth MD METOPROLOL SUCCINATE ER 25 MG ORAL TABLET EXTENDED RELEASE 24 HOUR completed 1/2 am 1/2 pm - J Carlos Sauceda RN LISINOPRIL 10 MG ORAL TABLET completed 1 daily - Stefany Resendez LEXAPRO 10 MG ORAL TABLET completed 1 daily - Stefany Resendez BUDEPRION SR 150 MG ORAL TABLET EXTENDED RELEASE 12 HOUR completed 1 tab daily - Lyn Barrios Fish Oil 300-1,000 mg capsule active 1 tablet once a day Keanu Corrigan MD alprazolam 0.25 mg tablet active 1 tablet three times a day as needed Earnest Elizabeth MD VITAMIN B-6 TABLET completed 1 tab daily - Lyn Barrios AMBIEN 5 MG ORAL TABLET completed po one at night - Lyn Barrios CELEBREX 100 MG ORAL CAPSULE completed once daily - Lyn Barrios VITAMIN B12 TABLET completed daily - Batsheva Mccann EQ STOOL SOFTENER CAPSULE completed - Lyn Barrios TYLENOL TABLET completed 650mg every 4 hrs as needed - Lyn Barrios VICODIN 5-500 MG TABS completed every 6 hrs as needed for pain - Prabhu Martin MD MULTIVITAMINS ORAL CAPSULE completed ONE TAB. DAILY - Lyn Barrios FERROUS SULFATE TABLET completed 325mg bid - Kathia York NIASPAN 500 MG ORAL TABLET EXTENDED RELEASE completed ONE TAB. AT BEDTIME - Batsheva Mccann SIMVASTATIN 40 MG ORAL TABLET completed ONE TAB. DAILY - Batsheva Mccann ZESTORETIC 10-12.5 MG ORAL TABLET completed ONE TAB. DAILY - Lyn Barrios LOVENOX 40 MG/0.4ML SUBCUTANEOUS SOLUTION completed one tab daily - J Carlos Sauceda RN COREG 6.25 MG ORAL TABLET completed ONE TAB. TWICE DAILY - J Carlos Sauceda RN ASPIRIN 81 MG ORAL TABLET completed ONE TAB. DAILY - J Carlos Sauceda RN METOPROLOL TARTRATE 50 MG ORAL TABLET completed one tab. twice daily - Batsheva Mccann SOCIAL HISTORY Date Observation Value Provider social history E&M Marital Statu s: L minerva with family/friends E thnicity: Smoking History: P atdemario has never smoked. Prabhu Martin MD social history reviewed E&M revi ewed - no changes required Prabhu Martin MD physical exercise, f requency, days per week yes Misa Harmon caffeine use, averag e drinks per day 1+ Misa Harmon passive cigarette sm kaylyn exposure no Misa Harmon smoking status Never smoker Misa Harmon social history E&M Marital Statu s: L minerva with family/friends E thnicity: Smoking History: P atdemario has never smoked. Prabhu Martin MD social history reviewed E&M revi ewed - no changes required Prabhu Martin MD physical exercise, f requency, days per week yes Arlet Gillette caffeine use, averag e drinks per day 1+ Arlet Gillette passive cigarette sm kaylyn exposure no Arlet Gillette smoking status Never smoker Arlet Alcala francisco smoking status Never smoker Prabhu dooley MD social history reviewed E&M revi ewed - no changes required Prabhu Martin MD physical exercise, f requency, days per week yes Tami Driver caffeine use, averag e drinks per day 1+ Tami Driver passive cigarette sm kaylyn exposure no Tami Driver social history E&M Marital Statu s: L minerva with family/friends E thnicity: Smoking History: P bita has never smoked. Prabhu Martin MD social history reviewed E&M revi ewed - no changes required Prabhu Martin MD physical exercise, f requency, days per week yes RashadTonya Dillon caffeine use, averag e drinks per day 1+ RashadTonya Dillon passive cigarette sm kaylyn exposure no Rashad Dillon smoking status Never smoker Rashadshaista Love social history E&M Marital Statu s: L minerva with family/friends E thnicity: Smoking History: P bita has never smoked. Raffi Wen social history reviewed E&M revi ewed - no changes required Raffi Kyte smoking status Never smoker Raffi Zimmermante social history E&M Marital Statu s: L minerva with family/friends E thnicity: Smoking History: P bita has never smoked. Prabhu Martin MD social history reviewed E&M revi ewed - no changes required Prabhu Martin MD smoking status Never smoker Prabhu dooley MD social history E&M Marital Statu s: L minerva with family/friends E thnicity: Smoking History: P bita has never smoked. Prabhu Martin MD social history reviewed E&M revi ewed - no changes required Prabhu Martin MD physical exercise, f requency, days per week yes Najma Block caffeine use, averag e drinks per day 1+ Najma Block passive cigarette sm kaylyn exposure no Najma Block smoking status [facility] E&M Marital Statu s: L minerva with family/friends E thnicity: Smoking History: P bita has never smoked. Prabhu Martin MD social history reviewed E&M revi ewed - no changes required Prabhu Martin MD physical exercise, f requency, days per week yes Chastity Neal alcohol use, average drinks per day none Chastity Neal alcohol use no Chastity Neal caffeine use, averag e drinks per day 1+ Chastity Neal drug use none Chastity Neal passive cigarette sm kaylyn exposure no Chastity Neal smoking status [facility] social history E&M Marital Statu s: L minerva with family/friends E thnicity: Smoking History: P bita has never smoked. Prabhu Martin MD social history reviewed E&M revi ewed - no changes required Prabhu Martin MD physical exercise, f requency, days per week yes Yeoman Lo alcohol use, average drinks per day none Yeoman Lo alcohol use no Yeoman Lo caffeine use, averag e drinks per day 1+ Matt Lo drug use none Matt Lo passive cigarette sm kaylyn exposure no Matt Lo smoking status Never smoker Matt blanco social history E&M Marital Statu s: L minerva with family/friends E thnicity: Smoking History: P bita has never smoked. Prabhu Martin MD physical exercise, f requency, days per week yes Esperanza Culver-Los alcohol use, average drinks per day none Esperanza Culver-Los alcohol use no Esperanza Culver- Los caffeine use, averag e drinks per day 1+ Esperanza Culver-Los drug use none Esperanza Culver- Los passive cigarette sm kaylyn exposure no Esperanza Culver-Los smoking status Never smoker Esperanza Sheao n-Los social history reviewed E&M revi ewed - no changes required Esperanza Culver-Los social history E&M Marital Statu s: L minerva with family/friends E thnicity: Smoking History: P bita has never smoked. Prabhu Martin MD social history reviewed E&M revi ewed - no changes required Prabhu Martin MD physical exercise, f requency, days per week yes Kimberli Carito alcohol use, average drinks per day none Kimberli Carito alcohol use no Kimberli Carito caffeine use, averag e drinks per day 1+ Kimberli Carito drug use none Kimberli Carito passive cigarette sm kaylyn exposure no Kimberli Carito smoking status Never smoker Kimberli Carito social history reviewed E&M revi ewed - no changes required Prabhu Martin MD physical exercise, f requency, days per week yes Isadora Cevallos alcohol use, average drinks per day none Isadora Cevallos alcohol use no Isadora calvo caffeine use, averag e drinks per day 1+ Isadora Mesaneqamarnohemy drug use none Isadora Giacomoe lder passive cigarette sm kaylyn exposure no Isadora Mart smoking status Never smoker Isadora Landon lacey social history reviewed E&M revi ewed - no changes required Prabhu Martin MD physical exercise, f requency, days per week yes Isadora Shahzadjayqamarnohemy alcohol use, average drinks per day none Isadora Shahzadjayqamarnohemy alcohol use no Isadora Giacomoe lder caffeine use, averag e drinks per day 1+ Isadora Shahzadjayqamarnohemy drug use none Isadora Lisy lder passive cigarette sm kaylyn exposure no Isadora Shahzadjayqamarnohemy smoking status Never smoker Isadora Pikekelsey rahman social history reviewed E&M revi ewed - no changes required Prabhu Martin MD social history reviewed E&M revi ewed - no changes required Prabhu Martin MD physical exercise, f requency, days per week yes Isadora Mart alcohol use, average drinks per day none Isadora Mart alcohol use no Isadora Lisy lder caffeine use, averag e drinks per day 1+ Isadora Mart drug use none Isadora Lisy lder passive cigarette sm kaylyn exposure no Isadora Giacomonohemy smoking status Never smoker Isadora Landon lacey social history reviewed E&M revi ewed - no changes required Prabhu Martin MD physical exercise, f requency, days per week yes Isadora Mart alcohol use, average drinks per day none Isadora Naliniqamarnohemy alcohol use no Isadora Naliniqamarjadiel estuardoer caffeine use, averag e drinks per day 1+ Isadroa Mart drug use none Isadora Shahzadmaria dsilviazeyad lder passive cigarette sm kaylyn exposure no Isadora Shahzadjayqamarnohemy smoking status Never smoker Isadora Pikekelsey rahman social history reviewed E&M revi ewed - no changes required Prabhu Martin MD physical exercise, f requency, days per week yes Rashad Roseenson alcohol use, average drinks per day none Rashad Dillon alcohol use no Rashad Valdivia dustyon caffeine use, averag e drinks per day 1+ Rashad Roseenson drug use none Rashad Valdivia dustyon passive cigarette sm kaylyn exposure no Rashad Dillon smoking status Never smoker Rashad Shaji ingram number of grandchildren Prabhu Martin MD social history reviewed E&M revi ewed - no changes required Prabhu Martin MD physical exercise, f requency, days per week yes Isadora Mart alcohol use, average drinks per day none Isadora Mart alcohol use no Isadora Lisy marteer caffeine use, averag e drinks per day 1+ Isadora Mart drug use none Isadora Shahzadlory lder passive cigarette sm kaylyn exposure no Isadora Mart smoking status Never smoker Isadora Barbi rahman social history reviewed E&M revi ewed - no changes required Prabhu Martin MD physical exercise, f requency, days per week yes Isadora Mart alcohol use, average drinks per day none Isadora Mart alcohol use no Isadora Gruenenfe lder caffeine use, averag e drinks per day 1+ Prabhu Martin MD drug use none Isadora Wasserman lder passive cigarette sm kaylyn exposure no Isadora Cevallos smoking status Never smoker Isadora Landon lacey social history E&M Marital Statu s: L minerva with family/friends E thnicity: Smoking History: Josefa sunshine has never smoked. Prabhu Martin MD social history reviewed E&M revi ewed - no changes required Prabhu Martin MD physical exercise, f requency, days per week yes Rashad Dillon alcohol use, average drinks per day none Rashad Dillon alcohol use no Rashad Valdivia nadeen caffeine use, averag e drinks per day yes Rashad Dillon drug use none Rashad Valdivia nson passive cigarette sm kaylyn exposure no Rashad Dillon smoking status Never smoker Rashad Girard nataly social history E&M Marital Statu s: L minerva with family/friends E thnicity: Smoking History: Josefa sunshine has never smoked. Prabhu Martin MD social history reviewed E&M revi ewed - no changes required Prabhu Martin MD smoking status Never smoker Prabhu dooley MD social history reviewed E&M revi ewed - no changes required Earnest Elizabeth MD physical exercise, f requency, days per week yes Stefany Resendez alcohol use, average drinks per day none Stefany Resendez alcohol use no Stefany Resendez caffeine use, averag e drinks per day yes Stefany Resendez drug use none Stefany Resendez passive cigarette sm kaylyn exposure no Stefany Resendez smoking status Never smoker Stefany Strauss n social history E&M Marital Statu s: L minerva with family/friends E thnicity: Smoking History: Josefa sunshine has never smoked. Prabhu Martin MD social history reviewed E&M revi ewed - no changes required Prabhu Martin MD physical exercise, f requency, days per week yes Stefany Resendez alcohol use, average drinks per day none Stefany Resendez alcohol use no Stefany Resendez caffeine use, averag e drinks per day yes Stefany Resendez drug use none Stefany Resendez passive cigarette sm kaylyn exposure no Stefany Resendez smoking status Never smoker Stefany Strauss shaista social history E&M Marital Statu s: L minerva with family/friends E thnicity: Smoking History: Josefa sunshine has never smoked. Josefa sunshine has been counseled to quit. Prabhu Martin MD physical exercise, f requency, days per week yes Prabhu Martin MD alcohol use, average drinks per day none Prabhu Martin MD caffeine use, averag e drinks per day yes Prabhu Martin MD drug use none Prabhu Martin MD passive cigarette sm kaylyn exposure no Prabhu Martin MD smoking status Never smoker Prabhu dooley MD social history reviewed E&M revi ewed - no changes required Prabhu Martin MD social history reviewed E&M revi ewed - no changes required Prabhu Martin MD physical exercise, f requency, days per week yes Stefany Turpinann alcohol use, average drinks per day none Stefany Turpinann caffeine use, averag e drinks per day yes Stefany Turpinann drug use none Stefany Turpinann passive cigarette sm kaylyn exposure no Stefany Resendez smoking status Never smoker Stefany Strauss shaista smoking status Never smoker Prabhu dooley MD social history reviewed E&M zay bell - no changes required Prabhu Martin MD social history reviewed E&M reviewed Prabhu Martin MD smoking/tobacco cess ation, patient education and counseling yes Colby Blandon MD social history reviewed E&M reviewed Colby Blandon MD drug use none Colby arreola MD social history reviewed E&M reviewed Vale Blunt drug use none Colby arreola MD passive cigarette sm kaylyn exposure no Colby Blandon MD social history reviewed E&M reviewed Colby Blandon MD smoking status never smoker Lyn fenton quit smoking, stage quit Keanu mcneill MD social history reviewed E&M reviewed J Carlos Sauceda RN social history reviewed E&M reviewed J Carlos Sauceda RN social history reviewed E&M reviewed J Carlos Sauceda RN social history reviewed E&M reviewed J Carlos Sauceda RN social history E&M Marital Statu s: L minerva with family/friends E thnicity: J Carlos Sauceda RN caffeine use, averag e drinks per day yes J Carlos Sauceda RN social history reviewed E&M reviewed J Carlos Sauceda RN physical exercise, f requency, days per week yes LinkLogic alcohol use, average drinks per day none LinkLogic smoking status Non-smoker [employer]Logic FUNCTIONAL STATUS Date Observation Value Provider HRA, CV Assess/Plan, Angina (inactive) Management Plan continue current therapy Prabhu Martin MD HRA, CV Assess/Plan, Angina (inactive) Management Plan continue current therapy Prabhu Martin MD HRA, CV Assess/Plan, Angina (inactive) Management Plan continue current therapy Prabhu Martin MD HRA, CV Assess/Plan, Angina (inactive) Management Plan continue current therapy Raffi Wen HRA, CV Assess/Plan, Angina (inactive) Management Plan continue current therapy Raffi Kyradha HRA, CV Assess/Plan, Angina (inactive) Management Plan continue current therapy Prabhu Martin MD HRA, CV Assess/Plan, Angina (inactive) Management Plan continue current therapy Prabhu Martin MD HRA, CV Assess/Plan, Angina (inactive) Management Plan continue current therapy Prabhu Martin MD HRA, CV Assess/Plan, Angina (inactive) Management Plan continue current therapy Prabhu Martin MD HRA, CV Assess/Plan, Angina (inactive) Management Plan continue current therapy Prabhu Martin MD HRA, CV Assess/Plan, Angina (inactive) Management Plan continue current therapy Prabhu Martin MD HRA, CV Assess/Plan, Angina (inactive) Management Plan continue current therapy Prabhu Martin MD HRA, CV Assess/Plan, Angina (inactive) Management Plan antianginal therapy Prabhu Martin MD HRA, CV Assess/Plan, Angina (inactive) Management Plan continue current therapy Prabhu Martin MD HRA, CV Assess/Plan, Angina (inactive) Management Plan continue current therapy Prabhu Martin MD HRA, CV Assess/Plan, Angina (inactive) Management Plan continue current therapy Prabhu Martin MD HRA, CV Assess/Plan, Angina (inactive) Management Plan continue current therapy Prabhu Martin MD HRA, CV Assess/Plan, Angina (inactive) Management Plan antianginal therapy Prabhu Martin MD HRA, CV Assess/Plan, Angina (inactive) Management Plan antianginal therapy Prabhu Martin MD HRA, CV Assess/Plan, Angina (inactive) Management Plan continue current therapy Earnest Elizabeth MD MENTAL STATUS Date Observation Value Provider energy level yes Whitney Tebid energy level yes Whitney Tebid energy level yes Whitney Tebid energy level yes Whitney Tebid energy level yes Whitney Tebid energy level yes Whitney Tebid energy level yes Whitney Tebid energy level yes Whitney Tebid energy level yes Whitney Tebid energy level yes Whitney Tebid energy level yes Whitney Tebid energy level yes Whitney Tebid energy level yes Whitney Tebid energy level yes [place] Tebid energy level yes [place] Tebid energy level yes [place] Tebid energy level yes [place] Tebid energy level yes [place] Tebid energy level yes [place] Tebid energy level yes [place] Tebid energy level yes [place] Tebid energy level yes [place] Tebid energy level yes [place] Tebid energy level yes [place] Tebid energy level yes Whitney Tebid energy level yes [place] Tebid energy level yes [place] Tebid energy level no Whitney Tebid energy level no [place] Tebid assessment of judgme nt and insight E&M Alert and oriented to time, place and person. Mood and affect are normal. Prabhu Martin MD assessment of judgme nt and insight E&M Alert and oriented to time, place and person. Mood and affect are normal. J Carlos Sauceda RN assessment of judgme nt and insight E&M Alert and oriented to time, place and person. Mood and affect are normal. Vale Monteiro assessment of judgme nt and insight E&M Alert and oriented to time, place and person. Mood and affect are normal. Colby Blandon MD assessment of judgme nt and insight E&M Alert and oriented to time, place and person. Mood and affect are normal. J Carlos Sauceda RN assessment of judgme nt and insight E&M Alert and oriented to time, place and person. Mood and affect are normal. J Carlos Sauceda RN assessment of judgme nt and insight E&M Alert and oriented to time, place and person. Mood and affect are normal. J Carlos Sauceda RN assessment of judgme nt and insight E&M Alert and oriented to time, place and person. Mood and affect are normal. J Carlos Sauceda RN assessment of judgme nt and insight E&M Alert and oriented to time, place and person. Mood and affect are normal. J Carlos Sauceda RN FAMILY HISTORY Family Member Condition Father Negative FH of Coron marina Artery Disease INSURANCE PROVIDERS Payer name Policy type / Coverage type Magdalena red republican ID [facility] [id number] [place] Medicare [id number] ADVANCE DIRECTIVES Name Date DISCUSSED - NO DECISION MADE TREATMENT PLAN Date Name Performer [id number],C, F unction satisfactory on most recent echo in 2018. The aortic valve area in 2018 was 0.7cm2. The aortic murmur seemed louder on auscultation. Prabhu Martin MD [id number],C, E KG is unchanged from last year, sinus rhythm, RBBB with left axis. Prabhu Martin MD [id number],S, C ontinues on Atorvastatin. Prabhu Martin MD [id number],C,B lood pressure control is satisfactory. Prabhu Martin MD [id number],C, H ad mental status changes in May, taken to 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 Now in penitentiary. Prabhu Martin MD [id number],S, C hest pain free. Prabhu Martin MD [id number],C,In remission, on Xtandi. Prabhu Martin MD [id number],C,F unction satisfactory on most recent echo in 2018. The aortic valve area in 2018 was 0.7cm2. The aortic murmur seemed louder on auscultation. We will check the echo to assess the aortic valve area. Prabhu Martin MD [id number],C,E KG is unchanged from last year, sinus bradycardia, RBBB with left axis. Prabhu Martin MD [id number],C, C ontinues on Atorvastatin. Prabhu Martin MD [id number],C,In remission, follows oncology. Prabhu Martin MD [id number],C,Chest pain fr ee. Prabhu Martin MD [id number],C,H igh blood pressure readings may be a side effect of Xtandi, taken for prostate cancer. His BP today was 118/60. Prabhu Martin MD [id number],C,P atient's granddaughter currently trying to arrange follow-up with neurology. Prabhu Martin MD [id number],C,C ontinues on Atorvastatin. Prabhu Martin MD [id number],C,In remission. Prabhu Martin MD [id number],C,B P contorl is satisfactory. Prabhu Martin MD [id number],C,F unction satisfactory on most recent echo. Prabhu Martin MD [id number],C,I n sinus rhythm on EKG today. Continues on Metoprolol. Not on OAC due to fall risk. Prabhu Martin MD [id number],C,C hest pain free. He continues on Aspirin. Prabhu Martin MD Cardiology: F unction satisfactory on most recent echo in 2018. The aortic valve area in 2018 was 0.7cm2. The aortic murmur seemed louder on auscultation. Prabhu Martin MD Cardiology: E KG is unchanged from last year, sinus rhythm, RBBB with left axis. Prabhu Martin MD Cardiology: C ontinues on Atorvastatin. Prabhu Martin MD Cardiology:Blood pre ssure control is satisfactory. Prabhu Martin MD Cardiology: H ad mental status changes in May, taken to 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 Now in penitentiary. Prabhu Martin MD Cardiology: C hest pain free. Prabhu Martin MD Cardiology:In remission, on Xtan di. Prabhu Martin MD Cardiology:Function satisfactory on most recent echo in 2018. The aortic valve area in 2018 was 0.7cm2. The aortic murmur seemed louder on auscultation. We will check the echo to assess the aortic valve area. Prabhu Martin MD Cardiology:EKG is un changed from last year, sinus bradycardia, RBBB with left axis. Prabhu Martin MD Cardiology: C ontinues on Atorvastatin. Prabhu Martin MD Cardiology:In remission, follows oncology. Prabhu Martin MD Cardiology:Chest pain free. Rodriguez Martin MD Cardiology:High bloo d pressure readings may be a side effect of Xtandi, taken for prostate cancer. His BP today was 118/60. Prabhu Martin MD Cardiology:Patient's granddaughter currently trying to arrange follow-up with neurology. Prabhu Martin MD Cardiology:Continues on Atorvastatin. Prabhu Martin MD Cardiology:In remission. Brandt Martin MD Cardiology:BP contor l is satisfactory. Prabhu Martin MD Cardiology:Function satisfactory on most recent echo. Prabhu Martin MD Cardiology:In sinus rhythm on EKG today. Continues on Metoprolol. Not on OAC due to fall risk. Prabhu Martin MD Cardiology:Chest sydni n free. He continues on Aspirin. Prabhu Martin MD Cardiology:Off chemo therapy due to nausea. Follows oncology at [place]. Cardiology:Remains s ymptomatic with pain which limits his effort tolerance. He continues on Hydrocodone. Raffi Cardiology:Continues on Atorvast atin. Cardiology:Blood pressure contro l is satisfactory. Cardiology:Function satisfactory on most recent echo. Raffi Cardiology:In sinus rhythm on EKG today. Continues on Metoprolol. Not on OAC due to fall risk. Raffi Cardiology:Chest sydni n free. Effort tolerance limited by shortness of breath and back pain. He continues on Aspirin. [facility]:Continues on Xytandi. Bone scan showed no metastasis. Follows oncology. Raffi [facility]:Remains s ymptomatic with back pain. Continues on Hydrocodone. [facility]:Function satisfactory on most recent echo. Raffi [facility]:Remains unchanged. [place] [facility]:Continues on Atorvast atin. [facility]:Per gena merlos his blood pressure has been stable. Advised to continue monitoring the blood pressure. We aim for less than 130/80. [facility]:Denies of any palpita tions. Raffi [facility]:Chest sydni n free. Effort tolerance limited by shortness of breath and back pain. He continues on Aspirin. Raffi [facility]:Blood pre ssure elevated today. Reduced intake of dietary sodium advised. Prabhu Martin MD TeleHealth:No chest pain. Prabuh Martin MD Tele[facility]:Persisten t and unchanged. Continues on Hydrocodone as needed. Prabhu Martin MD TeleHealth:Remains u nchanged. Seems to be worse since diagnosis of prostate cancer. Prabhu Martin MD TeleHealth:New diagn osis. Planned for bone scan. Further management as per oncology. Prabhu Martin MD Cardiology:Continues on Atorvastatin. Most recent LDL 81 which is satisfactory. Raffi Wen Cardiology:Blood pressure contro l is satisfactory. Raffi Wen Cardiology:He contin ues to have intermittent atrial fib/flutter which resolves with no treatment. Raffi Wen Cardiology:Chest sydni n free. Effort tolerance is limited by hip pain and shortness of breath. His stress test last year showed normal perfusion. Continues on Aspirin. Raffi Wen Cardiology :Remains short of breath. He has been evaluated by pulmonary and no diagnosis was made. His most recent stress test was normal. The etiology may be his pain and anxiety induced by his pain. Prabhu Martin MD Cardiology :Continue s on Atorvastatin. Most recent LDL 27. Prabhu Martin MD Cardiology :Blood pr essure control is satisfactory. Prabhu Martin MD Cardiology :In sinus rhythm today. He continues to have intermittent atrial flutter which resolves with no treatment. Prabhu Martin MD Cardiology :Chest pa in free. Effort tolerance is limited by hip pain and shortness of breath. His stress test last year showed normal perfusion. Continues on Aspirin. Prabhu Martin MD Cardiology:On iron replacement. Prabhu Martin MD Cardiology:Blood pressure contro l is satisfactory. Prabhu Martin MD Cardiology:He contin ues to have intermittent atrial flutter which resolves with no treatment. Prabhu Martin MD Cardiology:The funct ion appears to be satisfactory. The increased gradient across the valve is related to the prosthesis. Prabhu Martin MD Cardiology:No chest pain. He has been able to slow down his activities and is doing well. His recent stress test showed no reversible defect. Prabhu Martin MD Cardiology:Continues on Alprazol am and Paroxetine. Prabhu Martin MD Cardiology:Off statins due to my algias. Prabhu Martin MD Cardiology:On hydrocodone. Marvel Martin MD Cardiology:Blood pressure stable . Prabhu Martin MD Cardiology Prabhu Levine Cardiology:Function satisfactory . Prabhu Martin MD Cardiology:Prolonged episode of chest pain with shortness of breath which lasted intermittently for two days has now resolved. He has a hx of bypass surgery as well as stent to RCA. The EKG shows sinus bradycardia and right bundle branch block which remains unchanged. As his pain has now resolved, will arrange for echo and stress test. If abnormal, he will need cardiac catheterization. Prabhu Martin MD Cardiology follow up:On iron rep lacement therapy. Prabhu Martin MD Cardiology follow up :Limitation of movement. He takes Hydrocodone for pain relief. Prabhu Martin MD Cardiology follow up :His atorvastatin will be reduced to 40mg daily and if he still remains symptomatic with muscle pain, it can be put on hold for a few weeks to see if his symptoms resolve. Prabhu Martin MD Cardiology follow up :Blood pressure control is satisfactory. Prabhu Martin MD Cardiology follow up :He has sinus bradycardia with a heart rate less than 50. Some of the fatigue and tiredness he is experiecing may be due to the beta sandra. His dose of Metoprolol was reduced to 6.25 mg BID. Hopefully this will help. Prabhu Martin MD Cardiology follow up :Chest pain free. Continues on ASA 81mg daily. Prabhu Martin MD Cardiology Follow up:On pain med ications. Prabhu Martin MD Cardiology Follow up:May benefit from ProAir. Prabhu Martin MD Cardiology Follow up Prabhu duffy MD Cardiology Follow up :Continues to have intermittent paroxysmal afib. On low dose beta sandra. Prabhu Martin MD Cardiology Follow up :Chest pain free. Remains fatigued and weak wth shortness of breath. He has had ECP with no change in symptoms. Continues ASA. Prabhu Martin MD Cardiology Hospital Follow up :Asymptomatic. On metoprolol tartrate 12.5mg twice daily. Prabhu Martin MD Cardiology Hospital Follow up :Discontinued Coumadin due to GI bleed. Prabhu Martin MD Cardiology Hospital Follow up :He had bleeding lesions in his stomach which were cauterized. Coumadin and Plavix were discontinued. Continues on PPI's. We will check CBC and BMP. Prabhu Martin MD Cardiology Hospital Follow up :Function appears satisfactory. Murmur remains unchanged. Prabhu Martin MD Cardiology Hospital Follow up :Chest pain free. Continues on ASA. He has been excessively tired and fatigued, and short of breath. This is likely angina equivalent. Unable to tolerate Ranexa which was discontinued due to GI SE. Will start ECP. This patient has angina (defined as chest pain, chest discomfort, or pain in arms, neck, jaw, shoulder, or back, and may include symptoms of shortness of breath, fatigue, dizziness, nausea, or diaphoresis) of [place] Cardiovascular Society Class III (defined as symptoms with everyday living activities, i.e. moderate limitation) or [place] Cardiovascular Society Class IV (defined as inability to perform any activity without angina or angina at rest, i.e. severe limitation). This patient?s angina is disabling and in my opinion is not readily amenable to surgical intervention by PTCA or cardiac bypass because the patient's condition is inoperable, or at high risk of operative complications or post-operative failure. Prabhu Martin MD Cardiology:Blood pressure contro l is satisfactory. Prabhu Martin MD Cardiology Prabhu Levine Cardiology Prabhu Levine Cardiology:He is in sinus rhythm. Blood pressure is stable. Prabhu Martin MD Cardiology:Advised a dmission for further evaluation, which he declined. Will arrange for him to have CBC, as he has been on bloodthinners to rule out blood loss, and CXR r/o infection or heart failure. Also check TSH. Prabhu Martin MD Cardiology Follow up Prabhu duffy MD Cardiology Follow up Prabhu duffy MD Cardiology Follow up Prabhu duffy MD Cardiology Follow up :No recurrence of symptoms. Continues on aspirin and coumadin. He had very recently had FRANCIS to the RCA. Prabhu Martin MD Cardiology Follow up :Continues on Coumadin. In sinus tachycardia. Prabhu Martin MD Cardiology Follow up :Unclear etiology. May be related to sinus tachycardia. Will increase dose of metoprolol to 25mg twice daily. We will see him again tomorrow if he does not feel any better, and may admit for further evaluation. Prabhu Martin MD Cardiology Follow up :Continues on Lipitor. Prabhu Martin MD Cardiology Follow up Prabhu duffy MD Cardiology Follow up :Chest pain free. Effort tolerance stable. Continues on Plavix following recent FRANCIS RCA. Prabhu Martin MD Cardiology Follow up :Sinus bradycardia and occasional junctional escape. Heart rates in the 40's. Likely etiology is beta blockers. He will hold the metoprolol this evening and reduce dose to 12.5mg twice daily from tomorrow. I have given the patient a Zio holter monitor. We may need to discontinue beta blockers altogether. Continues on Coumadin. Prabhu Martin MD Cardiology Follow up :Sinus bradycardia and occasional junctional escape. Heart rates in the 40's. Likely etiology is beta blockers. He will hold the metoprolol this evening and reduce dose to 12.5mg twice daily from tomorrow. I have given the patient a Zio holter monitor. Prabhu Martin MD Cardiology:Symptoms persist. There has been no change since RCA stent placement last month. This may be angina equivalent, and therefore I suggest ECP. If he agrees this will be arranged. Prabhu Martin MD Cardiology:Function satisfactory . Prabhu Martin MD Cardiology Prabhu Levine Cardiology:Rate cont rolled. Continues on Coumadin. INR was 4.6 today; we will have follow up PT/INR in two weeks. The patient was instructed to hold today's dose of Coumadin and will resume dosing as normal tomorrow. Prabhu Martin MD Cardiology:Recent st ent placement to RCA. Seems to be completely revascularized. ASA 81mg qD. No benefit from use of Ranexa. Prabhu Martin MD Cardiology:Symptoms persist. There has been no change since RCA stent placement last month. This may be angina equivalent, and therefore I suggest ECP. If he agrees this will be arranged. Prabhu Martin MD Cardiology Follow up :The BP today was elevated. No change has been made in his anti-hypertensive meds. Prabhu Martin MD Cardiology Follow up :Remains in sinus rhythm. Prabhu Martin MD Cardiology Follow up :Although the PFT shows minimal obstruction will give him proair to use as needed to see if this will help his symptoms of SOB. Prabhu Martin MD Cardiology Follow up :His symptoms of SOB are unchanged. Had patient do a walk test and his O2 sat was 97. Will do a cardiac cath to assess the patency of the grafts and if they are patent we will then refer to pulmonary to evaluate the cause of his SOB. He will hold his coumadin 4 days prior to this procedure. T he risks and benefits of the procedure, including but not limited the risk of heart attack, , stroke, bleeding, kidney failure, and loss of limb as well as the alternative of continued medical therapy, stress testing or bypass surgery were discussed with the patient and any present family members and the patient wishes to proceed with cardiac cath and stenting. The patient and family had opportunity to discuss this with us. Written material including informed consent was given out. Prabhu Martin MD Cardiology Follow up :Recent evaluation by neurology. Early onset of Parkinson's - not requiring treatment at this time. Juan Miguel Heaton Cardiology Follow up :Blood pressure control is satisfactory. Juan Miguel Florina Cardiology Follow up :The bioprosthetic valve function is satisfactory. Juan Miguel Florina Cardiology Follow up :He's in sinus rhythm and continues on Metoprolol and Coumadin. Juan Miguel Florina Cardiology Follow up :Symptoms remain unchanged and the shortness of breath causes significant limitation of his daily activities. Will start him on a nitro patch and see if that improves his symptoms. If there is no change, will arrange for him to have a cardiac catheterization (L/R). Juan Miguel Heaton Cardiology:Chest sydni n free. Continues on Metoprolol and ASA. Prabhu Martin MD Cardiology:Effort re lated shortness of breath. The etiology is unclear. He is normally very active so this is not likely to be deconditioning. Did not respond to nitro. Unlikely to be ischemia. His most recent stress test showed normal perfusion. Will increase his dose of Ranexa to 1000mg BID and await improvement of his symptoms. Prabhu Martin MD Cardiology:Sinus bra dycardia, likely related to his beta blockers. Prabhu Martin MD Cardiology:Resting t remors, but no worse on lifting objects. Unclear etiology. Will ask neurology to see him. Prabhu Martin MD Cardiology:Today, he is in sinus bradycardia. He will continue on Metoprolol and long-term Coumadin. Prabhu Martin MD Cardiology:Function is satisfact ory. Prabhu Martin MD Cardiology:Blood pressure contro l is satisfactory. Prabhu Martin MD Cardiology:Diet controlled. Rodriguez Martin MD Cardiology:Blood pre ssure is labile. On Lisinopril which he continues. Prabhu Martin MD Cardiology:Clinicall y the lungs are clear. His last PFTs did not show any significant obstruction. Repeat PFT will be done. Prabhu Martin MD Cardiology:Function satisfactory . Will check echo. Prabhu Martin MD Cardiology:Recurrenc e of atrial flutter. Possibly likely cause for his SOB. Continues on rate control and anticoagulation. If his stress test is normal and he remains in a flutter/fib, will arrange a CORINNA Cardioversion for him. Prabhu Martin MD Cardiology:No chest pain but has effort related SOB. Prabhu Martin MD Cardiology: B P today: 144/87 P rior BP: 144/77 (08/28/2015) Earnest Elizabeth MD Cardiology:Diet controlled. Rodriguez Martin MD Cardiology:Blood pressure contro l is satisfactory. Prabhu Martin MD Cardiology:In sinus rhythm. No p alpitations. Prabhu Martin MD Cardiology:Chest sydni n free. Continues on aspirin 81 mg daily. Prabhu Martin MD Cardiology:Function satisfactory. His last echo showed the aortic valve function to be normal and the gradient across the valve was acceptable. Prabhu Martin MD Cardiology:Occasionally short of breath. Prabhu Martin MD follow up: H is updated medication list for this problem includes: Nitrostat 0.4 Mg Subl (Nitroglycerin) ..... One tab. under tongue as needed. may repeat twice in 10 minutes. Lisinopril-hydrochlorothiazide 20-12.5 Mg Oral Tabs (Lisinopril-hydrochlorothiazide) ..... Once daily Aspirin 81 Mg Tabs (Aspirin) ..... One tab. daily Alprazolam 0.25 Mg Tabs (Alprazolam) ..... One tab three times daily as needed Orders: Jadiel VILCHIS (CPT-29841) Prabhu Martin MD follow up: H is updated medication list for this problem includes: Lisinopril-hydrochlorothiazide 20-12.5 Mg Oral Tabs (Lisinopril-hydrochlorothiazide) ..... Once daily Aspirin 81 Mg Tabs (Aspirin) ..... One tab. daily BP today: 124/75 P rior BP: 126/64 (11/28/2014) Labs Reviewed: C reat: 1.42 (05/03/2014) C hol: 155 (04/22/2012) HDL: 50 (07/08/2010) LDL: 102 (04/22/2012) T (07/08/2010) Prabhu Martin MD follow up Prabhu Levine follow up: H is updated medication list for this problem includes: Nitrostat 0.4 Mg Subl (Nitroglycerin) ..... One tab. under tongue as needed. may repeat twice in 10 minutes. Lisinopril-hydrochlorothiazide 20-12.5 Mg Oral Tabs (Lisinopril-hydrochlorothiazide) ..... Once daily Aspirin 81 Mg Tabs (Aspirin) ..... One tab. daily Prabhu Martin MD follow up Prabhu Levine follow up: O rders: Jadiel KG (CPT-78016) The following medications were removed from the medication list: Lisinopril 10 Mg Tabs (Lisinopril) ..... 1 daily His updated medication list for this problem includes: Lisinopril-hydrochlorothiazide 20-12.5 Mg Oral Tabs (Lisinopril-hydrochlorothiazide) ..... Once daily Aspirin 81 Mg Tabs (Aspirin) ..... One tab. daily Alprazolam 0.25 Mg Tabs (Alprazolam) ..... One tab three times daily as needed Prabhu Martin MD follow up: T he following medications were removed from the medication list: Lisinopril 10 Mg Tabs (Lisinopril) ..... 1 daily His updated medication list for this problem includes: Lisinopril-hydrochlorothiazide 20-12.5 Mg Oral Tabs (Lisinopril-hydrochlorothiazide) ..... Once daily Aspirin 81 Mg Tabs (Aspirin) ..... One tab. daily Orders: M obile Cardiac Tele CarlineCPT-[id number]) Prabhu Martin MD follow up: O rders: Kali obile Cardiac Tele CarlineCPT-[id number]) Prabhu Martin MD follow up: T he following medications were removed from the medication list: Lisinopril 10 Mg Tabs (Lisinopril) ..... 1 daily His updated medication list for this problem includes: Lisinopril-hydrochlorothiazide 20-12.5 Mg Oral Tabs (Lisinopril-hydrochlorothiazide) ..... Once daily Aspirin 81 Mg Tabs (Aspirin) ..... One tab. daily Orders: Kali obile Cardiac Tele CarlineCPT-[id number]) Prabhu Martin MD follow up: O rders: Kali obile Cardiac Tele CarlineCPT-[id number]) Prabhu Martin MD follow up: T he following medications were removed from the medication list: Lisinopril 10 Mg Tabs (Lisinopril) ..... 1 daily His updated medication list for this problem includes: Lisinopril-hydrochlorothiazide 20-12.5 Mg Oral Tabs (Lisinopril-hydrochlorothiazide) ..... Once daily Aspirin 81 Mg Tabs (Aspirin) ..... One tab. daily Orders: Kali obile Cardiac Tele CarlineCPT-[id number]) Prabhu Martin MD follow up: O rders: Kali obile Cardiac Tele CarlineCPT-[id number]) Prabhu Martin MD follow up: T he following medications were removed from the medication list: Metoprolol Tartrate 50 Mg Tabs (Metoprolol tartrate) ..... One tab. twice daily His updated medication list for this problem includes: Aspirin 81 Mg Tabs (Aspirin) ..... One tab. daily Zestoretic 10-12.5 Mg Tabs (Lisinopril-hydrochlorothiazide) ..... One tab. daily Keanu Corrigan MD follow up: T he following medications were removed from the medication list: Metoprolol Tartrate 50 Mg Tabs (Metoprolol tartrate) ..... One tab. twice daily Simvastatin 40 Mg Tabs (Simvastatin) ..... One tab. daily Niaspan 500 Mg Tbcr (Niacin (antihyperlipidemic)) ..... One tab. at bedtime His updated medication list for this problem includes: Aspirin 81 Mg Tabs (Aspirin) ..... One tab. daily Zestoretic 10-12.5 Mg Tabs (Lisinopril-hydrochlorothiazide) ..... One tab. daily BP today: 126/61 Prior BP: 132/66 (11/19/2010) N uclear Stress Findings: NORMAL EJECTION FRACTION WITH MILDLY HYPOKINETIC SEPTUM, PROBABLY DUE TO CABG PROCEDURE. THE EJECTION FRACTION IS 69%. SMALL FIXED DEFECT ANTERIOR WALL TOWARD THE BASE, POSSIBLY DUE TO SMALL AREA OF PREVIOUS INFARCTION OR LESS LIKELY NONREVERSIBLE ISCHEMIA. NO EVIDENCE OF REVERSIBLE MYOCARDIAL ISCHEMIA DEMONSTRATED. (04/08/2011) C ardiac Cath: CAD. Normal LV systolic function with an EF of 55-60%. AR at 2+ on the aortogram. [facility] (03/27/2009) C arotid Doppler/Duplex: Normal [facility] (03/28/2009) C HOL: 119 (07/08/2010) LDL: 57 MG/DL (CALC) (07/08/2010) HDL: 50 (07/08/2010) T (07/08/2010) H CT: 38.5 (07/08/2010) Platelets: 135 THOUSAND/UL (07/08/2010) R BC: 4.09 MILLION/UL (07/08/2010) BUN: 26 (07/08/2010) Creat: 1.21 (07/08/2010) Glucose: 87 (07/08/2010) N a+: 142 (07/08/2010) K+: 4.4 (07/08/2010) Cl: 104 (07/08/2010) O rders: S pirometry (CPT-86657) X -Ray, Chest, PA & Lateral (CPT-01431) S tress Test - Adenosine (18067) Keanu Corrigan MD follow up: T he following medications were removed from the medication list: Metoprolol Tartrate 50 Mg Tabs (Metoprolol tartrate) ..... One tab. twice daily Simvastatin 40 Mg Tabs (Simvastatin) ..... One tab. daily Niaspan 500 Mg Tbcr (Niacin (antihyperlipidemic)) ..... One tab. at bedtime His updated medication list for this problem includes: Aspirin 81 Mg Tabs (Aspirin) ..... One tab. daily Zestoretic 10-12.5 Mg Tabs (Lisinopril-hydrochlorothiazide) ..... One tab. daily BP today: 126/61 Prior BP: 132/66 (11/19/2010) N uclear Stress Findings: NORMAL EJECTION FRACTION WITH MILDLY HYPOKINETIC SEPTUM, PROBABLY DUE TO CABG PROCEDURE. THE EJECTION FRACTION IS 69%. SMALL FIXED DEFECT ANTERIOR WALL TOWARD THE BASE, POSSIBLY DUE TO SMALL AREA OF PREVIOUS INFARCTION OR LESS LIKELY NONREVERSIBLE ISCHEMIA. NO EVIDENCE OF REVERSIBLE MYOCARDIAL ISCHEMIA DEMONSTRATED. (04/08/2011) C ardiac Cath: CAD. Normal LV systolic function with an EF of 55-60%. AR at 2+ on the aortogram. [facility] (03/27/2009) C arotid Doppler/Duplex: Normal [facility] (03/28/2009) C HOL: 119 (07/08/2010) LDL: 57 MG/DL (CALC) (07/08/2010) HDL: 50 (07/08/2010) T (07/08/2010) H CT: 38.5 (07/08/2010) Platelets: 135 THOUSAND/UL (07/08/2010) R BC: 4.09 MILLION/UL (07/08/2010) BUN: 26 (07/08/2010) Creat: 1.21 (07/08/2010) Glucose: 87 (07/08/2010) N a+: 142 (07/08/2010) K+: 4.4 (07/08/2010) Cl: 104 (07/08/2010) O rders: S pirometry (CPT-87698) C ardiopulmonary Stress Test (CPT-27330) e Prescribe - Check this box if eRx is used (CPT-G8553) X -Ray, Chest, PA & Lateral (CPT-23879) S tress Test - Adenosine (72464) Keanu Corrigan MD follow up: O rders: C omplete Echo (CPT-26497) S pirometry (CPT-57403) C ardiopulmonary Stress Test (CPT-95278) e Prescribe - Check this box if eRx is used (CPT-G8553) X -Ray, Chest, PA & Lateral (CPT-37530) S tress Test - Adenosine (63181) Keanu Corrigan MD follow up: T he following medications were removed from the medication list: Metoprolol Tartrate 50 Mg Tabs (Metoprolol tartrate) ..... One tab. twice daily His updated medication list for this problem includes: Aspirin 81 Mg Tabs (Aspirin) ..... One tab. daily Zestoretic 10-12.5 Mg Tabs (Lisinopril-hydrochlorothiazide) ..... One tab. daily BP today: 126/61 P rior BP: 132/66 (11/19/2010) Labs Reviewed: C reat: 1.21 (07/08/2010) C hol: 119 (07/08/2010) HDL: 50 (07/08/2010) LDL: 57 MG/DL (CALC) (07/08/2010) T (07/08/2010) Orders: S pirometry (CPT-51730) C ardiopulmonary Stress Test (CPT-27263) e Prescribe - Check this box if eRx is used (CPT-G8553) X -Ray, Chest, PA & Lateral (CPT-25424) S tress Test - Adenosine (84729) Keanu Corrigan MD follow up: O rders: S pirometry (CPT-03488) C ardiopulmonary Stress Test (CPT-90057) e Prescribe - Check this box if eRx is used (CPT-G8553) X -Ray, Chest, PA & Lateral (CPT-83312) S tress Test - Adenosine (83709) Keanu Corrigan MD follow up: O rders: S pirometry (CPT-40649) C ardiopulmonary Stress Test (CPT-51886) e Prescribe - Check this box if eRx is used (CPT-G8553) X -Ray, Chest, PA & Lateral (CPT-90186) S tress Test - Adenosine (68728) Keanu Corrigan MD follow up: B P today: 126/61 Prior BP: 132/66 (11/19/2010) Pulmonary Functions Reviewed: O 2 sat: 99 (04/21/2012) Orders: S pirometry (CPT-23213) C ardiopulmonary Stress Test (CPT-71162) e Prescribe - Check this box if eRx is used (CPT-G8553) X -Ray, Chest, PA & Lateral (CPT-74036) S tress Test - Adenosine (62529) Keanu Corrigan MD follow up: T he following medications were removed from the medication list: Metoprolol Tartrate 50 Mg Tabs (Metoprolol tartrate) ..... One tab. twice daily His updated medication list for this problem includes: Aspirin 81 Mg Tabs (Aspirin) ..... One tab. daily Zestoretic 10-12.5 Mg Tabs (Lisinopril-hydrochlorothiazide) ..... One tab. daily BP today: 126/61 Prior BP: 132/66 (11/19/2010) H CT: 38.5 (07/08/2010) Platelets: 135 THOUSAND/UL (07/08/2010) R BC: 4.09 MILLION/UL (07/08/2010) BUN: 26 (07/08/2010) Creat: 1.21 (07/08/2010) Glucose: 87 (07/08/2010) N a+: 142 (07/08/2010) K+: 4.4 (07/08/2010) Cl: 104 (07/08/2010) Calcium: 9.2 (07/08/2010) Nuclear Stress Findings: NORMAL EJECTION FRACTION WITH MILDLY HYPOKINETIC SEPTUM, PROBABLY DUE TO CABG PROCEDURE. THE EJECTION FRACTION IS 69%. SMALL FIXED DEFECT ANTERIOR WALL TOWARD THE BASE, POSSIBLY DUE TO SMALL AREA OF P REVIOUS INFARCTION OR LESS LIKELY NONREVERSIBLE ISCHEMIA. NO EVIDENCE OF REVERSIBLE MYOCARDIAL ISCHEMIA DEMONSTRATED. (04/08/2011) E chocardiogram: Normal left ventricular systolic function. Normal left ventricular size. Moderate concentric left ventricular hypertrophy. E to A ratio is consistent with restrictive physiology. Normal E/E` 7.0. Left ventricular ejection fraction is estimated at 55%. M ild enlargement of the left atrium. M ild enlargement of right atrium. A neurysmal intra-atrial septum. T race physiologic mitral valve regurgitation. N ormal appearing bioprosthetic aortic valve. T here is trace physiologic tricuspid valve regurgitation. T here is trace physiologic pulmonic valve regurgitation. [facility] (05/03/2009) C ardiac Cath: CAD. Normal LV systolic function with an EF of 55-60%. AR at 2+ on the aortogram. [facility] (03/27/2009) Orders: S pirometry (CPT-52475) C ardiopulmonary Stress Test (CPT-40289) e Prescribe - Check this box if eRx is used (CPT-G8553) X -Ray, Chest, PA & Lateral (CPT-96475) S tress Test - Adenosine (97592) Keanu Corrigan MD routine post cabg-av r: T he following medications were removed from the medication list: Coreg 6.25 Mg Tabs (Carvedilol) ..... One tab. twice daily Lovenox 40 Mg/0.4ml Soln (Enoxaparin sodium) ..... One tab daily His updated medication list for this problem includes: Metoprolol Tartrate 50 Mg Tabs (Metoprolol tartrate) ..... One tab. twice daily Aspirin 81 Mg Tabs (Aspirin) ..... One tab. daily Lisinopril 10 Mg Tabs (Lisinopril) ..... One tab. daily Simvastatin 40 Mg Tabs (Simvastatin) ..... One tab. daily Niaspan 500 Mg Tbcr (Niacin (antihyperlipidemic)) ..... One tab. at bedtime BP today: 112/61 Prior BP: / () C ardiac Cath: CAD. Normal LV systolic function with an EF of 55-60%. AR at 2+ on the aortogram. [facility] (03/27/2009) C arotid Doppler/Duplex: Normal [facility] (03/28/2009) Prabhu Martin MD routine post cabg-avr Prabhu kessler MD Date Name Complete Echo Complete Echo STR - Adenosine IRON AND TOTAL IRON BINDING CAPACITY FERRITIN CBC (INCLUDES DIFF/P LT) LIPID PANEL COMPREHENSIVE METABO LIC PANEL, W/EGFR CBC (INCLUDES DIFF/P LT) ECP - Medicare CBC (INCLUDES DIFF/P LT) BASIC METABOLIC PANE L W/EGFR ECP - Medicare ZIO Holter LIPID PANEL CBC (INCLUDES DIFF/P LT) BASIC METABOLIC PANE L W/EGFR CBC (INCLUDES DIFF/P LT) BASIC METABOLIC PANE L W/EGFR PROTHROMBIN TIME WIT H INR CBC (INCLUDES DIFF/P LT) LIPID PANEL BASIC METABOLIC PANE L W/EGFR 6 minute walk test Cardiac Cath - Left - GC DLCO - 53637 FRC - 11580 FVC - 15199 STR - Adenosine Complete Echo Mobile Cardiac Tele Mobile Cardiac Tele TSH, 3RD GENERATION COMPREHENSIVE METABO LIC PANEL W/EGFR Complete Echo INR Strip Mobile Cardiac Tele Spirometry Kidney Ultrasound Renal Artery Duplex LIPID PANEL COMPREHENSIVE METABO LIC PANEL W/EGFR THYROID PANEL WITH T SH, 3RD GENERATION CBC (H/H, RBC, INDIC ES, WBC, PLT) Stress Test - Adenos ine X-Ray, Chest, PA & L ateral Cardiopulmonary Stre ss Test Spirometry Complete Echo Spirometry Sleep Study X-Ray, Chest, PA & L ateral TSH, 3RD GENERATION W/REFLEX TO FT4 CBC (INCLUDES DIFF/P LT) LIPID PANEL COMPREHENSIVE METABO LIC PANEL W/EGFR Complete Echo Complete Echo Complete Echo HISTORY OF PROCEDURES Procedure Date Procedure Name Provider Procedure Notes S tatus EKG Prabhu Martin MD complet ed EKG Prabhu Martin MD complet ed EKG Prabhu Martin MD complet ed EKG Prabhu Martin MD complet ed EKG Prabhu Martin MD complet ed EKG Prabhu Martin MD complet ed Regadenoson, 4 units Prabhu Martin MD completed Cardiolite, 2 units Prabhu Martin MD completed SPECT Images Prabhu Martin MD compl eted Stress EKG Alfred Prasad MD completed EKG Prabhu Martin MD complet ed EKG Prabhu Martin MD complet ed 6 minute walk test Prabhu Martin MD completed EKG Prabhu Martin MD complet ed EKG Prabhu Martin MD complet ed SNOMED-CT: 527143686174450 Current Medications Documented Prabhu Martin MD completed SNOMED-CT: 071454639926929 Current Medications Documented Prabhu Martin MD completed EKG Prabhu Martin MD complet ed Varghese Martin MD complet ed EKG Prabhu Martin MD complet ed SNOMED-CT: 460478385536689 Current Medications Documented Prabhu Martin MD completed Varghese Martin MD complet ed Varghese Martin MD complet ed KAYDEN Martin MD completed EKG Prabhu Martin MD complet ed SNOMED-CT: 548904553233881 Current Medications Documented Prabhu Martin MD completed Varghese Martin MD complet ed Varghese Martin MD complet ed Varghese Martin MD complet ed Varghese Martin MD complet ed Varghese Martin MD complet ed Varghese Martin MD complet ed Varghese Martin MD complet ed Varghese Martin MD complet ed INR Strip Prabhu Martin MD complet ed LUISITOG Prabhu Martin MD complet ed SNOMED-CT: [id number] Current Medications Documented Prabhu Martin MD completed INR Strip Prabhu Martin MD complet ed Varghese Martin MD complet ed INR Strip Prabhu Martin MD complet ed SNOMED-CT: 68150394 Physical Exam, Performed: Pulse Exam of Foot Prabhu Martin MD completed LUISITOG Prabhu Martin MD complet ed SNOMED-CT: 165092790120989 Current Medications Documented Prabhu Martin MD completed Varghese Martin MD complet ed Varghese Martin MD complet ed EKOk Martin MD complet ed SNOMED-CT: 568840430645002 Current Medications Documented Prabhu Martin MD completed INR Strip Prabhu Martin MD complet ed EKOk Martin MD complet ed SNOMED-CT: 577523759211069 Current Medications Documented Prabhu Martin MD completed Varghese Martin MD complet ed Varghese Martin MD complet ed Varghese Martin MD complet ed Varghese Martin MD complet ed Varghese Martin MD complet ed Varghese Martin MD complet ed INR Strip Prabhu Martin MD complet ed Varghese Martin MD complet ed Varghese Martin MD complet ed Varghese Martin MD complet ed INR Strip Prabhu Martin MD complet ed Varghese Martin MD complet ed Varghese Martin MD complet ed Varghese Martin MD complet ed Varghese Martin MD complet ed INR Strip Prabhu Martin MD complet ed Varghese Martin MD complet ed Stress EKG Keanu Corrigan MD complete d Regadenoson, 4 units Prabhu Martin MD completed Cardiolite, 2 units Prabhu Martin MD completed SPECT Images Breanna Borjas MD complet ed BLOOD COUNT HEMOGLOBIN Prabhu Martin MD completed FVC - 11060 Prabhu Martin MD comple estefani FRC - 00912 Prabhu Martin MD comple estefani DLCO - 33014 Prabhu Martin MD compl eted Varghese Martin MD complet ed Varghese Martin MD complet ed Varghese Martin MD complet ed Varghese Martin MD complet ed INR Strip Prabhu Martin MD complet ed SNOMED-CT: 326144388 Smoking Cessation Counseling Prabhu Martin MD completed SNOMED-CT: 68403347 Physical Exam, Performed: Pulse Exam of Foot Prabhu Martin MD completed Varghese Martin MD complet ed EKG Prabhu Martin MD complet ed SNOMED-CT: 726763506617654 Current Medications Documented Prabhu Martin MD completed Varghese Martin MD complet ed Varghese Sauceda RN completed INR Strip Prabhu Martin MD complet ed Holter, 24 or 48 Prabhu Martin MD c ompleted Varghese Martin MD complet ed EKG Interpret Outsid e EKG Earnest Elizabeth MD completed SNOMED-CT: 17350646 Physical Exam, Performed: Pulse Exam of Foot Earnest Elizabeth MD completed SNOMED-CT: 877399976171312 Current Medications Documented Earnest Elizabeth MD completed SNOMED-CT: 409501156841199 Current Medications Documented Prabhu Martin MD completed SNOMED-CT: 076322903 Smoking Cessation Counseling Prabhu Martin MD completed SNOMED-CT: 39400001 Physical Exam, Performed: Pulse Exam of Foot Prabhu Martin MD completed EKG Prabhu Martin MD complet ed SNOMED-CT: 765468219374577 Current Medications Documented Prabhu Martin MD completed EKG Prabhu Martin MD complet ed EKG Prabhu Martin MD complet ed EKG Prabhu Martin MD complet ed EKG Prabhu Martin MD complet ed Schedule Followup Colby mcdonald MD Atrial flutter ablation 02/02/2014 completed EKG Colby rutledge MD completed DLCO - 97291 Jose G Hewitt completed FRC - 56133 Jose G Hewitt completed [facility] - 05480 Jose G Billsaysha completed EKG Colby rutledge MD completed ePrescribe - Check t his box if eRx is used Keanu Corrigan MD completed EKG Keanu Corrigan MD complete d EKG Prabhu Martin MD complet ed EKG Prabhu Martin MD complet ed
--- OUTSIDE RECORDS SUMMARY | 2024-12-07 10:34 | XMS_ITS | Referral Summary ---
Author Organization [facility] Address [address] [place] [address] Care Team Providers Care Outpatient Coordinator Name Role Phone Prabhu Martin MD Primary Care Provider [phone] Source Comments [facility],non-owned Affiliates and Associated Physician Practices is amultiple site organization consisting of ambulatory clinics and hospital sitesin [place], [place], [place] and [place]. This disclosure is being madepursuant to the Care Everywhere program and may not contain all information available regarding this patient. Last updated 18.[facility] Allergies Active Allergy Reactions Criticality Noted Date [...] 100 mg by mouth once daily Active [place]-3 Fatty Acids (FISH OIL) 1000 MG capsule [...] Mass Index 23.09 04/19/2017 12:23 PM CDT Functional Status Functional Status Response Date of Assess ment Is person deaf or have serious hearing difficult y? No 04/19/2017 Is person blind or have serious difficulty seein g? No 04/19/2017 Does person have serious dif ficulty walking/climbing stairs? No 04/19/2017 Does person have difficulty dressing/bathing? No 04/19/2017 Does person have difficulty doing errands alone? No 04/19/2017 Cognitive Status Response Date of Assessm ent Does person have difficulty concentrating/remembering/making decisions? No 04/19/2017 Plan of Treatment Not on file Advance Directives Documents on File Type Date Recorded Patient Card Feeder Expl anation Adv Directive/Living Will/POA 03/23/2017 * Full Code (Latest Code Status on File) Date Activated Date Inactivated Comments 04/19/2017 2:36 PM 04/20/2017 11:54 AM Care Teams Outpatient Coordinator Relationship Specialty Start Date End Date Prabhu Martin MD [address] [place] [address] PCP - General 03/27/09
--- OUTSIDE RECORDS SUMMARY | 2024-12-07 10:34 | XMS_ITS | Continuity of Care Document ---
Author Organization [facility] Address [id number] [place] [address] [address] [place] [address] Phone Care Team Providers Care Well Logging Mud Analysis Captain Name Role Phone Tavera OD, Dallin Unavailable Unavailable Procedures Procedure Date Post-op Follow-up Visit Refraction Post-op Follow-up Visit Remove Cataract, Insert Lens Post-op Follow-up Visit Echo Exam Of Eye-Professional Aug- 0 Post-op Follow-up Visit Post-op Follow-up Visit Remove Cataract, Insert Lens Office/outpatient Visit, Est Echo Exam Of Eye Office/outpatient Visit, Est Office/outpatient Visit, Est Office/outpatient Visit, Est Refraction Office/outpatient Visit, Est Eye Exam & Treatment Fundus Photography W/ Report Corneal Pachymetry Advance Directives Directive Yes / No Effective Date File Name No Information Encounters Encounter Description Practice Location Reason(s) For Visit Diagnoses Date Provider Providers Copied on Encounter [facility], [address], [place], [place], [id number], [place] tel:[phone] SEC [facility] No Information Oct-2 0 Tavera OD Dallin. [address] [place] , [address], [place], [address], [place]. tel:[phone] Referring Provider: Mark Cervantes [address] [place], [place] [address]ate Center [address], [place], [place], [facility]. tel:[phone] [facility], [address] [place] [address] [address], [place], [place], [address], [place] tel:[phone] [facility] [place] No Information Oct-0 8-201 0 Syd Flores. [address] [place] [address] Center , [address], [place], [place], [facility], [place]. tel:[phone] [facility], [address] [place] [address] [address], [place], [place], [id number], [place] tel:[phone] [facility] Information Oct-0 7-201 0 Syd Flores. [address] [place], [place] [address]ate Center , [address], [place], [facility], [place]. tel:[phone] [facility], [address] [place] [address] [address], [place], [place], [address], [place] tel:[phone] [facility] No Information Oct-0 4-201 0 Syd Flores. [address] [place] [address] , [address], [place], [place], [facility], [place]. tel:[phone] Referring Provider: Mark Cervantes, [address] [place], [place] [address]ate Center [address], [place], [facility]. tel:[phone] [facility], [address] [place] [address] [address], [place], [place], [address], [place] tel:[phone] [facility] No Information Sep-0 7-201 0 Tavera OD Dallin. [address] [place], [place] [address]ate Center , [address], [place], [facility], [place]. tel:[phone] [facility], [address] [place] [address] [address], [place], [place], [address], [place] tel:[phone] [facility] [place] No Information Aug-2 0-201 0 Syd Flores. [facility] Center , [address], [place], [facility], [place]. tel:[phone] [facility], [address] [place] [address] [address], [place], [place], [address], [place] tel:[phone] [facility] No Information 9-201 0 Syd Edalec. [address] [place], [place] [address]ate Center , [address], [place], [facility], [place]. tel:[phone] Office/outpat ient Visit, [facility], [address] [place] [address] [address], [place], [place], [address], [place] tel:[phone] SEC [facility] No Information 6-201 0 Syd Flores. [address] [place] [address] Center , [address], [place], [facility], [place]. tel:[phone] Referring Provider: Mark Cervantes, [address] [place], [place] [address]ate Center [address], [place], [facility]. tel:[phone] Office/outpat ient Visit, [facility], [address] [place] [address] [address], [place], [place], [address], [place] tel:[phone] [facility] [place] No Information Mar-0 3-201 0 Syd Edalec. [address] [place] [address] Center , [address], [place], [facility], [place]. tel:[phone] Office/outpat ient Visit, [facility], [address] [place] [address] [address], [place], [place], [address], [place] tel:[phone] [facility] No Information Sep-0 9-200 9 Syd Flores. [address] [place], [place] [address]ate Center , [address], [place], [facility], [place]. tel:[phone] Office/outpat ient Visit, [facility], [address] [place] [address] [address], [place], [place], [id number], tel:[phone] [facility] [place] No Information 8 Syd Flores. [address] [place] [address] , [address], [place], [facility], . tel:[phone] Office/outpat ient Visit, Est [facility], [address], [place], [place], [address], [place] tel:[phone] [facility] [place] No Information 7 Syd Flores. [address] [place] [address] [address], [place], [facility], . tel:[phone] [facility], [address], [place], [place], [address], [place] tel:[phone] [facility] [place] No Information 7 Syd Flores. [address] [place] [address] [address], [place], [facility], . tel:[phone] Referring Provider: Mrak Cervantes [address] [place] [address] [address], [place], [facility]. tel:[phone] Family History Family Member Type Diagnosis Age At Onset No Information Payers Payer name Insurance type Covered alliance party ID Authoriza tion(s) No Information Social History Type Description Quantity Date Captured [...]
[2024-12-07 11:00] VITALS: BP 118/74; PULSE 84; RESP 18; O2SAT 95
[2024-12-07 11:37] LABS: Add Urine Microscopic? YES; Appearance Urine Clear (Clear); Bacteria Urine None Seen /hpf; Bilirubin Urine Negative (Negative); Blood Urine Negative (Negative); Color Urine Yellow (Yellow); Glucose Urine UA Negative (Negative); Hyaline Casts Urine Present /lpf; Ketones Urine Negative (Negative); Leukocyte Esterase Ur 1+ LEU/UL (Negative); Need Manual Microscopic Reviewed; Nitrate Urine Negative (Negative); Protein Urine Negative (Negative); RBC Urine 0-2 /hpf (0-2); Specific Grav Ur 1.018 (1.001-1.035); Squamous Epithelial Cell Urine None Seen /hpf (Few); Urobilinogen Urine 0.2 mg/dL (<2.0)
[2024-12-07 12:39] VITALS: BP 154/71; PULSE 85; RESP 18; O2SAT 95
--- NOTE | 2024-12-07 12:52 | ECG_ITS ---
Test Date: 2024-12-07 14:12:51 Measurements Intervals [place] Rate: 87 P: 0 MD: 0 QRS: -55 QRSD: 150 T: 85 QT: 401 QTc: 485 Interpretive Statements ATRIAL FIBRILLATION RIGHT BUNDLE BRANCH BLOCK [120+ ms QRS DURATION, UPRIGHT V1, 40+ ms S IN I/aVL/V4/V5/V6] LEFT ANTERIOR FASCICULAR BLOCK [QRS AXIS <= -45, QR IN I, RS IN II] MODERATE VOLTAGE CRITERIA FOR LVH, CONSIDER NORMAL VARIANT [MEETS CRITERIA IN ONE OF: R(aVL), S(V1), R(V5), R(V5/V6)+S(V1)] No previous ECG available for comparison Electronically Signed On 12-07-2024 14:34:10 TRANSMISSION INSPECTOR by Bernard Robledo M.D.
--- OUTSIDE RECORDS SUMMARY | 2024-12-07 12:55 | XMS_ITS | Continuity of Care Document ---
Author Organization [facility] Address [address] [place] [address] Phone Care Team Providers Care Hairspring Vibrator Name Role Phone Unavailable Unavailable Unavailable Procedures Procedure Date Office/outpatient visit,[facility] 2010 X-ray exam of shoulder, complete 2010 X-ray exam of hip, 1 view X-ray exam of pelvis, 1-2 views 011 Advance Directives Directive Yes / No Effective Date File Name No Information Encounters Encounter Description Practice Location Reason(s) For Visit Diagnoses Date Provider Providers Copied on Encounter Office/outpat ient visit,, [facility], [address], [place], [place], [id number], [place] tel:[phone] [facility] PRIM OSTEOART-P ELVISJOINT PAIN-SHLDE R 8201 1 No Information Referring Provider: Dallin [place], [facility], [place], [address]. tel:[phone] Family History Family Member Type Diagnosis Age At Onset No Information Payers Payer name Insurance type Covered libertarian ID Authoriza tion(s) Medicare [place] [id number] [facility] [id number] Social History Type Description Quantity Date Captured [...]
--- OUTSIDE RECORDS SUMMARY | 2024-12-07 12:55 | XMS_ITS | Patient Health Summary ---
Author Organization [facility] Address [address] [place] [address] Care Team Providers Care [employer] Container Winding Operator Name Role Phone Evan Martin MD Primary Care Provider [phone] Note from [facility],non-owned Affiliates and Associated Physician Practices is amultiple site organization consisting of ambulatory clinics and hospital sitesin [place], [place], [place]. This disclosure is being madepursuant to the Care Everywhere program and may not contain all information available regarding this patient. Last updated 18.[facility] Allergies * Piroxicam(Rash) -Medium Criticality * Morphine [...] 100 mg by mouth once daily * [place]-3 Fatty Acids (FISH OIL) 1000 MG capsule [...] Bullock MD - 04/20/2017 3:04 AM CDT [facility] CARDIAC CATHETERIZATION PATIENT: RITA MATIAS MR#: [id number] ADMIT DATE: 04/19/2017 CSN: [id number] PROCEDURE DATE: :1935 PHYSICIAN: Sunny Bullock MD ROOM: [facility] REFERRING PHYSICIAN: Sunny Bullock MD This is [...] using a micropuncturetechnique. We then passed a 6-Iraqi JR4 guide with initial guide pictures. Heparinwas [...] the right common femoral artery with a6- Iraqi ProGlide. We also did IVUS in between and it appeared to show avessel of 3.5 to 4.0. IMPRESSION: Successful orbital atherectomy, and deployment of stent. The patient was placed on Coumadin but initially will use aspirin andPlavix and then later on, we can switch over to Coumadin and Plavix. SUNNY BULLOCK MD UQ/MODL #: [id number] MEDICAL/SURGICAL CARDIAC CATHETERIZATION - DP Sunny Bullock MD ECHO ORDERABLES Performing Organization Address [facility] [[email or web address]] Co de Phone Number [facility] CARDIAC SERVICES * EKG 12-LEAD (04/20/2017 3:29 AM CDT) Only the most recent of2 resultswithin the time period is included. Ventricular Rate 48 BPM [facility] Atrial Rate 48 BPM [facility] P-R Interval 176 ms [facility] QRS Duration ms 136 ms [facility] Q-T Interval ms 496 ms [facility] QTC Calculation (Bezet) 443 ms [facility] Calculated P [place] 82 degrees [facility] MUSE Calculated R [place] 52 degrees [facility] Calculated T [place] 67 degrees [facility] Interpretation EKG Sinus bradycardia with occasional Premature ventricular complexes Right bundle branch block Abnormal ECG When compared with ECG of 28-MAR-2009 05:53, Premature ventricular complexes are now Present Confirmed by AUGUSTA OROZCO, [facility] ([id number]) on 04/21/2017 12:37:42 PM DP MUSE 04/20/2017 3:29 AM CDT 04/21/2017 12:37 PM CDT Sunny Bullock MD ECG ORDERABLES Performing Organization Address [facility] de Phone Number [facility] * CARDIAC CATH PROCEDURE (04/19/2017 2:32 PM CDT) Narrative [facility] KARENQUIST - 04/19/2017 2:32 PM CDT Sunny Bullock MD ? 04/19/2017 ??2:32 PM ARACELIS Via rfa 80% calcified rca mid 1.25mm classic csi IVUS and then Stented with 3.5 x 28mm xience alpine Asa/plavix [id number] Sunny Bullock MD CARDIAC SERVICES ORD ERABLES Performing Organization Address [facility] [[email or web address]] Co de Phone Number [facility] MEDQUIST * (ABNORMAL) GLUCOSE - POINT OF CARE (04/05/2009 4:45 PM CDT) Only the most recent of59 resultswithin the time period is included. Glucose WB/POC 124(H) 75 - 110 mg/dl [facility] BLOOD SPECIMEN / Unknown 04/05/2009 4:45 PM CDT Evan Maritn MD LAB - POINT OF CARE ORDERABLES Performing Organization Address City/[facility]/ZIP Co de Phone Number [facility] [address] [place] [address] * (ABNORMAL) CBC W AUTO DIFFERENTIAL (04/05/2009 4:20 AM CDT) Only the most recent of8 resultswithin the time period is included. Pathologist [facility] WBC 15.4(H) 4.5 - 11.0 1000/mm3 [facility] RBC 2.70(L) 4.7 - 6.1 10X6 [facility] Hemoglobin 8.2(L) 13.0 - 18.0 gm/dl [facility] Hematocrit 24.2(L) 39.0 - 54.0 % [facility] MCV 89.6 80.0 - 99.0 fl [facility] MCH 30.4 25.0 - 31.0 pg [facility] MCHC 33.9 32.0 - 36.0 gm/dl [facility] RDW 15.7(H) 11.5 - 14.5 % [facility] Platelet Count 193 130.0 - 400.0 1000/mm3 [facility] Granulocytes % 79.1(H) 40.0 - 70.0 % [facility] Lymphocytes % Manual 7.6(L) 22.0 - 40.0 % [facility] Monocytes % 10.3(H) 2.0 - 10.0 % [facility] Eosinophils % 2.9 0.0 - 6.0 % [facility] Basophils % 0.1 0.0 - 3.0 % [facility] Comment Manual Diff Not Indicated [facility] Granulocytes Absolute 12.17(H) 1.8 - 7.7 1000/mm3 [facility] BLOOD SPECIMEN / Unknown 04/05/2009 4:20 AM CDT Charlee Mckinney MD LAB - HEMATOLOGY ORD ERABLES Performing Organization Address City/[facility]/ZIP Co de Phone Number [facility] [address] [place] [address] * (ABNORMAL) BASIC METABOLIC PANEL (CALCIUM TOTAL) (04/05/2009 4:20 AM CDT) Only the most recent of7 resultswithin the time period is included. BUN 15 9.0 - 20.0 mg/dl [facility] Sodium 138 137 - 145 mEq/L [facility] Potassium 3.9 3.6 - 5.0 mEq/L [facility] Chloride 108(H) 98.0 - 107.0 mEq/L [facility] CO2 27 22.0 - 30.0 mEq/L [facility] Anion Gap 2.9 [facility] Glucose 101 75 - 110 mg/dl [facility] Creatinine 0.8 0.8 - 1.5 mg/dl [facility] Calcium 7.9(L) 8.4 - 10.2 mg/dl [facility] eGFR by MDRD 101.0 ml/min/1.7 3m2 [facility] BLOOD SPECIMEN / Unknown 04/05/2009 4:20 AM CDT Charlee Mckinney MD LAB - CHEMISTRY MORENO JEFFERSON [facility] [address] [place] [address] * XR CHEST 1VW PORTABLE (04/03/2009 11:30 [...] ? Released Date Time- 04/03/09 1245 ? [employer]- JUANA ??M.D. ? ADM- EVAN MARTIN ? ATT- EVAN MARTIN REF- ?CON- CHARLEE MCKINNEY PCP- EVAN MARTIN ? SCP- Procedure Note Winnie Zimmerman - [...] ZIMMERMAN M.D. Released Date Time- 04/03/09 1245 [employer]- JUANA Patel ADM- EVAN MARTIN ATT- EVAN [...] - CHEMISTRY MORENO JEFFERSON Performing Organization Address [facility] de Phone Number [facility] [address] [place] [address] * MAGNESIUM BLOOD (04/02/2009 2:40 AM CDT) Only the most recent of6 resultswithin the time period is included. Magnesium 2.2 1.6 - 2.3 mg/dl [facility] BLOOD SPECIMEN / Unknown 04/02/2009 2:40 AM CDT Josue Yoo MD LAB - CHEMISTRY MORENO JEFFERSON Performing Organization Address [facility] de Phone Number [facility] [address] [place] [address] * (ABNORMAL) PHOSPHORUS BLOOD (04/01/2009 2:12 AM CDT) Phosphorus 2.1(L) 2.5 - 4.5 mg/dl [facility] BLOOD SPECIMEN / Unknown 04/01/2009 2:12 AM CDT Chon Ballard MD LAB - CHEMISTRY ORDERABLES Performing Organization Address [facility] de Phone Number [facility] [address] [place] [address] * HEPARIN PLATELET INDUCED ANTIBODY (03/31/2009 11:02 AM CDT) Heparin Induced Platelet Antibody 0.150 <=0.399 [facility] Comment [address] [facility] Comment Ref Lab [facility] Comment: Comments and Normal Ranges for [...] to the Heparin-Associated Antibody Syndrome topic at [email or web address]. BLOOD SPECIMEN / Unknown 03/31/2009 11:02 AM CDT Narrative Resulting Agency Comment Performed By [facility] ? [address] ? [place], [place] [address] Evan Martin MD LAB - CHEMISTRY ORDE RONNY Performing Organization Address [facility] [[email or web address]] Co de Phone Number [facility] [address] [place] [address] * (ABNORMAL) O2 SATURATION VENOUS (03/31/2009 6:18 AM CDT) Only the most recent of4 resultswithin the time period is included. O2 Saturation Venous 50.9(L) 70 - 75 % [facility] pO2 Venous 26.6(L) 35 - 40 mm Hg [facility] MIXED VENOUS BLOOD SPECIMEN / Unknown 03/31/2009 6:18 AM CDT Evan Martin MD LAB - BLOOD GASES OR DERABLES Performing Organization Address [facility] de Phone Number [facility] [address] [place] [address] * CT HEAD NON CONTRAST (03/30/2009 8:13 [...] ??M.D. ? Released Date Time- 03/30/092037 ? [employer]- ASS ??M.D. ? ADM- EVAN MARTIN ? ATT- EVAN MARTIN REF- ?CON- CHRALEE MCKINNEY PCP- EVAN MARTIN ? SCP- Procedure [...] JESUS MELLO M.D. Released Date Time- 03/30/092037 [employer] Commander Harbor PoliceSaturnino VALERIO M.D. ADM- EVAN MARTIN ATT- EVAN [...] Excess Arterial -3.2 -2 - 2 mmol/L [facility] O2 Saturation Arterial 91.9(L) 92 - 98.5 % [facility] Hemoglobin Arterial 7.0(L) 12 - 18 gm/dl [facility] O2 Content Arterial 9.0(L) 15 - 23 % [facility] Sodium Arterial 138.0 135 - 145 mmol/L [facility] Potassium Arterial 4.29 3.3 - 5.3 mmol/L [facility] Comment Potassium, arterial blood: DR BALLARD [facility] Oxyhemoglobin Arterial 90.1(L) 94 - 97 % [facility] Carboxyhemoglobin Arterial 1.2 0.0 - 1.5 [...] SPECIMEN / Unknown 03/30/2009 10:17 AM CDT Evan Martin MD LAB - BLOOD GASES OR DERABLES Performing Organization Address [facility] [[email or web address]] Co de Phone Number [facility] [address] [place] [address] * (ABNORMAL) HGB HCT PANEL (03/30/2009 9:40 AM CDT) Only the most recent of2 resultswithin the time period is included. Hemoglobin 6.5(LL) 13.0 - 18.0 gm/dl [facility] Hematocrit 19.2(LL) 39.0 - 54.0 % [facility] BLOOD SPECIMEN / Unknown 03/30/2009 9:40 AM CDT Charlee Mckinney MD LAB - HEMATOLOGY ORD ERABLES Performing Organization Address [facility] de Phone Number [facility] [address] [place] [address] * IR ANGIO CAROTID CEREBRAL BILAT MARCIN [...] suite to look for large artery occlusions. [employer] CONSULTANT- ??Reagan Clemens M.D. VESSELS LEFT COMMON CAROTID ARTERY ANGIOGRAM - CEREBRAL LEFT VERTEBRAL ARTERY ANGIOGRAM - CEREBRAL RIGHT COMMON CAROTID ARTERY ANGIOGRAM - CERVICAL RIGHT INTERNAL CAROTID ARTERY ANGIOGRAM - CEREBRAL RIGHT FEMORAL ARTERY ANGIOGRAM 6 [place] ANGIO-SEAL DEPLOYMENT IN THE RIGHT FEMORAL ARTERY ANESTHESIA- ??Local anesthesia with conscious sedation. PROCEDURAL DETAIL- ??The risks, benefits and alternatives to the procedure were discussed in detail with the patient's family. ??After this discussion, his provided written consent. ??The patient was then brought to the angiography suite where he went prep and drape procedure. ??A 6 Iraqi 25.0 cm sheath was placed in the right femoral artery, and a 5 Iraqi Hayes II catheter was navigated into the [...] and hemostasis was achieved using a 6 Iraqi Angio-Seal closure device. ??Hemostasis was immediate at [...] a puncture site adjacent to the bifurcation. [facility] [address] Dictated- ??03/29/2009 Transcribed- 03/30/2009 ? Read By- FIDEL CLEMENS M.D. ? Released By- FIDEL CLEMENS M.D. ? Released Date Time- 04/05/09 0856 ? [employer]- LOUIE ? ADM- EVAN MARTIN ? ATT- [...] suite to look for large artery occlusions. [employer] CONSULTANT- Reagan Clemens M.D. VESSELS LEFT COMMON CAROTID ARTERY ANGIOGRAM - CEREBRAL LEFT VERTEBRAL ARTERY ANGIOGRAM - CEREBRAL RIGHT COMMON CAROTID ARTERY ANGIOGRAM - CERVICAL RIGHT INTERNAL CAROTID ARTERY ANGIOGRAM - CEREBRAL RIGHT FEMORAL ARTERY ANGIOGRAM 6 [place] ANGIO-SEAL DEPLOYMENT IN THE RIGHT FEMORAL ARTERY ANESTHESIA- Local anesthesia with conscious sedation. PROCEDURAL DETAIL- The risks, benefits and alternatives to the procedure were discussed in detail with the patient's family. After this discussion, his provided written consent. The patient was then brought to the angiography suite where he went prep and drape procedure. A 6 Iraqi 25.0 cm sheath was placed in the right femoral artery, and a 5 Iraqi Hayes II catheter was navigated into the [...] and hemostasis was achieved using a 6 Iraqi Angio-Seal closure device. Hemostasis was immediate at [...] a puncture site adjacent to the bifurcation. [facility] [address] Dictated- 03/29/2009 Transcribed- 03/30/2009 Read By- FIDEL CLEMENS M.D. Released By- FIDEL CLEMENS M.D. Released Date Time- 04/05/09 0856 [employer]- JIMENEZ - EVAN MARTIN ATT- EVAN MARTIN REF- VERÓNICA- CHARLEE MCKINNEY PCP- EVAN MARTIN SCP- Fidel Clemens MD IR ORDERABLES * POTASSIUM BLOOD (03/29/2009 7:45 AM CDT) Potassium 4.3 3.6 - 5.0 mEq/L [facility] BLOOD SPECIMEN / Unknown 03/29/2009 7:45 AM CDT Evan Martin MD LAB - CHEMISTRY MORENO JEFFERSON Performing Organization Address [facility] [[email or web address]] Co de Phone Number [facility] [address] [place] [address] * CULTURE MRSA BATTERY (03/29/2009 4:30 AM CDT) Result [facility] Comment: Final ?? CULTURE No MRSA isolated No VRE isolated MISCELLANEOUS SAMPLES / Unknown 03/29/2009 4:30 AM CDT 03/29/2009 4:30 AM CDT Narrative Resulting Agency Comment Performed By [facility] ? [address] ? [place] [address] Charlee Mckinney MD LAB - MICROBIOLOGY O RDERAALANNA Performing Organization Address [facility] de Phone Number [facility] [address] [place] [address] * (ABNORMAL) CBC W/O DIFFERENTIAL (03/29/2009 1:35 AM CDT) WBC 30.0(H) 4.5 - 11.0 1000/mm3 [facility] RBC 3.78(L) 4.7 - 6.1 10X6 [facility] Hemoglobin 11.6(L) 13.0 - 18.0 gm/dl [facility] Hematocrit 33.4(L) 39.0 - 54.0 % [facility] MCV 88.4 80.0 - 99.0 fl [facility] MCH 30.7 25.0 - 31.0 pg [facility] MCHC 34.7 32.0 - 36.0 gm/dl [facility] RDW 13.8 11.5 - 14.5 % [facility] Platelet Count 112(L) 130.0 - 400.0 1000/mm3 [facility] BLOOD SPECIMEN / Unknown 03/29/2009 1:35 AM CDT Charlee Mckinney MD LAB - HEMATOLOGY ORD ERABLES Performing Organization Address [facility] [[email or web address]] Co de Phone Number [facility] [address] [place] [address] * (ABNORMAL) PLATELET COUNT AUTO (03/28/2009 8:20 PM CDT) Only the most recent of2 resultswithin the time period is included. [facility] Platelet Count 97(L) 130.0 - 400.0 1000/mm3 [facility] BLOOD SPECIMEN / Unknown 03/28/2009 8:20 PM CDT Evan Martin MD LAB - HEMATOLOGY ORD ERABLES Performing Organization Address [facility] [[email or web address]] Co de Phone Number [facility] [address] [place] [address] * ACT - POINT OF CARE (03/28/2009 6:40 PM CDT) Only the most recent of7 resultswithin the time period is included. [facility] ACT POCT 166 [facility] Comment ACT POCT: Test performed by Operating Room Staff. [facility] BLOOD SPECIMEN / Unknown 03/28/2009 6:40 PM CDT Evan Martin MD LAB - POINT OF CARE ORDERABLES Performing Organization Address [facility] de Phone Number [facility] [address] [place] [address] * (ABNORMAL) BLOOD GASES + LYTES OR PANEL (03/28/2009 6:34 PM CDT) Only the most recent of7 resultswithin the time period is included. [facility] pH Arterial 7.356(L) 7.38 - 7.42 pH Units [facility] pCO2 Arterial 46.0(H) 38 - 42 mm Hg [facility] pO2 Arterial 398.8(H) 75 - 100 mm Hg [facility] Base Excess Arterial -0.4 -2 - 2 mmol/L [facility] O2 Saturation Arterial 99.8(H) 92 - 98.5 % [facility] Hematocrit Arterial 24(L) 36 - 54 % [facility] Sodium Arterial 130.4(L) 135 - 145 mmol/L [facility] Potassium Arterial 3.75 3.3 - 5.3 mmol/L [facility] Comment Potassium, arterial blood: RN [facility] Glucose ART 64(L) 80 - 120 mg/dl [facility] HCO3 Arterial 25.2 22 - 29 mmol/L [facility] Calcium Ionized 1.14 1.10 - 1.33 mmol/L [facility] FI O2 Arterial 100.0 [facility] TCO2 Arterial 26.6 23.0 - 27.0 mmol/L [facility] ARTERIAL BLOOD SPECIMEN / Unknown 03/28/2009 6:34 PM CDT Evan Martin MD LAB - BLOOD GASES OR DERABLES Performing Organization Address [facility] [[email or web address]] Co de Phone Number [facility] [address] [place] [address] * (ABNORMAL) FIBRINOGEN ACTIVITY (03/28/2009 6:30 PM CDT) Pathologist [facility] Fibrinogen 144(L) 200 - 400 mg/dl [facility] BLOOD SPECIMEN / Unknown 03/28/2009 6:30 PM CDT Charlee Mckinney MD LAB - COAGULATION OR DERABLES Performing Organization Address [facility] de Phone Number [facility] [address] [place] [address] * (ABNORMAL) PTT (03/28/2009 6:30 PM CDT) Only the most recent of2 resultswithin the time period is included. PTT 40.2(DH) 24.0 - 32.0 seconds [facility] Comment PTT This result represents a significant difference from this patient's most recent previous PTT value. ??Clinical correlation is therefore recommended. [facility] BLOOD SPECIMEN / Unknown 03/28/2009 6:30 PM CDT Charlee Mckinney MD LAB - COAGULATION OR DERABLES Performing Organization Address [facility] de Phone Number [facility] [address] [place] [address] * (ABNORMAL) PT-INR (03/28/2009 6:30 PM CDT) Only the most recent of2 resultswithin the time period is included. PT 21.6(DH) 9.4 - 11.2 seconds [facility] INR 2.1(H) 0.9 - 1.1 [facility] Comment PT This result represents a significant difference from this patient's most recent previous PT value. ??Clinical correlation is therefore recommended. [facility] Interpretation INR [facility] Comment: Conventional Anticoagulation INR 2.0-3.0 Intensive Anticoagulation INR 2.5-3.5 BLOOD SPECIMEN / Unknown 03/28/2009 6:30 PM CDT Charlee Mckinney MD LAB - COAGULATION OR DERABLES [facility] [address] [place] [address] * XR CHEST PA AND LATERAL (03/28/2009 [...] ? Released Date Time- 03/28/09 1341 ? [employer]- PMN ? - EVAN MARTIN ? NESHA- [...] DON M.D. Released Date Time- 03/28/09 1341 [employer]- PMN - EVAN MARTIN MOHAMMAD REF- CON- [...] carotid arteries. Antegrade flow in bilateral vertebrals. [id number] ? Read By- ROBERTO TRUJILLO ??M.D. ? Released By- ROBERTO TRUJILLO ??M.D. ? Released Date Time- 03/29/09939 ? [employer]- JBeck ? ADM- EVAN MARTIN ? ATT- [...] carotid arteries. Antegrade flow in bilateral vertebrals. [id number] Read By- ROBERTO TRUJILLO M.D. Released By- ROBERTO TRUJILLO M.D. Released Date Time- 03/29/09 0940 [employer]- JT - EVAN MARTIN ATT- EVAN MARTIN REF- CON- CHARLEE MCKINNEY PCP- EVAN MARTIN SCP- Evan Martin MD ORDERABLES * URINALYSIS ROUTINE AUTO (03/28/2009 11:07 AM CDT) Color UA YELLOW [facility] Character UA CLEAR [facility] Specific [place] UA 1.027 1.005 - 1.0300 [facility] [...] - URINALYSIS ORD ERABLES Performing Organization Address [facility] [[email or web address]] Co de Phone Number [facility] [address] [place] [address] * PLATELET PHERESIS X1 (03/28/2009 10:30 AM CDT) Number of Units 1 [facility] BLOOD SPECIMEN / Unknown 03/28/2009 10:30 AM CDT Narrative [facility] - 03/28/2009 6:45 PM CDT HOLD FOR CARDIAC SURGERY 03/28/09 Evan Martin MD LAB - BLOOD BANK ORD ERABLES Performing Organization Address [facility] [[email or web address]] Co de Phone Number [facility] [address] [place] [address] * TYPE SCRN XMATCH RBC X2 (03/28/2009 10:30 AM CDT) ABO Rh O Pos [facility] Antibody Screen Neg Negative [facility] Number of Units 2 [facility] BLOOD SPECIMEN / Unknown 03/28/2009 10:30 AM CDT Narrative [facility] - 03/28/2009 1:40 PM CDT HOLD FOR CARDIAC SURGERY 03/28/09 Evan Martin MD LAB - BLOOD BANK ORD ERABLES Performing Organization Address [facility] de Phone Number [facility] [address] [place] [address] * TROPONIN I (03/28/2009 10:30 AM CDT) Only the most recent of3 resultswithin the time period is included. Troponin I <0.10 SEE BELOW ng/ml [facility] Comment: Normal ? <0.10 [place] Zone ??0.10-0.99 Positive ?? >=1.00 BLOOD SPECIMEN / Unknown 03/28/2009 10:30 AM CDT Evan Martin MD LAB - CHEMISTRY ORDJadiel JEFFERSON Performing Organization Address [facility] [[email or web address]] Co de Phone Number [facility] [address] [place] [address] * CKMB (03/28/2009 10:30 AM CDT) Only the most recent of3 resultswithin the time period is included. CK-MB 0.8 0.0 - 5.0 ng/ml [facility] Interpretation CK-MB [facility] Comment: An abrupt rise/fall of CKMB over 24 hours is an acute injury pattern. BLOOD SPECIMEN / Unknown 03/28/2009 10:30 AM CDT Evan Martin MD LAB - CHEMISTRY MORENO BRISAALESSANDRO Performing Organization Address [facility] [[email or web address]] Co de Phone Number [facility] [address] [place] [address] * (ABNORMAL) CK BLOOD (03/28/2009 10:30 AM CDT) Only the most recent of3 resultswithin the time period is included. CK 38(L) 55.0 - 170.0 U/L [facility] BLOOD SPECIMEN / Unknown 03/28/2009 10:30 AM CDT Evan Martin MD LAB - CHEMISTRY MORIAHJadiel LEDEZMAALESSANDRO Performing Organization Address [facility] [[email or web address]] Co de Phone Number [facility] [address] [place] [address] * (ABNORMAL) LIPID PROFILE (03/28/2009 3:15 AM CDT) Cholesterol 122 120.0 - 200.0 mg/dl [facility] Triglycerides 95 0.0 - 250.0 mg/dl [facility] HDL Cholesterol 31(L) >40 mg/dl [facility] LDL Calculated 72.0 mg/dl [facility] Chol HDL Ratio 3.9 [facility] Comment Lipid [facility] Comment: Risk Classification ? HDL CHOL [...] patients according to data reported from the [place] Study by Armando Mendoza M.D. ??The predictive [...] Organization Address City/State/ZIP Co de Phone Number [facility] [address] [place] [address] * GROSS + MICRO EXAM (03/28/2009 12:00 AM CDT) [facility] Surgeon DR. MCKINNEY [facility] Grossed By RR5 [facility] Gross Report [facility] Comment: COPY TO ??DR. EVAN MARTIN [...] IN A SINGLE CASSETTE. LW/DC Microscopic Examination [facility] Comment: MICROSCOPIC THE SECTION LABELED AORTIC VALVE TISSUE SHOWS A FRAGMENT OF VALVE TISSUE DISPLAYING MYXOID DEGENERATION WITH CALCIFICATION. ??INFLAMMATION IS NOT SEEN. SKIP/KM Diagnosis [facility] Comment: DIAGNOSIS 1. 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 The flow volume loop demonstrates that the inspiratory loop isunremarkable. The expiratory loop shows mild curving. In summary, the patient has a mild ventilatory abnormality, likelyconsistent with obstruction. Edwin Porras MD Electronically Signed 03/29/2009 06:12:10 CDT GRG/MedQ #:[id number] cc: MD Charlee Alexis MD Edwin Porras MD RESPIRATORY [facility] ORDERABLES * TSH (03/27/2009 6:56 PM CDT) TSH 0.832 0.35 - 5.50 uIU/ml [facility] BLOOD SPECIMEN / Unknown 03/27/2009 6:56 PM CDT Narrative Resulting Agency Comment Performed By [facility] ? [address] ? [place] [address] Evan Martin MD LAB - CHEMISTRY MORENO JEFFERSON [facility] [address] [place] [address] Care Teams [employer] Container Winding Operator Relationship Specialty Start Date End Date Evan Martin MD [address] [place] [id number] PCP - General 03/27/09
--- OUTSIDE RECORDS SUMMARY | 2024-12-07 12:55 | XMS_ITS | Clinical Summary ---
Author Organization [facility] [employer] Address [address] [place] [address] Care Team Providers Care Senior Safety Support Manager Name Role Phone Prabhu Martin MD Primary Care Provider Source Comments [facility] [employer],non-owned Affiliates and Associated Physician Practices is amultiple site organization consisting of ambulatory clinics and hospital sitesin [place], [place], [place] and [place]. This disclosure is being madepursuant to the Care Everywhere program and may not contain all information available regarding this patient. Last updated [employer] Allergies Active Allergy Reactions Criticality Noted Date [...] 100 mg by mouth once daily Active [place]-3 Fatty Acids (FISH OIL) 1000 MG capsule [...] Documents on File Type Date Recorded Patient Claim Attorney Expl anation Adv Directive/Living Will/POA 03/23/2017 * Full Code (Latest Code Status on File) Date Activated Date Inactivated Comments 04/19/2017 2:36 PM 04/20/2017 11:54 AM Care Teams Senior Safety Support Manager Relationship Specialty Start Date End Date Prabhu Martin MD [address] [facility] [place] [phone] PCP - General 03/27/09
--- OUTSIDE RECORDS SUMMARY | 2024-12-07 12:55 | XMS_ITS | CONTINUITY OF CARE DOCUMENT ---
Author Name ty, charleeser Address Unknown Organization [facility] Address [address] 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 [place]-LAD , SVG-OM, SVG-OM, SVG-RPDA active Prabhu Martin MD COPD active Keanu Corrigan MD INSOMNIA;PER SHADY completed - Prabhu Martin MD Hyperlipidemia active Anna Bales ATRIAL FLUTTER - ablation 01/26/2014 active Prabhu Martin MD Paroxysmal atrial Fibrillation active Marvel Martin MD Bradycardia active Prabhu Martin MD Angina active Prabhu Martin MD Shortness of breath active Prabhu Levine Tremor active Prabhu Martin MD Fatigue active Parbhu Martin MD Dementia active Prabhu Martin MD Parkinson's disease active Prabhu Levine Prostate cancer active Prabhu Martin MD ANXIETY DISORDER active Prabhu Martin MD Back pain active Prabhu Martin MD Anemia active Prabhu Martin MD Left renal artery stenosis active Prabhu Martin MD RENAL INSUFFICIENCY active Prabhu Levine HIATAL HERNIA;SMALL active Keanu Corrigan MD DIASTOLIC CHF;BNP 121 2010 active 04/21 - Prabhu Martin MD CHEST PAIN-TYPE TO BE DETERMINED;WILL GARCIA-11/21 NUC NEG completed - Prabhu Levine ANXIETY DISORDER completed - Prabhu Martin MD ISCHEMIA;FIXED DEFECT NUC 11 completed 201 12/14/13 - Prabhu Martin MD CHOLECYSTECTOMY completed - Prabhu Martin MD RBBB active Keanu Corrigan MD HTN active Prabhu Martin MD CAD;NML CAROTID completed - Prabhu Martin MD AVR - 03/16 [facility] EPIC PORCINE AORTIC VALVE active Prabhu Martin MD ENCOUNTERS Date Type Provider Location Encounter Diag nosis 12/22 - 12/23 In-person encounter Office Visit Prabhu Martin MD [facility] Dementia 04/29 - 04/29 In-person encounter Office Visit Prabhu Martin MD [facility] 05/01 - 05/05 In-person encounter Office Visit Prabhu Martin MD [facility] Parkinson's disease 07/10 - 07/16 In-person encounter Office Visit Prabhu Martin MD [facility] 05/01 - 05/02 In-person encounter Office Visit Prabhu Martin MD [facility] 01/30 - 01/30 In-person encounter Office Visit Prabhu Martin MD [facility] Prostate cancer 11/13 - 11/14 In-person encounter Office Visit Prabhu Martin MD [facility] 03/15 - 03/20 In-person encounter Office Visit Prabhu Martin MD [facility] 12/05 - 12/05 In-person encounter Office Visit Prabhu Martin MD [facility] - In-person encounter Office Visit Prabhu Martin MD [facility] ANXIETY DISORDER 08/03 - In-person encounter Office Visit Prabhu Martin MD [facility] 03/31 - 04/01 In-person encounter Office Visit Prabhu Mratin MD [facility] Back pain 11/10 - 11/16 In-person encounter Office Visit Prabhu Martin MD [facility] Paroxysmal atrial FibrillationAnemia 11/16 - 11/16 In-person encounter Office Visit Prabhu Martin MD [facility] 11/15 - 11/16 In-person encounter Office Visit Prabhu Martin MD [facility] Fatigue - In-person encounter Office Visit Prabhu Martin MD [facility] 08/04 - 08/06 In-person encounter Office Visit Prabhu Martin MD [facility] Paroxysmal atrial Fibrillation 05/26 - 05/27 In-person encounter Office Visit Prabhu Martin MD [facility] 03/04 - 03/05 In-person encounter Office Visit Prabhu Martin MD [facility] 02/10 - 02/16 In-person encounter Office Visit Prabhu Martin MD [facility] AVR - 03/16 [facility] EPIC PORCINE AORTIC VALVE 01/06 - 01/08 In-person encounter Office Visit Prabhu Martin MD [facility] 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 [place]-LAD, SVG-OM, SV G-OM, SVG-RPDAAVR - 03/16 [facility] EPIC PORCINE AORTIC VALVEParoxysmal atrial FibrillationBradycardiaLeft renal artery stenosisAnginaShortness of breathTremor 03/18 - 03/18 In-person encounter Office Visit Prabhu Martin MD [facility] 02/23 - 03/04 In-person encounter Office Visit Earnest Elizabeth MD [facility] Paroxysmal atrial Fibrillation - In-person encounter Office Visit Prabhu Martin MD [facility] 02/27 - 02/28 In-person encounter Office Visit Prabhu Martin MD [facility] 11/28 - 12/04 In-person encounter Office Visit Prabhu Martin MD [facility] 05/16 - 05/18 In-person encounter Office Visit Prabhu Martin MD [facility] ATRIAL FLUTTER - ablation 01/26/201405/02 - 05/08 In-person encounter Office Visit Prabhu Martin MD [facility] 02/02 - 02/05 In-person encounter Office Visit Colby Blandon MD [facility] 01/03 - 01/04 In-person encounter Office Visit Prabhu Martin MD [facility] 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 H[place]-LAD, SVG-OM, SV G-OM, SVG-RPDACAD;NML CAROTIDHTNINSOMNIA;PER SHADYISCHEMIA;FIXED DEFECT NUC 11HyperlipidemiaANXIETY DISORDERCHEST PAIN-TYPE TO BE DETERMINED;WILL GARCIA-11/21 NUC NEGDIASTOLIC CHF;BNP 121 2011RENAL INSUFFICIENCY 12/20 - 12/20 In-person encounter Office Visit Colby Blandon MD [facility] ATRIAL FLUTTER - ablation 01/26/201404/21 - 04/21 In-person encounter Office Visit Keanu Corrigan MD [facility] HTNCOPDRBBBCHOLECYSTECTOMYHyperlipidemia CHEST PAIN-TYPE TO BE DETERMINED;WILL GARCIA-11/21 NUC NEGHIATAL HERNIA;SMALLRENAL INSUFFICIENCY 11/19 - 12/04 In-person encounter Office Visit Prabhu Martin MD [facility] AVR - 03/16 [facility] EPIC PORCINE AORTIC VALVE 06/25 - 06/25 In-person encounter Office Visit Prabhu Martin MD [facility] 08/07 - In-person encounter Office Visit Prabhu Martin MD [facility] 05/01 - 05/02 In-person encounter Office Visit Prabhu Martin MD [facility] VITAL SIGNS Date Observation Value Provider Body Mass Index (Ratio) 21.57 kg/m2 Rodriguez Martin MD blood pressure, diastolic -1 mm[Hg] Elena sanchezLognatalia blood pressure, systolic 137 mm[Hg] Kelsy Paul blood pressure, diastolic 71 mm[Hg] radu Faustino blood pressure, systolic 137 mm[Hg] Mey Harmon oxygen saturation, oximetry 97 % Misa Harmon pulse rate 68 /min Misa Harmon weight E&M 168 [lb_av] Misa Haromn respiratory rate E&M 16 /min Misa jacobs [...] MD blood pressure, diastolic 60 mm[Hg] [facility] 100 mm[Hg] Kil janelle [place] oxygen saturation, oximetry 97 % Matt respiratory rate E&M 16 /min Matt pulse rate 65 /min [place] weight E&M 183 [lb_av] [place] height E&M 74 [in_i] Matt Lo Body [...] /min Isadora samuels pulse rate 48 /min Iasdora Wasserman lder weight E&M 178 [lb_av] Isadora Wasserman lder height E&M 74 [in_i] Isadora Wasserman lder pulse rate #2 47 Whitney Herrerabithao blood pressure, talbot tolic, second observation 86 mm[Hg] Whitney Herrerabithao blood pressure, syst olic, second observation 165 mm[Hg] Whitney Herrerabithao oxygen saturation, oximetry 98 % [place] pulse rate 47 /min [place] d blood pressure, diastolic 86 mm[Hg] [facility], systolic 165 mm[Hg] Chicho padilla d pulse rate #2 57 [place] blood pressure, talbot tolic, second observation 81 mm[Hg] [place] d blood pressure, syst olic, second observation 154 mm[Hg] [place] d oxygen saturation, oximetry 98 % [place] pulse rate 57 /min [place] blood pressure, diastolic 81 mm[Hg] Vi [facility] d blood pressure, systolic 154 mm[Hg] Chicho [facility] d pulse rate #2 59 [place] blood pressure, talbot tolic, second observation 81 mm[Hg] [facility] second [facility] 140 mm[Hg] [facility], oximetry 98 % [place] pulse rate 59 /min [place] blood pressure, diastolic 81 mm[Hg] Vi [facility] d blood pressure, systolic 140 mm[Hg] Chicho padilla Ted pulse rate #2 49 [facility], talbot tolic, second observation 85 mm[Hg] [place] Ted blood pressure, syst olic, second observation 144 mm[Hg] [place] d oxygen saturation, oximetry 98 % [place] d pulse rate 49 /min [place] d blood pressure, diastolic 85 mm[Hg] Vi [facility] Tebid blood pressure, systolic 144 mm[Hg] Chicho chapmania Tebid pulse rate #2 48 [facility], talbot tolic, second observation 79 mm[Hg] [facility], syst olic, second observation 158 mm[Hg] [place] d oxygen saturation, oximetry 98 % Whitney pulse rate 48 /min [place] blood pressure, diastolic 79 mm[Hg] Vi ctoria Ted blood pressure, systolic 158 mm[Hg] Chicho padilla Ted pulse rate #2 49 [place] blood pressure, talbot tolic, second observation 76 mm[Hg] [place] d blood pressure, syst olic, second observation 138 mm[Hg] [place] oxygen saturation, oximetry 98 % Whitney pulse rate 49 /min [place] blood pressure, diastolic 76 mm[Hg] Vi [facility] Ted blood pressure, systolic 138 mm[Hg] Chicho padilla d pulse rate #2 48 [place] blood pressure, talbot tolic, second observation 86 mm[Hg] [place] blood pressure, syst olic, second observation 151 mm[Hg] [place] d oxygen saturation, oximetry 98 % [place] pulse rate 48 /min [place] blood pressure, diastolic 86 mm[Hg] Vi [facility] Ted blood pressure, systolic 151 mm[Hg] Chicho chapmania Ted pulse rate #2 54 [place] d blood pressure, talbot tolic, second observation 85 mm[Hg] [place] d blood pressure, syst olic, second observation 147 mm[Hg] [facility], oximetry 98 % Whitney pulse rate 54 /min [place] d blood pressure, diastolic 85 mm[Hg] Vi ctoria Tebid blood pressure, systolic 147 mm[Hg] Chicho chapmania bid pulse rate #2 52 [place] blood pressure, talbot tolic, second observation 84 mm[Hg] Whitney blood pressure, syst olic, second observation 152 mm[Hg] [place] oxygen saturation, oximetry 98 % [place] pulse rate 52 /min [place] blood pressure, diastolic 84 mm[Hg] Vi njoria Ted blood pressure, systolic 152 mm[Hg] Chicho padilla d pulse rate #2 58 [place] blood pressure, talbot tolic, second observation 79 mm[Hg] [facility] blood pressure, syst olic, second observation 130 mm[Hg] [facility] oxygen saturation, oximetry 98 % [place] pulse rate 58 /min [facility] blood pressure, diastolic 79 mm[Hg] [facility], [facility][Hg] Chicho padilla Ted pulse rate #2 58 [place] blood pressure, talbot tolic, second observation 76 mm[Hg] [facility] blood pressure, syst olic, second observation 127 mm[Hg] Whitney d oxygen saturation, oximetry 98 % [place] pulse rate 58 /min [facility] blood pressure, diastolic 76 mm[Hg] Vi [facility] Ted blood pressure, systolic 127 mm[Hg] Chicho padilla Tebid pulse rate #2 59 [place] blood pressure, talbot tolic, second observation 78 mm[Hg] [facility], syst olic, second observation 139 mm[Hg] [facility], oximetry 98 % [facility] pulse rate 59 /min [facility] blood pressure, diastolic 78 mm[Hg] Vi ctoria Tebid blood pressure, systolic 139 mm[Hg] Chicho padilla Tebid pulse rate #2 62 [place] Tebid blood pressure, talbot tolic, second observation 79 mm[Hg] Whitney Tebid blood pressure, syst olic, second observation 128 mm[Hg] Whitney Tebid oxygen saturation, oximetry 98 % [facility] 62 /min [place] Tebid blood pressure, diastolic 79 mm[Hg] Vi ctoria Tebid blood pressure, systolic 128 mm[Hg] Chicho padilla Tebid pulse rate #2 52 [place] Tebid blood pressure, talbot tolic, second observation 86 mm[Hg] [place] Tebid blood pressure, syst olic, second observation 135 mm[Hg] [facility], oximetry 98 % [facility] pulse rate 52 /min [facility] blood pressure, diastolic 86 mm[Hg] Vi [facility] Tebid blood pressure, systolic 135 mm[Hg] Chicho padilla Tebid pulse rate #2 71 [place] d blood pressure, talbot tolic, second observation 82 mm[Hg] [place] d blood pressure, syst olic, second observation 143 mm[Hg] [facility], oximetry 98 % [place] d pulse rate 71 /min [facility], diastolic 82 mm[Hg] Vi ctoria Tebid blood pressure, systolic 143 mm[Hg] Chicho chapmania Tebid pulse rate #2 65 [place] d blood pressure, talbot tolic, second observation 80 mm[Hg] [facility], syst olic, second observation 139 mm[Hg] [facility], oximetry 98 % [facility] pulse rate 65 /min [facility] blood pressure, diastolic 80 mm[Hg] Vi [facility] Tebid blood pressure, systolic 139 mm[Hg] Chicho chapmania d pulse rate #2 61 [place] blood pressure, talbot tolic, second observation 81 mm[Hg] Whitney blood pressure, syst olic, second observation 132 mm[Hg] [facility] oxygen saturation, oximetry 98 % [place] pulse rate 61 /min [place] blood pressure, diastolic 81 mm[Hg] [facility], systolic 132 mm[Hg] Chicho [facility] pulse rate #2 56 [place] blood pressure, talbot tolic, second observation 84 mm[Hg] [facility] blood pressure, syst olic, second observation 129 mm[Hg] [facility] oxygen saturation, oximetry 98 % [place] pulse rate 56 /min [place] blood pressure, diastolic 84 mm[Hg] Vi [facility] d blood pressure, systolic 129 mm[Hg] Chicho [facility] d pulse rate #2 55 [place] blood pressure, talbot tolic, second observation 69 mm[Hg] [facility] blood pressure, syst olic, second observation 128 mm[Hg] [facility] oxygen saturation, oximetry 98 % [place] pulse rate 55 /min [place] blood pressure, diastolic 69 mm[Hg] [facility], systolic 128 mm[Hg] Chicho padilla pulse rate #2 55 [place] blood pressure, talbot tolic, second observation 75 mm[Hg] [facility] blood pressure, syst olic, second observation 135 mm[Hg] [facility] oxygen saturation, oximetry 98 % [place] Te pulse rate 55 /min [place] blood pressure, diastolic 75 mm[Hg] Vi ctoria Tebid blood pressure, systolic 135 mm[Hg] Chicho padilla d pulse rate #2 62 [place] blood pressure, talbot tolic, second observation 81 mm[Hg] [place] blood pressure, syst olic, second observation 123 mm[Hg] [place] oxygen saturation, oximetry 98 % [place] pulse rate 62 /min [place] blood pressure, diastolic 81 mm[Hg] [facility], systolic 123 mm[Hg] Chicho padilla d pulse rate #2 62 [place] blood pressure, talbot tolic, second observation 80 mm[Hg] [facility] blood pressure, syst olic, second observation 139 mm[Hg] [place] oxygen saturation, oximetry 98 % [place] pulse rate 62 /min [place] blood pressure, diastolic 80 mm[Hg] Vi [facility] d blood pressure, systolic 139 mm[Hg] Chicho padilla d pulse rate #2 68 [place] blood pressure, talbot tolic, second observation 70 mm[Hg] [place] blood pressure, syst olic, second observation 131 mm[Hg] [place] oxygen saturation, oximetry 98 % [place] pulse rate 68 /min [place] blood pressure, diastolic 70 mm[Hg] [facility], systolic 131 mm[Hg] Chicho padilla d pulse rate #2 56 [place] blood pressure, talbot tolic, second observation 75 mm[Hg] [place] blood pressure, syst olic, second observation 142 mm[Hg] [place] oxygen saturation, oximetry 98 % [place] pulse rate 56 /min [place] blood pressure, diastolic 75 mm[Hg] [facility], systolic 142 mm[Hg] Chicho chapmania bid pulse rate #2 55 [place] blood pressure, talbot tolic, second observation 71 mm[Hg] [place] blood pressure, syst olic, second observation 140 mm[Hg] [place] oxygen saturation, oximetry 98 % Whitney pulse rate 55 /min [place] blood pressure, diastolic 71 mm[Hg] Vi [facility] d blood pressure, systolic 140 mm[Hg] Chicho padilla d pulse rate #2 52 [place] blood pressure, talbot tolic, second observation 80 mm[Hg] [place] blood pressure, syst olic, second observation 143 mm[Hg] [place] oxygen saturation, oximetry 98 % [place] pulse rate 52 /min [place] blood pressure, diastolic 80 mm[Hg] Vi [facility] d blood pressure, systolic 143 mm[Hg] Chicho causey d pulse rate #2 71 [place] blood pressure, talbot tolic, second observation 87 mm[Hg] [place] d blood pressure, syst olic, second observation 128 mm[Hg] Whitney d oxygen saturation, oximetry 98 % Whitney pulse rate 71 /min [facility] blood pressure, diastolic 87 mm[Hg] Vi ctoria d blood pressure, systolic 128 mm[Hg] Chicho chapmania d pulse rate #2 118 [place] blood pressure, talbot tolic, second observation 90 mm[Hg] [facility] blood pressure, syst olic, second observation 126 mm[Hg] [facility] oxygen saturation, oximetry 98 % [facility] pulse rate 115 /min [facility] blood pressure, diastolic 87 mm[Hg] Vi [facility] blood pressure, systolic 126 mm[Hg] Chicho [facility] pulse rate #2 51 [facility] blood pressure, talbot tolic, second observation 75 mm[Hg] [facility] blood pressure, syst olic, second observation 129 mm[Hg] [facility] oxygen saturation, oximetry 98 % [facility] pulse rate 51 /min [facility] blood pressure, diastolic 75 mm[Hg] Vi [facility] blood pressure, systolic 129 mm[Hg] Chicho padilla [facility] Body Mass Index (Ratio) 23.24 kg/m2 [...] Stefany Serna blood pressure, diastolic 95 mm[Hg] Pa sandy Serna blood pressure, systolic 153 mm[Hg] Erin Serna pulse rate 73 /min Stefany Serna oxygen saturation, oximetry 97 % Stefany Serna respiratory rate E&M 16 /min Stefany Serna Body Mass Index (Ratio) 23.19 kg/m2 [facility] deonte Kareem weight E&M 180.6 [lb_av] Stefany Serna blood pressure, diastolic 87 mm[Hg] Pa sandy Resendez blood pressure, systolic 144 mm[Hg] Erin shani Resendez pulse rate 82 /min Stefany Resendez oxygen saturation, oximetry 98 % Stefany Resendez respiratory rate E&M 15 /min Stefany Resendez Body Mass Index (Ratio) 23.11 kg/m2 [facility] weight E&M 180 [lb_av] Stefany Resendez blood pressure, diastolic 77 mm[Hg] Pa sandy Resendez blood pressure, systolic 144 mm[Hg] Erin shani Resendez pulse rate 72 /min Stefany Resendez oxygen saturation, oximetry 98 % Stefany Resendez respiratory rate E&M 14 /min Stefany Resendez Body Mass Index (Ratio) 23.36 kg/m2 Jyoti clemons [facility] weight E&M 182 [lb_av] Stefany Resendez Body Mass Index (Ratio) 22.98 kg/m2 Lauraa seun [facility] blood pressure, diastolic 75 mm[Hg] An eatris Jose Antonio blood pressure, systolic 124 mm[Hg] Ane atris Brown pulse rate 62 /min Aneatris [facility] oxygen saturation, oximetry 97 % Aneatris [facility] respiratory rate E&M 16 /min Aneatri s [facility] weight E&M 179 [lb_av] Lauraatris [facility] blood pressure, diastolic 64 mm[Hg] Me delgado [facility] blood pressure, systolic 126 mm[Hg] Erin mcleod Resendez pulse rate 66 /min Stefany Resendez oxygen saturation, oximetry 98 % Stefany Resendez respiratory rate E&M 15 /min Stefany Resendez Body Mass Index (Ratio) 23.11 kg/m2 Jyoti clemons [facility] weight E&M 180 [lb_av] Stefany Resendez blood [...] pressure, diastolic, left arm 61 mm [Hg] [facility] blood pressure, systolic, left arm 126 mm [Hg] [facility] blood pressure, diastolic, right arm 70 m m[Hg] [facility] blood pressure, systolic, right arm 131 m m[Hg] [facility] blood pressure, diastolic 61 mm[Hg] [facility] [facility] blood pressure, systolic 126 mm[Hg] [facility] pulse rate 72 /min [facility] oxygen saturation, oximetry 99 % [facility] respiratory rate E&M 16 /min [facility] weight E&M 165 [lb_av] [facility] blood pressure, diastolic, left arm 66 mm [Hg] Joselin O'Jason blood pressure, systolic, left arm 132 mm [Hg] Joselin O'Jason blood pressure, diastolic, right arm 64 m m[Hg] Joselin O'Jason blood pressure, systolic, right arm 123 m m[Hg] Joselin O'Jason blood pressure, diastolic 66 mm[Hg] [facility] O'Jason blood pressure, systolic 132 mm[Hg] [facility] andres O'Jason pulse rate 49 /min Joselin O'Jason oxygen saturation, oximetry 98 % Joselin O'Jason respiratory rate E&M 16 /min Joselin O'Jason weight E&M 173 [lb_av] Joselin O'Jason blood pressure, diastolic, left arm 62 mm [Hg] Kathia [place] blood pressure, systolic, left arm 126 mm [Hg] [facility] blood pressure, diastolic, right arm 63 [...] iron binding capacity, unsaturated 212 ug/dL [employer] [phone]/ 07/19 iron binding capacity, total 265 ug/dL [employer] [phone]/ 07/19 basophil count, absolute 0.0 x10E3/uL [employer] [...] Estab. 11/11 platelet count 151 X10E3/UL [employer] [phone]/ 01/04 red blood cell distribution width 15.3 [...] <=527 08/27 cholesterol, serum 116 mg/dL [employer] [phone]/ 10/20 triglyceride, serum, fasting 139 mg/dL [employer] [...] 09/02 prothrombin time (patient) 24.3 s Isadora Pikeracuqel 08/24 coagulation managed by Cindy Crow RN 08/24 prothrombin time (patient) 30.5 s Kristen [place] 08/24 international normalized ratio (INR) 2.5 Kristen [place] Normal 08/04 coagulation managed by J Carlos [...] 5.1 High 03/31 sodium, serum 143.0 mmol/L [facility] 136.0 - 145.0 03/31 creatinine, serum 2.2 mg/dL [facility] 0.7 - 1.2 High 03/31 carbon dioxide, venous blood 25.0 mmol/L [facility] 23.0 - 31.0 03/31 calcium, serum 8.9 mg/dL [facility] 8.6 - 10.2 03/31 urea nitrogen, blood 35.0 mg/dL [facility] 8.0 - 23.0 High 03/31 blood glucose, random 105.0 mg/dL [facility] 74.0 - 99.0 High 03/31 red blood cell distribution width, size density 52.1 fL [facility] 03/31 immature granulocytes, percentage of total cells, blood 0.1 % [facility] 03/31 nucleated red blood cells as percent of blood leukocytes 0.0 % [facility] 03/31 red blood cell (erythrocyte) count, per high power field 0.0 10*3/UL [facility] 03/31 eosinophils as percent of blood leukocytes 1.8 % [facility] 03/31 neutrophils as percent of blood leukocytes 68.9 % [facility] 03/31 Absolute Neutrophils 4.9 [facility] 1[facility] - 7.8 03/31 basophils as percent of blood leukocytes 0.1 % [facility] 03/31 Absolute Basophils 0.0 [facility]LLS/[facility] - 0.2 03/31 monocytes as percent of blood leukocytes 7.4 % [facility] 03/31 Absolute Monocytes 0.5 CELLS/UL [employer] 0.2 - 1.0 03/31 lymphocytes as percent of blood leukocytes 21.7 % [facility] 03/31 Absolute Lymphocytes 1.6 CELLS/UL [employer] 0.9 - 3.9 03/31 mean platelet volume 11.7 (?) [facility] 03/31 platelet count 156.0 THOUSAND/UL [employer] 100.0 - 400.0 03/31 mean corpuscular hemoglobin concentration, RBC 32.0 G/DL [facility] 31.0 - 38.0 03/31 mean corpuscular [...] RN 03/30 international normalized ratio (INR) 2.9 Rashda Dillon Normal 03/30 prothrombin time (patient) 34.2 [...] 03/05 carbon dioxide, venous blood 26.0 mmol/L [facility] 23.0 - 31.0 03/05 calcium, serum 8.5 mg/dL [facility] 8.6 - 10.2 Low 03/05 urea nitrogen, blood 36.0 mg/dL [facility] 8.0 - 23.0 High 03/05 blood glucose, random 120.0 mg/dL [facility] [facility] 74.0 - 99.0 High 03/05 red blood cell distribution width, size density 54.4 fL [facility] - 03/05 immature granulocytes, percentage of total cells, blood 0.1 % [facility] - 03/05 nucleated red blood cells as percent of blood leukocytes 0.0 % [facility] - 03/05 red blood cell (erythrocyte) count, per high power field 0.0 10*3/UL [facility] 03/05 eosinophils as percent of blood leukocytes 1.5 % [facility] - 03/05 neutrophils as percent of blood leukocytes 67.6 % [facility] - 03/05 Absolute Neutrophils 4.5 CELLS/UL [facility] 1.5 - 7.8 03/05 basophils as percent of blood leukocytes 0.1 % [facility] - 03/05 Absolute Basophils 0.0 CELLS/UL [facility] 0.0 - 0.2 03/05 monocytes as percent of blood leukocytes 7.3 % [facility] - 03/05 Absolute Monocytes 0.5 CELLS/UL [facility] 0.2 - 1.0 03/05 lymphocytes as percent of blood leukocytes 23.4 % [facility] - 03/05 Absolute Lymphocytes 1.6 CELLS/UL [facility] 0.9 - 3.9 03/05 mean platelet volume 11.5 (?) [facility] - 03/05 platelet count 137.0 THOUSAND/UL [facility] 100.0 - 400.0 03/05 mean corpuscular hemoglobin concentration, RBC 31.6 G/DL [facility] 31.0 - 38.0 03/05 mean corpuscular hemoglobin, RBC 30.9 pg [facility] 25.0 - 35.0 03/05 mean corpuscular volume, RBC 97.8 fL [facility] 75.0 - 100.0 03/05 hematocrit, blood 35.1 [...] RN 11/03 international normalized ratio (INR) 1.5 Kimberli Carito Normal 11/03 prothrombin time (patient) 18.2 [...] 05/03 thyroid stimulating hormone, serum 0.712 u[IU]/mL [facility] 05/03 alanine aminotransferase (SGPT), serum 28 1/L [facility] 05/03 aspartate aminotransferase (SGOT), serum 20 1/L [facility] 05/03 creatinine, serum 1.42 mg/dL [facility] 05/03 potassium, serum 4.1 mmol/L [facility] 05/03 sodium, serum 143 mmol/L [facility] 01/26 platelet count 196 10*3/mm3 [facility] 01/26 hematocrit, blood 37.6 % [facility] 02/02 coagulation managed by J Carlos Sauceda RN 02/02 prothrombin time (patient) 27.1 s J Carlos Sauceda RN 02/02 international normalized ratio (INR) 2.7 J Carlos Sauceda RN Normal 01/24 coagulation managed by J [...] Barrios Normal 03/23 platelet count 144 10*3/mm3 [facility] 03/23 hematocrit, blood 36.5 % [facility] 03/23 creatinine, serum 1.67 mg/dL [facility] 03/23 potassium, serum 4.9 mmol/L [facility] 03/23 sodium, serum 140 mmol/L [facility] 04/22 thyroid stimulating hormone, serum 0.569 u[IU]/mL [facility] 04/22 LDL cholesterol, serum 102 mg/dL [facility] 04/22 cholesterol, serum 155 mg/dL [facility] 04/22 platelet count 139 10*3/mm3 [facility] 04/22 hematocrit, blood 37.4 % [facility] 04/22 alanine aminotransferase (SGPT), serum 20 1/L [facility] 04/22 aspartate aminotransferase (SGOT), serum 22 1/L [facility] 04/22 creatinine, serum 1.50 mg/dL [facility] 04/22 potassium, serum 4.1 mmol/L [facility] 04/22 sodium, serum 140 mmol/L [facility] 07/08 basophils as percent of blood leukocytes [...] 07/08 Absolute Neutrophil count 5921 cells/mcL [facility] [id number] Normal 07/08 platelet count 135 THOUSAND/UL [facility] [...] no Najma Block smoking status [facility] social history E&M Marital Statu s: [...] no Chastity Neal smoking status Never smoker [facility] e social history E&M Marital Statu s: L minerva with family/friends E thnicity: Smoking History: P bita has never smoked. Prabhu Martin MD social history reviewed E&M revi ewed - no changes required Prabhu Martin MD physical exercise, f requency, days per week yes [place] Lo alcohol use, average drinks per day none [place] alcohol use no [place] caffeine use, averag e drinks per [...] 1+ Isadora Mart drug use none Isadora Shahzadmaria dsilviazeyad [...] use, average drinks per day none Stefany eRsendez alcohol use no Stefany Resendez caffeine use, [...] level yes Whitney Tebid energy level yes [place] Tebid energy level yes [place] Tebid energy level yes [place] Tebid energy level yes [place] Tebid energy level yes [place] Tebid energy level yes [place] Tebid energy level yes [place] Tebid energy level yes [place] Tebid energy level yes [place] Tebid energy level yes [place] Tebid energy level yes [place] Tebid energy level yes [place] Tebid energy level yes [place] Tebid energy level yes [place] Tebid energy level no [place] Tebid energy level no [place] Tebid assessment of judgme nt and insight [...] Payer name Policy type / Coverage type [place] [employer] party ID [facility] [id number] [place] Medicare [id number] ADVANCE DIRECTIVES Name Date DISCUSSED - NO DECISION MADE TREATMENT PLAN Date Name Performer [id number],C, F unction satisfactory on most recent echo in 2018. The aortic valve area in 2018 was 0.7cm2. The aortic murmur seemed louder on auscultation. Prabhu Martin MD [id number],C, E KG is unchanged from last year, sinus rhythm, RBBB with left axis. Prabhu Martin MD [id number],S, C ontinues on Atorvastatin. Prabhu Martin MD [id number],C,B lood pressure control is satisfactory. 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 Prabhu Martin MD [id number],S, C hest pain free. Prabhu Martin MD [id number],C,In remission, on Xtandi. Prabhu Martin MD [id number],C,F unction satisfactory on most recent echo in 2018. The aortic valve area in 2018 was 0.7cm2. The aortic murmur seemed louder on auscultation. We will check the echo to assess the aortic valve area. Prabhu Martin MD [id number],C,E KG is unchanged from last year, sinus bradycardia, RBBB with left axis. Prabhu Martin MD [id number],C, C ontinues on Atorvastatin. Prabhu Martin MD [id number],C,In remission, follows oncology. Prabhu Martin MD [id number],C,Chest pain fr ee. Prabhu Martin MD [id number],C,H igh blood pressure readings may be a side effect of Xtandi, taken for prostate cancer. His BP today was 118/60. Prabhu Martin MD [id number],C,P atient's granddaughter currently trying to arrange follow-up with neurology. Prabhu Martin MD [id number],C,C ontinues on Atorvastatin. Prabhu Martin MD [id number],C,In remission. Prabhu Martin MD [id number],C,B P contorl is satisfactory. Prabhu Martin MD [id number],C,F unction satisfactory on most recent echo. Prabhu Martin MD [id number],C,I n sinus rhythm on EKG today. Continues on Metoprolol. Not on OAC due to fall risk. Prabhu Martin MD [id number],C,C hest pain free. He continues on Aspirin. 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 Prabhu Martin MD Cardiology: C hest pain [...] therapy due to nausea. Follows oncology at [place]. Cardiology:Remains s ymptomatic with pain which limits [...] advised. Prabhu Martin MD TeleHealth:No chest pain. Prabhu Martin MD TeleHealth:Persisten t and unchanged. Continues [...] breath, fatigue, dizziness, nausea, or diaphoresis) of [place] Cardiovascular Society Class III (defined as symptoms with everyday living activities, i.e. moderate limitation) or [place] Cardiovascular Society Class IV (defined as inability [...] times daily as needed Orders: Jadiel VILCHIS (CPT-82675) Prabhu Martin MD follow up: H is [...] Levine follow up: O rders: Jadiel KG (CPT-19069) The following medications were removed from the [...] tab. daily Orders: M obile Cardiac Tele CarlineCPT-[id number]) Prabhu Martin MD follow up: O rders: Kali obile Cardiac Tele CarlineCPT-89927) Prabhu Martin MD follow up: T he following medications were removed from the medication list: Lisinopril 10 Mg Tabs (Lisinopril) ..... 1 daily His updated medication list for this problem includes: Lisinopril-hydrochlorothiazide 20-12.5 Mg Oral Tabs (Lisinopril-hydrochlorothiazide) ..... Once daily Aspirin 81 Mg Tabs (Aspirin) ..... One tab. daily Orders: Kali obile Cardiac Tele CarlineCPT-14257) Prabhu Martin MD follow up: O rders: Kali obile Cardiac Tele CarlineCPT-81024) Prabhu Martin MD follow up: T he following medications were removed from the medication list: Lisinopril 10 Mg Tabs (Lisinopril) ..... 1 daily His updated medication list for this problem includes: Lisinopril-hydrochlorothiazide 20-12.5 Mg Oral Tabs (Lisinopril-hydrochlorothiazide) ..... Once daily Aspirin 81 Mg Tabs (Aspirin) ..... One tab. daily Orders: Kali obile Cardiac Tele CarlineCPT-28006) Prabhu Martin MD follow up: O rders: Kali obile Cardiac Tele CarlineCPT-08133) Prabhu Martin MD follow up: T he [...] 55-60%. AR at 2+ on the aortogram. [facility] (03/27/2009) C arotid Doppler/Duplex: Normal [facility] (03/28/2009) C HOL: 119 (07/08/2010) LDL: 57 MG/DL (CALC) (07/08/2010) HDL: 50 (07/08/2010) T (07/08/2010) H CT: 38.5 (07/08/2010) Platelets: 135 THOUSAND/UL (07/08/2010) R BC: 4.09 MILLION/UL (07/08/2010) BUN: 26 (07/08/2010) Creat: 1.21 (07/08/2010) Glucose: 87 (07/08/2010) N a+: 142 (07/08/2010) K+: 4.4 (07/08/2010) Cl: 104 (07/08/2010) O rders: S pirometry (CPT-49449) X -Ray, Chest, PA & Lateral (CPT-47992) S tress Test - Adenosine (91400) Keanu Corrigan MD follow up: T he [...] 55-60%. AR at 2+ on the aortogram. [facility] (03/27/2009) C arotid Doppler/Duplex: Normal [facility] (03/28/2009) C HOL: 119 (07/08/2010) LDL: 57 MG/DL (CALC) (07/08/2010) HDL: 50 (07/08/2010) T (07/08/2010) H CT: 38.5 (07/08/2010) Platelets: 135 THOUSAND/UL (07/08/2010) R BC: 4.09 MILLION/UL (07/08/2010) BUN: 26 (07/08/2010) Creat: 1.21 (07/08/2010) Glucose: 87 (07/08/2010) N a+: 142 (07/08/2010) K+: 4.4 (07/08/2010) Cl: 104 (07/08/2010) O rders: S pirometry (CPT-58618) C ardiopulmonary Stress Test (CPT-93802) e Prescribe - Check this box if eRx is used (CPT-G8553) X -Ray, Chest, PA & Lateral (CPT-47998) S tress Test - Adenosine (10270) Kenau Corrigan MD follow up: O rders: C omplete Echo (CPT-57672) S pirometry (CPT-31657) C ardiopulmonary Stress Test (CPT-97994) e Prescribe - Check this box if eRx is used (CPT-G8553) X -Ray, Chest, PA & Lateral (CPT-75928) S tress Test - Adenosine (66084) Keanu Corrigan MD follow up: T he [...] (CALC) (07/08/2010) T (07/08/2010) Orders: S pirometry (CPT-51121) C ardiopulmonary Stress Test (CPT-64956) e Prescribe - Check this box if eRx is used (CPT-G8553) X -Ray, Chest, PA & Lateral (CPT-73139) S tress Test - Adenosine (54969) Keanu Corrigan MD follow up: O rders: S pirometry (CPT-31186) C ardiopulmonary Stress Test (CPT-98376) e Prescribe - Check this box if eRx is used (CPT-G8553) X -Ray, Chest, PA & Lateral (CPT-61510) S tress Test - Adenosine (79837) Keanu Corrigan MD follow up: O rders: S pirometry (CPT-53474) C ardiopulmonary Stress Test (CPT-71188) e Prescribe - Check this box if eRx is used (CPT-G8553) X -Ray, Chest, PA & Lateral (CPT-25225) S tress Test - Adenosine (27124) Keanu Corrigan MD follow up: B P today: 126/61 Prior BP: 132/66 (11/19/2010) Pulmonary Functions Reviewed: O 2 sat: 99 (04/21/2012) Orders: S pirometry (CPT-86594) C ardiopulmonary Stress Test (CPT-48503) e Prescribe - Check this box if eRx is used (CPT-G8553) X -Ray, Chest, PA & Lateral (CPT-31359) S tress Test - Adenosine (55902) Keanu Corrigan MD follow up: T he [...] here is trace physiologic pulmonic valve regurgitation. [facility] (05/03/2009) C ardiac Cath: CAD. Normal LV systolic function with an EF of 55-60%. AR at 2+ on the aortogram. [facility] (03/27/2009) Orders: S pirometry (CPT-13667) C ardiopulmonary Stress Test (CPT-11215) e Prescribe - Check this box if eRx is used (CPT-G8553) X -Ray, Chest, PA & Lateral (CPT-80669) S tress Test - Adenosine (30838) Keanu Corrigan MD routine post cabg-av r: [...] 55-60%. AR at 2+ on the aortogram. [facility] (03/27/2009) C arotid Doppler/Duplex: Normal [facility] (03/28/2009) Prabhu Martin MD routine post cabg-avr [...] Cath - Left - GC DLCO - 22092 FRC - 49869 FVC - 88169 STR - Adenosine Complete Echo Mobile Cardiac [...] EKG Prabhu Martin MD complet ed SNOMED-CT: 910827256487743 Current Medications Documented Prabhu Martin MD completed SNOMED-CT: 880506119486733 Current Medications Documented Prabhu Martin MD completed EKG Prabhu Martin MD complet ed Varghese Martin MD complet ed EKG Prabhu Martin MD complet ed SNOMED-CT: 815658669561226 Current Medications Documented Prabhu Martin MD completed Varghese Martin MD complet ed Varghese Martin MD complet ed KAYDEN Martin MD completed EKG Prabhu Martin MD complet ed SNOMED-CT: 462986583979788 Current Medications Documented Prabhu Martin MD completed Varghese Martin MD complet ed Varghese Martin MD complet ed Varghese Martin MD complet ed Varghese Martin MD complet ed Varghese Martin MD complet ed Varghese Martin MD complet ed Varghese Martin MD complet ed Varghese Martin MD complet ed INR Strip Prabhu Martin MD complet ed LUISITOG Prabhu Martin MD complet ed SNOMED-CT: 714845601958120 Current Medications Documented Prabhu Martin MD completed INR Strip Prabhu Martin MD complet ed Varghese Martin MD complet ed INR Strip Prabhu Martin MD complet ed SNOMED-CT: 41516767 Physical Exam, Performed: Pulse Exam of Foot Prabhu Martin MD completed LUISITOG Prabhu Martin MD complet ed SNOMED-CT: 688791475906391 Current Medications Documented Prabhu Martin MD completed Varghese Martin MD complet ed Varghese Martin MD complet ed EKOk Martin MD complet ed SNOMED-CT: 106402876834032 Current Medications Documented Prabhu Martin MD completed INR Strip Prabhu Martin MD complet ed EKOk Martin MD complet ed SNOMED-CT: 629036053033666 Current Medications Documented Prabhu Martin MD completed [...] HEMOGLOBIN Prabhu Martin MD completed FVC - 62381 Prabhu Martin MD comple estefani FRC - 06639 Prabhu Martin MD comple estefani DLCO - 63264 Prabhu Martin MD compl eted Varghese Martin MD complet ed Varghese Martin MD complet ed Varghese Martin MD complet ed Varghese Martin MD complet ed INR Strip Prabhu Martin MD complet ed SNOMED-CT: 818681293 Smoking Cessation Counseling Prabhu Martin MD completed SNOMED-CT: 67358282 Physical Exam, Performed: Pulse Exam of Foot Prabhu Martin MD completed Varghese Martin MD complet ed EKG Prabhu Martin MD complet ed SNOMED-CT: 571417362087850 Current Medications Documented Prabhu Martin MD completed Varghese Martin MD complet ed Varghese Sauceda RN completed INR Strip Prabhu Martin MD complet ed Holter, 24 or 48 Prabhu Martin MD c ompleted Varghese Martin MD complet ed EKG Interpret Outsid e EKG Earnest Elizabeth MD completed SNOMED-CT: 31907137 Physical Exam, Performed: Pulse Exam of Foot Earnest Elizabeth MD completed SNOMED-CT: 839826464030351 Current Medications Documented Earnest Elizabeth MD completed SNOMED-CT: 726718216576886 Current Medications Documented Prabhu Martin MD completed SNOMED-CT: 361077233 Smoking Cessation Counseling Prabhu Martin MD completed SNOMED-CT: 00957791 Physical Exam, Performed: Pulse Exam of Foot Prabhu Martin MD completed EKG Prabhu Martin MD complet ed SNOMED-CT: 148490982926546 Current Medications Documented Prabhu Martin MD completed EKG Prabhu Martin MD complet ed EKG Prabhu Martin MD complet ed EKG Prabhu Martin MD complet ed EKG Prabhu Martin MD complet ed Schedule Followup Colby mcdonald MD Atrial flutter ablation 02/02/2014 completed EKG Colby rutledge MD completed DLCO - 01323 Jose G Hewitt completed FRC - 79532 Jose G Hewitt completed [facility] - 99044 Jose G Billsaysha completed EKG Colby rutledge MD completed ePrescribe - Check t his box if eRx is used Keanu Corrigan MD completed EKG Keanu Corrigan MD complete d EKG Prabhu Martin MD complet ed EKG Prabhu Martin MD complet ed
--- OUTSIDE RECORDS SUMMARY | 2024-12-07 12:55 | XMS_ITS | Referral Summary ---
Author Organization [facility] Address [address] [place] [address] Care Team Providers Care Napkin Band Wrapper Name Role Phone Prabhu Martin MD Primary Care Provider [phone] Source Comments [facility],non-owned Affiliates and Associated Physician Practices is amultiple site organization consisting of ambulatory clinics and hospital sitesin [place], [place], [place] and [place]. This disclosure is being madepursuant to the Care Everywhere program and may not contain all information available regarding this patient. Last updated 18.[facility] Allergies Active Allergy Reactions Criticality Noted Date [...] 100 mg by mouth once daily Active [place]-3 Fatty Acids (FISH OIL) 1000 MG capsule [...] Documents on File Type Date Recorded Patient Multiple Needle Stitcher Expl anation Adv Directive/Living Will/POA 03/23/2017 * Full Code (Latest Code Status on File) Date Activated Date Inactivated Comments 04/19/2017 2:36 PM 04/20/2017 11:54 AM Care Teams Napkin Band Wrapper Relationship Specialty Start Date End Date Prabhu Martin MD [address] [place] [address] PCP - General 03/27/09
--- OUTSIDE RECORDS SUMMARY | 2024-12-07 12:55 | XMS_ITS | Continuity of Care Document ---
Author Organization [facility] Address [address] [place] [address] [address] [place] [address] Phone Care Team Providers Care Shipper Receiver Name Role Phone Tavera OD, Dallin Unavailable [...] Diagnoses Date Provider Providers Copied on Encounter [facility], [address], [place], [place], [id number], [place] tel:[phone] [facility] No Information Oct-2 0 Tavera OD Dallin. [address] [facility] [place] , [address], [place], [address], [place]. tel:[phone] Referring Provider: Mark Cervantes [address] [place], [place] [address]ate Center [address], [place], [place], [facility]. tel:[phone] [facility], [address] [place] [address] [address], [place], [place], [id number], [place] tel:[phone] [facility] No Information Oct-0 8-201 0 Syd Flores. [address] [place] [address] Center , [address], [place], [place], [facility], [place]. tel:[phone] [facility], [address] [place] [address] [address], [place], [place], [id number], [place] tel:[phone] [facility] No Information Oct-0 7-201 0 Syd Flores. [address] [place], [place] [address]ate Center , [address], [place], [place], [facility], [place]. tel:[phone] [facility], [address] [place] [address] [address], [place], [place], [address], [place] tel:[phone] [facility] No Information Oct-0 4-201 0 Syd Flores. [address] [place] [address] , [address], [place], [place], [facility], [place]. tel:[phone] Referring Provider: Mark Cervantes, [address] [place], [place] [address]ate Center [address], [place], [place], [facility]. tel:[phone] [facility], [address] [place] [address] [address], [place], [place], [address], [place] tel:[phone] [facility] No Information Sep-0 7-201 0 Tavera OD Dallin. [address] [place], [place] [address]ate Center , [address], [place], [facility], [place]. tel:[phone] [facility], [address] [place] [address] [address], [place], [place], [address], [place] tel:[phone] [facility] No Information Aug-2 0-201 0 Syd Flores. [facility] Center , [address], [place], [facility], [place]. tel:[phone] [facility], [address] [place] [address] [address], [place], [place], [address], [place] tel:[phone] [facility] No Information 9-201 0 Syd Edalec. [address] [place], [place] [address]ate Center , [address], [place], [facility], [place]. tel:[phone] Office/outpat ient Visit, [facility], [address] [place] [address] [address], [place], [place], [address], [place] tel:[phone] [facility] No Information 6-201 0 Syd Flores. [address] [place] [address] Center , [address], [place], [facility], [place]. tel:[phone] Referring Provider: Mark Cervantes, [address] [place], [place] [address]ate Center [address], [place], [facility]. tel:[phone] Office/outpat ient Visit, [facility], [address] [place] [address] [address], [place], [place], [id number], [place] tel:[phone] [facility] No Information Mar-0 3-201 0 Syd Edalec. [address] [place] [address] Center , [address], [place], [facility], [place]. tel:[phone] Office/outpat ient Visit, [facility], [address] [place] [address] [address], [place], [place], [address], [place] tel:[phone] [facility] No Information Sep-0 9-200 9 Syd Flores. [address] [place], [place] [address]ate Center , [address], [place], [facility], [place]. tel:[phone] Office/outpat ient Visit, [facility], [address] [place] [address] [address], [place], [place], [address], tel:[phone] [facility] No Information 8 Syd Flores. [address] [place] [address] , [address], [place], [facility], . tel:[phone] Office/outpat ient Visit, [facility], [address], [place], [place], [address], [place] tel:[phone] [facility] No Information 7 Syd Flores. [address] [place] [address] [address], [place], [facility], . tel:[phone] [facility], [address], [place], [place], [address], [place] tel:[phone] [facility] No Information 7 Syd Flores. [address] [place] [address] [address], [place], [facility], . tel:[phone] Referring Provider: Mark Cervantes [address] [place] [address] [address], [place], [facility]. tel:[phone] Family History Family Member Type Diagnosis Age At Onset No Information Payers Payer name Insurance type Covered republican ID Authoriza tion(s) No Information Social History [...]
[2024-12-07 13:30] LABS: Basophils Percent Auto 0.2 % (0.2-1.2); Eosinophils Absolute Auto 0.2 K/mm3 (0-0.3); Eosinophils Percent Auto 2.2 % (0-4.4); Immature Granulocyte Absolute 0.05 K/mm3 (0.00-0.031); Immature Granulocyte Percent A 0.6 % (0-0.5); Lymphocytes Absolute Auto 1.51 K/mm3 (0.9-3.2); Lymphocytes Percent Auto 17.6 % (18.3-44.2); Mean Corpuscular HGB Conc 32.4 g/dl (32-36); Mean Corpuscular Hemoglobin 30.2 pg (26-34); Mean Corpuscular Volume 93.4 fl (80-100); Mean Platelet Volume 10.2 fl (7.4-10.4); Monocytes Absolute Auto 0.4 K/mm3 (0.1-0.6); Monocytes Percent Auto 5.1 % (2.6-8.5); Neutrophils Absolute Auto 6.4 K/mm3 (1.3-6.7); Neutrophils Percent Auto 74.3 % (45.5-73.1); Platelet Count Result 189 k/mm3 (150-375); Red Blood Count 3.64 M/mm3 (4.6-6.20); Red Cell Distribution Width 14.4 % (11.5-14.5); White Blood Count 8.6 K/mm3 (4.5-10.0)
[2024-12-07 13:39] LABS: Alanine Aminotransferase 14 U/L (6-50); Albumin Level 4.2 g/dL (3.5-5.1); Alkaline Phosphatase 277 U/L (38-126); Anion Gap 8 mmol/L (4-12); Aspartate Amino Transferase 28 U/L (17-59); Bilirubin,Total 0.5 mg/dL (0.2-1.3); Blood Urea Nitrogen 58 mg/dL (9-20); Calcium 9.6 mg/dL (8.4-10.2); Carbon Dioxide 22 mmol/L (22-30); Chloride 108 mmol/L (98-107); Estimated Glomerular Filt Rate 20; Glucose 109 mg/dL (65-110); Potassium 4.6 mmol/L (3.4-5.0); Sodium 138 mmol/L (137-145)
[2024-12-07 13:45] LABS: Influenza A QL RT-PCR Negative (Negative); Influenza B QL RT-PCR Negative (Negative); RSV RNA, RT-PCR Negative (Negative); SARS-CoV-2 RNA PCR Negative (Negative)
[2024-12-07 14:00] VITALS: BP 136/57; PULSE 82; RESP 18; O2SAT 97
--- NOTE | 2024-12-07 14:15 | ED_ITS ---
HPI - General Adult General Chief complaint: Urogenital-Male Stated complaint: family wants eval for UTI Time Seen by Provider: 12/07/24 12:02 History of Present Illness HPI narrative: This is an 89-year-old male with dementia presenting from assisted living for possible increased agitation. His daughter noticed that he seemed more agitated than usual although at the moment he is very calm. Patient has severe dimension is A&O x1 at baseline. He has no complaints at this time. Denying headaches, chest pain difficulty breathing abdominal pain urinary symptoms nausea vomiting diarrhea. Related Data Home Medications ?Medication ?Instructions ?Recorded ?Confirmed ?Last Taken ?Type hydrochlorothiazide 12.5 mg tablet 12.5 mg PO DAILY 01/06/22 12/31/23 05/24/22 08:00 History mirtazapine 30 mg tablet 30 mg PO HS 01/06/22 12/31/23 05/24/22 22:00 History oxybutynin chloride 5 mg 5 mg PO HS 01/06/22 12/31/23 05/24/22 22:00 History tablet,extended release 24 hr Allergies Allergy/AdvReac Type Severity Reaction Status Date / Time fesoterodine (From Toviaz) Allergy Severe Unknown Verified 03/19/24 19:57 morphine Allergy Unknown Nausea And Verified 03/19/24 19:57 Vomiting Penicillins Allergy Unknown Swelling Verified 03/19/24 19:57 PMFSH Past Medical History Medical History Left hip pain Prostate cancer metastatic Hypertension Coronary artery disease involving [place] coronary artery of [place] heart Surgical History Surgical History Hx of CABG Family History Family History Father Cancer Mother Cancer Social History Social History Social History: Smoking packs per day: 1 Smoking cigarettes per day: 20.0 Smoking status: Former smoker Tobacco type: cigarettes Second hand tobacco smoke exposure: Yes Smoking end date: 11/08/1965 Alcohol intake: never Substance use: never Substance use type: does not use Living arrangements: with family Occupation/Education: retired Gender identity (if verbalized by the patient): Male Sexual Orientation (if Verbalized by the Patient): Straight or Heterosexual Spiritual care concerns: No Exam 2 Narrative: APPEARANCE: No apparent distress. Head: atraumatic. EYES: EOMI, NOSE: Atraumatic NECK: Trachea midline RESPIRATORY: No increased rate of breathing clear to auscultation CARDIOVASCULAR: RRR, no peripheral edema ABDOMINAL: Non-distended soft nontender MUSCULOSKELETAl: No obvious deformities NEURO: Alert. Cranial nerves 2-12 grossly intact. Sensation light touch, motor function cerebellar function intact for 4 extremities. Patient is wheelchair- bound SKIN:: Warm, dry. Normal color PSYCHIATRIC: Normal affect Course Vital Signs Vital signs: Vital Signs Temperature 98.2 F 12/07/24 09:59 Pulse Rate 74 12/07/24 09:59 Respiratory Rate 16 12/07/24 09:59 Blood Pressure 110/54 L 12/07/24 09:59 Pulse Oximetry 100 12/07/24 09:59 Oxygen Delivery Room Air 12/07/24 09:59 Temperature 98.2 F 12/07/24 09:59 Pulse Rate 85 12/07/24 12:39 Respiratory Rate 18 12/07/24 12:39 Blood Pressure 154/71 H 12/07/24 12:39 Pulse Oximetry 95 12/07/24 12:39 Oxygen Delivery Room Air 12/07/24 09:59 Medical Decision Making [facility] Narrative Medical decision making narrative: -Course: 89-year-old male with dementia presenting with possible agitated behavior. Physical exam is unremarkable and is stable vital signs. Screening lab work was significant for slight signs of dehydration with a mild bump in his creatinine. Urine had 11-20 white blood cells +1 leuk esterase but no bacteria or nitrites. Patient given a 1 L of normal saline. I discussed admission versus discharge with the son. Patient has dementia and there definitely risk to admitting with the hospital including delirium/worsening dementia or exposure to hospital related infections. The son is in agreement that we could send him back to the assisted living and if his condition is to worsen he should return to the ED immediately. -DDX includes but is not limited to: Sepsis UTI viral syndrome dehydration pneumonia Vital Signs Vital Signs: Vital Signs Temperature 98.2 F 12/07/24 09:59 Pulse Rate 74 12/07/24 09:59 Respiratory Rate 16 12/07/24 09:59 Blood Pressure 110/54 L 12/07/24 09:59 Pulse Oximetry 100 12/07/24 09:59 Oxygen Delivery Room Air 12/07/24 09:59 Temperature 98.2 F 12/07/24 09:59 Pulse Rate 85 12/07/24 12:39 Respiratory Rate 18 12/07/24 12:39 Blood Pressure 154/71 H 12/07/24 12:39 Pulse Oximetry 95 12/07/24 12:39 Oxygen Delivery Room Air 12/07/24 09:59 Lab Data 12/07/24 13:17 12/07/24 13:17 Labs: Lab Results 12/07/24 12/07/24 12/07/24 Range/Units 11:21 12:54 13:17 WBC 8.6 (4.5-10.0) K/mm3 RBC 3.64 L (4.6-6.20) M/mm3 Hgb 11.0 L (14.0-18.0) g/dL Hct 34.0 L (42.0-52.0) % MCV 93.4 (80-100) fl MCH 30.2 (26-34) pg MCHC 32.4 (32-36) g/dl RDW 14.4 (11.5-14.5) % Plt Count 189 (150-375) k/mm3 MPV 10.2 (7.4-10.4) fl Immature Gran % (Auto) 0.6 H (0-0.5) % Neut % (Auto) 74.3 H (45.5-73.1) % Lymph % (Auto) 17.6 L (18.3-44.2) % [place] % (Auto) 5.1 (2.6-8.5) % Eos % (Auto) 2.2 (0-4.4) % Baso % (Auto) 0.2 (0.2-1.2) % Lymph # (Auto) 1.51 (0.9-3.2) K/mm3 [place] # (Auto) 0.4 (0.1-0.6) K/mm3 Eos # (Auto) 0.2 (0-0.3) K/mm3 Baso # (Auto) 0.0 (0.0-0.1) K/mm3 Abs Immat Gran (auto) 0.05 H (0.00-0.031) K/mm3 Absolute Neuts (auto) 6.4 (1.3-6.7) K/mm3 Absolute Nucleated RBC 0.000 (0.0-0.012) K/mm3 Nucleated RBC % 0.0 (0.0-0.2) % Sodium 138 (137-145) mmol/L Potassium 4.6 (3.4-5.0) mmol/L Chloride 108 H (98-107) mmol/L Carbon Dioxide 22 (22-30) mmol/L Anion Gap 8 (4-12) mmol/L BUN 58 H D (9-20) mg/dL Creatinine 2.99 H (0.7-1.3) mg/dL Estim Creat Clear Calc Not Reportable Estimated GFR 20 L (59 - ) Glucose 109 (65-110) mg/dL Calcium 9.6 (8.4-10.2) mg/dL Total Bilirubin 0.5 (0.2-1.3) mg/dL AST 28 (17-59) U/L ALT 14 (6-50) U/L Alkaline Phosphatase 277 H (38-126) U/L Total Protein 8.0 (6.3-8.2) g/dL Albumin 4.2 (3.5-5.1) g/dL Urine Color Yellow (Yellow) Urine Appearance Clear (Clear) Urine pH 5.0 (5.0-9.0) Ur Specific [place] 1.018 (1.001-1.035) Urine Protein Negative (Negative) mg/dL Urine Glucose (UA) Negative (Negative) mg/dL Urine Ketones Negative (Negative) mg/dL Ur Blood (Man) Negative (Negative) Urine Nitrate Negative (Negative) Urine Bilirubin Negative (Negative) Urine Urobilinogen 0.2 (<2.0) mg/dL Add Ur Microanalysis Reviewed Leukocyte Esterase Rfl 1+ H (Negative) JOHN/UL Urine RBC 0-2 (0-2) /hpf Urine WBC 11-20 H (0-3) /hpf Ur Squamous Epith Cells None seen (Few) /hpf Urine Bacteria None seen /hpf Urine Casts 6-10 Hyaline Casts Present (None) /lpf Influenza A (RT-PCR) Negative (Negative) Influenza B (RT-PCR) Negative (Negative) RSV (RT-PCR) Negative (Negative) SARS-CoV-2 RNA (RT-PCR) Negative (Negative) Discharge Plan Discharge Clinical Impression: Dehydration Patient Disposition: Home, Self-Care Condition: Stable Instructions: Antibiotic Form, Dehydration (DC) Additional Instructions: Adrian was seen for agitation. He was slightly dehydrated. Please make sure he is drinking plenty of fluids. His urine some white blood cells and we will cover him for UTI while we await culture results. If his condition is to worsen please return to the ED immediately for re-evaluation. Patient Language: Bruneian Prescriptions: New cephalexin 500 mg capsule 500 mg PO Q12H Qty: 10 0RF No Action finasteride 5 mg tablet 5 mg PO DAILY Qty: 90 3RF hydrochlorothiazide 12.5 mg tablet 12.5 mg PO DAILY Rx Instructions: TAKE 1 TABLET BY MOUTH DAILY mirtazapine 30 mg tablet 30 mg PO HS oxybutynin chloride 5 mg tablet extended release 24 hr 5 mg PO HS pantoprazole 40 mg tablet,delayed release (DR/EC) 40 mg PO QAM Qty: 90 3RF quetiapine [Seroquel] 25 mg tablet 25 mg PO HS Qty: 90 0RF tamsulosin 0.4 mg capsule 0.4 mg PO HS Qty: 90 2RF Rx Instructions: 1/2 hr following the same meal each day pyridoxine (vitamin B6) [Vitamin B-6] 100 mg tablet 100 mg PO QAM Qty: 90 0RF lisinopril 20 mg tablet See Rx Instructions .ROUTE .COMPLEX Qty: 90 2RF Dose Instruction: TAKE ONE TABLET BY MOUTH DAILY Rx Instructions: TAKE ONE TABLET BY MOUTH DAILY Follow-up/Referrals: Juan Fishman MD [Primary Care Provider] -
[2024-12-07] MEDS: CEPHALEXIN 500 MG CAPSULE PO (14:54)
[2024-12-07] MEDS: SODIUM CHLORIDE 0.9% IV 1,000 ML 999 ML IV CONT (14:54)
[2024-12-07 15:45] VITALS: BP 143/69; PULSE 79; RESP 16; TEMP 36.6; O2SAT 98
== END 2024-12-07 16:15 ==
PROVIDERS: Emergency Medicine; Emergency Provider Emergency Medicine; PCP Family Medicine
DX: E86.0 Dehydration (principal); Z20.822 Contact with and (suspected) exposure to COVID-19; R82.998 Other abnormal findings in urine; F03.C0 Unspecified dementia, severe, without behavioral disturbance, psychotic disturbance, mood disturbance, and anxiety; I10 Essential (primary) hypertension; I25.10 Atherosclerotic heart disease of native coronary artery without angina pectoris; Z95.1 Presence of aortocoronary bypass graft; Z85.46 Personal history of malignant neoplasm of prostate; Z87.891 Personal history of nicotine dependence
CPT/HCPCS: 36415; 70450; 71045; 80053; 81001; 85025; 87086; 87637; 93005; 96360; 99284; A9270; J7030